=== PATIENT | male | born 1950 | race Caucasian/White ===

== ENCOUNTER 2021-04-19 07:54 | Inpatient (IN) | payer MEDICARE, MEDICAID, SELFPAY ==
[2021-04-19] VITALS (13 sets, daily range): BP systolic 134–178; BP diastolic 77–123; PULSE 78–107; RESP 16–20; TEMP 35.3–36.7; O2SAT 94–98; BMI 24.4
--- NOTE | 2021-04-19 | ECG_ITS ---
Test Reason : PRE OP Blood Pressure : / mmHG Vent. Rate : 082 BPM Atrial Rate : 082 BPM P-R Int : 142 ms QRS Dur : 088 ms QT Int : 396 ms P-R-T Axes : 044 047 048 degrees QTc Int : 462 ms Sinus rhythm with occasional Premature ventricular complexes Possible Left ventricular hypertrophy Abnormal ECG When compared with ECG of 27-AUG-2010 12:13, Premature ventricular complexes are now Present Referred By: Jemma Keller Electronically Signed By:EVELINE PACE MD
--- NOTE | ~2021-04-19 | CT_ITS ---
EXAMINATION: CT ABDOMEN AND PELVIS WITH CONTRAST CLINICAL INFORMATION: Left inguinal hernia incarceration. Abdominal pain. COMPARISON: CT abdomen and pelvis 11/29/2018 TECHNIQUE: Multidetector volumetric images were obtained from the superior aspect of the liver through the pubic symphysis following administration 85 mL of Omnipaque 350 intravenous contrast. Sagittal and coronal reformatted images were obtained on the technologist's workstation. Oral contrast: Yes This CT examination was performed using dose optimization techniques as appropriate, variously including the following: *Automated exposure control *Adjustment of mA and/or kV according to patient size (this includes techniques or standardized protocols for targeted exams where dose is matched to indication/reason for exam; i.e. extremities or head) *Use of iterative reconstruction technique DLP: 790 mGy-cm FINDINGS: LUNG BASES: The lung bases are clear. However there is 2 mm subpleural nodules in both lower lobes on axial image 3/3. The heart size is normal. LIVER, GALLBLADDER, AND BILIARY TREE: The liver is normal in size, shape, and diffusely hypoattenuated. There is a subtle hypodensity along the the ligament likely focal fatty sparing. No additional lesions visualized. There is no intrahepatic ductal dilatation. The gallbladder is unremarkable with no evidence of radiopaque gallstones, gallbladder wall thickening, or obvious pericholecystic inflammatory changes. PANCREAS: Unremarkable. SPLEEN: Unremarkable. ADRENAL GLANDS: Unremarkable. KIDNEYS AND URETERS: The kidneys are normal in size, shape, and attenuation. No hydronephrosis, hydroureter, or calculi seen. No perinephric stranding. BLADDER: Unremarkable. GASTROINTESTINAL TRACT: There is a dilated entire colon with air-fluid levels consistent with dynamic obstruction secondary to a incarcerated left inguinal hernia containing sigmoid colon which extends into the mid to distal left inguinal canal. There is mild fat stranding along the left proximal inguinal ring. The small bowel loops are opacified with oral contrast and are normal caliber. Appendix is not visualized with certainty. ABDOMINAL WALL: There is a small umbilical hernia containing fat. LYMPH NODES: Normal. VASCULAR: Unremarkable. PELVIC VISCERA: The prostate gland is significantly enlarged indenting and extending into the base of bladder. Heterogeneous enhancement is seen in the central gland. There is no free fluid or free air seen. OSSEOUS STRUCTURES: There are degenerative disc changes L5-S1 disc level with moderate ventral spondylosis L2-L3 through L5-S1 disc levels. No lytic or sclerotic process seen. CT/CT abdomen pelvis w con IMPRESSION: Incarcerated left inguinal hernia containing descending and sigmoid colon resulting in dynamic colonic obstruction. There is mild fat stranding along the proximal left inguinal canal. Moderate prostate enlargement with heterogeneous enhancement in the central gland extending into the base of bladder. Diffuse hepatic steatosis without focal lesion.
--- NOTE | 2021-04-19 08:21 | ED.ABDPAIN ---
HPI - Abdominal Pain General Chief Complaint: Abdominal Pain Stated Complaint: hernia for 2 years SEVERE pain Time Seen by Provider: 04/19/21 08:20 Source: patient, EMS and infection control specialist Mode of arrival: EMS Limitations: no limitations History of Present Illness HPI narrative: 70 years old male came in for evaluation of abdominal pain. Abdominal pain started about 4 days ago, pain is constant, described as dull aching pain, localized to the left lower inguinal area, pain described as severe 10/10, patient been having small bowel movements, passing gas, pain is associated with nausea and vomiting, patient had a history of inguinal hernia with history of repair and recurrence. Patient declined fever or chills. Related Data Allergies Allergy/AdvReac Type Severity Reaction Status Date / Time No Known Drug Allergies Allergy Unknown NONE Unverified 02/07/20 17:26 [NO KNOWN DRUG ALLERGIES] Review of Systems Review of Systems All other systems are reviewed and are negative Constitutional: Reports as per HPI and Reports no additional constitutional complaints Eyes: Reports as per HPI and Reports no additional eye complaints Reports system reviewed and no additional complaints, except as documented Cardiovascular: Reports as per HPI and Reports no additional cardiovascular complaints Respiratory: Reports as per HPI and Reports no additional respiratory complaints Gastrointestinal: Reports as per HPI and Reports no additional gastrointestinal complaints Genitourinary: Reports no additional female genitourinary complaints Musculoskeletal: Reports no additional musculoskeletal complaints Skin/Breast: Reports system reviewed and no additional complaints, except as docu Psychiatric: Reports no additional psychiatric complaints Endocrine: Reports no additional endocrine complaints Hematologic/Lymphatic: Reports no additional hematologic/lymphatic complaints Allergic/Immunologic: Reports no additional allergic/immunologic complaints Reports system reviewed and no additional complaints, except as documented and Reports Abnormal speech present Physical Exam Vital Signs: Vital Signs: Last Vital Signs Temp 98.1 F 04/19/21 12:32 Pulse 88 04/19/21 12:32 Resp 20 04/19/21 12:32 BP 158/101 H 04/19/21 12:32 Pulse Ox 95 04/19/21 12:32 Body Mass Index 24.4 Vital signs have been reviewed as appeared to be correct. Blood pressure normal. Heart rate normal. Respiration rate normal. Temperature normal. Oxygen saturation normal. Appearance: Alert. Oriented X3. No acute distress. Head: Normal external exam. Normocephalic. Atraumatic. No Doyle signs noted. No raccoon eyes noted Eyes: PERRLA. EOMI. Conjunctiva and sclera normal. Eyelids normal. ENT: TM's Normal. Pharynx normal. Uvula midline. Moist mucous membranes. No trismus noted. No drooling noted. No muffled voice noted. Neck: Normal inspection. Neck supple. FROM. No adenopathy. Thyroid Normal. No meningeal signs. No neck mass noted. CVS: Normal heart rate and rhythm. Heart sound normal. No murmurs noted. Pulses normal throughout. Respiratory: No respiratory distress. Painless inspiration. Breath sounds normal. No wheezes/rales/rhonchi noted. Chest nontender. No accessory muscle usage noted or decreased air movement noted. Abdomen: Soft, with mild tenderness over left inguinal hernia, no rebound tenderness, no guarding, 3 x 3 cm area of left inguinal protruding hernia, none reducible, skin over it is normal no redness or hotness. Bowel sounds normal in all 4 quadrants. No distention noted. No organomegaly noted. No visible injury noted. Back: No CVA tenderness. Full range of motion noted. Skin: Skin warm and dry. Normal skin color. Normal skin turgor. No rashes/lesions/lacerations noted. Extremities: No lower extremity edema. Extremities exhibit normal range of motion. Extremities nontender. Neuro: Oriented X 3. Cranial nerve exam: II-XII are grossly intact No motor deficit. No sensory deficit. Reflexes normal. Course Course Course Narrative: Assessment and plan. 70-year-old male came in for evaluation of left inguinal hernia pain, physical exam hernia is not reducible and incarcerated, with no sign of skin cellulitis a pelvic, patient met criteria for SIRS patient received IV fluids/antibiotic. The case discussed with Dr. Fair who is in the OR for another case. (case discussed with Dr. Fair at 13:10) MDM - Abdominal Pain Medical Records Attestation: I reviewed the patient's medical records. Lab Data Attestation: I reviewed the patient's lab results. Result diagrams: 04/19/21 10:04 04/19/21 10:04 Labs: Lab Results 04/19/21 04/19/21 04/19/21 Range/Units 10:04 10:04 10:04 WBC 12.1 H (4.8-10.8) X10*3/uL RBC 4.89 (4.60-5.80) X10*6/uL Hgb 15.1 (14.0-18.0) g/dl Hct 46.6 (42.0-52.0) % MCV 95.3 (80.0-98.0) fL MCH 30.9 (27.0-33.0) pg MCHC 32.4 (31.0-36.0) g/dl RDW 12.4 (11.0-16.0) % Plt Count 254 (160-400) X10*3/uL MPV 9.2 L (9.4-12.4) fL Immature Gran % (Auto) 0.2 (0.0-0.4) % Neut % (Auto) 85.9 H (45-73) % Lymph % (Auto) 10.3 L (20-40) % [place] % (Auto) 3.5 (2-11) % Eos % (Auto) 0.0 (0-4) % Baso % (Auto) 0.1 (0-2) % Lymph # (Auto) 1.3 (1.2-4.9) X10*3/uL [place] # (Auto) 0.4 (0.1-1.2) X10*3/uL Eos # (Auto) 0.0 (0.0-0.4) X10*3/uL Baso # (Auto) 0.0 (0.0-0.2) X10*3/uL Abs Immat Gran (auto) 0.03 (0.00-0.03) X10*3/uL Absolute Neuts (auto) 10.4 H (2.0-8.3) x10*3/uL Absolute Nucleated RBC 0.000 (0.0-0.012) X10*3/uL Nucleated RBC % (auto) 0.0 (0.0-0.2) /100WBC Sodium 140 (135-145) mmol/L Potassium 4.3 (3.3-5.1) mmol/L Chloride 103 (96-108) mmol/L Carbon Dioxide 26 (22-29) mmol/L Anion Gap 15 (12-20) BUN 15 (9-16) mg/dL Creatinine 0.97 (0.5-1.4) mg/dL Estim Creat Clear Calc 82.3 Estimated GFR > 60 Random Glucose 124 H (60-115) mg/dL Lactic Acid 2.3 H* (0.5-2.0) mmol/L Lactic Acid Fup @ 2Hr (0.5-2.0) mmol/L Calcium 9.7 (8.4-10.2) mg/dL Total Bilirubin 1.3 H (0.0-1.0) mg/dL Direct Bilirubin 0.5 (0.0-0.5) mg/dL AST 25 (5-37) U/L ALT 35 (0-40) U/L Alkaline Phosphatase 102 (39-117) U/L Total Protein 8.6 H (6.5-8.0) g/dL Albumin 4.9 (3.5-5.0) g/dL Lipase 20 (8-78) U/L Urine Color Urine Appearance Urine pH (5.0-8.0) Ur Specific [place] (1.005-1.025) Urine Protein (NEG-TRACE) MG/DL Urine Glucose (UA) (NEG) MG/DL Urine Ketones (NEG) MG/DL Urine Blood (NEG) Urine Nitrite (NEG) Ur Leukocyte Esterase (NEG) 04/19/21 04/19/21 Range/Units 12:30 12:30 WBC (4.8-10.8) X10*3/uL RBC (4.60-5.80) X10*6/uL Hgb (14.0-18.0) g/dl Hct (42.0-52.0) % MCV (80.0-98.0) fL MCH (27.0-33.0) pg MCHC (31.0-36.0) g/dl RDW (11.0-16.0) % Plt Count (160-400) X10*3/uL MPV (9.4-12.4) fL Immature Gran % (Auto) (0.0-0.4) % Neut % (Auto) (45-73) % Lymph % (Auto) (20-40) % [place] % (Auto) (2-11) % Eos % (Auto) (0-4) % Baso % (Auto) (0-2) % Lymph # (Auto) (1.2-4.9) X10*3/uL [place] # (Auto) (0.1-1.2) X10*3/uL Eos # (Auto) (0.0-0.4) X10*3/uL Baso # (Auto) (0.0-0.2) X10*3/uL Abs Immat Gran (auto) (0.00-0.03) X10*3/uL Absolute Neuts (auto) (2.0-8.3) x10*3/uL Absolute Nucleated RBC (0.0-0.012) X10*3/uL Nucleated RBC % (auto) (0.0-0.2) /100WBC Sodium (135-145) mmol/L Potassium (3.3-5.1) mmol/L Chloride (96-108) mmol/L Carbon Dioxide (22-29) mmol/L Anion Gap (12-20) BUN (9-16) mg/dL Creatinine (0.5-1.4) mg/dL Estim Creat Clear Calc Estimated GFR Random Glucose (60-115) mg/dL Lactic Acid (0.5-2.0) mmol/L Lactic Acid Fup @ 2Hr 1.7 (0.5-2.0) mmol/L Calcium (8.4-10.2) mg/dL Total Bilirubin (0.0-1.0) mg/dL Direct Bilirubin (0.0-0.5) mg/dL AST (5-37) U/L ALT (0-40) U/L Alkaline Phosphatase (39-117) U/L Total Protein (6.5-8.0) g/dL Albumin (3.5-5.0) g/dL Lipase (8-78) U/L Urine Color YELLOW Urine Appearance HAZY Urine pH 6.0 (5.0-8.0) Ur Specific [place] 1.015 (1.005-1.025) Urine Protein NEG (NEG-TRACE) MG/DL Urine Glucose (UA) NEG (NEG) MG/DL Urine Ketones 5 (NEG) MG/DL Urine Blood NEG (NEG) Urine Nitrite NEG (NEG) Ur Leukocyte Esterase NEG (NEG) Imaging Data CT scan - abdomen: Radiologist's impression: Incarcerated left inguinal hernia containing descending and sigmoid colon resulting in dynamic colonic obstruction. There is mild fat stranding along the proximal left inguinal canal. ? Moderate prostate enlargement with heterogeneous enhancement in the central gland extending into the base of bladder. ? Diffuse hepatic steatosis without focal lesion.? ? Discharge Plan Discharge Clinical Impression: Incarcerated inguinal hernia Patient Disposition: Admitted As Inpatient [facility] Past Medical History Medical History Anxiety Asthma Depression Hernia Social History Social History Patient Tobacco Use Status: Never used Tobacco Use of substances other than those prescribed or required for medical reasons: No Advance Directives: No Advance Directives Information Provided: No
[2021-04-19 10:11] LABS: MANUAL DIFF FLAG NO
[2021-04-19 10:12] LABS: Basophils Percent Auto 0.1 % (0-2); Hematocrit 46.6 % (42.0-52.0); Hemoglobin 15.1 g/dl (14.0-18.0); Imm Gran Abs Auto 0.03 X10*3/uL (0.00-0.03); Imm Gran Pct Auto 0.2 % (0.0-0.4); Lymphocytes Absolute Auto 1.3 X10*3/uL (1.2-4.9); Lymphocytes Percent Auto 10.3 % (20-40); Mean Corpuscular HGB Conc 32.4 g/dl (31.0-36.0); Mean Corpuscular Hemoglobin 30.9 pg (27.0-33.0); Mean Corpuscular Volume 95.3 fL (80.0-98.0); Mean Platelet Volume 9.2 fL (9.4-12.4); Monocytes Absolute Auto 0.4 X10*3/uL (0.1-1.2); Monocytes Percent Auto 3.5 % (2-11); Neutrophils Absolute Auto 10.4 x10*3/uL (2.0-8.3); Neutrophils Percent Auto 85.9 % (45-73); Platelet Count 254 X10*3/uL (160-400); Red Blood Count 4.89 X10*6/uL (4.60-5.80); Red Cell Distribution Width 12.4 % (11.0-16.0); White Blood Count 12.1 X10*3/uL (4.8-10.8)
[2021-04-19] MEDS: ondansetron HCL 4 MG/2 ML VIAL IVPUSH ×3 (10:18→21:34)
[2021-04-19] MEDS: Morphine Sulfate 2 MG/ML CARTRIDGE 1 MG IVPUSH ×2 (10:18→10:20)
[2021-04-19] MEDS: 0.9 % Sodium Chloride 1,000 ML 999 ML IVCONT (10:18)
[2021-04-19 10:34] LABS: Alanine Aminotransferase 35 U/L (0-40); Albumin Level 4.9 g/dL (3.5-5.0); Alkaline Phosphatase 102 U/L (39-117); Anion Gap 15 (12-20); Aspartate Amino Transferase 25 U/L (5-37); Bilirubin Direct 0.5 mg/dL (0.0-0.5); Bilirubin Total 1.3 mg/dL (0.0-1.0); Blood Urea Nitrogen 15 mg/dL (9-16); Calcium 9.7 mg/dL (8.4-10.2); Carbon Dioxide 26 mmol/L (22-29); Chloride 103 mmol/L (96-108); Creatinine Clr Calc Pharmacy 82.3; Estimated Glomerular Filt Rate > 60; Glucose Random 124 mg/dL (60-115); Lipase 20 U/L (8-78); Potassium 4.3 mmol/L (3.3-5.1); Sodium 140 mmol/L (135-145); Total Protein 8.6 g/dL (6.5-8.0)
[2021-04-19 10:38] LABS: Lactic Acid 2.3 mmol/L (0.5-2.0)
[2021-04-19] MEDS: Piperacillin Sodium/Tazobactam 3.375 GM in 0.9 % Sodium Chloride 50 ML IV (11:37)
[2021-04-19] MEDS: iohexoL 350 MG/ML 100 ML INFUS..BTL IV (11:41)
[2021-04-19] MEDS: Barium Sulfate Oral (Mocha) 450 ML ORAL.SUSP PO (11:42)
--- NOTE | 2021-04-19 11:53 | PC.NURSE ---
bp 178/108 MD TOVAR MADE AWARE
[2021-04-19 12:11] LABS: Reflex Lactate? Lactic Acid Added
[2021-04-19 12:42] LABS: Appearance Urine HAZY; Color Urine YELLOW; Glucose Urine UA NEG (NEG); Leukocyte Esterase Urine NEG (NEG); Nitrite Urine NEG (NEG); Specific Gravity - Urine 1.015 (1.005-1.025); Urine Blood NEG (NEG); Urine Ketones 5 MG/DL (NEG); Urine Protein NEG (NEG-TRACE)
[2021-04-19 12:52] LABS: ~Lactic Acid-LAB USE ONLY 1.7 mmol/L (0.5-2.0)
[2021-04-19] MEDS: HYDROmorphone HCl 1 MG/ML SYRINGE IVPUSH ×2 (13:08→21:41)
--- NOTE | 2021-04-19 15:01 | PHA.MEDREC ---
Pharmacy Consult ? Medication Reconciliation Pharmacy has completed the medication reconciliation. Kitty RiveraD
--- NOTE | 2021-04-19 15:04 | HO.ANESPROP2 ---
HPI - Anesthesia Eval Consult details Narrative: Incarscerated left inguinal hernia PMFSH Active Problems Active Problems: All Active Problems (Updated 04/19/21 @ 14:42 by Jemma Keller MD) Incarcerated inguinal hernia (Acute) Past Medical History Medical History Anxiety Asthma Depression Hernia Functional capacity: independent ambulation Family History Family history of problems with anesthesia: No Surgical History History of Problems with Anesthesia: No Social History Social History Patient Tobacco Use Status: Never used Tobacco Use of substances other than those prescribed or required for medical reasons: No Advance Directives: No Advance Directives Information Provided: No Meds Allergies Allergy/AdvReac Type Severity Reaction Status Date / Time No Known Drug Allergies Allergy Unknown NONE Unverified 02/07/20 17:26 [NO KNOWN DRUG ALLERGIES] Active Medications: Current Medications Pharmacy Consult (Consult Rx Perform Med Rec) 1 each MISCELLANE ONCE PRN PRN Reason: Consult order Home Medications Medication Instructions Recorded Confirmed Last Taken Type albuterol sulfate 90 mcg/actuation 2 puff INHALATION Q6H PRN 04/19/21 04/19/21 Unknown History aerosol inhaler (Ventolin HFA) alprazolam 2 mg tablet 1 tab PO BID PRN 04/19/21 04/19/21 04/19/21 History ascorbic acid (vitamin C) 500 mg 500 mg PO BID 04/19/21 04/19/21 04/19/21 History tablet (Vitamin C) cholecalciferol (vitamin D3) 10 10 mcg PO DAILY 04/19/21 04/19/21 04/19/21 History mcg (400 unit) tablet (Vitamin D3) doxepin 100 mg capsule 200 mg PO BEDTIME 04/19/21 04/19/21 04/18/21 History morphine 60 mg tablet,extended 1 tab PO BID 04/19/21 04/19/21 04/19/21 History release trazodone 50 mg tablet 1 tab PO BEDTIME 04/19/21 04/19/21 04/18/21 History Exam Exam Date and Time: April 19, 2021 1504 Height,Weight and Vital Signs: Height 6 ft 1 in Weight 83.915 kg Last Vital Signs Temp 98.1 F 04/19/21 12:32 Pulse 88 04/19/21 12:32 Resp 20 04/19/21 12:32 BP 158/101 H 04/19/21 12:32 Pulse Ox 95 04/19/21 12:32 Pertinent Lab Results Pertinent Lab Results: Laboratory Tests 04/19/21 04/19/21 04/19/21 10:04 10:04 10:04 WBC 12.1 H RBC 4.89 Hgb 15.1 Hct 46.6 MCV 95.3 MCH 30.9 MCHC 32.4 RDW 12.4 Plt Count 254 MPV 9.2 L Immature Gran % (Auto) 0.2 Neut % (Auto) 85.9 H Lymph % (Auto) 10.3 L [place] % (Auto) 3.5 Eos % (Auto) 0.0 Baso % (Auto) 0.1 Lymph # (Auto) 1.3 [place] # (Auto) 0.4 Eos # (Auto) 0.0 Baso # (Auto) 0.0 Abs Immat Gran (auto) 0.03 Absolute Neuts (auto) 10.4 H Absolute Nucleated RBC 0.000 Nucleated RBC % (auto) 0.0 Sodium 140 Potassium 4.3 Chloride 103 Carbon Dioxide 26 Anion Gap 15 BUN 15 Creatinine 0.97 Estim Creat Clear Calc 82.3 Estimated GFR > 60 Random Glucose 124 H Lactic Acid 2.3 H* Lactic Acid Fup @ 2Hr Calcium 9.7 Total Bilirubin 1.3 H Direct Bilirubin 0.5 AST 25 ALT 35 Alkaline Phosphatase 102 Total Protein 8.6 H Albumin 4.9 Lipase 20 Urine Color Urine Appearance Urine pH Ur Specific [place] Urine Protein Urine Glucose (UA) Urine Ketones Urine Blood Urine Nitrite Ur Leukocyte Esterase 04/19/21 04/19/21 12:30 12:30 WBC RBC Hgb Hct MCV MCH MCHC RDW Plt Count MPV Immature Gran % (Auto) Neut % (Auto) Lymph % (Auto) [place] % (Auto) Eos % (Auto) Baso % (Auto) Lymph # (Auto) [place] # (Auto) Eos # (Auto) Baso # (Auto) Abs Immat Gran (auto) Absolute Neuts (auto) Absolute Nucleated RBC Nucleated RBC % (auto) Sodium Potassium Chloride Carbon Dioxide Anion Gap BUN Creatinine Estim Creat Clear Calc Estimated GFR Random Glucose Lactic Acid Lactic Acid Fup @ 2Hr 1.7 Calcium Total Bilirubin Direct Bilirubin AST ALT Alkaline Phosphatase Total Protein Albumin Lipase Urine Color YELLOW Urine Appearance HAZY Urine pH 6.0 Ur Specific [place] 1.015 Urine Protein NEG Urine Glucose (UA) NEG Urine Ketones 5 Urine Blood NEG Urine Nitrite NEG Ur Leukocyte Esterase NEG Airway Mallampati Class: II TM Dist: >3cm Neck ROM: Full Loose/Missing/Broken Teeth: Yes (Only a few teeth present, all are stable) Heart: RRR Lungs: CTA Assessment and Plan Assessment Anesthesia Assessment: Anesthesia Plan Discussed and Chart Reviewed Final Anesthetic Review Family History of Problems with Anesthesia: No History of Problems with Anesthesia: No NPO: Yes ASA Class: II and Emergency Final Preanesthetic Review: No Changes in Pt Med Stat, Meds/Allgs Chart Reviewed, Consent Obtained/Reviewed and Anes Risks/Benef Reviewed Patient Risk: Intermediate Procedure Risk: Intermediate Anesthetic Plan Anesthetic Plan: GA Disposition: Standard PACU
--- NOTE | 2021-04-19 15:05 | PC.NURSE ---
surgery down to see pt
--- NOTE | 2021-04-19 15:17 | PC.NURSE ---
pt sleeping at this time
[2021-04-19 15:30] LABS: COVID-19 Test Negative (Negative)
[2021-04-19] MEDS: 0.9 % Sodium Chloride Flush 3 ML SYRINGE IVFLUSH (15:33)
[2021-04-19] MEDS: Dextrose 5 % and 0.9 % NaCl 1,000 ML 100 ML IVCONT (21:34)
[2021-04-20] VITALS (7 sets, daily range): BP systolic 115–145; BP diastolic 68–80; PULSE 72–92; RESP 15–18; TEMP 36.3–37.2; O2SAT 94–98
[2021-04-20] MEDS: HYDROmorphone HCl 1 MG/ML SYRINGE IVPUSH (03:56)
[2021-04-20 04:38] LABS: MANUAL DIFF FLAG NO
[2021-04-20 04:41] LABS: Basophils Percent Auto 0.1 % (0-2); Hematocrit 38.2 % (42.0-52.0); Hemoglobin 12.1 g/dl (14.0-18.0); Imm Gran Abs Auto 0.06 X10*3/uL (0.00-0.03); Imm Gran Pct Auto 0.4 % (0.0-0.4); Lymphocytes Absolute Auto 1.6 X10*3/uL (1.2-4.9); Lymphocytes Percent Auto 10.4 % (20-40); Mean Corpuscular HGB Conc 31.7 g/dl (31.0-36.0); Mean Corpuscular Hemoglobin 30.3 pg (27.0-33.0); Mean Corpuscular Volume 95.7 fL (80.0-98.0); Mean Platelet Volume 9.5 fL (9.4-12.4); Monocytes Absolute Auto 1.5 X10*3/uL (0.1-1.2); Neutrophils Absolute Auto 11.8 x10*3/uL (2.0-8.3); Neutrophils Percent Auto 79.1 % (45-73); Platelet Count 214 X10*3/uL (160-400); Red Blood Count 3.99 X10*6/uL (4.60-5.80); Red Cell Distribution Width 12.7 % (11.0-16.0); White Blood Count 14.9 X10*3/uL (4.8-10.8)
[2021-04-20 04:59] LABS: Anion Gap 14 (12-20); Blood Urea Nitrogen 14 mg/dL (9-16); Calcium 8.2 mg/dL (8.4-10.2); Carbon Dioxide 21 mmol/L (22-29); Chloride 108 mmol/L (96-108); Creatinine Clr Calc Pharmacy 98.6; Estimated Glomerular Filt Rate > 60; Glucose Random 143 mg/dL (60-115); Potassium 3.6 mmol/L (3.3-5.1); Sodium 139 mmol/L (135-145)
[2021-04-20] MEDS: Pantoprazole Sodium 40 MG/10 ML VIAL IVPUSH (05:44)
--- NOTE | 2021-04-20 08:34 | P.PNGS_ITS ---
Subjective Subjective Date of Service: 04/20/21 Interval history: Underwent repair of incarcerated left inguinal hernia last night Says he feels better Admits to incisional pain Passing flatus Physical Exam Vital Signs: Vital Signs: Last Vital Signs Temp 97.3 F 04/20/21 06:59 Pulse 72 04/20/21 06:59 Resp 17 04/20/21 06:59 BP 140/78 H 04/20/21 06:59 Pulse Ox 98 04/20/21 06:59 Body Mass Index 24.4 Const: General: comfortable and no acute distress Resp: Effort & Inspection: normal respiratory effort Cardio: Rate: regular rate GI: Other: Dressings dry, no cellulitis, incision clean Palpation (GI): Soft to palpation, not firm, no guarding and not rigid Objective Data Active Medications Albuterol Sulfate (Albuterol Sulfate 90 Mcg 8 Gm Inhaler) 2 puff INHALE Q6H PRN PRN Reason: Shortness Of Breath Albuterol Sulfate (Albuterol Sulfate (0.083%) 2.5 Mg/3 Ml Vial.Neb) 2.5 mg INHALE ONCE PRN PRN Reason: Wheezing Alprazolam (Alprazolam 0.5 Mg Tablet) 2 mg PO BID PRN PRN Reason: Anxiety Ascorbic Acid (Ascorbic Acid 500 Mg Tablet) 500 mg PO BID [facility] Last Admin: 04/19/21 21:39 Dose: Not Given Documented by: BELEM Non-Admin Reason: Patient Refused Doxepin HCl (Doxepin Hcl 25 Mg Capsule) 200 mg PO BEDTIME [facility] Last Admin: 04/19/21 21:39 Dose: Not Given Documented by: BELEM Non-Admin Reason: Patient Refused Fentanyl (Fentanyl Citrate/Pf 100 Mcg/2 Ml Vial) 50 mcg IVPUSH Q5M PRN; Protocol PRN Reason: Pain, Severe (Pain Scale 7-10) Hydromorphone HCl (Hydromorphone Hcl 0.5 Mg/0.5 Ml Syringe) 0.5 mg IVPUSH Q5M PRN; Protocol PRN Reason: Pain, Severe (Pain Scale 7-10) Hydromorphone HCl (Hydromorphone Hcl 1 Mg/Ml Syringe) 1 mg IVPUSH Q4H PRN; Protocol PRN Reason: Pain, Severe (Pain Scale 7-10) Last Admin: 04/20/21 03:56 Dose: 1 mg Documented by: CARYN Promethazine HCl 12.5 mg/ (Sodium Chloride) 50.5 mls @ 202 mls/hr IV ONCE PRN PRN Reason: Nausea and Vomiting Last Infusion: 04/19/21 21:29 Dose: 0 mls/hr Documented by: BELEM Dextrose/Sodium Chloride (D5ns) 1,000 mls @ 100 mls/hr IVCONT .Q10H [facility] Last Admin: 04/20/21 06:48 Dose: Not Given Documented by: CARYN Non-Admin Reason: IV Running Morphine Sulfate (Morphine Sulfate Er 30 Mg Tablet.Er) 60 mg PO BID [facility] Last Admin: 04/19/21 21:39 Dose: Not Given Documented by: BELEM Non-Admin Reason: Patient Refused Ondansetron HCl (Ondansetron Hcl 4 Mg/2 Ml Vial) 4 mg IVPUSH ONCE PRN PRN Reason: Nausea and Vomiting Ondansetron HCl (Ondansetron Hcl 4 Mg/2 Ml Vial) 4 mg IVPUSH Q6H PRN PRN Reason: Nausea Last Admin: 04/19/21 21:34 Dose: 4 mg Documented by: BELEM Oxycodone HCl (Oxycodone Hcl Immed Release 5 Mg Tablet) 10 mg PO ONCE PRN PRN Reason: Pain, Severe (Pain Scale 7-10) Pantoprazole Sodium (Pantoprazole Sodium 40 Mg/10 Ml Vial) 40 mg IVPUSH DAILY@0630 [facility] Last Admin: 04/20/21 05:44 Dose: 40 mg Documented by: CARYN Pharmacy Consult (Consult Rx Perform Med Rec) 1 each MISCELLANE ONCE PRN PRN Reason: Consult order Sodium Chloride (0.9 % Sodium Chloride Flush 3 Ml Syringe) [facility] Last Admin: 04/20/21 01:14 Dose: Not Given Documented by: CARYN Non-Admin Reason: IV Running Sodium Chloride (0.9 % Sodium Chloride Flush 3 Ml Syringe) 3 ml IVFLUSH QSIAFT [facility] Last Admin: 04/20/21 01:14 Dose: Not Given Documented by: CARYN Non-Admin Reason: IV Running Trazodone HCl (Trazodone Hcl 50 Mg Tablet) 50 mg PO BEDTIME [facility] Last Admin: 04/19/21 21:39 Dose: Not Given Documented by: BELEM Non-Admin Reason: Patient Refused Vitamin D (Cholecalciferol (Vitamin D3) 10 Mcg Tablet) 10 mcg PO DAILY [facility] Labs CBC & Chem 7: 04/20/21 04:16 04/20/21 04:16 Labs: Laboratory Results - last 24 hr 04/19/21 04/19/21 04/19/21 10:04 10:04 10:04 MCV 95.3 MCH 30.9 MCHC 32.4 RDW 12.4 Plt Count 254 MPV 9.2 L Immature Gran % (Auto) 0.2 Neut % (Auto) 85.9 H Lymph % (Auto) 10.3 L [place] % (Auto) 3.5 Eos % (Auto) 0.0 Baso % (Auto) 0.1 Lymph # (Auto) 1.3 [place] # (Auto) 0.4 Eos # (Auto) 0.0 Baso # (Auto) 0.0 Abs Immat Gran (auto) 0.03 Absolute Neuts (auto) 10.4 H Absolute Nucleated RBC 0.000 Nucleated RBC % (auto) 0.0 Anion Gap 15 Estim Creat Clear Calc 82.3 Estimated GFR > 60 Random Glucose 124 H Lactic Acid 2.3 H* Lactic Acid Fup @ 2Hr Calcium 9.7 Total Bilirubin 1.3 H Direct Bilirubin 0.5 AST 25 ALT 35 Alkaline Phosphatase 102 Total Protein 8.6 H Albumin 4.9 Lipase 20 Urine Color Urine Appearance Urine pH Ur Specific [place] Urine Protein Urine Glucose (UA) Urine Ketones Urine Blood Urine Nitrite Ur Leukocyte Esterase COVID-19 ([facility]) COVID-19 Clin Com 04/19/21 04/19/21 04/19/21 12:30 12:30 15:10 MCV MCH MCHC RDW Plt Count MPV Immature Gran % (Auto) Neut % (Auto) Lymph % (Auto) [place] % (Auto) Eos % (Auto) Baso % (Auto) Lymph # (Auto) [place] # (Auto) Eos # (Auto) Baso # (Auto) Abs Immat Gran (auto) Absolute Neuts (auto) Absolute Nucleated RBC Nucleated RBC % (auto) Anion Gap Estim Creat Clear Calc Estimated GFR Random Glucose Lactic Acid Lactic Acid Fup @ 2Hr 1.7 Calcium Total Bilirubin Direct Bilirubin AST ALT Alkaline Phosphatase Total Protein Albumin Lipase Urine Color YELLOW Urine Appearance HAZY Urine pH 6.0 Ur Specific [place] 1.015 Urine Protein NEG Urine Glucose (UA) NEG Urine Ketones 5 Urine Blood NEG Urine Nitrite NEG Ur Leukocyte Esterase NEG COVID-19 ([facility]) Negative COVID-19 Clin Com See Note 04/20/21 04/20/21 04:16 04:16 MCV 95.7 MCH 30.3 MCHC 31.7 RDW 12.7 Plt Count 214 MPV 9.5 Immature Gran % (Auto) 0.4 Neut % (Auto) 79.1 H Lymph % (Auto) 10.4 L [place] % (Auto) 10.0 Eos % (Auto) 0.0 Baso % (Auto) 0.1 Lymph # (Auto) 1.6 [place] # (Auto) 1.5 H Eos # (Auto) 0.0 Baso # (Auto) 0.0 Abs Immat Gran (auto) 0.06 H Absolute Neuts (auto) 11.8 H Absolute Nucleated RBC 0.000 Nucleated RBC % (auto) 0.0 Anion Gap 14 Estim Creat Clear Calc 98.6 Estimated GFR > 60 Random Glucose 143 H Lactic Acid Lactic Acid Fup @ 2Hr Calcium 8.2 L D Total Bilirubin Direct Bilirubin AST ALT Alkaline Phosphatase Total Protein Albumin Lipase Urine Color Urine Appearance Urine pH Ur Specific [place] Urine Protein Urine Glucose (UA) Urine Ketones Urine Blood Urine Nitrite Ur Leukocyte Esterase COVID-19 ([facility]) COVID-19 Clin Com Procedures Date of Service Date of Service: 04/20/21 Progress Note: A&P Assessment and plan (1) Incarcerated inguinal hernia: Status: Acute Assessment and Plan: Status post repair Looks well Abdomen soft and benign NG tube in place - possibly DC later on today she is passing flatus Will review operative notes by Dr. Fair when available Fall Risk Details Current Medications: Current Medications Albuterol Sulfate (Albuterol Sulfate 90 Mcg 8 Gm Inhaler) 2 puff INHALE Q6H PRN PRN Reason: Shortness Of Breath Albuterol Sulfate (Albuterol Sulfate (0.083%) 2.5 Mg/3 Ml Vial.Neb) 2.5 mg INHALE ONCE PRN PRN Reason: Wheezing Alprazolam (Alprazolam 0.5 Mg Tablet) 2 mg PO BID PRN PRN Reason: Anxiety Ascorbic Acid (Ascorbic Acid 500 Mg Tablet) 500 mg PO BID [facility] Last Admin: 04/19/21 21:39 Dose: Not Given Documented by: Doxepin HCl (Doxepin Hcl 25 Mg Capsule) 200 mg PO BEDTIME [facility] Last Admin: 04/19/21 21:39 Dose: Not Given Documented by: Fentanyl (Fentanyl Citrate/Pf 100 Mcg/2 Ml Vial) 50 mcg IVPUSH Q5M PRN; Protocol PRN Reason: Pain, Severe (Pain Scale 7-10) Hydromorphone HCl (Hydromorphone Hcl 0.5 Mg/0.5 Ml Syringe) 0.5 mg IVPUSH Q5M PRN; Protocol PRN Reason: Pain, Severe (Pain Scale 7-10) Hydromorphone HCl (Hydromorphone Hcl 1 Mg/Ml Syringe) 1 mg IVPUSH Q4H PRN; Protocol PRN Reason: Pain, Severe (Pain Scale 7-10) Last Admin: 04/20/21 03:56 Dose: 1 mg Documented by: Promethazine HCl 12.5 mg/ (Sodium Chloride) 50.5 mls @ 202 mls/hr IV ONCE PRN PRN Reason: Nausea and Vomiting Last Infusion: 04/19/21 21:29 Dose: Infused Documented by: Dextrose/Sodium Chloride (D5ns) 1,000 mls @ 100 mls/hr IVCONT .Q10H [facility] Last Admin: 04/20/21 06:48 Dose: Not Given Documented by: Morphine Sulfate (Morphine Sulfate Er 30 Mg Tablet.Er) 60 mg PO BID [facility] Last Admin: 04/19/21 21:39 Dose: Not Given Documented by: Ondansetron HCl (Ondansetron Hcl 4 Mg/2 Ml Vial) 4 mg IVPUSH ONCE PRN PRN Reason: Nausea and Vomiting Ondansetron HCl (Ondansetron Hcl 4 Mg/2 Ml Vial) 4 mg IVPUSH Q6H PRN PRN Reason: Nausea Last Admin: 04/19/21 21:34 Dose: 4 mg Documented by: Oxycodone HCl (Oxycodone Hcl Immed Release 5 Mg Tablet) 10 mg PO ONCE PRN PRN Reason: Pain, Severe (Pain Scale 7-10) Pantoprazole Sodium (Pantoprazole Sodium 40 Mg/10 Ml Vial) 40 mg IVPUSH DAILY@0630 [facility] Last Admin: 04/20/21 05:44 Dose: 40 mg Documented by: Pharmacy Consult (Consult Rx Perform Med Rec) 1 each MISCELLANE ONCE PRN PRN Reason: Consult order Sodium Chloride (0.9 % Sodium Chloride Flush 3 Ml Syringe) [facility] Last Admin: 04/20/21 01:14 Dose: Not Given Documented by: Sodium Chloride (0.9 % Sodium Chloride Flush 3 Ml Syringe) 3 ml IVFLUSH [facility] Last Admin: 04/20/21 01:14 Dose: Not Given Documented by: Trazodone HCl (Trazodone Hcl 50 Mg Tablet) 50 mg PO BEDTIME [facility] Last Admin: 04/19/21 21:39 Dose: Not Given Documented by: Vitamin D (Cholecalciferol (Vitamin D3) 10 Mcg Tablet) 10 mcg PO DAILY [facility] Time Spent With Patient Time: Total time spent is greater than 50% in coordination of care (as documented) at patient's floor/unit and/or counseling patient: Time with patient: 15 - 24 minutes Quality Stroke Does the patient have a stroke diagnosis?: No VTE Prior VTE?: No VTE Risk Level:: Surgical - moderate VTE Device Contraindication: N/A - Device Ordered VTE Drug Contraindication: N/A - Med Ordered
[2021-04-20] MEDS: ALPRAZolam 0.5 MG TABLET 2 MG PO (08:56)
[2021-04-20] MEDS: Dextrose 5 % and 0.9 % NaCl 1,000 ML 100 ML IVCONT ×2 (08:56→20:24)
[2021-04-20] MEDS: 0.9 % Sodium Chloride Flush 3 ML SYRINGE IVFLUSH (08:56)
[2021-04-20] MEDS: ondansetron HCL 4 MG/2 ML VIAL IVPUSH (08:58)
[2021-04-20] MEDS: oxyCODONE HCl Immed Release 5 MG TABLET 10 MG PO (10:34)
--- NOTE | 2021-04-20 12:42 | MHC.CARE ---
CARE Team international trade manager met with pt, utilizing a hospital taxicab coordinator, to discuss concerns regarding increased depression and anxiety. Pt spoke about psychosocial stressors, primarily related to significant loss and difficult family dynamics. Pt reported that his mother passed in October 2020 and his brother passed two months ago. Pt has not felt able to process or grieve these losses and reported increased anxiety and panic symptoms following his mother's . Pt identified that he has positive relationships with his grandchildren and his daughter, although spoke about feeling frustrated with his daughter making decisions for him. Pt was receptive to a discussion about outpatient mental health services and would like a referral to a therapist who can visit him in-home. This grant writer also discussed increased community engagement, such as through involvement with a local senior center. Pt did not have any further requests and is agreeable to the plan for referrals. CARE Team available for further follow-up if needed and will refer pt to [facility] for therapy.
--- NOTE | 2021-04-20 15:53 | MHC.CM.PN ---
nurse keycase assembler note l medical record reviewed , met with patient and his daughter with hebrew interperter, he lives alone is active and independent with all his.adls aND MOBILITY WITHOUT ANY DEVICES , HE HAS NO VNA SERVICES NOR DME SERVICES IN THE HOME . HE HAS TRANSPORTATION FA,HEAVENLY /FRIENDS FOR MEDICAL APPOINTMENT , CONFIRMED PCP RAYO GREY EDUCATED ABOUT THE IMPORTANCE OF HEALTH CARE PROXY AND HE WILL COMPLETE ONE TOMORROW PATIENT CONFIRMED THAT HE HAD THE COVID VACCINATION PFZEIR JULY 30/2021 AND THE SECOND AUGUST 30 2020 HE VOICED HAVING ANXIETY AND FEELING DEPRESSED AND WANTED TO SPEAK WITH SOMEONE , STAFF NURSE TO PLACE CARES TEAM CONSULT HE CURRENTLY IS NOT FOLLOWED BY ANYONE IN THE COMMUNITY. S/P POST OP DAY 1 FOR SURGICAL REPAIR OF HERNIA , HAS N-G TUBE IN PLACE, DISCHARGE PLAN HOME NO SERVICES VS HOME WITH NEW REFERRAL TO THE [facility] OR OTHER VNA IF AVAILABILITY CARES TEAM TO RECOMEND [facility] COUNSELING REFERRALS TO PATIENT ' HCP TO BE COMPLETED BEFORE D/C ,MEDICARE IMM GIVEN .
--- NOTE | 2021-04-20 16:16 | PC.NURSE ---
NG tube clamped at 0900. Residual checked @ 1300 for 0. Order to remove NG and patient allowed sips of H2O and ice chips. Explained everything to patient via staff interpreter. Patient has had 2 BM's today. Denies nausea and pain.
[2021-04-20] MEDS: Ascorbic Acid 500 MG TABLET PO (20:25)
[2021-04-20] MEDS: Morphine Sulfate ER 30 MG TABLET.ER 60 MG PO (20:25)
[2021-04-20] MEDS: traZODone HCL 50 MG TABLET PO (20:26)
[2021-04-20] MEDS: Doxepin HCl 25 MG CAPSULE 200 MG PO (20:26)
[2021-04-21] MEDS: 0.9 % Sodium Chloride Flush 3 ML SYRINGE IVFLUSH ×3 (00:36→19:59)
[2021-04-21 04:02] VITALS: BP 126/62; PULSE 88; RESP 17; TEMP 36.3; O2SAT 94
[2021-04-21] MEDS: Pantoprazole Sodium 40 MG/10 ML VIAL IVPUSH (06:38)
[2021-04-21] MEDS: Dextrose 5 % and 0.9 % NaCl 1,000 ML 100 ML IVCONT ×2 (06:39→16:47)
[2021-04-21 07:15] VITALS: BP 143/75; PULSE 78; RESP 18; TEMP 36.4; O2SAT 98
[2021-04-21] MEDS: Cholecalciferol (Vitamin D3) 10 MCG TABLET PO (07:35)
[2021-04-21] MEDS: Ascorbic Acid 500 MG TABLET PO ×2 (07:35→19:56)
[2021-04-21] MEDS: HYDROmorphone HCl 1 MG/ML SYRINGE IVPUSH (07:39)
--- NOTE | 2021-04-21 09:42 | P.PNGS_ITS ---
Subjective Subjective Date of Service: 04/21/21 <Brooklynn Cavazos PA-C - Last Filed: 04/22/21 11:10> 04/21/21 <Sergei Zaragoza MD - Last Filed: 04/21/21 12:41> Interval history: NGT removed yesterday after low residual. He remains without nausea. Mild soreness at incision. Hungry. <Brooklynn Cavazos PA-C - Last Filed: 04/22/21 11:10> Physical Exam Vital Signs: Vital Signs: Last Vital Signs Temp 97.6 F 04/21/21 07:15 Pulse 78 04/21/21 07:15 Resp 18 04/21/21 07:15 BP 143/75 H 04/21/21 07:15 Pulse Ox 98 04/21/21 07:15 Body Mass Index 24.4 <Brooklynn Cavazos PA-C - Last Filed: 04/22/21 11:10> Const: General: comfortable, no acute distress and alert <Brooklynn Cavazos PA-C - Last Filed: 04/22/21 11:10> Orientation/consciousness: patient oriented x3 <Brooklynn Cavazos PA-C - Last Filed: 04/22/21 11:10> Resp: Effort & Inspection: normal respiratory effort <Brooklynn Cavazos PA-C - Last Filed: 04/22/21 11:10> GI: Inspection: No distended and Yes incision (clean) <Brooklynn Cavazos PA-C - Last Filed: 04/22/21 11:10> Palpation (GI): Soft to palpation and Tenderness to palpation present (GI) (very mild) <Brooklynn Cavazos PA-C - Last Filed: 04/22/21 11:10> Skin: General skin exam: no rashes or lesions noted <Brooklynn Cavazos PA-C - Last Filed: 04/22/21 11:10> Neuro: General: patient oriented x3 <Brooklynn Cavazos PA-C - Last Filed: 04/22/21 11:10> Extrem: General: Yes no clubbing, cyanosis or edema <Brooklynn Cavazos PA-C - Last Filed: 04/22/21 11:10> Objective Data Active Medications Albuterol Sulfate (Albuterol Sulfate 90 Mcg 8 Gm Inhaler) 2 puff INHALE Q6H PRN PRN Reason: Shortness Of Breath Albuterol Sulfate (Albuterol Sulfate (0.083%) 2.5 Mg/3 Ml Vial.Neb) 2.5 mg INHALE ONCE PRN PRN Reason: Wheezing Alprazolam (Alprazolam 0.5 Mg Tablet) 2 mg PO BID PRN PRN Reason: Anxiety Last Admin: 04/20/21 08:56 Dose: 2 mg Documented by: DAT Ascorbic Acid (Ascorbic Acid 500 Mg Tablet) 500 mg PO BID [facility] Last Admin: 04/21/21 07:35 Dose: 500 mg Documented by: CARMINA Doxepin HCl (Doxepin Hcl 25 Mg Capsule) 200 mg PO BEDTIME [facility] Last Admin: 04/20/21 20:26 Dose: 200 mg Documented by: MANDO Fentanyl (Fentanyl Citrate/Pf 100 Mcg/2 Ml Vial) 50 mcg IVPUSH Q5M PRN; Protocol PRN Reason: Pain, Severe (Pain Scale 7-10) Hydromorphone HCl (Hydromorphone Hcl 0.5 Mg/0.5 Ml Syringe) 0.5 mg IVPUSH Q5M PRN; Protocol PRN Reason: Pain, Severe (Pain Scale 7-10) Hydromorphone HCl (Hydromorphone Hcl 1 Mg/Ml Syringe) 1 mg IVPUSH Q4H PRN; Protocol PRN Reason: Pain, Severe (Pain Scale 7-10) Last Admin: 04/21/21 07:39 Dose: 1 mg Documented by: CARMINA Promethazine HCl 12.5 mg/ (Sodium Chloride) 50.5 mls @ 202 mls/hr IV ONCE PRN PRN Reason: Nausea and Vomiting Last Infusion: 04/19/21 21:29 Dose: 0 mls/hr Documented by: BELEM Dextrose/Sodium Chloride (D5ns) 1,000 mls @ 100 mls/hr IVCONT .Q10H [facility] Last Admin: 04/21/21 06:39 Dose: 100 mls/hr Documented by: CARYN Morphine Sulfate (Morphine Sulfate Er 30 Mg Tablet.Er) 60 mg PO BID [facility] Last Admin: 04/20/21 20:25 Dose: 60 mg Documented by: MANDO Ondansetron HCl (Ondansetron Hcl 4 Mg/2 Ml Vial) 4 mg IVPUSH ONCE PRN PRN Reason: Nausea and Vomiting Ondansetron HCl (Ondansetron Hcl 4 Mg/2 Ml Vial) 4 mg IVPUSH Q6H PRN PRN Reason: Nausea Last Admin: 04/20/21 08:58 Dose: 4 mg Documented by: DAT Pantoprazole Sodium (Pantoprazole Sodium 40 Mg/10 Ml Vial) 40 mg IVPUSH DAILY@0630 [facility] Last Admin: 04/21/21 06:38 Dose: 40 mg Documented by: CARYN Pharmacy Consult (Consult Rx Perform Med Rec) 1 each MISCELLANE ONCE PRN PRN Reason: Consult order Sodium Chloride (0.9 % Sodium Chloride Flush 3 Ml Syringe) 3 ml IVFLUSH [facility] Last Admin: 04/21/21 07:42 Dose: 3 ml Documented by: CARMINA Sodium Chloride (0.9 % Sodium Chloride Flush 3 Ml Syringe) 3 ml IVFLUSH [facility] Last Admin: 04/21/21 07:42 Dose: Not Given Documented by: CARMINA Non-Admin Reason: IV Running Trazodone HCl (Trazodone Hcl 50 Mg Tablet) 50 mg PO BEDTIME [facility] Last Admin: 04/20/21 20:26 Dose: 50 mg Documented by: MANDO Vitamin D (Cholecalciferol (Vitamin D3) 10 Mcg Tablet) 10 mcg PO DAILY [facility] Last Admin: 04/21/21 07:35 Dose: 10 mcg Documented by: CARMINA <Brooklynn Cavazos PA-C - Last Filed: 04/22/21 11:10> Labs CBC & Chem 7: : 04/20/21 04:16 04/20/21 04:16 <Brooklynn Cavazos PA-C - Last Filed: 04/22/21 11:10> Microbiology Microbiology Results: Microbiology 04/19/21 11:36 Blood Culture - Preliminary Blood - Venous No growth after 24 hours. 04/19/21 09:54 Blood Culture - Preliminary Blood - Venous No growth after 24 hours. <Brooklynn Cavazos PA-C - Last Filed: 04/22/21 11:10> Procedures Date of Service Date of Service: 04/21/21 <Sergei Zaragoza MD - Last Filed: 04/21/21 12:41> Progress Note: A&P Assessment and plan (1) Incarcerated inguinal hernia: Status: Acute <Brooklynn Cavazos PA-C - Last Filed: 04/22/21 11:10> Assessment and Plan: He continues to feel well Minimal pain Says he is hungry and wants to eat Slowly advance diet Encourage ambulation Clinically doing well Seen and examined - agree with AJ Cavazos <Sergei Zaragoza MD - Last Filed: 04/21/21 12:41> Assessment and Plan: 70 year old male admitted with bowel obstruction secondary to incarcerated left inguinal hernia containing colon. He is POD #2 s/p repair of incarcerated left inguinal hernia with mesh. He is doing well. NGT removed yesterday. Abd benign- soft, incisional clean. Will advance to clear liquids. Encouraged OOB. <Brooklynn Cavazos PA-C - Last Filed: 04/22/21 11:10> Fall Risk Details Current Medications: Current Medications Albuterol Sulfate (Albuterol Sulfate 90 Mcg 8 Gm Inhaler) 2 puff INHALE Q6H PRN PRN Reason: Shortness Of Breath Albuterol Sulfate (Albuterol Sulfate (0.083%) 2.5 Mg/3 Ml Vial.Neb) 2.5 mg INHALE ONCE PRN PRN Reason: Wheezing Alprazolam (Alprazolam 0.5 Mg Tablet) 2 mg PO BID PRN PRN Reason: Anxiety Last Admin: 04/20/21 08:56 Dose: 2 mg Documented by: Ascorbic Acid (Ascorbic Acid 500 Mg Tablet) 500 mg PO BID [facility] Last Admin: 04/21/21 07:35 Dose: 500 mg Documented by: Doxepin HCl (Doxepin Hcl 25 Mg Capsule) 200 mg PO BEDTIME [facility] Last Admin: 04/20/21 20:26 Dose: 200 mg Documented by: Fentanyl (Fentanyl Citrate/Pf 100 Mcg/2 Ml Vial) 50 mcg IVPUSH Q5M PRN; Protocol PRN Reason: Pain, Severe (Pain Scale 7-10) Hydromorphone HCl (Hydromorphone Hcl 0.5 Mg/0.5 Ml Syringe) 0.5 mg IVPUSH Q5M PRN; Protocol PRN Reason: Pain, Severe (Pain Scale 7-10) Hydromorphone HCl (Hydromorphone Hcl 1 Mg/Ml Syringe) 1 mg IVPUSH Q4H PRN; Protocol PRN Reason: Pain, Severe (Pain Scale 7-10) Last Admin: 04/21/21 07:39 Dose: 1 mg Documented by: Promethazine HCl 12.5 mg/ (Sodium Chloride) 50.5 mls @ 202 mls/hr IV ONCE PRN PRN Reason: Nausea and Vomiting Last Infusion: 04/19/21 21:29 Dose: Infused Documented by: Dextrose/Sodium Chloride (D5ns) 1,000 mls @ 100 mls/hr IVCONT .Q10H [facility] Last Admin: 04/21/21 06:39 Dose: 100 mls/hr Documented by: Morphine Sulfate (Morphine Sulfate Er 30 Mg Tablet.Er) 60 mg PO BID [facility] Last Admin: 04/20/21 20:25 Dose: 60 mg Documented by: Ondansetron HCl (Ondansetron Hcl 4 Mg/2 Ml Vial) 4 mg IVPUSH ONCE PRN PRN Reason: Nausea and Vomiting Ondansetron HCl (Ondansetron Hcl 4 Mg/2 Ml Vial) 4 mg IVPUSH Q6H PRN PRN Reason: Nausea Last Admin: 04/20/21 08:58 Dose: 4 mg Documented by: Pantoprazole Sodium (Pantoprazole Sodium 40 Mg/10 Ml Vial) 40 mg IVPUSH DAILY@0630 [facility] Last Admin: 04/21/21 06:38 Dose: 40 mg Documented by: Pharmacy Consult (Consult Rx Perform Med Rec) 1 each MISCELLANE ONCE PRN PRN Reason: Consult order Sodium Chloride (0.9 % Sodium Chloride Flush 3 Ml Syringe) 3 ml IVFLUSH [facility] Last Admin: 04/21/21 07:42 Dose: 3 ml Documented by: Sodium Chloride (0.9 % Sodium Chloride Flush 3 Ml Syringe) 3 ml IVFLUSH [facility] Last Admin: 04/21/21 07:42 Dose: Not Given Documented by: Trazodone HCl (Trazodone Hcl 50 Mg Tablet) 50 mg PO BEDTIME [facility] Last Admin: 04/20/21 20:26 Dose: 50 mg Documented by: Vitamin D (Cholecalciferol (Vitamin D3) 10 Mcg Tablet) 10 mcg PO DAILY [facility] Last Admin: 04/21/21 07:35 Dose: 10 mcg Documented by: <Brooklynn Cavazos PA-C - Last Filed: 04/22/21 11:10> Time Spent With Patient Time: Total time spent is greater than 50% in coordination of care (as documented) at patient's floor/unit and/or counseling patient: <Brooklynn Cavazos PA-C - Last Filed: 04/22/21 11:10> Time with patient: 15 - 24 minutes <Brooklynn Cavazos PA-C - Last Filed: 04/22/21 11:10> Quality Stroke Does the patient have a stroke diagnosis?: No <Brooklynn Cavazos PA-C - Last Filed: 04/22/21 11:10> VTE Prior VTE?: No <Brooklynn Cavazos PA-C - Last Filed: 04/22/21 11:10> VTE Risk Level:: Surgical - moderate <Brooklynn Cavazos PA-C - Last Filed: 04/22/21 11:10> VTE Device Contraindication: N/A - Device Ordered <Brooklynn Cavazos PA-C - Last Filed: 04/22/21 11:10> VTE Drug Contraindication: N/A - Med Ordered <Brooklynn Cavazos PA-C - Last Filed: 04/22/21 11:10>
[2021-04-21 11:27] VITALS: BP 119/80; PULSE 78; RESP 17; TEMP 37.3; O2SAT 95
--- NOTE | 2021-04-21 13:02 | HO.POSTANES ---
Post Anesthesia Evaluation Post Anesthesia Evaluation Vital Signs: Vital Signs Temp Pulse Resp BP Pulse Ox 04/21/21 11:27 99.1 F 78 17 119/80 95 04/21/21 07:15 97.6 F 78 18 143/75 H 98 04/21/21 04:02 97.3 F 88 17 126/62 94 Anesthesia: General Mental Status: Awake Pain Control: Satisfactory Nausea/Vomiting: None Hydration: Adequate Anesthesia-Related Issues: No Anes. Related Issues
[2021-04-21 15:32] VITALS: BP 152/79; PULSE 78; RESP 14; TEMP 36.7; O2SAT 98
[2021-04-21 19:46] VITALS: BP 143/76; PULSE 77; RESP 18; TEMP 36.7; O2SAT 93
[2021-04-21] MEDS: traZODone HCL 50 MG TABLET PO (19:56)
[2021-04-21] MEDS: Doxepin HCl 25 MG CAPSULE 200 MG PO (19:57)
[2021-04-22] VITALS: BP 153/73; PULSE 82; RESP 18; TEMP 36.3; O2SAT 93
[2021-04-22] MEDS: Dextrose 5 % and 0.9 % NaCl 1,000 ML 100 ML IVCONT (01:30)
[2021-04-22 03:22] VITALS: BP 127/75; PULSE 84; RESP 18; TEMP 36.9; O2SAT 95
[2021-04-22] MEDS: Pantoprazole Sodium 40 MG/10 ML VIAL IVPUSH (05:16)
[2021-04-22 07:08] VITALS: BP 149/83; PULSE 88; RESP 18; TEMP 36.6; O2SAT 98
[2021-04-22] MEDS: Ascorbic Acid 500 MG TABLET PO (09:00)
[2021-04-22] MEDS: 0.9 % Sodium Chloride Flush 3 ML SYRINGE IVFLUSH ×2 (09:00)
[2021-04-22] MEDS: Cholecalciferol (Vitamin D3) 10 MCG TABLET PO (09:00)
--- NOTE | 2021-04-22 11:10 | P.PNGS_ITS ---
Subjective Subjective Date of Service: 04/22/21 <Brooklynn Cavazos PA-C - Last Filed: 04/22/21 11:13> 04/22/21 <Sergei Zaragoza MD - Last Filed: 04/22/21 12:12> Interval history: Feels well. Denies any pain. Continues to pass flatus. Tolerating clear liquids and feels hungry. <Brooklynn Cavazos PA-C - Last Filed: 04/22/21 11:13> Physical Exam Vital Signs: Vital Signs: Last Vital Signs Temp 97.9 F 04/22/21 07:08 Pulse 88 04/22/21 07:08 Resp 18 04/22/21 07:08 BP 149/83 H 04/22/21 07:08 Pulse Ox 98 04/22/21 07:08 BMI result Body Mass Index 24.4 <Brooklynn Cavazos PA-C - Last Filed: 04/22/21 11:13> Const: General: comfortable, no acute distress and alert <Brooklynn Cavazos PA-C - Last Filed: 04/22/21 11:13> Orientation/consciousness: patient oriented x3 <Brooklynn Cavazos PA-C - Last Filed: 04/22/21 11:13> Resp: Effort & Inspection: normal respiratory effort <Brooklynn Cavazos PA-C - Last Filed: 04/22/21 11:13> GI: Inspection: No distended and Yes incision (clean) <Brooklynn Cavazos PA-C - Last Filed: 04/22/21 11:13> Palpation (GI): Soft to palpation, nontender, no guarding and not rigid <Brooklynn Cavazos PA-C - Last Filed: 04/22/21 11:13> Skin: General skin exam: no rashes or lesions noted <Brooklynn Cavazos PA-C - Last Filed: 04/22/21 11:13> Neuro: General: patient oriented x3 <Brooklynn Cavazos PA-C - Last Filed: 04/22/21 11:13> Extrem: General: Yes no clubbing, cyanosis or edema <Brooklynn Cavazos PA-C - Last Filed: 04/22/21 11:13> Objective Data Active Medications Albuterol Sulfate (Albuterol Sulfate 90 Mcg 8 Gm Inhaler) 2 puff INHALE Q6H PRN PRN Reason: Shortness Of Breath Albuterol Sulfate (Albuterol Sulfate (0.083%) 2.5 Mg/3 Ml Vial.Neb) 2.5 mg INHALE ONCE PRN PRN Reason: Wheezing Alprazolam (Alprazolam 0.5 Mg Tablet) 2 mg PO BID PRN PRN Reason: Anxiety Last Admin: 04/20/21 08:56 Dose: 2 mg Documented by: DAT Ascorbic Acid (Ascorbic Acid 500 Mg Tablet) 500 mg PO BID [facility] Last Admin: 04/22/21 09:00 Dose: 500 mg Documented by: DAT Doxepin HCl (Doxepin Hcl 25 Mg Capsule) 200 mg PO BEDTIME [facility] Last Admin: 04/21/21 19:57 Dose: 200 mg Documented by: JAMES Fentanyl (Fentanyl Citrate/Pf 100 Mcg/2 Ml Vial) 50 mcg IVPUSH Q5M PRN; Protocol PRN Reason: Pain, Severe (Pain Scale 7-10) Hydromorphone HCl (Hydromorphone Hcl 0.5 Mg/0.5 Ml Syringe) 0.5 mg IVPUSH Q5M PRN; Protocol PRN Reason: Pain, Severe (Pain Scale 7-10) Hydromorphone HCl (Hydromorphone Hcl 1 Mg/Ml Syringe) 1 mg IVPUSH Q4H PRN; Protocol PRN Reason: Pain, Severe (Pain Scale 7-10) Last Admin: 04/21/21 07:39 Dose: 1 mg Documented by: CARMINA Promethazine HCl 12.5 mg/ (Sodium Chloride) 50.5 mls @ 202 mls/hr IV ONCE PRN PRN Reason: Nausea and Vomiting Last Infusion: 04/19/21 21:29 Dose: 0 mls/hr Documented by: BELEM Morphine Sulfate (Morphine Sulfate Er 30 Mg Tablet.Er) 60 mg PO BID [facility] Last Admin: 04/22/21 09:00 Dose: Not Given Documented by: DAT Non-Admin Reason: Patient Refused Ondansetron HCl (Ondansetron Hcl 4 Mg/2 Ml Vial) 4 mg IVPUSH ONCE PRN PRN Reason: Nausea and Vomiting Ondansetron HCl (Ondansetron Hcl 4 Mg/2 Ml Vial) 4 mg IVPUSH Q6H PRN PRN Reason: Nausea Last Admin: 04/20/21 08:58 Dose: 4 mg Documented by: DAT Pantoprazole Sodium (Pantoprazole Sodium 40 Mg/10 Ml Vial) 40 mg IVPUSH DAILY@0630 [facility] Last Admin: 04/22/21 05:16 Dose: 40 mg Documented by: JAMES Pharmacy Consult (Consult Rx Perform Med Rec) 1 each MISCELLANE ONCE PRN PRN Reason: Consult order Sodium Chloride (0.9 % Sodium Chloride Flush 3 Ml Syringe) 3 ml IVFLUSH [facility] Last Admin: 04/22/21 09:00 Dose: 3 ml Documented by: DAT Sodium Chloride (0.9 % Sodium Chloride Flush 3 Ml Syringe) 3 ml IVFLUSH [facility] Last Admin: 04/22/21 09:00 Dose: 3 ml Documented by: DAT Trazodone HCl (Trazodone Hcl 50 Mg Tablet) 50 mg PO BEDTIME [facility] Last Admin: 04/21/21 19:56 Dose: 50 mg Documented by: JAMES Vitamin D (Cholecalciferol (Vitamin D3) 10 Mcg Tablet) 10 mcg PO DAILY [facility] Last Admin: 04/22/21 09:00 Dose: 10 mcg Documented by: DAT <Brooklynn Cavazos PA-C - Last Filed: 04/22/21 11:13> Labs CBC & Chem 7: : 04/20/21 04:16 04/20/21 04:16 <Brooklynn Cavazos PA-C - Last Filed: 04/22/21 11:13> Microbiology Microbiology Results: Microbiology 04/19/21 11:36 Blood Culture - Preliminary Blood - Venous No growth after 48 hours. 04/19/21 09:54 Blood Culture - Preliminary Blood - Venous No growth after 48 hours. <Brooklynn Cavazos PA-C - Last Filed: 04/22/21 11:13> Procedures Date of Service Date of Service: 04/22/21 <Brooklynn Cavazos PA-C - Last Filed: 04/22/21 11:13> Progress Note: A&P Assessment and plan (1) Incarcerated inguinal hernia: Status: Acute <Brooklynn Cavazos PA-C - Last Filed: 04/22/21 11:13> Assessment and Plan: Continues to feel well Minimal pain Good GI function Abdomen soft and benign Incision clean Advance diet Possible home later today or tomorrow Seen and examined - agree with AJ Cavazos <Sergei Zaragoza MD - Last Filed: 04/22/21 12:12> Assessment and Plan: ? 70 year old male admitted with bowel obstruction secondary to incarcerated left inguinal hernia containing colon. He is POD #3 s/p repair of incarcerated left inguinal hernia with mesh. He is doing well without pain and tolerating clear liquids. Abd benign- soft, incision clean. Will advance to so lid diet. If tolerating, stable for d/c to home later today or tomorrow. D/c IVF. <Brooklynn Cavazos PA-C - Last Filed: 04/22/21 11:13> Fall Risk Details Current Medications: Current Medications Albuterol Sulfate (Albuterol Sulfate 90 Mcg 8 Gm Inhaler) 2 puff INHALE Q6H PRN PRN Reason: Shortness Of Breath Albuterol Sulfate (Albuterol Sulfate (0.083%) 2.5 Mg/3 Ml Vial.Neb) 2.5 mg INHALE ONCE PRN PRN Reason: Wheezing Alprazolam (Alprazolam 0.5 Mg Tablet) 2 mg PO BID PRN PRN Reason: Anxiety Last Admin: 04/20/21 08:56 Dose: 2 mg Documented by: Ascorbic Acid (Ascorbic Acid 500 Mg Tablet) 500 mg PO BID [facility] Last Admin: 04/22/21 09:00 Dose: 500 mg Documented by: Doxepin HCl (Doxepin Hcl 25 Mg Capsule) 200 mg PO BEDTIME [facility] Last Admin: 04/21/21 19:57 Dose: 200 mg Documented by: Fentanyl (Fentanyl Citrate/Pf 100 Mcg/2 Ml Vial) 50 mcg IVPUSH Q5M PRN; Protocol PRN Reason: Pain, Severe (Pain Scale 7-10) Hydromorphone HCl (Hydromorphone Hcl 0.5 Mg/0.5 Ml Syringe) 0.5 mg IVPUSH Q5M PRN; Protocol PRN Reason: Pain, Severe (Pain Scale 7-10) Hydromorphone HCl (Hydromorphone Hcl 1 Mg/Ml Syringe) 1 mg IVPUSH Q4H PRN; Protocol PRN Reason: Pain, Severe (Pain Scale 7-10) Last Admin: 04/21/21 07:39 Dose: 1 mg Documented by: Promethazine HCl 12.5 mg/ (Sodium Chloride) 50.5 mls @ 202 mls/hr IV ONCE PRN PRN Reason: Nausea and Vomiting Last Infusion: 04/19/21 21:29 Dose: Infused Documented by: Morphine Sulfate (Morphine Sulfate Er 30 Mg Tablet.Er) 60 mg PO BID [facility] Last Admin: 04/22/21 09:00 Dose: Not Given Documented by: Ondansetron HCl (Ondansetron Hcl 4 Mg/2 Ml Vial) 4 mg IVPUSH ONCE PRN PRN Reason: Nausea and Vomiting Ondansetron HCl (Ondansetron Hcl 4 Mg/2 Ml Vial) 4 mg IVPUSH Q6H PRN PRN Reason: Nausea Last Admin: 04/20/21 08:58 Dose: 4 mg Documented by: Pantoprazole Sodium (Pantoprazole Sodium 40 Mg/10 Ml Vial) 40 mg IVPUSH DAILY@0630 [facility] Last Admin: 04/22/21 05:16 Dose: 40 mg Documented by: Pharmacy Consult (Consult Rx Perform Med Rec) 1 each MISCELLANE ONCE PRN PRN Reason: Consult order Sodium Chloride (0.9 % Sodium Chloride Flush 3 Ml Syringe) 3 ml IVFLUSH [facility] Last Admin: 04/22/21 09:00 Dose: 3 ml Documented by: Sodium Chloride (0.9 % Sodium Chloride Flush 3 Ml Syringe) 3 ml IVFLUSH [facility] Last Admin: 04/22/21 09:00 Dose: 3 ml Documented by: Trazodone HCl (Trazodone Hcl 50 Mg Tablet) 50 mg PO BEDTIME [facility] Last Admin: 04/21/21 19:56 Dose: 50 mg Documented by: Vitamin D (Cholecalciferol (Vitamin D3) 10 Mcg Tablet) 10 mcg PO DAILY [facility] Last Admin: 04/22/21 09:00 Dose: 10 mcg Documented by: <Brooklynn Cavazos PA-C - Last Filed: 04/22/21 11:13> Time Spent With Patient Time: Total time spent is greater than 50% in coordination of care (as d ocumented) at patient's floor/unit and/or counseling patient: <Brooklynn Cavazos PA-C - Last Filed: 04/22/21 11:13> Time with patient: 15 - 24 minutes <Brooklynn Cavazos PA-C - Last Filed: 04/22/21 11:13> Quality Stroke Does the patient have a stroke diagnosis?: No <Brooklynn Cavazos PA-C - Last Filed: 04/22/21 11:13> VTE Prior VTE?: No <Brooklynn Cavazos PA-C - Last Filed: 04/22/21 11:13> VTE Risk Level:: Surgical - moderate <Brooklynn Cavazos PA-C - Last Filed: 04/22/21 11:13> VTE Device Contraindication: N/A - Device Ordered <Brooklynn Cavazos PA-C - Last Filed: 04/22/21 11:13> VTE Drug Contraindication: N/A - Med Ordered <Brooklynn Cavazos PA-C - Last Filed: 04/22/21 11:13>
[2021-04-22 11:26] VITALS: BP 163/83; PULSE 90; RESP 19; TEMP 36.6; O2SAT 97
--- NOTE | 2021-04-22 14:16 | MHC.CM.PN ---
EMR REVIEWED, PT'S DIET ADVANCED, ANTICIPATE D/C TOMORROW 04/23/21 [facility] AND FAMILY TO [facility].
--- NOTE | 2021-04-22 14:52 | P.DS_ITS ---
DS: Providers Provider Date of Service: 04/22/21 Date of admission: 04/19/21 15:09 Primary care physician: Mer Hughes MD Attending physician on admission: Karlene Fair Consults: 04/20/21 10:47 Consult to Care Team Routine Comment: Reason for consultation: Feels depressed and anxious Has provider been notified: Yes Attending physician on discharge: Sergei Zaragoza DS: Diagnosis Discharge Diagnosis (1) Incarcerated inguinal hernia: Status: Acute DS: Summary Hospital Course Hospital Course: BRIEF HPI: 70 year old belarusian speaking male came in for evaluation of abdominal pain.?The pain started about 4 days ago, pain is constant and severe, localized to the left lower inguinal area along with a painful lump. He had been having small bowel movements and passing some flatus. It was associated with nausea and vomiting. He had a history of both a right and left inguinal hernia repair. CT scan was performed which demonstrated incarcerated left inguinal hernia containing descending and sigmoid colon resulting in dynamic colonic obstruction. There is mild fat stranding along the proximal left inguinal canal. HOSPITAL COURSE: It was recommended to proceed with repair of the recurrent left inguinal hernia given the obstruction. He agreed and he was added onto the OR schedule for that day. On 04/19/21, reduction of incarcerated left inguinal hernia and repair of hernia with mesh was performed by Dr. Fair without complication. An NGT was placed in perioperatively for decompression. The patient tolerated the procedure well and was admitted to the medical/surgical floor for observation. He had an uncomplicated recovery course. On POD #1, he felt fairly well with good pain control. He was passing flatus. His NGT was clamped and had low residual after 4 hours and remained without nausea, vomiting or worsening abdominal pain and it was therefore removed. The following day, he continued to feel well. His abdomen remained benign with a clean incision. He was advanced to a clear liquid diet. He was ambulated and his activity was increased. He was tolerating clear liquids and advanced to a solid diet the following day. His abdomen remained benign. He was reassessed later that day and continued to feel well and ready for discharge. He was discharged to home on 04/22/21 in stable condition. He is to follow up with Dr. Zaragoza in office in 2 weeks. Status at Discharge Functional status at discharge: independent ambulation Overall status at discharge: patient is progressing back to baseline Time Spent with Patient Time attestation: Total time spent providing and/or coordinating discharge services: Discharge coordination time: Greater than 30 minutes Quality: Stroke Does the patient have a stroke diagnosis?: No Physical Exam Vital Signs: Vital Signs: Last Vital Signs Temp 96.8 F 04/22/21 15:44 Pulse 95 04/22/21 15:44 Resp 16 04/22/21 15:44 BP 132/89 04/22/21 15:44 Pulse Ox 97 04/22/21 15:44 BMI result Body Mass Index 24.4 Const: General: comfortable, no acute distress and alert Orientation/consciousness: patient oriented x3 GI: Inspection: No distended and Yes incision (clean) Palpation (GI): Soft to palpation and nontender Skin: General skin exam: no rashes or lesions noted Neuro: General: patient oriented x3 DS: Data Data Completed and Pending Labs on day of discharge: Preliminary micro results at discharge 04/19/21 11:36 Blood Culture - Preliminary Blood - Venous No growth after 48 hours. 04/19/21 09:54 Blood Culture - Preliminary Blood - Venous No growth after 48 hours. Discharge Plan Discharge Patient Disposition: Home, Self-Care Discharge Diagnosis: Incarcerated inguinal hernia left Referrals: Mer Hughes MD [Primary Care Provider] - 1 Week Discharge Medications: New oxycodone-acetaminophen [Percocet] 5-325 mg tablet 1 tab PO Q4-6H PRN (Reason: pain) Qty: 30 RF: 0 Continued trazodone 50 mg tablet 1 tab PO BEDTIME RF: 0 morphine 60 mg tablet extended release 1 tab PO BID RF: 0 doxepin 100 mg capsule 200 mg PO BEDTIME RF: 0 alprazolam 2 mg tablet 1 tab PO BID PRN (Reason: Anxiety) RF: 0 albuterol sulfate [Ventolin HFA] 90 mcg/actuation HFA aerosol inhaler 2 puff inhalation Q6H PRN (Reason: Shortness Of Breath) RF: 0 ascorbic acid (vitamin C) [Vitamin C] 500 mg Tablet 500 mg PO BID RF: 0 cholecalciferol (vitamin D3) [Vitamin D3] 10 mcg (400 unit) Tablet 10 mcg PO DAILY RF: 0 Discharge Orders: Discharge Order (Routine); Ordered 04/22/21 Ordered By: Sergei Zaragoza Diet: advance to usual diet Activity on Discharge: No heavy lifting Stand Alone Forms: Patient Portal Discharge page Activity Restrictions/Additional Instructions: If the incision area is tender, you may apply an ice pack for short intervals (N o more than 20 minutes on, followed by at least 20 minutes off). Do not apply heat. Do not use creams, lotions, or topical antibiotics unless instructed to do so by your surgeon. These can cause infection or allergic reaction. OK to shower No lifting more than 20 lb No strenuous activities Call the office for follow-up in 2 weeks - with Dr. Zaragoza Call Your Doctor If: -Your temperature exceeds 101.5? F -You experience excessive pain or swelling -You have an unexpected reaction to medication -You have excessive bleeding -You experience continued vomiting/nausea -Your incision begins to separate -Your incision shows signs of infection such as increased redness, swelling, excessive pain, drainage (light blood or clear fluid is normal) or heat Care Plan Goals: control pain Health Concerns: postop pain Plan of Treatment: oral pain meds, no lifting Assessment: doing well postop Discharge Date/Time: 04/22/21 16:35
[2021-04-22 15:44] VITALS: BP 132/89; PULSE 95; RESP 16; TEMP 36; O2SAT 97
--- NOTE | 2021-04-24 17:02 | OP_ITS ---
SURGEON: Karlene Fair MD INDICATIONS: The patient is a 70-year-old male who presented to the ER with a 4-day history of having abdominal pain, nausea, and vomiting, a mass in the left groin area, which has become more tender. He has had exploration surgery for the incarcerated hernia about 2 years ago and underwent reduction of his colon with repair of the hernia with mesh; however, it seems like he has had a recurrence and now also has a recurrence of the bowel obstruction. He states that the hernia has been present already for several months, but ran into trouble over the last couple of the days. PREOPERATIVE DIAGNOSIS: Large bowel obstruction secondary to incarcerated left inguinal hernia. POSTOPERATIVE DIAGNOSIS: Large bowel obstruction secondary to incarcerated left inguinal hernia. PROCEDURE PERFORMED: Reduction of incarcerated left inguinal hernia and repair of hernia with mesh. ESTIMATED BLOOD LOSS: About 10 mL. COMPLICATIONS: ANESTHESIA: General endotracheal tube anesthesia. ASSISTANTS: SPECIMENS: No specimen was sent. The patient was extubated and returned to stable to the recovery. NG tube in place. The Nova catheter has been removed. FINDINGS: Incarcerated loop of sigmoid colon causing obstruction as well as mesh hernia repair from prior procedure. DESCRIPTION OF PROCEDURE: The patient was brought to the operative room and under anesthesia guidance was intubated. He had compression stocking placed received preoperative antibiotics. A Nova catheter was placed. His left groin area was prepped and draped in the standard fashion. An NG tube had also been placed for the procedure. The previous incision in the left groin was opened up and dissection was carried down on to the mass directly. The external oblique aponeurosis fascia was not identified anteriorly that had been attenuated. We then spent considerable amount of time dissecting out the hernia sac from the surrounding subcutaneous tissue and it appears that there was recurrence lateral to the internal inguinal ring. There was mesh around this area, especially on the medial aspect and this required careful dissection of the tissue from adhesions and the mesh material. Eventually, we were able to get all around and separate the sac from the tissue and then eventually opened up the peritoneal sac to evaluate the contents. The contents were confirmed to colon and it appeared to be colon within scar tissue from previous trauma. This was eventually pushed back into the peritoneal cavity after about 30 minutes of trying to slowly move the tissue down, squeezing it and partially pushing it back into the peritoneal cavity. We had also positioned the patient head down in order to decrease intraabdominal pressure to allow for reduction. Eventually, it was required to open up the internal ring more medial mesh material that was present there. Eventually, however, we were able to push down the peritoneal sac as well as the colon back into the peritoneal cavity and secure it in place. The cord structures were also present and these were kept intact. They had initially been from the hernia sac and controlled with a Caesar drain. The area was irrigated and then the floor of the inguinal canal was examined. The floor was pretty much just scar tissue. Medially, there was more mesh material noted which had been somewhat incorporated with peritoneal tissue and fat. The floor and internal ring area were closed up with 0 Prolene approximating this to the shelving edge of inguinal ligament that had been dissected out. This was done with interrupted Prolene sutures. Now with the floor closed over the peritoneum and the bowel reduced, an [place] large Prolene mesh was fashioned _and was placed laterally and the cord structures went around this and the tail extended more superiorly and laterally. This large mesh was attached to the pubic tubercle and the shelving edge of inguinal ligament. A lot of scar tissue along the superior aspect and medial aspect incorporating probably the external oblique fascia and anterior muscle. The tail came across creating a new internal ring and this was also secured laterally. Pelvis securing sutures were done with permanent suture and secured with multiple knots. Mesh was then __dipped____ iodine saline beforehand and then once it was intact and in place, a nice new floor of the inguinal canal was created. More Betadine saline was used to irrigate this area. The colon was never entered during the procedure. During the procedure, the patient started to pass significant flatus. There was no external oblique aponeurosis to close over the mesh. The Calista's fascia was closed in an interrupted fashion and then the soft tissue in the subcutaneous area also closed with Vicryl suture. Skin ama were then used to secure the skin edges and a sterile dressing placed. At the end of the case, all sponge, instrument, needle counts were correct. Karlene Fair MD SR/MODL / [id number] MTDD
--- NOTE | 2021-04-24 17:02 | OP_ITS ---
SURGEON: Karlene Fair MD INDICATIONS: The patient is a 70-year-old male who presented to the ER with a 4-day history of having abdominal pain, nausea, and vomiting, a mass in the left groin area, which has become more tender. He has had exploration surgery for the incarcerated hernia about 2 years ago and underwent reduction of his colon with repair of the hernia with mesh; however, it seems like he has had a recurrence and now also has a recurrence of the bowel obstruction. He states that the hernia has been present already for several months, but ran into trouble over the last couple of the days. PREOPERATIVE DIAGNOSIS: Large bowel obstruction secondary to incarcerated left inguinal hernia. POSTOPERATIVE DIAGNOSIS: Large bowel obstruction secondary to incarcerated left inguinal hernia. PROCEDURE PERFORMED: Reduction of incarcerated left inguinal hernia and repair of hernia with mesh. ESTIMATED BLOOD LOSS: About 10 mL. COMPLICATIONS: ANESTHESIA: General endotracheal tube anesthesia. ASSISTANTS: SPECIMENS: No specimen was sent. The patient was extubated and returned to stable to the recovery. NG tube in place. The Nova catheter has been removed. FINDINGS: Incarcerated loop of sigmoid colon causing obstruction as well as mesh hernia repair from prior procedure. DESCRIPTION OF PROCEDURE: The patient was brought to the operative room and under anesthesia guidance was intubated. He had compression stocking placed received preoperative antibiotics. A Nova catheter was placed. His left groin area was prepped and draped in the standard fashion. An NG tube had also been placed for the procedure. The previous incision in the left groin was opened up and dissection was carried down on to the mass directly. The external oblique aponeurosis fascia was not identified anteriorly that had been attenuated. We then spent considerable amount of time dissecting out the hernia sac from the surrounding subcutaneous tissue and it appears that there was recurrence lateral to the internal inguinal ring. There was mesh around this area, especially on the medial aspect and this required careful dissection of the tissue from adhesions and the mesh material. Eventually, we were able to get all around and separate the sac from the tissue and then eventually opened up the peritoneal sac to evaluate the contents. The contents were confirmed to colon and it appeared to be colon within scar tissue from previous trauma. This was eventually pushed back into the peritoneal cavity after about 30 minutes of trying to slowly move the tissue down, squeezing it and partially pushing it back into the peritoneal cavity. We had also positioned the patient head down in order to decrease intraabdominal pressure to allow for reduction. Eventually, it was required to open up the internal ring more medial mesh material that was present there. Eventually, however, we were able to push down the peritoneal sac as well as the colon back into the peritoneal cavity and secure it in place. The cord structures were also present and these were kept intact. They had initially been from the hernia sac and controlled with a Caesar drain. The area was irrigated and then the floor of the inguinal canal was examined. The floor was pretty much just scar tissue. Medially, there was more mesh material noted which had been somewhat incorporated with peritoneal tissue and fat. The floor and internal ring area were closed up with 0 Prolene approximating this to the shelving edge of inguinal ligament that had been dissected out. This was done with interrupted Prolene sutures. Now with the floor closed over the peritoneum and the bowel reduced, an [place] large Prolene mesh was fashioned was placed laterally and the cord structures went around this and the tail extended more superiorly and laterally. This large mesh was attached to the pubic tubercle and the shelving edge of inguinal ligament. A lot of scar tissue along the superior aspect and medial aspect incorporating probably the external oblique fascia and anterior muscle. The tail came across creating a new internal ring and this was also secured laterally. Pelvis securing sutures were done with permanent suture and secured with multiple knots. Mesh was then iodine saline beforehand and then once it was intact and in place, a nice new floor of the inguinal canal was created. More Betadine saline was used to irrigate this area. The colon was never entered during the procedure. During the procedure, the patient started to pass significant flatus. There was no external oblique aponeurosis to close over the mesh. The Calista's fascia was closed in an interrupted fashion and then the soft tissue in the subcutaneous area also closed with Vicryl suture. Skin ama were then used to secure the skin edges and a sterile dressing placed. At the end of the case, all sponge, instrument, needle counts were correct. Karlene Fair MD SR/BRADLEY / [id number]
== END 2021-04-22 16:35 | disposition home or self-care (01) | DRG 352 ==
LOC: HO.ED 14:26 → HO.SSS 15:12 → HO.SSSA 20:30 → HO.S3 20:30
PROVIDERS: Admitting Provider Surgery; Emergency Provider Emergency Medicine; PCP Family Medicine; Visit Provider Surgery
PROC: 0YU60JZ Supplement Left Inguinal Region with Synthetic Substitute, Open Approach (ICD-10-PCS; principal; 2021-04-19 15:00)
DX: K40.31 Unilateral inguinal hernia, with obstruction, without gangrene, recurrent (principal); F41.9 Anxiety disorder, unspecified; F32.A Depression, unspecified; Z20.822 Contact with and (suspected) exposure to COVID-19; Z79.899 Other long term (current) drug therapy
CPT/HCPCS: 36415; 74177; 80048; 80076; 81003; 83605; 83690; 85025; 87040; 87076; 87205; 87635; 93005; 99024; 99285; C1781; J0330; J0690; J1100; J1170; J2270; J2370; J2405; J2543; J2550; J3010; Q9967

== ENCOUNTER → 2021-05-07 08:46 | Outpatient (BNVA) | payer MEDICARE, MEDICAID, SELFPAY | PROVIDERS: PCP Family Medicine; Referring Provider Family Medicine; Visit Provider Surgery | DX: Z48.815 Encounter for surgical aftercare following surgery on the digestive system (principal); Z98.890 Other specified postprocedural states; Z87.19 Personal history of other diseases of the digestive system | CPT/HCPCS: 99212 ==

== ENCOUNTER → 2021-05-28 09:26 | Outpatient (BNVA) | payer MEDICARE, MEDICAID, SELFPAY | PROVIDERS: PCP Family Medicine; Referring Provider Family Medicine; Visit Provider Surgery | DX: Z12.11 Encounter for screening for malignant neoplasm of colon (principal) | CPT/HCPCS: 99212 ==

== ENCOUNTER 2022-10-08 08:10 | Outpatient (REF) | payer MEDICARE, MEDICAID, SELFPAY ==
--- NOTE | ~2022-10-08 | US_ITS ---
EXAMINATION: US ABDOMEN COMPLETE CLINICAL INFORMATION: Elevated LFTs. COMPARISON: CT abdomen and pelvis with contrast 04/19/2021. TECHNIQUE: Real-time imaging of the abdominal viscera. Technically limited study secondary to bowel gas and body habitus. FINDINGS: PANCREAS: The head appears normal. The body and tail are obscured by bowel gas. ABDOMINAL AORTA: The proximal, mid, and distal segments are normal in caliber. INFERIOR VENA CAVA: Visualized portions are normal. LIVER: The liver is normal in size. The liver contour is normal. There is diffuse increased liver parenchymal echogenicity, consistent with hepatic steatosis. No focal hepatic lesion. There is no intrahepatic biliary duct dilatation seen. GALLBLADDER: Normal. The gallbladder is physiologically distended without evidence of stones, sludge, polyps, wall thickening or pericholecystic fluid. COMMON BILE DUCT: Normal in caliber measuring 0.3 cm in diameter. RIGHT KIDNEY: Normal. No hydronephrosis. No renal calculi or focal parenchymal lesions. The kidney measures 10.3 cm in maximum dimension. LEFT KIDNEY: Normal. No hydronephrosis. No renal calculi or focal parenchymal lesions. The kidney measures 10.7 cm in maximum dimension. SPLEEN: Normal. The spleen measures 9.1 cm in maximum dimension. FREE FLUID: None. US/US abdomen complete IMPRESSION: Findings consistent with hepatic steatosis. No liver mass or biliary ductal dilatation.
== END 2022-10-08 08:11 | disposition home or self-care (01) ==
LOC: HO.US 08:10
PROVIDERS: PCP Family Medicine; Visit Provider Family Medicine
DX: R74.01 Elevation of levels of liver transaminase levels (principal)
CPT/HCPCS: 76700

== ENCOUNTER 2022-12-15 17:28 | Outpatient (REF) | payer MEDICARE, MEDICAID, SELFPAY ==
[2022-12-22 10:33] LABS: Codeine, Ur NEGATIVE; Hydrocodone, Ur NEGATIVE
[2022-12-22 10:34] LABS: Hydromorphone, Ur NEGATIVE; Morphine, Ur >10000 (H); Norhydrocodone, Ur NEGATIVE; Oxycodone, Ur NEGATIVE; Oxymorphone, Ur NEGATIVE
[2022-12-22 10:37] LABS: Noroxycodone, Ur NEGATIVE
== END 2022-12-15 17:29 | disposition home or self-care (01) ==
LOC: HO.HHCLNP 17:28
PROVIDERS: Visit Provider Family Medicine
DX: M96.1 Postlaminectomy syndrome, not elsewhere classified (principal); M54.50 Low back pain, unspecified; G89.29 Other chronic pain; Z79.891 Long term (current) use of opiate analgesic
CPT/HCPCS: 80364; 80365

== ENCOUNTER 2023-08-18 10:13 | Outpatient (REF) | payer MEDICARE, MEDICAID, SELFPAY ==
--- NOTE | ~2023-08-18 | XR_ITS ---
EXAMINATION: XR SHOULDER, LEFT CLINICAL INFORMATION: Chronic left shoulder pain COMPARISON: None available. TECHNIQUE: AP external rotation, Grashey, scapular Y, and axillary views of the left shoulder. FINDINGS: The bones and soft tissues are unremarkable aside from some minimal sclerosis at the inferior glenoid. No fracture. Glenohumeral and acromioclavicular alignment is anatomic with normal joint space. No abnormal soft tissue calcifications. XR/XR shoulder LT min 2V IMPRESSION: Minimal sclerosis at the inferior glenoid. No acute finding.
== END 2023-08-18 10:14 | disposition home or self-care (01) ==
LOC: HO.HHCX 10:13
PROVIDERS: Visit Provider Family Medicine
DX: M25.512 Pain in left shoulder (principal); G89.29 Other chronic pain
CPT/HCPCS: 73030

== ENCOUNTER 2023-09-07 06:06 | Outpatient (REF) | payer MEDICARE, MEDICAID, SELFPAY ==
[2023-09-07 08:03] LABS: Alanine Aminotransferase 46 U/L (0-40); Albumin Level 4.1 g/dL (3.5-5.0); Alkaline Phosphatase 126 U/L (39-117); Anion Gap 10 (12-20); Aspartate Amino Transferase 40 U/L (5-37); Bilirubin Direct 0.2 mg/dL (0.0-0.5); Bilirubin Total 0.8 mg/dL (0.0-1.0); Blood Urea Nitrogen 14 mg/dL (9-16); Calcium 9.2 mg/dL (8.4-10.2); Carbon Dioxide 24 mmol/L (22-29); Chloride 106 mmol/L (96-108); Cholesterol 192 mg/dL (<200); Estimated Glomerular Filt Rate > 60; Glucose Random 100 mg/dL (60-115); HDL Cholesterol 42 mg/dL (>40); LDL Cholesterol Calculated 116 mg/dL (<100); Potassium 4.2 mmol/L (3.3-5.1); Sodium 136 mmol/L (135-145); Triglycerides 170 mg/dL (<150)
[2023-09-07 08:18] LABS: TSH reflex Free T4 1.03 uIU/mL (0.32-4.0)
== END 2023-09-07 06:07 | disposition home or self-care (01) ==
LOC: HO.LAB 06:06
PROVIDERS: PCP Family Medicine; Visit Provider Family Medicine
DX: R79.89 Other specified abnormal findings of blood chemistry (principal); F41.9 Anxiety disorder, unspecified; I10 Essential (primary) hypertension; E78.5 Hyperlipidemia, unspecified
CPT/HCPCS: 36415; 80048; 80061; 80076; 84443

== ENCOUNTER 2023-10-06 10:47 | Outpatient (AMB) | payer MEDICARE, MEDICAID, SELFPAY ==
--- NOTE | 2023-10-06 10:56 | A.OFFVIS_ITS ---
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 Patient reports he is having pain for the last 7 months and has worsen. States he has limited ROM and is painful to lift up. He has a sharp shooting pain down his arm and has also noticed a lump on his bicep. Denies falling. He also has numbness and tingling in his left hand that is constant. Denies recent treatment for his left shoulder. Allergies No Known Drug Allergies [NO KNOWN DRUG ALLERGIES] Allergy (Unknown, Verified 10/06/23 11:01) NONE Medication List - Last Reconciled 10/06/23 by Aleida Deluna PA-C albuterol sulfate 90 mcg/actuation (Ventolin HFA) 2 puffs inhalation Q6H PRN alprazolam 1 tab PO BID PRN ascorbic acid (vitamin C) (Vitamin C) 500 mg PO BID cholecalciferol (vitamin D3) (Vitamin D3) 10 mcg PO DAILY doxepin 200 mg PO BEDTIME morphine ER 1 tab PO BID sodium,potassium,mag sulfates 17.5-3.13-1.6 gram (Suprep Bowel Prep Kit) DILUTE; drink full amount early evening before AND next morning at least 2 hr before procedure; follow w 32 oz. 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 He states he has limited ROM as well as worsening sharp shooting pain in his left shoulder that radiates down to his arm. His pain is aggravated with lifting his arm. He also c/o constant numbness and tingling in his left hand. He also noticed a lump on his bicep about 2 months ago. He denies any injury and has not had any treatment for his left shoulder. He does not have a history of diabetes. [facility] Medical History (Updated 10/06/23 @ 11:10 by Aleida Deluna PA-C) History of colon polyps Nicotine dependence, cigarettes, uncomplicated Asthma Depression Hernia Anxiety Surgical History History of colonoscopy History of right inguinal hernia repair History of left inguinal hernia repair (~2020) History of eye surgery Social History Household Members: None Housing: Apartment Do you presently have visiting nurse or other home services: No Patient Tobacco Use Status: Never used Tobacco Substance Use Type: Marijuana service: No Current occupational status: unemployed Review of Systems Const All systems reviewed & are unremarkable except as noted in HPI and below Physical Exam Vital Signs: BMI result Body Mass Index 28.4 Const General: cooperative, healthy appearing, comfortable, no acute distress, well developed and alert Orientation/consciousness: patient oriented x3 HEENT Head: Yes normal to inspection, Yes normocephalic and Yes atraumatic Eyes General: appearance normal, both eyes and all related structures Resp Effort & Inspection: normal respiratory effort and able to speak in complete sentences Cardio Rate: regular rate Peripheral pulses: Peripheral pulses 2+ throughout GI Palpation (GI): Soft to palpation Skin Lesions: no lesions Rashes: no rashes Neuro General: patient oriented x3 Extrem Other: Left shoulder normal to inspection. Tenderness over the bicipital groove and along the deltoid region of the shoulder. Forward flexion to 175, external rotation to 90, internal rotation to S1. 5/5 RTC strength. Negative [place] and cross body abduction. NVI. Assessment & Plan Assessment & Plan (1) Left shoulder tendonitis: Code(s): M77.8 - Other enthesopathies, not elsewhere classified Category: Medical (2) Adhesive capsulitis of left shoulder: Code(s): M75.02 - Adhesive capsulitis of left shoulder Category: Medical Plan We discussed options today which include steroid injection. They did consent to move forward with the left shoulder injection, which was tolerated well. I recommended rest, ice and elevation and OTC anti-inflammatories PRN for discomfort. He was also sent for a course of physical therapy today. If symptoms persist or worsens over the next 6-8 weeks, patient will contact the office, otherwise follow-up as needed. ? Orders: Orders PT Evaluation and Treatment Today M75.02 - Adhesive capsulitis of left shoulder, M77.8 - Other enthesopathies, not elsewhere classified Patient Instructions: Scribed for Aleida Deluna PA-C, by Dean Thapa, medical office technologist, on 10/06/2023 at 11:00 AM EST.? I, Aleida Deluna PA-C, have personally reviewed and agree with the information entered by the scribe. Coding Level of Care Code New Pt Level 3 (33106) Diagnoses Left shoulder tendonitis M77.8 Adhesive capsulitis of left shoulder M75.02
[2023-10-06 11:01] VITALS: BMI 28.4
== END 2023-10-06 12:02 | disposition home or self-care (01) ==
PROVIDERS: PCP Family Medicine; Visit Provider Physician Assistant
DX: M75.02 Adhesive capsulitis of left shoulder (principal); M77.8 Other enthesopathies, not elsewhere classified
CPT/HCPCS: 20610; 99203

== ENCOUNTER → 2023-10-06 10:47 | Outpatient (BNVA) | payer MEDICARE, MEDICAID, SELFPAY | PROVIDERS: PCP Family Medicine; Visit Provider Physician Assistant | DX: M75.02 Adhesive capsulitis of left shoulder (principal); M77.8 Other enthesopathies, not elsewhere classified | CPT/HCPCS: 20610; 99202; J1010 ==

== ENCOUNTER 2023-10-21 09:31 | Outpatient (REF) | payer MEDICARE, MEDICAID, SELFPAY ==
--- NOTE | ~2023-10-21 | CT_ITS ---
EXAMINATION: CT LOW-DOSE SCREENING CHEST WITHOUT CONTRAST CLINICAL INFORMATION: Nicotine dependence, cigarettes, uncomplicated. The patient has a 118 pack-year history of smoking, having quit 1 year ago. COMPARISON: Chest radiograph 08/27/2010. TECHNIQUE: Multidetector volumetric CT imaging of the chest is performed on a Siemens SOMATOM Definition scanner without contrast using low dose technique. Additional 2D coronal and sagittal reformatted images and axial 3D maximum intensity projection (MIP) images are generated on the CT workstation. This CT examination was performed using dose optimization techniques as appropriate, variously including the following: *Automated exposure control *Adjustment of mA and/or kV according to patient size (this includes techniques or standardized protocols for targeted exams where dose is matched to indication/reason for exam; i.e. extremities or head) *Use of iterative reconstruction technique TOTAL EXAM DLP: 57 mGy-cm CTDIvol: 1.50 mGy FINDINGS: PULMONARY NODULES: Two calcified granulomas are present, one in the right upper lobe posteriorly and the other in the left lower lobe abutting the mediastinum. LUNGS: Lungs bilaterally symmetrically expanded with the exception of some volume loss in the right middle lobe with scarring and traction bronchiectasis (see qureshi images). A discrete mass is not seen, however, there is an ill-defined spiculated area measuring 1.4 x 1.1 x 0.9 cm (5:327 and 7:23). There is some tenting of the major fissure associated with this. There is mild biapical pleural-parenchymal scarring. Small pleural plaque with calcification posterior right upper lobe (5:97). No effusion or pneumothorax. Central airways patent. MEDIASTINUM: No mediastinal, hilar or axillary adenopathy or free fluid collection. CORONARY ARTERY CALCIFICATION: Moderate. THYROID GLAND: Unremarkable to the extent seen. CARDIOVASCULAR STRUCTURES: Aortic and heart size normal. No pericardial effusion. CHEST WALL/AXILLA: Unremarkable. UPPER ABDOMEN: There is hepatic steatosis which was also seen on prior abdominal CT. Included portions of the solid organs in the upper abdomen otherwise unremarkable on noncontrast imaging. OSSEOUS STRUCTURES: Degenerative changes are present in the spine. CT/CT lung screening IMPRESSION: There is some volume loss in the right middle lobe with scarring and traction bronchiectasis. A discrete mass is not seen, however, there is an ill-defined spiculated area measuring 1.5 x 1.1 x 0.9 cm. As there are no prior imaging studies covering this region, this must be considered suspicious. ASSESSMENT: 1. Lung-RADS Category 4A: Suspicious findings. N/A 2. Lung-RADS Category S: Negative. There are no clinically significant or potentially clinically significant findings not related to the lungs requiring urgent additional evaluation. RECOMMENDATION: A 3-month follow up low-dose lung CT scan is recommended. An order for CT LUNG CANCER SCREENING SHORT INTERVAL FOLLOWUP ([id number]) can be placed.
== END 2023-10-21 09:32 | disposition home or self-care (01) ==
LOC: HO.CT 09:31
PROVIDERS: PCP Family Medicine; Visit Provider Physician Assistant Medical
DX: Z12.2 Encounter for screening for malignant neoplasm of respiratory organs (principal); F17.210 Nicotine dependence, cigarettes, uncomplicated
CPT/HCPCS: 71271; G0296

== ENCOUNTER 2023-10-21 09:43 | Outpatient (AMB) | payer MEDICARE, MEDICAID, SELFPAY ==
--- NOTE | 2023-10-21 07:53 | MHC.OFFVIS ---
Intake Visit Reasons: Former Smoker Allergies No Known Drug Allergies [NO KNOWN DRUG ALLERGIES] Allergy (Unknown, Verified 10/06/23 11:01) NONE HPI HPI Former Smoker: Details: Initial visit for this 72yo former cigarette smoker but daily marijuana smoker with a 50PYH. Patient has been smoking since age 17 for 38 years Max 2ppd. He quit in 2006 then had occasional use and smokes marijuana daily. . Denies second hand smoke exposure. Denies exposure to chemicals or substances like asbestos. . Denies known family history of lung cancer. Denies personal history of cancers. Denies chest CT in last year. . Denies recent travel outside the [place]. Denies recent respiratory illness or recent hospitalization for respiratory issues. Denies testing positive for COVID. Admits receiving COVID Vaccine. . Denies fever, chills, new/worsening cough, hemoptysis, hoarseness or dysphagia. Denies significant chest pain, significant dyspnea or unintentional weight loss. Patient Lung Cancer Screening Questionnaire reviewed with patient by provider. . Shared Decision Making Completed. Patient meets criteria. As he is still an active marijuana user he should still meet requirement for scanning. Discussed in detail with patient, the risk vs benefit of LDCT screening. Patient consents to proceed with scan. Discussed and encouraged continued smoking cessation. [facility] Medical History (Updated 10/21/23 @ 10:07 by Marina Najera PA-C) Personal history of nicotine dependence History of colon polyps Asthma Depression Hernia Anxiety Surgical History History of colonoscopy History of right inguinal hernia repair History of left inguinal hernia repair (~2020) History of eye surgery Social History (Updated 10/21/23 @ 10:08 by Marina Najera PA-C) Household Members: None Housing: Apartment Do you presently have visiting nurse or other home services: No Patient Tobacco Use Status: Former Tobacco user Years Smoked: onset 17yo, 1-2ppd x 38yrs, 50pyh - quit cigs 2006, uses marijuana daily Substance Use Type: Marijuana service: No Current occupational status: unemployed Assessment & Plan Assessment & Plan (1) Nicotine dependence, cigarettes, uncomplicated: Comment: (former smoker - onset 17yo, max 1-2ppd, x 53yrs, quit 2006, +smokes marijuana daily) Code(s): F17.210 - Nicotine dependence, cigarettes, uncomplicated Category: Medical Plan: (2) Personal history of nicotine dependence: Comment: (former smoker - onset 17yo, max 1-2ppd, x 38yrs, 50pyh - quit cigs 2006, +smokes marijuana daily) Code(s): Z87.891 - Personal history of nicotine dependence Category: Medical Plan: - SDM visit completed today in office. - Patient meets criteria for LDCT for lung cancer screening purposes and is asymptomatic. - Smoking cessation counseling offered. Patients can always call [phone]. - Will arrange for a LDCT scan of the chest for screening purposes at [facility]. - Risks, benefits, and alternatives were discussed in detail and the patient agrees to proceed. - Risks discussed include but are not limited to: radiation exposure, anxiety during testing and while awaiting results, false negatives, false positives and possibility of additional intervention such as further imaging or surgical procedures for benign disease. - Benefits are obviously detection of lung cancer at an early stage which can lead to improved outcomes. - Discussed the importance of screening program compliance with adherence to yearly LDCT scan as scheduled - or sooner interval scans for personalized screening regimen. - Discussed follow up plan. Our office will send a letter discussing results and if needed set up phone call and office visit based on CT findings. - Patient educated on results categorization and the management decisions for suspicious findings potentially found on the screening LDCT scan. Any patient with a Lung RADS score of 3 or 4 will be reviewed by a multidisciplinary team at [facility] to form a plan of action in regards to scan findings. - If further work up is warranted for a suspicious lung finding this will be followed by the Lung Cancer Screening program in conjunction with the Thoracic Surgery Department at [facility]. - A copy of the office note and LDCT will be sent to the patient's PCP - as well as documentation on any associated further plans of care. - Incidental findings on LDCT are the PCP's responsibility. These findings are indicated with an S finding on the LDCT Assessment. A note discussing the findings will be sent to the PCP who is then responsible for further management. - All questions answered.? Coding Level of Care Code Lung Cancer Screening G0296 Diagnoses Nicotine dependence, cigarettes, uncomplicated F17.210 Personal history of nicotine dependence Z87.891
== END 2023-10-21 10:20 | disposition home or self-care (01) ==
PROVIDERS: PCP Family Medicine; Referring Provider Family Medicine; Visit Provider Physician Assistant Medical
DX: F17.210 Nicotine dependence, cigarettes, uncomplicated (principal)
CPT/HCPCS: G0296

== ENCOUNTER 2023-11-02 07:47 | Outpatient (AMB) | payer MEDICARE, MEDICAID, SELFPAY ==
--- NOTE | 2023-11-02 08:18 | MHC.OFFVIS ---
Vital Signs 11/02/23 08:27 Height 6 ft 1 in Weight 215 lb BMI 28.4 Intake Visit Reasons: New prob LT elbow/ bump a little above elbow Intake Note: Ozzy a 72 year old right and dominant male who presents today for an evaluation of lump on left arm. Patient reports lump located a little above his elbow. Pt states he has pain all the time. He was recently seen for his left shoulder on 10/06/23 and an injection was given. Wine Sales Representative Name: Dangelo ID#[id number] Allergies No Known Drug Allergies [NO KNOWN DRUG ALLERGIES] Allergy (Unknown, Verified 11/02/23 08:19) NONE Medication List - Last Reconciled 11/02/23 by Aleida Deluna PA-C albuterol sulfate 90 mcg/actuation (Ventolin HFA) 2 puffs inhalation Q6H PRN alprazolam 1 tab PO BID PRN ascorbic acid (vitamin C) (Vitamin C) 500 mg PO BID cholecalciferol (vitamin D3) (Vitamin D3) 10 mcg PO DAILY doxepin 200 mg PO BEDTIME morphine ER 1 tab PO BID sodium,potassium,mag sulfates 17.5-3.13-1.6 gram (Suprep Bowel Prep Kit) DILUTE; drink full amount early evening before AND next morning at least 2 hr before procedure; follow w 32 oz. water PO trazodone 1 tab PO BEDTIME HPI HPI New prob LT elbow/ bump a little above elbow : Details: 72-year-old right hand dominant male who presents to the office today with an interpreter for the deaf for an evaluation of left elbow. He has a history of pain around his shoulder area for 7 months that has been getting worse. He has not had any physical therapy for his shoulder. He currently reports he has a lump slightly above his elbow that is painful. He was seen on 10/06/23 for his left shoulder where an injection was given which did not provide him any relief. 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 [facility] Medical History (Updated 10/21/23 @ 10:07 by Marina Najera PA-C) Personal history of nicotine dependence History of colon polyps Asthma Depression Hernia Anxiety Surgical History History of colonoscopy History of right inguinal hernia repair History of left inguinal hernia repair (~2020) History of eye surgery Social History (Updated 10/21/23 @ 10:08 by Marina Najera PA-C) Household Members: None Housing: Apartment Do you presently have visiting nurse or other home services: No Patient Tobacco Use Status: Former Tobacco user Years Smoked: onset 17yo, 1-2ppd x 38yrs, 50pyh - quit cigs 2006, uses marijuana daily Substance Use Type: Marijuana service: No Current occupational status: unemployed Review of Systems Const All systems reviewed & are unremarkable except as noted in HPI and below Physical Exam Vital Signs: BMI result Body Mass Index 28.4 Const General: cooperative, healthy appearing, comfortable, no acute distress, well developed and alert Orientation/consciousness: patient oriented x3 HEENT Head: Yes normal to inspection, Yes normocephalic and Yes atraumatic Eyes General: appearance normal, both eyes and all related structures Resp Effort & Inspection: normal respiratory effort and able to speak in complete sentences Cardio Rate: regular rate Peripheral pulses: Peripheral pulses 2+ throughout GI Palpation (GI): Soft to palpation Skin Lesions: no lesions Rashes: no rashes Neuro General: patient oriented x3 Extrem Other: Left shoulder normal to inspection. Tenderness over the bicipital groove and along the deltoid region of the shoulder. Forward flexion to 175, external rotation to 90, internal rotation to S1. 5/5 RTC strength. + Obriens, Negative Barbosa and cross body abduction. NVI. Assessment & Plan Assessment & Plan (1) Left shoulder tendonitis: Code(s): M77.8 - Other enthesopathies, not elsewhere classified Category: Medical (2) Adhesive capsulitis of left shoulder: Code(s): M75.02 - Adhesive capsulitis of left shoulder Category: Medical Plan He does have an upcoming appointment scheduled tomorrow for his shoulder and I stressed the importance of postural training, RTC and periscapular stabilization. If symptoms persist or worsen over the next 6 weeks, he will contact the office and I will order an MRI of left shoulder, otherwise follow-up as needed. ? Patient Instructions: Scribed for Aleida Deluna PA-C, by Dean Thapa biomedical engineering technician, on 11/02/2023 at 8:00 AM EST.? I, Aleida Deluna PA-C, have personally reviewed and agree with the information entered by the scribe. Coding Level of Care Code Est Pt Level 3 (08525) Diagnoses Left shoulder tendonitis M77.8 Adhesive capsulitis of left shoulder M75.02
[2023-11-02 08:27] VITALS: BMI 28.4
== END 2023-11-02 08:46 | disposition home or self-care (01) ==
PROVIDERS: PCP Family Medicine; Visit Provider Physician Assistant
DX: M77.8 Other enthesopathies, not elsewhere classified (principal); M75.02 Adhesive capsulitis of left shoulder
CPT/HCPCS: 99213

== ENCOUNTER → 2023-11-02 07:47 | Outpatient (BNVA) | payer MEDICARE, MEDICAID, SELFPAY | PROVIDERS: PCP Family Medicine; Visit Provider Physician Assistant | DX: M77.8 Other enthesopathies, not elsewhere classified (principal); M75.02 Adhesive capsulitis of left shoulder | CPT/HCPCS: 99212 ==

== ENCOUNTER 2023-12-07 09:00 | Outpatient (RCR) | payer MEDICARE, MEDICAID, SELFPAY ==
--- NOTE | 2023-11-03 16:15 | MHC.PT.EP ---
[facility] [place] Office [place] Office [place] Office [address] Con Cochran [address] [phone] F: [phone] F: [phone] F: [phone] F: [phone] Physical Therapy Plan of Care Date of Evaluation: 11/03/23 Date of Surgery: N/A Diagnosis: L shoulder pain Dx for ortho: adhesive capsulitis Assessment: Pt presents w/ L shoulder pain which has been present for 7 months and is now at a constant 8/10. Pt reports pain radiates down L arm, back, and neck, and is described as stabbing . Pt presents w/ rounded shoulders, abducted scapula forward head posture, elevated and protracted L shoulder, and extreme tightness/muscle guarding in b upper traps/periscapular musculature. L GH ROM is extremely limited and produces pain, assessment also reveals extreme weakness/pain in GH musculature, decreased periscap strength, and impaired GHJ rhythm. Pt required tactile cues, demonstration, and verbal cuing to be able to effectively relax shoulders and adduct scapula, so exercises such as rows and scap squeezing were withheld from HEP. PT focused on getting pt to relax/lower shoulders and getting pt to bear weight w/ L GH joint rather than cradling it. Pt was also introduced to AAROM B GH flexion and abduction w/ towel, which pt was instructed to perform in pain free range. Future sessions will look to strengthen periscapular musculature, improve posture, and improve GH joint ROM as tolerated by patient. Barriers to success may be language limiting pt's comprehension, poor mental state, and unwillingness to attend appointments (mentioned by daughter who accompanied pt to appt). Frequency and Duration: The patient will be seen 2 x week for 6 weeks Short Term Goals: -In 2 weeks pt will demonstrate improved L GH joint flexion PROM to 70 degrees for prevention of contracture formation or increased pain from prolonged joint immobility. -In 2 weeks pt will demonstrate the ability to perform a successful scapular retraction and hold posture with LUE in natural arm swing position when standing 75% of the time without verbal or tactile cues in order to improve overall posture. Residential Goals: -In 6 weeks pt will have pain levels no higher than 3/10 at worst to allow for enhanced ability to participate in recreational activities or household tasks. -In 6 weeks pt will demonstrate L GH joint ROM WNLs to allow for enhanced ability to create household tasks (cooking, cleaning, putting dishes away, etc.) -In 6 weeks pt will score 60/130 on SPADI to demonstrate improved independence Treatment Plan: Modalities to reduce pain, spasms and effusion. Manual therapy to restore motion and function. Therapeutic exercise to improve strength and flexibility. Neuromuscular re-education for posture and balance. Therapeutic activities to return to functional activities of daily living. Electronically signed by: Terrie Berumen DPT Please sign and return to therapist. Thank you for your referral.
--- NOTE | 2023-11-03 16:17 | MHC.PT.EP ---
[facility] [place] Office [place] Office [place] Office [address] Con Cochran [address] [phone] F: [phone] F: [phone] F: [phone] F: [phone] Physical Therapy Plan of Care Date of Evaluation: 11/03/23 Date of Surgery: N/A Diagnosis: L shoulder pain Dx for ortho: adhesive capsulitis Assessment: Pt presents w/ L shoulder pain which has been present for 7 months and is now at a constant 8/10. Pt reports pain radiates down L arm, back, and neck, and is described as stabbing . Pt presents w/ rounded shoulders, abducted scapula forward head posture, elevated and protracted L shoulder, and extreme tightness/muscle guarding in b upper traps/periscapular musculature. L GH ROM is extremely limited and produces pain, assessment also reveals extreme weakness/pain in GH musculature, decreased periscap strength, and impaired GHJ rhythm. Pt required tactile cues, demonstration, and verbal cuing to be able to effectively relax shoulders and adduct scapula, so exercises such as rows and scap squeezing were withheld from HEP. PT focused on getting pt to relax/lower shoulders and getting pt to bear weight w/ L GH joint rather than cradling it. Pt was also introduced to AAROM B GH flexion and abduction w/ towel, which pt was instructed to perform in pain free range. Future sessions will look to strengthen periscapular musculature, improve posture, and improve GH joint ROM as tolerated by patient. Barriers to success may be language limiting pt's comprehension, poor mental state, and unwillingness to attend appointments (mentioned by daughter who accompanied pt to appt). Frequency and Duration: The patient will be seen 2 x week for 6 weeks Short Term Goals: -In 2 weeks pt will demonstrate improved L GH joint flexion PROM to 70 degrees for prevention of contracture formation or increased pain from prolonged joint immobility. -In 2 weeks pt will demonstrate the ability to perform a successful scapular retraction and hold posture with LUE in natural arm swing position when standing 75% of the time without verbal or tactile cues in order to improve overall posture. Group Home Goals: -In 6 weeks pt will have pain levels no higher than 3/10 at worst to allow for enhanced ability to participate in recreational activities or household tasks. -In 6 weeks pt will demonstrate L GH joint ROM WNLs to allow for enhanced ability to create household tasks (cooking, cleaning, putting dishes away, etc.) -In 6 weeks pt will score 60/130 on SPADI to demonstrate improved independence Treatment Plan: Modalities to reduce pain, spasms and effusion. Manual therapy to restore motion and function. Therapeutic exercise to improve strength and flexibility. Neuromuscular re-education for posture and balance. Therapeutic activities to return to functional activities of daily living. Electronically signed by: Terrie Berumen DPT Please sign and return to therapist. Thank you for your referral.
--- NOTE | 2024-01-12 10:46 | MHC.PT.DC ---
[facility] [place] Office [place] Office [place] Office [address] Con Cochran [address] [phone] F: [phone] F: [phone] F: [phone] F: [phone] Physical Therapy Discharge Report Diagnosis: L shoulder pain Dx for ortho: adhesive capsulitis Date of Surgery: N/A Date of Evaluation: 11/03/23 Date of Discharge: 01/12/24 Treatments to Date: 8 Cancellations to Date: 2 No Shows to Date: 1 Discharge Status: Patient Elected to Stop Discharge Summary: Ozzy ceased attending PT on his own accord. His last PT session on 12/07/23 the assessment reads, Ozzy is still presenting with poor seated and standing posture with anteriorly positioned humeral head in glenoid fossa. He need mirror, tactile cues to maintain neutral position and to lift UE with thumbs up for open packed position to reduce impingement. Pain level reduced to 6/10 to end session. He is discharged from PT at this time. Electronically signed by: Keisha Murrell, PT, DPT Please sign and return to therapist. Thank you for your referral.
== END 2024-01-12 10:46 | disposition home or self-care (01) ==
LOC: HO.PT 09:00
PROVIDERS: PCP Family Medicine; Visit Provider Physician Assistant
DX: M77.8 Other enthesopathies, not elsewhere classified (principal); M75.02 Adhesive capsulitis of left shoulder
CPT/HCPCS: 97110; 97112; 97140; 97161; 97162; 97530

== ENCOUNTER 2023-12-15 13:18 | Outpatient (AMB) | payer MEDICARE, MEDICAID, SELFPAY ==
[2023-12-15 13:25] VITALS: BP 118/78; PULSE 92; O2SAT 97; BMI 28.4
--- NOTE | 2023-12-15 13:25 | MHC.OFFVIS ---
Vital Signs 12/15/23 13:25 Height 6 ft 1 in Weight 214 lb 15.211 oz BMI 28.4 BP 118/78 Blood Pressure Location Rt brachial Position Sitting Pulse 92 Pulse Source Doppler Pulse Oximetry (%) 97 Oxygen Delivery Method Room Air Intake Visit Reasons: Solitary pulmonary nodule Mobile Ui Designer Required: Yes Mobile Ui Designer Name: Aleksandra Kenyon Hali Allergies No Known Drug Allergies [NO KNOWN DRUG ALLERGIES] Allergy (Unknown, Verified 12/15/23 13:30) NONE HPI HPI Solitary pulmonary nodule: Details: 73-year-old gentleman, former 35 pack-year smoker quit 2006 noted to have pulmonary nodules on lung cancer screening CT chest in referred for further follow-up. Patient does complain of intermittent dyspnea on exertion for which he uses albuterol MDI 2 to 3 times a day. He denies having recent pulmonary function testing. He denies having family history of lung disease. Patient denies exposure to industrial dusts. [facility] Medical History (Updated 12/15/23 @ 13:42 by Keanu Escobar MD) Personal history of nicotine dependence History of colon polyps Asthma Depression Hernia Anxiety Surgical History History of colonoscopy History of right inguinal hernia repair History of left inguinal hernia repair (~2020) History of eye surgery Social History (Updated 10/21/23 @ 10:08 by Marina Najera PA-C) Household Members: None Housing: Apartment Do you presently have visiting nurse or other home services: No Patient Tobacco Use Status: Former Tobacco user Years Smoked: onset 17yo, 1-2ppd x 38yrs, 50pyh - quit cigs 2006, uses marijuana daily Substance Use Type: Marijuana service: No Current occupational status: unemployed Review of Systems Const Denies daytime sleepiness, Denies excessive sweating, Denies fatigue, Denies fever(s), Denies lethargy, Denies malaise, Denies night sweats, Denies snoring and Denies weight loss Eyes Denies blurry vision and Denies itchy eyes ENT Denies nasal congestion, Denies post nasal drip, Denies sinus pain, Denies sinus pressure and Denies other ( Thrush) Card Denies chest pain, Denies pedal edema, Denies dyspnea, Reports dyspnea on exertion, Denies orthopnea and Denies paroxysmal nocturnal dyspnea Resp Denies cough, Denies hemoptysis, Denies excessive phlegm production, Denies dyspnea, Reports dyspnea on exertion, Denies snoring and Denies wheezing GI Denies abdominal pain and Denies heartburn Musc Denies myalgias, Denies arthralgias and Denies joint swelling Skin/Breast Denies rash Neuro Denies memory loss and Denies seizure-like activity Psych Denies abnormal sleep pattern, Denies anxiety and Denies memory loss Endo Denies excessive sweating, Denies fatigue and Denies heat intolerance Jamari/Lymph Denies easy bruising Aller/Immun Denies itchy eyes, Denies seasonal rhinorrhea and Denies wheezing Physical Exam Vital Signs: Last Vital Signs Pulse 92 12/15/23 13:25 BP 118/78 12/15/23 13:25 Pulse Ox 97 12/15/23 13:25 Oxygen Delivery Method Room Air 12/15/23 13:25 BMI result Body Mass Index 28.4 Const General: no acute distress and alert Nutritional Appearance: not obese Orientation/consciousness: Other orientation findings ( oriented) HEENT Head: Yes atraumatic Eyes General: appearance normal, both eyes and all related structures Sclerae: sclerae normal EOM: EOMs intact bilaterally Neck Neck: Yes supple Lymphatic: no lymphadenopathy noted Resp Effort & Inspection: normal respiratory effort and no use of accessory muscles Auscultation: clear to auscultation bilaterally Cardio Rate: regular rate Rhythm: regular rhythm Heart sounds: no gallops, no murmurs and no rubs Skin General skin exam: other ( warm) Extrem General: No clubbing, No cyanosis and No edema Assessment & Plan Assessment & Plan (1) COPD (chronic obstructive pulmonary disease): Code(s): J44.9 - Chronic obstructive pulmonary disease, unspecified Category: Medical Plan: Unclear severity suboptimally controlled on albuterol MDI. Will start on Incruse and obtain full PFT. (2) Pulmonary nodules: Code(s): R91.8 - Other nonspecific abnormal finding of lung field Category: Medical Plan: Follow-up CT chest is pending for December of 2023. Medications: New umeclidinium 62.5 mcg/actuation (Incruse Ellipta) 1 inh inhalation DAILY 1 ea 6RF Coding Level of Care Code New Pt Level 4 (11541) Diagnoses COPD (chronic obstructive pulmonary disease) J44.9 Pulmonary nodules R91.8
== END 2023-12-15 13:40 | disposition home or self-care (01) ==
PROVIDERS: PCP Family Medicine; Referring Provider Physician Assistant Medical; Visit Provider Internal Medicine Pulmonary Disease
DX: J44.9 Chronic obstructive pulmonary disease, unspecified (principal); R91.8 Other nonspecific abnormal finding of lung field
CPT/HCPCS: 99204

== ENCOUNTER → 2023-12-15 13:18 | Outpatient (BNVA) | payer MEDICARE, MEDICAID, SELFPAY | PROVIDERS: PCP Family Medicine; Referring Provider Physician Assistant Medical; Visit Provider Internal Medicine Pulmonary Disease | DX: J44.9 Chronic obstructive pulmonary disease, unspecified (principal); R91.1 Solitary pulmonary nodule; Z87.891 Personal history of nicotine dependence | CPT/HCPCS: 99202 ==

== ENCOUNTER 2023-12-21 08:23 | Outpatient (AMB) | payer MEDICARE, MEDICAID, SELFPAY ==
--- NOTE | 2023-12-21 08:37 | A.OFFVIS_ITS ---
Vital Signs 12/21/23 08:40 Height 6 ft 1 in Weight 214 lb BMI 28.2 Intake Visit Reasons: OV- Left shoulder pain, ?MRI Intake Note: Ozzy a 72 year old right and dominant male who presents today for a follow up of left shoulder pain. Patient reports no improvement in his pain, states lump in bicep area is still present. He has no improvement with attending PT and would like to have an MRI. Supervisor Plate Pasting Name: Maliha ID# [id number] Allergies No Known Drug Allergies [NO KNOWN DRUG ALLERGIES] Allergy (Unknown, Verified 12/21/23 08:45) NONE HPI HPI OV- Left shoulder pain, ?MRI: Details: Ozzy is a 73-year-old male who presents today for a follow-up of left shoulder pain. He reports there will be no improvement in his pain. He claims that there is still a lump present in the bicep region. He notices no improvement with physical therapy and would like to have an MRI. [facility] Medical History (Updated 12/15/23 @ 13:42 by Keanu Escobar MD) Personal history of nicotine dependence History of colon polyps Asthma Depression Hernia Anxiety Surgical History History of colonoscopy History of right inguinal hernia repair History of left inguinal hernia repair (~2020) History of eye surgery Social History Household Members: None Housing: Apartment Do you presently have visiting nurse or other home services: No Patient Tobacco Use Status: Former Tobacco user Years Smoked: onset 17yo, 1-2ppd x 38yrs, 50pyh - quit cigs 2006, uses marijuana daily Substance Use Type: Marijuana service: No Current occupational status: unemployed Review of Systems Const All systems reviewed & are unremarkable except as noted in HPI and below Physical Exam Vital Signs: BMI result Body Mass Index 28.2 Const General: no acute distress and alert Nutritional Appearance: not obese Orientation/consciousness: Other orientation findings ( oriented) HEENT Head: Yes atraumatic Eyes General: appearance normal, both eyes and all related structures Sclerae: sclerae normal EOM: EOMs intact bilaterally Neck Neck: Yes supple Lymphatic: no lymphadenopathy noted Resp Effort & Inspection: normal respiratory effort and no use of accessory muscles Auscultation: clear to auscultation bilaterally Cardio Rate: regular rate Rhythm: regular rhythm Heart sounds: no gallops, no murmurs and no rubs Skin General skin exam: other ( warm) Extrem Other: Left shoulder normal to inspection. Tenderness over the bicipital groove and along the deltoid region of the shoulder. Forward flexion to 175, external rotation to 90, internal rotation to S1. 5/5 RTC strength. + Obriens, Negative Barbosa and cross body abduction. NVI. General: No clubbing, No cyanosis and No edema Assessment & Plan Assessment & Plan (1) Left shoulder tendonitis: Code(s): M77.8 - Other enthesopathies, not elsewhere classified Category: Medical Plan An MRI of the left shoulder was ordered to further evaluate the integrity of his rotator cuff and surrounding structures. I will see him back once the scan is complete. Orders: Orders MR shoulder LT wo con Today S46.009A - Unspecified injury of muscle(s) and tendon(s) of the rotator cuff of unspecified shoulder, initial encounter Patient Instructions: Scribed for Aleida Deluna PA-C, by Sarah Swain faculty i on call medical assistant, on 12/21/2023 at 8:30 AM TOMÁS. Audra, Aleida Deluna PA-C, have personally reviewed and agree with the information entered by the scribe. Coding Level of Care Code Est Pt Level 3 (77751) Diagnoses Left shoulder tendonitis M77.8
[2023-12-21 08:40] VITALS: BMI 28.2
== END 2023-12-21 09:09 | disposition home or self-care (01) ==
PROVIDERS: PCP Family Medicine; Visit Provider Physician Assistant
DX: M77.8 Other enthesopathies, not elsewhere classified (principal)
CPT/HCPCS: 99213

== ENCOUNTER → 2023-12-21 08:23 | Outpatient (BNVA) | payer MEDICARE, MEDICAID, SELFPAY | PROVIDERS: PCP Family Medicine; Visit Provider Physician Assistant | DX: M77.8 Other enthesopathies, not elsewhere classified (principal) | CPT/HCPCS: 99212 ==

== ENCOUNTER 2023-12-29 07:24 | Emergency (ER) | payer MEDICARE, MEDICAID, SELFPAY ==
[2023-12-29] VITALS (7 sets, daily range): BP systolic 117–187; BP diastolic 67–100; PULSE 86–123; RESP 15–22; TEMP 36.2–36.8; O2SAT 95–98; BMI 28.4
--- NOTE | ~2023-12-29 | CT_ITS ---
EXAMINATION: CT ABDOMEN AND PELVIS WITH CONTRAST CLINICAL INFORMATION: Abdominal pain COMPARISON: CT abdomen pelvis 04/19/2021, ultrasound abdomen 10/08/2022 TECHNIQUE: Multidetector volumetric images were obtained from the superior aspect of the liver through the pubic symphysis following administration 85 mL of Omnipaque 350 intravenous contrast. Sagittal and coronal reformatted images were obtained on the technologist's workstation. Oral contrast: No This CT examination was performed using dose optimization techniques as appropriate, variously including the following: *Automated exposure control *Adjustment of mA and/or kV according to patient size (this includes techniques or standardized protocols for targeted exams where dose is matched to indication/reason for exam; i.e. extremities or head) *Use of iterative reconstruction technique DLP: 668 mGy-cm FINDINGS: LUNG BASES: The visualized lung bases are unremarkable. The previously seen suspicious spiculated right middle lobe lung mass is not included in the scope of this scan. LIVER, GALLBLADDER, AND BILIARY TREE: The liver is normal in size and shape but demonstrates decreased attenuation consistent with hepatic steatosis. No focal hepatic lesion or biliary ductal dilatation is present. The gallbladder is unremarkable with no evidence of radiopaque gallstones, gallbladder wall thickening, or obvious pericholecystic inflammatory changes. PANCREAS: Unremarkable. SPLEEN: Unremarkable. ADRENAL GLANDS: Unremarkable. KIDNEYS AND URETERS: The kidneys are normal in size, shape, and attenuation. No hydronephrosis, hydroureter, or calculi seen. No perinephric stranding. BLADDER: Unremarkable. GASTROINTESTINAL TRACT: The small and large bowel are unremarkable. There is no evidence of appendicitis. ABDOMINAL WALL: Tiny periumbilical hernias present containing only fat. There is mild diastases of the rectus muscles. There is a lipoma present involving the external oblique on the right (13:39). LYMPH NODES: Normal. VASCULAR: Unremarkable. PELVIC VISCERA: There is marked BPH with 130 mL prostate. Seminal vesicles are normal. OSSEOUS STRUCTURES: Mild degenerative changes are present throughout the spine. No bony destructive lesions. CT/CT abdomen pelvis w IV con IMPRESSION: 1. A cause for the patient's abdominal pain has not been found. 2. Incidental note made of hepatic steatosis, marked BPH and other findings described above. Fleischner guidelines were followed.
--- NOTE | ~2023-12-29 | XR_ITS ---
EXAMINATION: XR CHEST CLINICAL INFORMATION: Shortness of breath COMPARISON: CT lung screening 10/21/2023 TECHNIQUE: 2 views of the chest were obtained. FINDINGS: No significant abnormality is noted involving the heart, lungs, mediastinum, bony thorax or soft tissues. The spiculated mass which was suspicious for malignancy seen on the 10/21/2023 CT scan is not seen on the current study (and would not be expected to be seen on the plain film radiograph). A 3 month follow-up CT scan was recommended at that time which would be 01/21/2024. XR/XR chest 2V IMPRESSION: Unremarkable examination and a cause for the patient's shortness of breath has not been found.. Please see discussion above regarding suspicious lesions seen on the recent chest CT.
--- NOTE | ~2023-12-29 | CT_ITS ---
CT SOFT TISSUE NECK WITH CONTRAST CLINICAL INFORMATION: COMPARISON: None available. TECHNIQUE: Following the intravenous administration of 100 mL of Omnipaque 350 intravenous contrast, helical imaging was performed in the axial plane with generation of coronal and sagittal reformatted images. This CT examination was performed using dose optimization techniques as appropriate, variously including the following: *Automated exposure control *Adjustment of mA and/or kV according to patient size (this includes techniques or standardized protocols for targeted exams where dose is matched to indication/reason for exam; i.e. extremities or head) *Use of iterative reconstruction technique FINDINGS: [place] tonsillitis. There is phlegmonous change within the palatine tonsils bilaterally without any discrete peritonsillar abscess identified at this time. The enlarged and heterogeneous palatine tonsils result in partial effacement of the oropharynx which remains patent. No retropharyngeal edema. Cervical venous system remains widely patent. No pathologic size criteria cervical lymphadenopathy. The orbital soft tissues, the parotid glands, and the submandibular glands are unremarkable. Preserved fat planes within the floor of mouth. Epiglottis is normal in size. There is diffuse idiopathic skeletal hyperostosis at C4-C7 and at T3 through the imaged thoracic spine. Anterior bridging osteophytes at C4-C7 indent the right dorsal hypopharynx and post cricoid pharynx which can be correlated clinically for underlying dysphagia. CT/CT soft tissue neck w IV con IMPRESSION: * [place] tonsillitis. There is phlegmonous change within the palatine tonsils bilaterally without any discrete peritonsillar abscess identified at this time. The enlarged and heterogeneous palatine tonsils result in partial effacement of the oropharynx which remains patent. * There is diffuse idiopathic skeletal hyperostosis at C4-C7 and at T3 through the imaged thoracic spine. Anterior bridging osteophytes at C4-C7 indent the right dorsal hypopharynx and post cricoid pharynx which can be correlated clinically for underlying dysphagia.
--- NOTE | 2023-12-29 07:51 | ECG_ITS ---
Test Reason : tachycardia Blood Pressure : / mmHG Vent. Rate : 110 BPM Atrial Rate : 110 BPM P-R Int : 150 ms QRS Dur : 078 ms QT Int : 320 ms P-R-T Axes : 064 059 080 degrees QTc Int : 433 ms Sinus tachycardia Otherwise normal ECG When compared to the previous EKG of Premature ventricular complexes are no longer Present Referred By: Generic ED Physician Electronically Signed By:VENU MARSH MD
--- NOTE | 2023-12-29 07:58 | ED.GENADULT ---
HPI - General Adult General Chief complaint: General Medical Stated complaint: throat issue Time Seen by Provider: 12/29/23 07:50 Source: patient Mode of arrival: ambulatory Limitations: no limitations and other History of Present Illness HPI narrative: 73-year-old male past medical history of COPD pulmonary nodules history of hernia with hernia area if he throat surgery he states twice at [facility] with continued pain to his throat presents emergency department crying and very anxious. He states he is very anxious because of his throat pain. As into the room the patient was not crying the 2nd that I started talking with the patient he started crying. He states that he is very anxious he states his sore throat right rib pain and left arm pain. He denies any falls or injuries he still has pain everywhere from his head tongue throat neck chest abdomen pelvis Related Data Home Medications ?Medication ?Instructions ?Recorded ?Confirmed albuterol sulfate 90 mcg/actuation 2 puff inhalation Q6H PRN 04/19/21 11/02/23 aerosol inhaler (Ventolin HFA) Shortness Of Breath alprazolam 2 mg tablet 1 tab PO BID PRN Anxiety 04/19/21 11/02/23 ascorbic acid (vitamin C) 500 mg 500 mg PO BID 04/19/21 11/02/23 tablet (Vitamin C) cholecalciferol (vitamin D3) 10 10 mcg PO DAILY 04/19/21 11/02/23 mcg (400 unit) tablet (Vitamin D3) doxepin 100 mg capsule 200 mg PO BEDTIME 04/19/21 11/02/23 morphine 60 mg tablet,extended 1 tab PO BID 04/19/21 11/02/23 release trazodone 50 mg tablet 1 tab PO BEDTIME 04/19/21 11/02/23 Previous Rx's ?Medication ?Instructions ?Recorded sodium,potassium,mag sulfates 17.5 See Rx Instructions PO .COMPLEX 05/28/21 gram-3.13 gram-1.6 gram oral soln #354 mL (Suprep Bowel Prep Kit) umeclidinium 62.5 mcg/actuation 1 inh inhalation DAILY #1 ea 12/15/23 blister powder for inhalation (Incruse Ellipta) celecoxib 200 mg capsule (Celebrex) 200 mg PO BID 30 days #60 caps 12/23/23 Allergies Allergy/AdvReac Type Severity Reaction Status Date / Time No Known Drug Allergies Allergy Unknown NONE Verified 12/29/23 07:38 [NO KNOWN DRUG ALLERGIES] Review of Systems Review of Systems: Review of systems: General: Anorexia Patient denies any fever chills recent illness or falls Musculoskeletal: Denies back pain or body aches or other injuries HEENT: Throat pain denies headache, runny nose, ear pain Respiratory: shortness of breath, cough Cardiovascular: chest pain or palpitations : denies dysuria, frequency Abdomen: no nausea vomiting generalized abdominal pain Extremities: no swelling, no pain Skin: no diaphoresis Yes all other systems are reviewed and are negative [facility] Past Medical History Medical History (Updated 12/29/23 @ 12:21 by Raúl Kelly DO) Personal history of nicotine dependence History of colon polyps Asthma Depression Hernia Anxiety Surgical History History of colonoscopy History of right inguinal hernia repair History of left inguinal hernia repair (~2020) History of eye surgery Social History Social History Household Members: None Housing: Apartment Do you presently have visiting nurse or other home services: No Patient Tobacco Use Status: Former Tobacco user Years Smoked: onset 17yo, 1-2ppd x 38yrs, 50pyh - quit cigs 2006, uses marijuana daily Smoked in Last 30 Days: No Use of substances other than those prescribed or required for medical reasons: No Substance Use Type: Marijuana Advance Directives: No Advance Directives Information Provided: No Do you have a plan to hurt others: No Plan service: No Current occupational status: unemployed Physical Exam ED Vital Signs: Vital Signs - 24 hr 12/29/23 07:30 12/29/23 08:29 12/29/23 08:38 Temperature 97.2 F 97.7 F Pulse Rate 115 H 108 H Respiratory Rate 20 22 H 22 H Blood Pressure 178/100 H 187/96 H Pulse Oximetry 96 98 Oxygen Delivery Method Room Air Room Air 12/29/23 08:45 12/29/23 10:07 12/29/23 11:36 Temperature 97.7 F Pulse Rate 123 H 86 91 Respiratory Rate 15 15 17 Blood Pressure 187/96 H 124/75 117/67 Pulse Oximetry 98 98 95 Oxygen Delivery Method Room Air Room Air Room Air BMI result Body Mass Index 28.4 Course Course Course Narrative: 1218 Patient sleeping comfortably still has hot potato voice does have tonsillitis on CT scan with phlegmonous change but no abscess. Offer the patient transfer versus going home he is tolerating well his airway is patent his labs are all normal unsure if this is a chronic problem for the patient he states 2 surgeries to his tonsils already. I do think IV antibiotics would likely be sufficient but we do not have ENT coverage here. I will call [facility] unsure if that is where he had is surgery as he is only able to answer [facility] when asked where he had his surgery in the past. Calls made to [facility] at this time. CT abdomen is negative he does have a WBC count of 26 today. Lactic is normal Reevaluation(s) Reevaluation #1: 1228 I spoke with ENT at [facility] who agreed the patient would benefit from IV antibiotics with his elevated white count phlegmonous change with tonsillitis. I explained that we can not admit the patient here he agrees the patient needs admission I was happy to cover the patient they state they had to talk to the hospitalist before the patient can be admitted and will call back. Reevaluation #2: 1237 I spoke with the hospitalist at [facility] who accepted the patient to [facility] and will call back when a bed is available. Medications Administered Discontinued Medications Generic Name Dose Route Start Last Admin Trade Name Evelnie PRN Reason Stop Dose Admin Acetaminophen 650 mg 12/29/23 07:51 12/29/23 08:41 Acetaminophen 325 Mg Tablet PO 12/29/23 07:52 650 mg ONCE ONE Administration Dexamethasone Sodium Phosphate 10 mg 12/29/23 07:51 12/29/23 08:36 Dexamethasone Sod Phosphate 10 Mg/Ml Vial IVPUSH 12/29/23 07:52 10 mg ONCE ONE Administration Sodium Chloride 1,000 mls @ 999 mls/hr 12/29/23 08:00 12/29/23 08:34 Ns IV 12/29/23 09:00 999 mls/hr .Q1H1M LUDWIN Administration Ceftriaxone Sodium 1 gm/ 50 mls @ 100 mls/hr 12/29/23 07:51 12/29/23 10:05 Sodium Chloride IV 12/29/23 08:20 Infused ONCE ONE Infusion Sodium Chloride 1,000 mls @ 999 mls/hr 12/29/23 08:15 12/29/23 10:06 Ns IV 12/29/23 09:15 999 mls/hr .Q1H1M LUDWIN Administration Iohexol 100 ml 12/29/23 09:57 12/29/23 09:57 Iohexol 350 Mg/Ml 100 Ml Infus..Btl IV 12/29/23 09:58 85 ml ONCE ONE Administration Ketorolac Tromethamine 15 mg 12/29/23 07:51 12/29/23 08:31 Ketorolac Tromethamine 15 Mg/Ml Vial IVPUSH 12/29/23 07:52 15 mg ONCE ONE Administration Lorazepam 1 mg 12/29/23 07:58 12/29/23 08:31 Lorazepam 2 Mg/Ml Vial IVPUSH 12/29/23 07:59 1 mg ONCE ONE Administration Morphine Sulfate 4 mg 12/29/23 08:00 12/29/23 08:38 Morphine Sulfate 4 Mg/Ml Cartridge IVPUSH 12/29/23 08:01 4 mg ONCE ONE Administration Protocol Medical Decision Making Medical Decision Making [facility] Narrative: I will get a complete workup on the patient including lactic blood cultures labs CT soft tissue neck chest x-ray and CT abdomen and pelvis will give patient fluids morphine I will give the patient some Ativan he is very anxious and reassess. Differential Diagnosis Differential Diagnoses: The differential diagnosis associated with the presentation includes Pharyngitis strep throat UTI dehydration electrolyte abnormality acute surgical airway infectious airway issue chronic sore throat anxiety pneumonia COPD exacerbation the patient is wheezing at this time acute surgical abdomen Admission/Observation Consideration of admission/observation: Escalation of care including admission/observation considered Consult Healthcare Provider Management of the patient was discussed with: Hospitalist Lab Data [facility] Lab Attestation statement: I reviewed the patient's lab results. 12/29/23 08:17 12/29/23 08:17 Labs: Lab Results 12/29/23 12/29/23 12/29/23 Range/Units 08:17 08:17 08:17 WBC 26.5 H Cancelled (4.8-10.8) X10*3/uL RBC 4.59 L Cancelled (4.60-5.80) X10*6/uL Hgb 14.7 D (14.0-18.0) g/dl Hct (42.0-52.0) % MCV (80.0-98.0) fL MCH (27.0-33.0) pg MCHC (31.0-36.0) g/dl RDW (11.0-16.0) % Plt Count (160-400) X10*3/uL MPV (9.4-12.4) fL Immature Gran % (Auto) (0.0-0.4) % Neut % (Auto) (45-73) % Lymph % (Auto) (20-40) % [place] % (Auto) (2-11) % Eos % (Auto) (0-4) % Baso % (Auto) (0-2) % Lymph # (Auto) (1.2-4.9) X10*3/uL [place] # (Auto) (0.1-1.2) X10*3/uL Eos # (Auto) (0.0-0.4) X10*3/uL Baso # (Auto) (0.0-0.2) X10*3/uL Abs Immat Gran (auto) (0.00-0.03) X10*3/uL Absolute Neuts (auto) (2.0-8.3) x10*3/uL Absolute Nucleated RBC (0.0-0.012) X10*3/uL Nucleated RBC % (auto) (0.0-0.2) /100WBC Smear Tech's Comments ESR (0-15) MM/HR Hold Purple Top Sodium (135-145) mmol/L Potassium (3.3-5.1) mmol/L Chloride (96-108) mmol/L Carbon Dioxide (22-29) mmol/L Anion Gap (12-20) BUN (9-16) mg/dL Creatinine (0.5-1.4) mg/dL Estim Creat Clear Calc Estimated GFR Random Glucose (60-115) mg/dL Lactic Acid (0.5-2.0) mmol/L Calcium (8.4-10.2) mg/dL Magnesium (1.6-2.6) mg/dL Total Bilirubin (0.0-1.0) mg/dL Direct Bilirubin (0.0-0.5) mg/dL AST (5-37) U/L ALT (0-40) U/L Alkaline Phosphatase (39-117) U/L C-Reactive Protein (< or = 0.50) mg/dL Total Protein (6.5-8.0) g/dL Albumin (3.5-5.0) g/dL Lipase (8-78) U/L Influenza Type A (PCR) (Negative) Influenza Type B (PCR) (Negative) RSV RNA Qual (PCR) (Negative) SARS-CoV-2 RNA (RT-PCR) (Negative) S. pyogenes GrpA MICHAEL (Negative) 12/29/23 12/29/23 12/29/23 Range/Units 08:17 08:17 08:17 WBC (4.8-10.8) X10*3/uL RBC (4.60-5.80) X10*6/uL Hgb Cancelled (14.0-18.0) g/dl Hct 44.2 Cancelled (42.0-52.0) % MCV 96.3 Cancelled (80.0-98.0) fL MCH 32.0 (27.0-33.0) pg MCHC (31.0-36.0) g/dl RDW (11.0-16.0) % Plt Count (160-400) X10*3/uL MPV (9.4-12.4) fL Immature Gran % (Auto) (0.0-0.4) % Neut % (Auto) (45-73) % Lymph % (Auto) (20-40) % [place] % (Auto) (2-11) % Eos % (Auto) (0-4) % Baso % (Auto) (0-2) % Lymph # (Auto) (1.2-4.9) X10*3/uL [place] # (Auto) (0.1-1.2) X10*3/uL Eos # (Auto) (0.0-0.4) X10*3/uL Baso # (Auto) (0.0-0.2) X10*3/uL Abs Immat Gran (auto) (0.00-0.03) X10*3/uL Absolute Neuts (auto) (2.0-8.3) x10*3/uL Absolute Nucleated RBC (0.0-0.012) X10*3/uL Nucleated RBC % (auto) (0.0-0.2) /100WBC Smear Tech's Comments ESR (0-15) MM/HR Hold Purple Top Sodium (135-145) mmol/L Potassium (3.3-5.1) mmol/L Chloride (96-108) mmol/L Carbon Dioxide (22-29) mmol/L Anion Gap (12-20) BUN (9-16) mg/dL Creatinine (0.5-1.4) mg/dL Estim Creat Clear Calc Estimated GFR Random Glucose (60-115) mg/dL Lactic Acid (0.5-2.0) mmol/L Calcium (8.4-10.2) mg/dL Magnesium (1.6-2.6) mg/dL Total Bilirubin (0.0-1.0) mg/dL Direct Bilirubin (0.0-0.5) mg/dL AST (5-37) U/L ALT (0-40) U/L Alkaline Phosphatase (39-117) U/L C-Reactive Protein (< or = 0.50) mg/dL Total Protein (6.5-8.0) g/dL Albumin (3.5-5.0) g/dL Lipase (8-78) U/L Influenza Type A (PCR) (Negative) Influenza Type B (PCR) (Negative) RSV RNA Qual (PCR) (Negative) SARS-CoV-2 RNA (RT-PCR) (Negative) S. pyogenes GrpA MICHAEL (Negative) 12/29/23 12/29/23 12/29/23 Range/Units 08:17 08:17 08:17 WBC (4.8-10.8) X10*3/uL RBC (4.60-5.80) X10*6/uL Hgb (14.0-18.0) g/dl Hct (42.0-52.0) % MCV (80.0-98.0) fL MCH Cancelled (27.0-33.0) pg MCHC 33.3 Cancelled (31.0-36.0) g/dl RDW 13.2 Cancelled (11.0-16.0) % Plt Count 180 (160-400) X10*3/uL MPV (9.4-12.4) fL Immature Gran % (Auto) (0.0-0.4) % Neut % (Auto) (45-73) % Lymph % (Auto) (20-40) % [place] % (Auto) (2-11) % Eos % (Auto) (0-4) % Baso % (Auto) (0-2) % Lymph # (Auto) (1.2-4.9) X10*3/uL [place] # (Auto) (0.1-1.2) X10*3/uL Eos # (Auto) (0.0-0.4) X10*3/uL Baso # (Auto) (0.0-0.2) X10*3/uL Abs Immat Gran (auto) (0.00-0.03) X10*3/uL Absolute Neuts (auto) (2.0-8.3) x10*3/uL Absolute Nucleated RBC (0.0-0.012) X10*3/uL Nucleated RBC % (auto) (0.0-0.2) /100WBC Smear Tech's Comments ESR (0-15) MM/HR Hold Purple Top Sodium (135-145) mmol/L Potassium (3.3-5.1) mmol/L Chloride (96-108) mmol/L Carbon Dioxide (22-29) mmol/L Anion Gap (12-20) BUN (9-16) mg/dL Creatinine (0.5-1.4) mg/dL Estim Creat Clear Calc Estimated GFR Random Glucose (60-115) mg/dL Lactic Acid (0.5-2.0) mmol/L Calcium (8.4-10.2) mg/dL Magnesium (1.6-2.6) mg/dL Total Bilirubin (0.0-1.0) mg/dL Direct Bilirubin (0.0-0.5) mg/dL AST (5-37) U/L ALT (0-40) U/L Alkaline Phosphatase (39-117) U/L C-Reactive Protein (< or = 0.50) mg/dL Total Protein (6.5-8.0) g/dL Albumin (3.5-5.0) g/dL Lipase (8-78) U/L Influenza Type A (PCR) (Negative) Influenza Type B (PCR) (Negative) RSV RNA Qual (PCR) (Negative) SARS-CoV-2 RNA (RT-PCR) (Negative) S. pyogenes GrpA MICHAEL (Negative) 12/29/23 12/29/23 12/29/23 Range/Units 08:17 08:17 08:17 WBC (4.8-10.8) X10*3/uL RBC (4.60-5.80) X10*6/uL Hgb (14.0-18.0) g/dl Hct (42.0-52.0) % MCV (80.0-98.0) fL MCH (27.0-33.0) pg MCHC (31.0-36.0) g/dl RDW (11.0-16.0) % Plt Count Cancelled (160-400) X10*3/uL MPV 9.7 Cancelled (9.4-12.4) fL Immature Gran % (Auto) 0.7 H Cancelled (0.0-0.4) % Neut % (Auto) 78.9 H (45-73) % Lymph % (Auto) (20-40) % [place] % (Auto) (2-11) % Eos % (Auto) (0-4) % Baso % (Auto) (0-2) % Lymph # (Auto) (1.2-4.9) X10*3/uL [place] # (Auto) (0.1-1.2) X10*3/uL Eos # (Auto) (0.0-0.4) X10*3/uL Baso # (Auto) (0.0-0.2) X10*3/uL Abs Immat Gran (auto) (0.00-0.03) X10*3/uL Absolute Neuts (auto) (2.0-8.3) x10*3/uL Absolute Nucleated RBC (0.0-0.012) X10*3/uL Nucleated RBC % (auto) (0.0-0.2) /100WBC Smear Tech's Comments ESR (0-15) MM/HR Hold Purple Top Sodium (135-145) mmol/L Potassium (3.3-5.1) mmol/L Chloride (96-108) mmol/L Carbon Dioxide (22-29) mmol/L Anion Gap (12-20) BUN (9-16) mg/dL Creatinine (0.5-1.4) mg/dL Estim Creat Clear Calc Estimated GFR Random Glucose (60-115) mg/dL Lactic Acid (0.5-2.0) mmol/L Calcium (8.4-10.2) mg/dL Magnesium (1.6-2.6) mg/dL Total Bilirubin (0.0-1.0) mg/dL Direct Bilirubin (0.0-0.5) mg/dL AST (5-37) U/L ALT (0-40) U/L Alkaline Phosphatase (39-117) U/L C-Reactive Protein (< or = 0.50) mg/dL Total Protein (6.5-8.0) g/dL Albumin (3.5-5.0) g/dL Lipase (8-78) U/L Influenza Type A (PCR) (Negative) Influenza Type B (PCR) (Negative) RSV RNA Qual (PCR) (Negative) SARS-CoV-2 RNA (RT-PCR) (Negative) S. pyogenes GrpA MICHAEL (Negative) 12/29/23 12/29/23 12/29/23 Range/Units 08:17 08:17 08:17 WBC (4.8-10.8) X10*3/uL RBC (4.60-5.80) X10*6/uL Hgb (14.0-18.0) g/dl Hct (42.0-52.0) % MCV (80.0-98.0) fL MCH (27.0-33.0) pg MCHC (31.0-36.0) g/dl RDW (11.0-16.0) % Plt Count (160-400) X10*3/uL MPV (9.4-12.4) fL Immature Gran % (Auto) (0.0-0.4) % Neut % (Auto) Cancelled (45-73) % Lymph % (Auto) 11.3 L Cancelled (20-40) % [place] % (Auto) 8.7 Cancelled (2-11) % Eos % (Auto) 0.2 (0-4) % Baso % (Auto) (0-2) % Lymph # (Auto) (1.2-4.9) X10*3/uL [place] # (Auto) (0.1-1.2) X10*3/uL Eos # (Auto) (0.0-0.4) X10*3/uL Baso # (Auto) (0.0-0.2) X10*3/uL Abs Immat Gran (auto) (0.00-0.03) X10*3/uL Absolute Neuts (auto) (2.0-8.3) x10*3/uL Absolute Nucleated RBC (0.0-0.012) X10*3/uL Nucleated RBC % (auto) (0.0-0.2) /100WBC Smear Tech's Comments ESR (0-15) MM/HR Hold Purple Top Sodium (135-145) mmol/L Potassium (3.3-5.1) mmol/L Chloride (96-108) mmol/L Carbon Dioxide (22-29) mmol/L Anion Gap (12-20) BUN (9-16) mg/dL Creatinine (0.5-1.4) mg/dL Estim Creat Clear Calc Estimated GFR Random Glucose (60-115) mg/dL Lactic Acid (0.5-2.0) mmol/L Calcium (8.4-10.2) mg/dL Magnesium (1.6-2.6) mg/dL Total Bilirubin (0.0-1.0) mg/dL Direct Bilirubin (0.0-0.5) mg/dL AST (5-37) U/L ALT (0-40) U/L Alkaline Phosphatase (39-117) U/L C-Reactive Protein (< or = 0.50) mg/dL Total Protein (6.5-8.0) g/dL Albumin (3.5-5.0) g/dL Lipase (8-78) U/L Influenza Type A (PCR) (Negative) Influenza Type B (PCR) (Negative) RSV RNA Qual (PCR) (Negative) SARS-CoV-2 RNA (RT-PCR) (Negative) S. pyogenes GrpA MICHAEL (Negative) 12/29/23 12/29/23 12/29/23 Range/Units 08:17 08:17 08:17 WBC (4.8-10.8) X10*3/uL RBC (4.60-5.80) X10*6/uL Hgb (14.0-18.0) g/dl Hct (42.0-52.0) % MCV (80.0-98.0) fL MCH (27.0-33.0) pg MCHC (31.0-36.0) g/dl RDW (11.0-16.0) % Plt Count (160-400) X10*3/uL MPV (9.4-12.4) fL Immature Gran % (Auto) (0.0-0.4) % Neut % (Auto) (45-73) % Lymph % (Auto) (20-40) % [place] % (Auto) (2-11) % Eos % (Auto) Cancelled (0-4) % Baso % (Auto) 0.2 Cancelled (0-2) % Lymph # (Auto) 3.0 Cancelled (1.2-4.9) X10*3/uL [place] # (Auto) 2.3 H (0.1-1.2) X10*3/uL Eos # (Auto) (0.0-0.4) X10*3/uL Baso # (Auto) (0.0-0.2) X10*3/uL Abs Immat Gran (auto) (0.00-0.03) X10*3/uL Absolute Neuts (auto) (2.0-8.3) x10*3/uL Absolute Nucleated RBC (0.0-0.012) X10*3/uL Nucleated RBC % (auto) (0.0-0.2) /100WBC Smear Tech's Comments ESR (0-15) MM/HR Hold Purple Top Sodium (135-145) mmol/L Potassium (3.3-5.1) mmol/L Chloride (96-108) mmol/L Carbon Dioxide (22-29) mmol/L Anion Gap (12-20) BUN (9-16) mg/dL Creatinine (0.5-1.4) mg/dL Estim Creat Clear Calc Estimated GFR Random Glucose (60-115) mg/dL Lactic Acid (0.5-2.0) mmol/L Calcium (8.4-10.2) mg/dL Magnesium (1.6-2.6) mg/dL Total Bilirubin (0.0-1.0) mg/dL Direct Bilirubin (0.0-0.5) mg/dL AST (5-37) U/L ALT (0-40) U/L Alkaline Phosphatase (39-117) U/L C-Reactive Protein (< or = 0.50) mg/dL Total Protein (6.5-8.0) g/dL Albumin (3.5-5.0) g/dL Lipase (8-78) U/L Influenza Type A (PCR) (Negative) Influenza Type B (PCR) (Negative) RSV RNA Qual (PCR) (Negative) SARS-CoV-2 RNA (RT-PCR) (Negative) S. pyogenes GrpA MICHAEL (Negative) 12/29/23 12/29/23 12/29/23 Range/Units 08:17 08:17 08:17 WBC (4.8-10.8) X10*3/uL RBC (4.60-5.80) X10*6/uL Hgb (14.0-18.0) g/dl Hct (42.0-52.0) % MCV (80.0-98.0) fL MCH (27.0-33.0) pg MCHC (31.0-36.0) g/dl RDW (11.0-16.0) % Plt Count (160-400) X10*3/uL MPV (9.4-12.4) fL Immature Gran % (Auto) (0.0-0.4) % Neut % (Auto) (45-73) % Lymph % (Auto) (20-40) % [place] % (Auto) (2-11) % Eos % (Auto) (0-4) % Baso % (Auto) (0-2) % Lymph # (Auto) (1.2-4.9) X10*3/uL [place] # (Auto) Cancelled (0.1-1.2) X10*3/uL Eos # (Auto) 0.0 Cancelled (0.0-0.4) X10*3/uL Baso # (Auto) 0.0 Cancelled (0.0-0.2) X10*3/uL Abs Immat Gran (auto) 0.19 H (0.00-0.03) X10*3/uL Absolute Neuts (auto) (2.0-8.3) x10*3/uL Absolute Nucleated RBC (0.0-0.012) X10*3/uL Nucleated RBC % (auto) (0.0-0.2) /100WBC Smear Tech's Comments ESR (0-15) MM/HR Hold Purple Top Sodium (135-145) mmol/L Potassium (3.3-5.1) mmol/L Chloride (96-108) mmol/L Carbon Dioxide (22-29) mmol/L Anion Gap (12-20) BUN (9-16) mg/dL Creatinine (0.5-1.4) mg/dL Estim Creat Clear Calc Estimated GFR Random Glucose (60-115) mg/dL Lactic Acid (0.5-2.0) mmol/L Calcium (8.4-10.2) mg/dL Magnesium (1.6-2.6) mg/dL Total Bilirubin (0.0-1.0) mg/dL Direct Bilirubin (0.0-0.5) mg/dL AST (5-37) U/L ALT (0-40) U/L Alkaline Phosphatase (39-117) U/L C-Reactive Protein (< or = 0.50) mg/dL Total Protein (6.5-8.0) g/dL Albumin (3.5-5.0) g/dL Lipase (8-78) U/L Influenza Type A (PCR) (Negative) Influenza Type B (PCR) (Negative) RSV RNA Qual (PCR) (Negative) SARS-CoV-2 RNA (RT-PCR) (Negative) S. pyogenes GrpA MICHAEL (Negative) 12/29/23 12/29/23 12/29/23 Range/Units 08:17 08:17 08:17 WBC (4.8-10.8) X10*3/uL RBC (4.60-5.80) X10*6/uL Hgb (14.0-18.0) g/dl Hct (42.0-52.0) % MCV (80.0-98.0) fL MCH (27.0-33.0) pg MCHC (31.0-36.0) g/dl RDW (11.0-16.0) % Plt Count (160-400) X10*3/uL MPV (9.4-12.4) fL Immature Gran % (Auto) (0.0-0.4) % Neut % (Auto) (45-73) % Lymph % (Auto) (20-40) % [place] % (Auto) (2-11) % Eos % (Auto) (0-4) % Baso % (Auto) (0-2) % Lymph # (Auto) (1.2-4.9) X10*3/uL [place] # (Auto) (0.1-1.2) X10*3/uL Eos # (Auto) (0.0-0.4) X10*3/uL Baso # (Auto) (0.0-0.2) X10*3/uL Abs Immat Gran (auto) Cancelled (0.00-0.03) X10*3/uL Absolute Neuts (auto) 21.0 H Cancelled (2.0-8.3) x10*3/uL Absolute Nucleated RBC 0.000 Cancelled (0.0-0.012) X10*3/uL Nucleated RBC % (auto) 0.0 (0.0-0.2) /100WBC Smear Tech's Comments ESR (0-15) MM/HR Hold Purple Top Sodium (135-145) mmol/L Potassium (3.3-5.1) mmol/L Chloride (96-108) mmol/L Carbon Dioxide (22-29) mmol/L Anion Gap (12-20) BUN (9-16) mg/dL Creatinine (0.5-1.4) mg/dL Estim Creat Clear Calc Estimated GFR Random Glucose (60-115) mg/dL Lactic Acid (0.5-2.0) mmol/L Calcium (8.4-10.2) mg/dL Magnesium (1.6-2.6) mg/dL Total Bilirubin (0.0-1.0) mg/dL Direct Bilirubin (0.0-0.5) mg/dL AST (5-37) U/L ALT (0-40) U/L Alkaline Phosphatase (39-117) U/L C-Reactive Protein (< or = 0.50) mg/dL Total Protein (6.5-8.0) g/dL Albumin (3.5-5.0) g/dL Lipase (8-78) U/L Influenza Type A (PCR) (Negative) Influenza Type B (PCR) (Negative) RSV RNA Qual (PCR) (Negative) SARS-CoV-2 RNA (RT-PCR) (Negative) S. pyogenes GrpA MICHAEL (Negative) 12/29/23 12/29/23 12/29/23 Range/Units 08:17 08:17 08:17 WBC (4.8-10.8) X10*3/uL RBC (4.60-5.80) X10*6/uL Hgb (14.0-18.0) g/dl Hct (42.0-52.0) % MCV (80.0-98.0) fL MCH (27.0-33.0) pg MCHC (31.0-36.0) g/dl RDW (11.0-16.0) % Plt Count (160-400) X10*3/uL MPV (9.4-12.4) fL Immature Gran % (Auto) (0.0-0.4) % Neut % (Auto) (45-73) % Lymph % (Auto) (20-40) % [place] % (Auto) (2-11) % Eos % (Auto) (0-4) % Baso % (Auto) (0-2) % Lymph # (Auto) (1.2-4.9) X10*3/uL [place] # (Auto) (0.1-1.2) X10*3/uL Eos # (Auto) (0.0-0.4) X10*3/uL Baso # (Auto) (0.0-0.2) X10*3/uL Abs Immat Gran (auto) (0.00-0.03) X10*3/uL Absolute Neuts (auto) (2.0-8.3) x10*3/uL Absolute Nucleated RBC (0.0-0.012) X10*3/uL Nucleated RBC % (auto) Cancelled (0.0-0.2) /100WBC Smear Tech's Comments VERIFIED ESR 30 H (0-15) MM/HR Hold Purple Top SEE NOTE Sodium 136 135 (135-145) mmol/L Potassium 4.1 4.1 (3.3-5.1) mmol/L Chloride 105 (96-108) mmol/L Carbon Dioxide (22-29) mmol/L Anion Gap (12-20) BUN (9-16) mg/dL Creatinine (0.5-1.4) mg/dL Estim Creat Clear Calc Estimated GFR Random Glucose (60-115) mg/dL Lactic Acid (0.5-2.0) mmol/L Calcium (8.4-10.2) mg/dL Magnesium (1.6-2.6) mg/dL Total Bilirubin (0.0-1.0) mg/dL Direct Bilirubin (0.0-0.5) mg/dL AST (5-37) U/L ALT (0-40) U/L Alkaline Phosphatase (39-117) U/L C-Reactive Protein (< or = 0.50) mg/dL Total Protein (6.5-8.0) g/dL Albumin (3.5-5.0) g/dL Lipase (8-78) U/L Influenza Type A (PCR) (Negative) Influenza Type B (PCR) (Negative) RSV RNA Qual (PCR) (Negative) SARS-CoV-2 RNA (RT-PCR) (Negative) S. pyogenes GrpA MICHAEL (Negative) 12/29/23 12/29/23 12/29/23 Range/Units 08:17 08:17 08:17 WBC (4.8-10.8) X10*3/uL RBC (4.60-5.80) X10*6/uL Hgb (14.0-18.0) g/dl Hct (42.0-52.0) % MCV (80.0-98.0) fL MCH (27.0-33.0) pg MCHC (31.0-36.0) g/dl RDW (11.0-16.0) % Plt Count (160-400) X10*3/uL MPV (9.4-12.4) fL Immature Gran % (Auto) (0.0-0.4) % Neut % (Auto) (45-73) % Lymph % (Auto) (20-40) % [place] % (Auto) (2-11) % Eos % (Auto) (0-4) % Baso % (Auto) (0-2) % Lymph # (Auto) (1.2-4.9) X10*3/uL [place] # (Auto) (0.1-1.2) X10*3/uL Eos # (Auto) (0.0-0.4) X10*3/uL Baso # (Auto) (0.0-0.2) X10*3/uL Abs Immat Gran (auto) (0.00-0.03) X10*3/uL Absolute Neuts (auto) (2.0-8.3) x10*3/uL Absolute Nucleated RBC (0.0-0.012) X10*3/uL Nucleated RBC % (auto) (0.0-0.2) /100WBC Smear Tech's Comments ESR (0-15) MM/HR Hold Purple Top Sodium (135-145) mmol/L Potassium (3.3-5.1) mmol/L Chloride 105 (96-108) mmol/L Carbon Dioxide 22 22 (22-29) mmol/L Anion Gap 13 12 (12-20) BUN 11 (9-16) mg/dL Creatinine (0.5-1.4) mg/dL Estim Creat Clear Calc Estimated GFR Random Glucose (60-115) mg/dL Lactic Acid (0.5-2.0) mmol/L Calcium (8.4-10.2) mg/dL Magnesium (1.6-2.6) mg/dL Total Bilirubin (0.0-1.0) mg/dL Direct Bilirubin (0.0-0.5) mg/dL AST (5-37) U/L ALT (0-40) U/L Alkaline Phosphatase (39-117) U/L C-Reactive Protein (< or = 0.50) mg/dL Total Protein (6.5-8.0) g/dL Albumin (3.5-5.0) g/dL Lipase (8-78) U/L Influenza Type A (PCR) (Negative) Influenza Type B (PCR) (Negative) RSV RNA Qual (PCR) (Negative) SARS-CoV-2 RNA (RT-PCR) (Negative) S. pyogenes GrpA MICHAEL (Negative) 12/29/23 12/29/23 12/29/23 Range/Units 08:17 08:17 08:17 WBC (4.8-10.8) X10*3/uL RBC (4.60-5.80) X10*6/uL Hgb (14.0-18.0) g/dl Hct (42.0-52.0) % MCV (80.0-98.0) fL MCH (27.0-33.0) pg MCHC (31.0-36.0) g/dl RDW (11.0-16.0) % Plt Count (160-400) X10*3/uL MPV (9.4-12.4) fL Immature Gran % (Auto) (0.0-0.4) % Neut % (Auto) (45-73) % Lymph % (Auto) (20-40) % [place] % (Auto) (2-11) % Eos % (Auto) (0-4) % Baso % (Auto) (0-2) % Lymph # (Auto) (1.2-4.9) X10*3/uL [place] # (Auto) (0.1-1.2) X10*3/uL Eos # (Auto) (0.0-0.4) X10*3/uL Baso # (Auto) (0.0-0.2) X10*3/uL Abs Immat Gran (auto) (0.00-0.03) X10*3/uL Absolute Neuts (auto) (2.0-8.3) x10*3/uL Absolute Nucleated RBC (0.0-0.012) X10*3/uL Nucleated RBC % (auto) (0.0-0.2) /100WBC Smear Tech's Comments ESR (0-15) MM/HR Hold Purple Top Sodium (135-145) mmol/L Potassium (3.3-5.1) mmol/L Chloride (96-108) mmol/L Carbon Dioxide (22-29) mmol/L Anion Gap (12-20) BUN 11 (9-16) mg/dL Creatinine 0.89 0.87 (0.5-1.4) mg/dL Estim Creat Clear Calc 91.0 93.1 Estimated GFR > 60 Random Glucose (60-115) mg/dL Lactic Acid (0.5-2.0) mmol/L Calcium (8.4-10.2) mg/dL Magnesium (1.6-2.6) mg/dL Total Bilirubin (0.0-1.0) mg/dL Direct Bilirubin (0.0-0.5) mg/dL AST (5-37) U/L ALT (0-40) U/L Alkaline Phosphatase (39-117) U/L C-Reactive Protein (< or = 0.50) mg/dL Total Protein (6.5-8.0) g/dL Albumin (3.5-5.0) g/dL Lipase (8-78) U/L Influenza Type A (PCR) (Negative) Influenza Type B (PCR) (Negative) RSV RNA Qual (PCR) (Negative) SARS-CoV-2 RNA (RT-PCR) (Negative) S. pyogenes GrpA MICHAEL (Negative) 12/29/23 12/29/23 12/29/23 Range/Units 08:17 08:17 08:17 WBC (4.8-10.8) X10*3/uL RBC (4.60-5.80) X10*6/uL Hgb (14.0-18.0) g/dl Hct (42.0-52.0) % MCV (80.0-98.0) fL MCH (27.0-33.0) pg MCHC (31.0-36.0) g/dl RDW (11.0-16.0) % Plt Count (160-400) X10*3/uL MPV (9.4-12.4) fL Immature Gran % (Auto) (0.0-0.4) % Neut % (Auto) (45-73) % Lymph % (Auto) (20-40) % [place] % (Auto) (2-11) % Eos % (Auto) (0-4) % Baso % (Auto) (0-2) % Lymph # (Auto) (1.2-4.9) X10*3/uL [place] # (Auto) (0.1-1.2) X10*3/uL Eos # (Auto) (0.0-0.4) X10*3/uL Baso # (Auto) (0.0-0.2) X10*3/uL Abs Immat Gran (auto) (0.00-0.03) X10*3/uL Absolute Neuts (auto) (2.0-8.3) x10*3/uL Absolute Nucleated RBC (0.0-0.012) X10*3/uL Nucleated RBC % (auto) (0.0-0.2) /100WBC Smear Tech's Comments ESR (0-15) MM/HR Hold Purple Top Sodium (135-145) mmol/L Potassium (3.3-5.1) mmol/L Chloride (96-108) mmol/L Carbon Dioxide (22-29) mmol/L Anion Gap (12-20) BUN (9-16) mg/dL Creatinine (0.5-1.4) mg/dL Estim Creat Clear Calc Estimated GFR > 60 Random Glucose 111 112 (60-115) mg/dL Lactic Acid 1.5 (0.5-2.0) mmol/L Calcium 9.5 9.2 (8.4-10.2) mg/dL Magnesium 1.7 (1.6-2.6) mg/dL Total Bilirubin 1.3 H (0.0-1.0) mg/dL Direct Bilirubin (0.0-0.5) mg/dL AST (5-37) U/L ALT (0-40) U/L Alkaline Phosphatase (39-117) U/L C-Reactive Protein (< or = 0.50) mg/dL Total Protein (6.5-8.0) g/dL Albumin (3.5-5.0) g/dL Lipase (8-78) U/L Influenza Type A (PCR) (Negative) Influenza Type B (PCR) (Negative) RSV RNA Qual (PCR) (Negative) SARS-CoV-2 RNA (RT-PCR) (Negative) S. pyogenes GrpA MICHAEL (Negative) 12/29/23 12/29/23 12/29/23 Range/Units 08:17 08:17 08:17 WBC (4.8-10.8) X10*3/uL RBC (4.60-5.80) X10*6/uL Hgb (14.0-18.0) g/dl Hct (42.0-52.0) % MCV (80.0-98.0) fL MCH (27.0-33.0) pg MCHC (31.0-36.0) g/dl RDW (11.0-16.0) % Plt Count (160-400) X10*3/uL MPV (9.4-12.4) fL Immature Gran % (Auto) (0.0-0.4) % Neut % (Auto) (45-73) % Lymph % (Auto) (20-40) % [place] % (Auto) (2-11) % Eos % (Auto) (0-4) % Baso % (Auto) (0-2) % Lymph # (Auto) (1.2-4.9) X10*3/uL [place] # (Auto) (0.1-1.2) X10*3/uL Eos # (Auto) (0.0-0.4) X10*3/uL Baso # (Auto) (0.0-0.2) X10*3/uL Abs Immat Gran (auto) (0.00-0.03) X10*3/uL Absolute Neuts (auto) (2.0-8.3) x10*3/uL Absolute Nucleated RBC (0.0-0.012) X10*3/uL Nucleated RBC % (auto) (0.0-0.2) /100WBC Smear Tech's Comments ESR (0-15) MM/HR Hold Purple Top Sodium (135-145) mmol/L Potassium (3.3-5.1) mmol/L Chloride (96-108) mmol/L Carbon Dioxide (22-29) mmol/L Anion Gap (12-20) BUN (9-16) mg/dL Creatinine (0.5-1.4) mg/dL Estim Creat Clear Calc Estimated GFR Random Glucose (60-115) mg/dL Lactic Acid (0.5-2.0) mmol/L Calcium (8.4-10.2) mg/dL Magnesium (1.6-2.6) mg/dL Total Bilirubin 1.3 H (0.0-1.0) mg/dL Direct Bilirubin 0.5 (0.0-0.5) mg/dL AST 34 34 (5-37) U/L ALT 51 H 50 H (0-40) U/L Alkaline Phosphatase 154 H (39-117) U/L C-Reactive Protein (< or = 0.50) mg/dL Total Protein (6.5-8.0) g/dL Albumin (3.5-5.0) g/dL Lipase (8-78) U/L Influenza Type A (PCR) (Negative) Influenza Type B (PCR) (Negative) RSV RNA Qual (PCR) (Negative) SARS-CoV-2 RNA (RT-PCR) (Negative) S. pyogenes GrpA MICHAEL (Negative) 12/29/23 12/29/23 12/29/23 Range/Units 08:17 08:17 08:17 WBC (4.8-10.8) X10*3/uL RBC (4.60-5.80) X10*6/uL Hgb (14.0-18.0) g/dl Hct (42.0-52.0) % MCV (80.0-98.0) fL MCH (27.0-33.0) pg MCHC (31.0-36.0) g/dl RDW (11.0-16.0) % Plt Count (160-400) X10*3/uL MPV (9.4-12.4) fL Immature Gran % (Auto) (0.0-0.4) % Neut % (Auto) (45-73) % Lymph % (Auto) (20-40) % [place] % (Auto) (2-11) % Eos % (Auto) (0-4) % Baso % (Auto) (0-2) % Lymph # (Auto) (1.2-4.9) X10*3/uL [place] # (Auto) (0.1-1.2) X10*3/uL Eos # (Auto) (0.0-0.4) X10*3/uL Baso # (Auto) (0.0-0.2) X10*3/uL Abs Immat Gran (auto) (0.00-0.03) X10*3/uL Absolute Neuts (auto) (2.0-8.3) x10*3/uL Absolute Nucleated RBC (0.0-0.012) X10*3/uL Nucleated RBC % (auto) (0.0-0.2) /100WBC Smear Tech's Comments ESR (0-15) MM/HR Hold Purple Top Sodium (135-145) mmol/L Potassium (3.3-5.1) mmol/L Chloride (96-108) mmol/L Carbon Dioxide (22-29) mmol/L Anion Gap (12-20) BUN (9-16) mg/dL Creatinine (0.5-1.4) mg/dL Estim Creat Clear Calc Estimated GFR Random Glucose (60-115) mg/dL Lactic Acid (0.5-2.0) mmol/L Calcium (8.4-10.2) mg/dL Magnesium (1.6-2.6) mg/dL Total Bilirubin (0.0-1.0) mg/dL Direct Bilirubin (0.0-0.5) mg/dL AST (5-37) U/L ALT (0-40) U/L Alkaline Phosphatase 149 H (39-117) U/L C-Reactive Protein 15.43 H (< or = 0.50) mg/dL Total Protein 8.4 H 8.4 H (6.5-8.0) g/dL Albumin 4.2 4.2 (3.5-5.0) g/dL Lipase 16 (8-78) U/L Influenza Type A (PCR) NEGATIVE (Negative) Influenza Type B (PCR) NEGATIVE (Negative) RSV RNA Qual (PCR) NEGATIVE (Negative) SARS-CoV-2 RNA (RT-PCR) NEGATIVE (Negative) S. pyogenes GrpA MICHAEL Positive A (Negative) Independent Interpretation I performed an independent interpretation of an: EKG, Rhythm Strip, Plain X-Ray and CT Scan Interpretation: EKG rate 110 sinus tachycardia normal intervals no signs of ischemia no previous for comparison interpreted Radiology Impression Discussion of test interpretation with radiology: I have reviewed the radiologist's reading. Independent Historian Clinical information obtained from an independent historian. History obtained from or confirmed by: Other External Record Review Patient has only 1 previous visit here on related to visit today Prescription Management I considered prescription management with: Pain Medication and Antibiotic Chronic Conditions Patient?s care impacted by: Hypertension COPD anxiety Social Determinants Patient?s care significantly limited by Social Determinants of Health including: Inadequate housing and Problems related to primary support group Critical Care Time Critical Care Time Critical Care Time: Yes Total Critical Care Time: 50 Attestation: 75 minutes critical care time patient came in and need to be seen immediately patient tachycardic ill and crying. I did medicate the patient send the patient to rule out any acute airway obstruction patient is found to have tonsillitis an elevated white blood cell count I did speak with ENT at [facility] as well as the hospitalist at [facility] him go the patient accepted for transfer pending a bed. Discharge Plan Discharge Clinical Impression: Tonsillitis Patient Disposition: [facility] Transfer Details: [facility] Prescriptions: No Action celecoxib [Celebrex] 200 mg capsule 200 mg PO BID 30 Days Qty: 60 3RF trazodone 50 mg tablet 1 tab PO BEDTIME morphine 60 mg tablet extended release 1 tab PO BID doxepin 100 mg capsule 200 mg PO BEDTIME alprazolam 2 mg tablet 1 tab PO BID PRN (Reason: Anxiety) albuterol sulfate [Ventolin HFA] 90 mcg/actuation HFA aerosol inhaler 2 puff inhalation Q6H PRN (Reason: Shortness Of Breath) ascorbic acid (vitamin C) [Vitamin C] 500 mg Tablet 500 mg PO BID cholecalciferol (vitamin D3) [Vitamin D3] 10 mcg (400 unit) Tablet 10 mcg PO DAILY Suprep Bowel Prep Kit 17.5-3.13-1.6 gram recon soln See Rx Instructions PO .COMPLEX Qty: 354 0RF Rx Instructions: DILUTE; drink full amount early evening before AND next morning at least 2 hr before procedure; follow w 32 oz. water PO Incruse Ellipta 62.5 mcg/actuation blister with device 1 inh inhalation DAILY Qty: 1 6RF Print Language: Jordanian
[2023-12-29] MEDS: LORazepam 2 MG/ML VIAL 1 MG IVPUSH (08:31)
[2023-12-29] MEDS: Ketorolac Tromethamine 15 MG/ML VIAL IVPUSH (08:31)
[2023-12-29 08:34] LABS: Basophils Percent Auto 0.2 % (0-2); Eosinophils Percent Auto 0.2 % (0-4); Hematocrit 44.2 % (42.0-52.0); Hemoglobin 14.7 g/dl (14.0-18.0); Imm Gran Abs Auto 0.19 X10*3/uL (0.00-0.03); Imm Gran Pct Auto 0.7 % (0.0-0.4); Lymphocytes Percent Auto 11.3 % (20-40); MANUAL DIFF FLAG SCAN; Mean Corpuscular HGB Conc 33.3 g/dl (31.0-36.0); Mean Corpuscular Volume 96.3 fL (80.0-98.0); Mean Platelet Volume 9.7 fL (9.4-12.4); Monocytes Absolute Auto 2.3 X10*3/uL (0.1-1.2); Monocytes Percent Auto 8.7 % (2-11); Neutrophils Percent Auto 78.9 % (45-73); Platelet Count 180 X10*3/uL (160-400); Red Blood Count 4.59 X10*6/uL (4.60-5.80); Red Cell Distribution Width 13.2 % (11.0-16.0); SCAN SMEAR FLAG 1; White Blood Count 26.5 X10*3/uL (4.8-10.8)
[2023-12-29] MEDS: 0.9 % Sodium Chloride 1,000 ML 999 ML IV ×2 (08:34→10:06)
[2023-12-29] MEDS: dexAMETHasone sod phosphate 10 MG/ML VIAL IVPUSH (08:36)
[2023-12-29 08:37] LABS: IDNOW Serial# 08D9AD1C; Strep A Nucleic Acid Positive (Negative)
[2023-12-29] MEDS: cefTRIAXone sodium 1 GM in 0.9 % Sodium Chloride 50 ML IV (08:37)
[2023-12-29] MEDS: Morphine Sulfate 4 MG/ML CARTRIDGE IVPUSH (08:38)
[2023-12-29] MEDS: Acetaminophen 325 MG TABLET 650 MG PO (08:41)
--- NOTE | 2023-12-29 08:49 | PC.NURSE ---
Pt comes to ED today for c/o throat pain x2 days. Pt is [facility]--medical staff present to translate. Pt tachy and presents as very anxious upon arrival. Tearful and reports feeling afraid. 20g R hand. Pt medicated per JUL. Confirmed no orders for blood cultures with provider. Awaiting lab results and imaging.
[2023-12-29 08:51] LABS: Lactic Acid 1.5 mmol/L (0.5-2.0)
[2023-12-29 08:52] LABS: Alanine Aminotransferase 50 U/L (0-40); Albumin Level 4.2 g/dL (3.5-5.0); Alkaline Phosphatase 149 U/L (39-117); Anion Gap 12 (12-20); Aspartate Amino Transferase 34 U/L (5-37); Bilirubin Direct 0.5 mg/dL (0.0-0.5); Bilirubin Total 1.3 mg/dL (0.0-1.0); Blood Urea Nitrogen 11 mg/dL (9-16); Calcium 9.2 mg/dL (8.4-10.2); Carbon Dioxide 22 mmol/L (22-29); Chloride 105 mmol/L (96-108); Creatinine Clr Calc Pharmacy 93.1; Estimated Glomerular Filt Rate > 60; Glucose Random 112 mg/dL (60-115); Lipase 16 U/L (8-78); Potassium 4.1 mmol/L (3.3-5.1); Sodium 135 mmol/L (135-145); Total Protein 8.4 g/dL (6.5-8.0)
[2023-12-29 08:53] LABS: Alanine Aminotransferase 51 U/L (0-40); Albumin Level 4.2 g/dL (3.5-5.0); Alkaline Phosphatase 154 U/L (39-117); Anion Gap 13 (12-20); Aspartate Amino Transferase 34 U/L (5-37); Bilirubin Total 1.3 mg/dL (0.0-1.0); Blood Urea Nitrogen 11 mg/dL (9-16); C Reactive Protein 15.43 mg/dL (< or = 0.50); Calcium 9.5 mg/dL (8.4-10.2); Carbon Dioxide 22 mmol/L (22-29); Chloride 105 mmol/L (96-108); Estimated Glomerular Filt Rate > 60; Glucose Random 111 mg/dL (60-115); Magnesium 1.7 mg/dL (1.6-2.6); Potassium 4.1 mmol/L (3.3-5.1); Sodium 136 mmol/L (135-145); Total Protein 8.4 g/dL (6.5-8.0)
[2023-12-29 09:00] LABS: SLIDE REVIEW VERIFIED
[2023-12-29 09:10] LABS: Influenza A PCR NEGATIVE (Negative); Influenza B PCR NEGATIVE (Negative); Resp Syncy Virus RNA Qual PCR NEGATIVE (Negative); SARS COV2 PCR INHOUSE NEGATIVE (Negative)
[2023-12-29 09:11] LABS: Erythrocyte Sedimentation Rate 30 MM/HR (0-15)
[2023-12-29] MEDS: iohexoL 350 MG/ML 100 ML INFUS..BTL IV (09:57)
--- NOTE | 2023-12-29 10:11 | PC.NURSE ---
Pt is resting comfortably with eyes closed at this time. VSS. Awaiting results from imaging.
--- NOTE | 2023-12-29 12:40 | PC.NURSE ---
Pt given apple sauce and juice per provider and tolerated well.
--- NOTE | 2023-12-29 13:34 | PC.NURSE ---
Attempted to call [facility] to give RN to RN report on Pt for transfer. Pt will be going to [place] [id number] Room 30. Call placed to [phone]. Was placed on hold for an extended period of time with answer. Will attempt to call back at a later time.
--- NOTE | 2023-12-29 14:52 | PC.NURSE ---
Second attempt to call [facility] for nurse to nurse report. On hold for an extended amount of time. EMS here to transfer pt, EMS aware no nurse to nurse given.
== END 2023-12-29 14:56 | disposition short-term general hospital (02) ==
PROVIDERS: Physician Assistant Medical; Emergency Provider Student in an Organized Health Care Education/Training Program; PCP Family Medicine
DX: J03.90 Acute tonsillitis, unspecified (principal); J02.0 Streptococcal pharyngitis; Z03.818 Encounter for observation for suspected exposure to other biological agents ruled out; R05.9 Cough, unspecified; R06.02 Shortness of breath; R00.0 Tachycardia, unspecified; J44.9 Chronic obstructive pulmonary disease, unspecified; Z79.899 Other long term (current) drug therapy
CPT/HCPCS: 0241U; 36415; 70491; 71046; 74177; 80048; 80053; 80076; 82248; 83605; 83690; 83735; 85025; 85652; 86140; 87651; 93005; 99285; J0696; J1100; J1885; J2060; J2270; Q9967

== ENCOUNTER → 2023-12-29 07:51 | Outpatient (BNV) | payer MEDICARE, MEDICAID, SELFPAY | PROVIDERS: Emergency Provider Student in an Organized Health Care Education/Training Program; PCP Family Medicine; Visit Provider Internal Medicine Cardiovascular Disease | DX: R00.0 Tachycardia, unspecified (principal) | CPT/HCPCS: 93010 ==

== ENCOUNTER 2024-01-24 08:25 | Outpatient (REF) | payer MEDICARE, MEDICAID, SELFPAY ==
--- NOTE | ~2024-01-24 | CT_ITS ---
EXAMINATION: CT LOW-DOSE SCREENING CHEST WITHOUT CONTRAST CLINICAL INFORMATION: Personal history of nicotine dependence. Former smoker. The patient has a 40 pack-year history of smoking, having quit 5 years ago. COMPARISON: CT chest October 21, 2023: A discrete mass is not seen, however, there is an ill-defined spiculated area measuring 1.5 x 1.1 x 0.9 cm. As there are no prior imaging studies covering this region, this must be considered suspicious. TECHNIQUE: Multidetector volumetric CT imaging of the chest is performed on a Siemens SOMATOM Definition scanner without contrast using low dose technique. Additional 2D coronal and sagittal reformatted images and axial 3D maximum intensity projection (MIP) images are generated on the CT workstation. This CT examination was performed using dose optimization techniques as appropriate, variously including the following: *Automated exposure control. *Adjustment of mA and/or kV according to patient size (this includes techniques or standardized protocols for targeted exams where dose is matched to indication/reason for exam; i.e. extremities or head). *Use of iterative reconstruction technique. TOTAL EXAM DLP: 53 mGy-cm. CTDIvol: 1.56 mGy. FINDINGS: PULMONARY NODULES: Small scattered calcified granulomas are seen. Pleural-based nodule with calcium in the superior segment of the right upper lobe unchanged (5:132 compare prior 5:100). Some minimal tree-in-bud opacities in the inferior right upper lobe appear somewhat improved (5:223 compare prior 5:224). The previously seen spiculated area in the right middle lobe seen at the time of the prior study has almost completely resolved (8:74 compare prior 8:72) indicating that this was inflammatory in nature. LUNGS: Lungs bilaterally symmetrically expanded. No focal lung nodule or mass. No effusion or pneumothorax. Central airways patent. MEDIASTINUM: No mediastinal, hilar or axillary adenopathy or free fluid collection. CORONARY ARTERY CALCIFICATION: Moderate. THYROID GLAND: Unremarkable to the extent seen. CARDIOVASCULAR STRUCTURES: Aortic and heart size normal. No pericardial effusion. CHEST WALL/AXILLA: Unremarkable. UPPER ABDOMEN: Included portions of the solid organs in the upper abdomen unremarkable on noncontrast imaging aside from the presence of hepatic steatosis as seen previously. OSSEOUS STRUCTURES: No suspicious focal findings. CT/CT lung screen follow up IMPRESSION: Resolved spiculated density and tree-in-bud densities. No suspicious nodules seen to suggest malignancy this time. ASSESSMENT: 1. Lung-RADS Category 1: Negative. There are no nodules or there are definitely benign nodules. N/A. 2. Lung-RADS Category S: Negative. There are no clinically significant or potentially clinically significant findings not related to the lungs requiring urgent additional evaluation. RECOMMENDATION: Continued routine annual low-dose CT lung screening in 1 year is recommended. An order for CT CHEST LOW DOSE CANCER SCREENING ([id number]) can be placed. Electronically signed by: Johnathan Jordan MD 02/28/2024 10:58 PM EDT
== END 2024-01-24 08:26 | disposition home or self-care (01) ==
LOC: HO.CT 08:25
PROVIDERS: PCP Family Medicine; Visit Provider Physician Assistant Medical
DX: R91.1 Solitary pulmonary nodule (principal); Z87.891 Personal history of nicotine dependence
CPT/HCPCS: 71250

== ENCOUNTER 2024-02-07 07:15 | Outpatient (REF) | payer MEDICARE, MEDICAID, SELFPAY | END 2024-02-07 07:16 | disposition home or self-care (01) | LOC: HO.MRI 07:15 | PROVIDERS: PCP Family Medicine; Visit Provider Physician Assistant | DX: Z13.89 Encounter for screening for other disorder (principal) ==

== ENCOUNTER 2024-02-15 09:13 | Outpatient (AMB) | payer MEDICARE, MEDICAID, SELFPAY ==
[2024-02-15 09:22] VITALS: BP 122/78; PULSE 101; O2SAT 96; BMI 27.2
--- NOTE | 2024-02-15 09:22 | A.OFFVIS_ITS ---
Vital Signs 02/15/24 09:22 Height 6 ft 1 in Weight 206 lb 2.115 oz BMI 27.2 BP 122/78 Blood Pressure Location Rt brachial Position Sitting Pulse 101 H Pulse Source Doppler Pulse Oximetry (%) 96 Oxygen Delivery Method Room Air Intake Visit Reasons: solitary pulm nodule .Net Programmer Required: Yes .Net Programmer Name: Aleksandra Kenyon C.LChristinaM Allergies No Known Drug Allergies [NO KNOWN DRUG ALLERGIES] Allergy (Unknown, Verified 12/29/23 07:38) NONE HPI HPI solitary pulm nodule: Details: 73-year-old gentleman, former 35 pack-year smoker quit 2006 noted to have pulmonary nodules on lung cancer screening CT chest in referred for further follow-up. Patient does complain of intermittent dyspnea on exertion for which he uses albuterol MDI 2 to 3 times a day. He denies having recent pulmonary function testing. He denies having family history of lung disease. Patient denies exposure to industrial dusts. after the last office visit patient was started on Incruse and reports improved symptom control. He also had lung cancer screening CT chest with results not available for this appointment, but on my review he does 7 mm left lower lobe nodule. Today patient also complain of thoracic radicular pain on the right side. [facility] Medical History (Updated 02/15/24 @ 09:58 by Keanu Escobar MD) Personal history of nicotine dependence History of colon polyps Asthma Depression Hernia Anxiety Surgical History History of colonoscopy History of right inguinal hernia repair History of left inguinal hernia repair (~2020) History of eye surgery Social History Household Members: None Housing: Apartment Do you presently have visiting nurse or other home services: No Patient Tobacco Use Status: Former Tobacco user Years Smoked: onset 17yo, 1-2ppd x 38yrs, 50pyh - quit cigs 2006, uses marijuana daily Substance Use Type: Marijuana service: No Current occupational status: unemployed Review of Systems Const Denies daytime sleepiness, Denies excessive sweating, Denies fatigue, Denies fever(s), Denies lethargy, Denies malaise, Denies night sweats, Denies snoring and Denies weight loss Eyes Denies blurry vision and Denies itchy eyes ENT Denies nasal congestion, Denies post nasal drip, Denies sinus pain, Denies sinus pressure and Denies other ( Thrush) Card Denies chest pain, Denies pedal edema, Denies dyspnea, Denies orthopnea and Denies paroxysmal nocturnal dyspnea Resp Denies cough, Denies hemoptysis, Denies excessive phlegm production, Denies dyspnea, Denies snoring and Denies wheezing GI Denies abdominal pain and Denies heartburn Musc Reports back pain, Denies myalgias, Denies arthralgias and Denies joint swelling Skin/Breast Denies rash Neuro Denies memory loss and Denies seizure-like activity Psych Denies abnormal sleep pattern, Denies anxiety and Denies memory loss Endo Denies excessive sweating, Denies fatigue and Denies heat intolerance Jamari/Lymph Denies easy bruising Aller/Immun Denies itchy eyes, Denies seasonal rhinorrhea and Denies wheezing Physical Exam Vital Signs: Last Vital Signs Pulse 101 H 02/15/24 09:22 BP 122/78 02/15/24 09:22 Pulse Ox 96 02/15/24 09:22 Oxygen Delivery Method Room Air 02/15/24 09:22 BMI result Body Mass Index 27.2 Const General: no acute distress and alert Nutritional Appearance: not obese Orientation/consciousness: Other orientation findings ( oriented) HEENT Head: Yes atraumatic Eyes General: appearance normal, both eyes and all related structures Sclerae: sclerae normal EOM: EOMs intact bilaterally Neck Neck: Yes supple Lymphatic: no lymphadenopathy noted Resp Effort & Inspection: normal respiratory effort and no use of accessory muscles Auscultation: clear to auscultation bilaterally Cardio Rate: regular rate Rhythm: regular rhythm Heart sounds: no gallops, no murmurs and no rubs Skin General skin exam: other ( warm) Extrem General: No clubbing, No cyanosis and No edema Assessment & Plan Assessment & Plan (1) COPD (chronic obstructive pulmonary disease): Code(s): J44.9 - Chronic obstructive pulmonary disease, unspecified Category: Medical Plan: improved control on Incruse and albuterol MDI. Continue current regimen. Pulmonary function test is pending. (2) Pulmonary nodules: Code(s): R91.8 - Other nonspecific abnormal finding of lung field Category: Medical Plan: CT scan results not available, on my review 7 mm left lower lobe lung nodule, will repeat CT chest in 3 months. (3) Thoracic back pain: Code(s): M54.6 - Pain in thoracic spine Category: Medical Plan: Will refer to pain management. Orders: Orders CT chest wo IV con 05/17/24 R91.8 - Other nonspecific abnormal finding of lung field Referrals Pain Management Referral M54.6 - Pain in thoracic spine Coding Level of Care Code Est Pt Level 4 (49441) Diagnoses COPD (chronic obstructive pulmonary disease) J44.9 Pulmonary nodules R91.8 Thoracic back pain M54.6
== END 2024-02-15 09:56 | disposition home or self-care (01) ==
PROVIDERS: PCP Family Medicine; Visit Provider Internal Medicine Pulmonary Disease
DX: J44.9 Chronic obstructive pulmonary disease, unspecified (principal); R91.8 Other nonspecific abnormal finding of lung field; M54.6 Pain in thoracic spine
CPT/HCPCS: 99214

== ENCOUNTER → 2024-02-15 09:13 | Outpatient (BNVA) | payer MEDICARE, MEDICAID, SELFPAY | PROVIDERS: PCP Family Medicine; Visit Provider Internal Medicine Pulmonary Disease | DX: J44.9 Chronic obstructive pulmonary disease, unspecified (principal); R91.1 Solitary pulmonary nodule; M54.6 Pain in thoracic spine | CPT/HCPCS: 99212 ==

== ENCOUNTER 2024-02-28 08:16 | Outpatient (AMB) | payer MEDICARE, MEDICAID, SELFPAY ==
--- NOTE | 2024-02-28 08:21 | MHC.OFFVIS ---
Intake Visit Reasons: OV- Left Shoulder pain MRI review Intake Note: Ozzy a 73 year old male who presents today with his daughter for an MRI review of left shoulder. Patient daughter reports that his pain has gotten worse since his last visit. Sap Ppm Consultant Required: Yes Sap Ppm Consultant Services: Sap Ppm Consultant Present Sap Ppm Consultant Name: Muna ID#[id number] Accompanied by: Daughter Allergies No Known Drug Allergies [NO KNOWN DRUG ALLERGIES] Allergy (Unknown, Verified 02/28/24 08:31) NONE HPI HPI OV- Left Shoulder pain MRI review: Details: 73-year-old male returns to the office today for follow-up shoulder status post. He is accompanied by his daughter. He states that he continues to have pain in the left shoulder with daily activities such as lifting or carrying objects. Previous subacromial injections have not given relief. He has tried physical therapy without relief. [facility] Medical History (Updated 02/28/24 @ 08:50 by Aleida Deluna PA-C) Personal history of nicotine dependence History of colon polyps Asthma Depression Hernia Anxiety Surgical History History of colonoscopy History of right inguinal hernia repair History of left inguinal hernia repair (~2020) History of eye surgery Social History Household Members: None Housing: Apartment Do you presently have visiting nurse or other home services: No Patient Tobacco Use Status: Former Tobacco user Years Smoked: onset 17yo, 1-2ppd x 38yrs, 50pyh - quit cigs 2006, uses marijuana daily Substance Use Type: Marijuana service: No Current occupational status: unemployed Review of Systems Const All systems reviewed & are unremarkable except as noted in HPI and below Physical Exam Const General: no acute distress and alert Nutritional Appearance: not obese Orientation/consciousness: Other orientation findings ( oriented) HEENT Head: Yes atraumatic Eyes General: appearance normal, both eyes and all related structures Sclerae: sclerae normal EOM: EOMs intact bilaterally Neck Neck: Yes supple Lymphatic: no lymphadenopathy noted Resp Effort & Inspection: normal respiratory effort and no use of accessory muscles Auscultation: clear to auscultation bilaterally Cardio Rate: regular rate Rhythm: regular rhythm Heart sounds: no gallops, no murmurs and no rubs Skin General skin exam: other ( warm) Extrem Other: Left shoulder normal to inspection. Tenderness over the bicipital groove and along the deltoid region of the shoulder. Forward flexion to 175, external rotation to 90, internal rotation to S1. 5/5 RTC strength. + Obriens, Negative Barbosa and cross body abduction. NVI. General: No clubbing, No cyanosis and No edema Results Reviewed Results Reviewed: Assessment & Plan Assessment & Plan (1) Left shoulder tendonitis: Code(s): M77.8 - Other enthesopathies, not elsewhere classified Category: Medical (2) Biceps tendonitis on left: Code(s): M75.22 - Bicipital tendinitis, left shoulder Category: Medical Plan MRI was reviewed in the office today. I explained that there is no surgical intervention warranted at this time but I do feel that he may benefit from a referral at pain management to discuss either AC joint or biceps tendon injections under fluoroscopy. He is content with this plan and will follow up in our office as needed. Orders: Referrals Pain Management Referral M75.22 - Bicipital tendinitis, left shoulder, M77.8 - Other enthesopathies, not elsewhere classified Coding Level of Care Code Est Pt Level 3 (03785) Complex EM visit Add On G2211 Diagnoses Left shoulder tendonitis M77.8 Biceps tendonitis on left M75.22
== END 2024-02-28 08:55 | disposition home or self-care (01) ==
PROVIDERS: PCP Family Medicine; Visit Provider Physician Assistant
DX: M77.8 Other enthesopathies, not elsewhere classified (principal); M75.22 Bicipital tendinitis, left shoulder
CPT/HCPCS: 99213; G2211

== ENCOUNTER → 2024-02-28 08:16 | Outpatient (BNVA) | payer MEDICARE, MEDICAID, SELFPAY | PROVIDERS: PCP Family Medicine; Visit Provider Physician Assistant | DX: M77.8 Other enthesopathies, not elsewhere classified (principal); M75.22 Bicipital tendinitis, left shoulder | CPT/HCPCS: 99212 ==

== ENCOUNTER 2024-03-07 08:06 | Outpatient (AMB) | payer MEDICARE, MEDICAID, SELFPAY ==
--- NOTE | 2024-03-07 08:25 | MHC.OFFVIS ---
Vital Signs 03/07/24 08:34 Height 6 ft 1 in Weight 207 lb BMI 27.3 BP 149/76 H Blood Pressure Location Rt brachial Position Sitting Pulse 88 Pulse Source Pulse Oximeter Pulse Oximetry (%) 97 Oxygen Delivery Method Room Air Intake Visit Reasons: Pain in Thoracic Spine Intake Note: Pain today 12/30 Estimator Binding Required: Yes Estimator Binding Language: Scottish Accompanied by: Self / Same As Patient Allergies No Known Drug Allergies [NO KNOWN DRUG ALLERGIES] Allergy (Unknown, Verified 03/07/24 08:34) NONE HPI Comments Details: Ozzy is very pleasant 73 years old gentleman who presents in my office with complains on pain in the left shoulder and left arm. He reports that his pain started 1 year ago. He denies any inciting events. He reports that he can not sleep normally can not do activities of daily living can not take care of himself can not function normal, on permanent disability. He is self mobile. Called aggravate his pain. Topical medications like her topical creams make his pain slightly better. He took some medications for pain control he does not remember the names of the medications. He had an MRI of the shoulder and results of the MRI dictated as below. He had physical therapy last 3 months ago and he continues home exercise program at this time with minimal or no help. He tried occupational therapy about 6-7 months ago and reports no improvement. She never had injections. His past medical history is significant for depression anxiety and panic attacks he is taking trazodone, doxepin, and so neither for those conditions. And he also suffers from asthma. His past surgical history is significant for vocal cord surgery. Social history he is disabled individual he admits smoking cannabis but denies smoking cigarettes he denies other recreational drugs. [facility] Medical History (Updated 03/07/24 @ 11:27 by Kel Barrett MD) Personal history of nicotine dependence History of colon polyps Asthma Depression Hernia Anxiety Surgical History History of colonoscopy History of right inguinal hernia repair History of left inguinal hernia repair (~2020) History of eye surgery Social History (Updated 03/07/24 @ 08:37 by Cyndi Hurst) Household Members: None Housing: Apartment Do you presently have visiting nurse or other home services: No Patient Tobacco Use Status: Former Tobacco user Years Smoked: onset 17yo, 1-2ppd x 38yrs, 50pyh - quit cigs 2006, uses marijuana daily Substance Use Type: Marijuana Substance Use Frequency: Daily service: No Current occupational status: unemployed Review of Systems Const All systems reviewed & are unremarkable except as noted in HPI and below Physical Exam Vital Signs: Last Vital Signs Pulse 88 03/07/24 08:34 BP 149/76 H 03/07/24 08:34 Pulse Ox 97 03/07/24 08:34 Oxygen Delivery Method Room Air 03/07/24 08:34 BMI result Body Mass Index 27.3 Const General: no acute distress and alert Nutritional Appearance: not obese Orientation/consciousness: Other orientation findings ( oriented) HEENT Head: Yes atraumatic Eyes General: appearance normal, both eyes and all related structures Sclerae: sclerae normal EOM: EOMs intact bilaterally Neck Neck: Yes supple Lymphatic: no lymphadenopathy noted Resp Effort & Inspection: normal respiratory effort and no use of accessory muscles Auscultation: clear to auscultation bilaterally Cardio Rate: regular rate Rhythm: regular rhythm Heart sounds: no gallops, no murmurs and no rubs Skin General skin exam: other ( warm) Extrem Other: Left shoulder normal to inspection. Tenderness over the bicipital groove and along the deltoid region of the shoulder. Forward flexion to 175, external rotation to 90, internal rotation to S1. 5/5 RTC strength. + Obriens, Negative Barbosa and cross body abduction. Severe tenderness on palpation in the projection of the left acromial clavicular joint junction. Severe tenderness on palpation on the medial arm. General: No clubbing, No cyanosis and No edema Results Reviewed Results Reviewed: Assessment & Plan Assessment & Plan (1) Biceps tendonitis on left: Code(s): M75.22 - Bicipital tendinitis, left shoulder Category: Medical (2) Adhesive capsulitis of left shoulder: Code(s): M75.02 - Adhesive capsulitis of left shoulder Category: Medical (3) Acromioclavicular joint arthritis: Code(s): M19.019 - Primary osteoarthritis, unspecified shoulder Category: Medical Plan I offered this patient and he agreed to go for left acromioclavicular joint injection and left long head of the biceps injection under ultrasound guidance. I will evaluate this patient 1 month after the procedure. If those will be not effective neuromodulation to treat this patient pain can be offered to the patient including the PNS curonix in the left interscalene brachial plexus positioned. Alternatively cervical place spinal cord stimulator [place] [employer] can not be employed to treat this patient's pain. Patient Instructions: I here by testify that I spent 45 minutes in conversation with this patient as well as evaluating his prior records and prior diagnostic studies, planning his care and organizing this note. railway track plant operator from [employer] [phone] was helping us to maintain this conversation in Scottish. Coding Level of Care Code New Pt Level 4 (99974) Diagnoses Biceps tendonitis on left M75.22 Adhesive capsulitis of left shoulder M75.02 Acromioclavicular joint arthritis M19.019
[2024-03-07 08:34] VITALS: BP 149/76; PULSE 88; O2SAT 97; BMI 27.3
== END 2024-03-07 08:53 | disposition home or self-care (01) ==
PROVIDERS: PCP Family Medicine; Visit Provider Anesthesiology
DX: M75.22 Bicipital tendinitis, left shoulder (principal); M75.02 Adhesive capsulitis of left shoulder; M19.019 Primary osteoarthritis, unspecified shoulder
CPT/HCPCS: 99204

== ENCOUNTER → 2024-03-07 08:06 | Outpatient (BNVA) | payer MEDICARE, MEDICAID, SELFPAY | PROVIDERS: PCP Family Medicine; Visit Provider Anesthesiology | DX: M75.22 Bicipital tendinitis, left shoulder (principal); M75.02 Adhesive capsulitis of left shoulder; M19.019 Primary osteoarthritis, unspecified shoulder | CPT/HCPCS: 99202 ==

== ENCOUNTER 2024-03-16 07:32 | Outpatient (REF) | payer MEDICARE, MEDICAID, SELFPAY ==
--- NOTE | 2024-03-16 08:03 | PFT_ITS ---
Flows: FEV1: 93 % of predicted at 3.15 L FVC: 106 % of predicted at 4.76 L FEV1/FVC: 66 % Bronchodilator response: Absent Volumes: Total lung capacity: 95 % of predicted at 7.23 L Residual volume: 90 % of predicted at 2.47 L Slow vital capacity: 99 % of predicted at 4.75 L Expiratory reserve volume: 104 % of predicted at 1.43 L Diffusion capacity: Normal Impression: Mild obstructive ventilatory defect with no bronchodilator response. MTDD
[2024-03-16 13:25] VITALS: PULSE 82; RESP 16; O2SAT 97
== END 2024-03-16 07:33 | disposition home or self-care (01) ==
LOC: HO.RESP 07:32
PROVIDERS: PCP Family Medicine; Visit Provider Internal Medicine Pulmonary Disease
DX: J44.9 Chronic obstructive pulmonary disease, unspecified (principal)
CPT/HCPCS: 94010; 94640; 94727; 94729

== ENCOUNTER → 2024-03-16 08:03 | Outpatient (BNV) | payer MEDICARE, MEDICAID, SELFPAY | PROVIDERS: PCP Family Medicine; Visit Provider Internal Medicine Pulmonary Disease | DX: J44.9 Chronic obstructive pulmonary disease, unspecified (principal) | CPT/HCPCS: 94060; 94727; 94729 ==

== ENCOUNTER 2024-03-28 11:06 | Outpatient (REF) | payer MEDICARE, MEDICAID, SELFPAY ==
[2024-03-28 13:30] LABS: Hematocrit 40.9 % (42.0-52.0); Hemoglobin 13.7 g/dl (14.0-18.0); Mean Corpuscular HGB Conc 33.5 g/dl (31.0-36.0); Mean Corpuscular Hemoglobin 31.3 pg (27.0-33.0); Mean Corpuscular Volume 93.4 fL (80.0-98.0); Mean Platelet Volume 10.1 fL (9.4-12.4); Platelet Count 160 X10*3/uL (160-400); Red Blood Count 4.38 X10*6/uL (4.60-5.80); Red Cell Distribution Width 13.2 % (11.0-16.0); White Blood Count 7.1 X10*3/uL (4.8-10.8)
[2024-03-28 13:45] LABS: Alanine Aminotransferase 76 U/L (0-40); Albumin Level 4.1 g/dL (3.5-5.0); Alkaline Phosphatase 118 U/L (39-117); Aspartate Amino Transferase 76 U/L (5-37); Bilirubin Direct 0.1 mg/dL (0.0-0.5); Bilirubin Total 0.4 mg/dL (0.0-1.0); Iron 99 mcg/dL (45-160); Percent Iron Saturation 32 % (15-50); Total Iron Binding Capacity 313 mcg/dL (228-428); Unsaturated Iron Binding 214 ug/dL
[2024-03-28 14:00] LABS: Ferritin 336 ng/mL (20-250)
[2024-03-28 14:12] LABS: ~HepC Num1 0.23 S/CO (0.00-0.79); ~Hepatitis C Antibody Nonreactive (Nonreactive)
[2024-03-29 08:23] LABS: Ceruloplasmin 19 mg/dL (14-30)
[2024-04-01 11:44] LABS: Smooth Muscle Antibody <20 U (<20)
[2024-04-03 07:42] LABS: Anti Nuclear Antibody Screen NEGATIVE (NEGATIVE)
[2024-04-03 16:19] LABS: Mitochondrial Antibodies NEGATIVE (NEGATIVE)
== END 2024-03-28 11:07 | disposition home or self-care (01) ==
LOC: HO.HHCL 11:06
PROVIDERS: Visit Provider Family Medicine
DX: R74.01 Elevation of levels of liver transaminase levels (principal)
CPT/HCPCS: 36415; 80076; 82390; 82728; 83540; 85027; 86015; 86038; 86381; 86803

== ENCOUNTER 2024-04-09 07:53 | Outpatient (REF) | payer MEDICARE, MEDICAID, SELFPAY | END 2024-04-09 07:54 | disposition home or self-care (01) | LOC: HO.US 07:53 | PROVIDERS: PCP Family Medicine; Visit Provider Family Medicine | DX: R74.01 Elevation of levels of liver transaminase levels (principal) | CPT/HCPCS: 76700 ==

== ENCOUNTER 2024-04-17 06:04 | Outpatient (REF) | payer MEDICARE, MEDICAID, SELFPAY | END 2024-04-17 06:05 | disposition home or self-care (01) | LOC: CF 06:04 | PROVIDERS: Visit Provider Anesthesiology | DX: M75.22 Bicipital tendinitis, left shoulder (principal); M75.02 Adhesive capsulitis of left shoulder; M19.012 Primary osteoarthritis, left shoulder | CPT/HCPCS: 20605; J2003; J2795; J3301 ==

== ENCOUNTER 2024-04-17 07:02 | Outpatient (AMB) | payer MEDICARE, MEDICAID, SELFPAY ==
[2024-04-17 07:05] VITALS: BP 120/62; PULSE 82; O2SAT 97
--- NOTE | 2024-04-17 08:24 | MHC.OFFVIS ---
Vital Signs 04/17/24 07:05 BP 120/62 Blood Pressure Location Rt brachial Position Sitting Pulse 82 Pulse Source Pulse Oximeter Pulse Oximetry (%) 97 Oxygen Delivery Method Room Air Comment Pre-op Intake Visit Reasons: LT A/C JOINT/ LONG HEAD BICEP INJECTION US GUIDED Allergies No Known Drug Allergies [NO KNOWN DRUG ALLERGIES] Allergy (Unknown, Verified 03/07/24 08:34) NONE PFSH Medical History (Updated 03/07/24 @ 11:27 by eKl Barrett MD) Personal history of nicotine dependence History of colon polyps Asthma Depression Hernia Anxiety Surgical History History of colonoscopy History of right inguinal hernia repair History of left inguinal hernia repair (~2020) History of eye surgery Social History (Updated 03/07/24 @ 08:37 by Cyndi Hurst) Household Members: None Housing: Apartment Do you presently have visiting nurse or other home services: No Patient Tobacco Use Status: Former Tobacco user Years Smoked: onset 17yo, 1-2ppd x 38yrs, 50pyh - quit cigs 2006, uses marijuana daily Substance Use Type: Marijuana service: No Current occupational status: unemployed Physical Exam Vital Signs: Last Vital Signs Pulse 82 04/17/24 07:05 BP 120/62 04/17/24 07:05 Pulse Ox 97 04/17/24 07:05 Oxygen Delivery Method Room Air 04/17/24 07:05 Assessment & Plan Assessment & Plan (1) Biceps tendonitis on left: Code(s): M75.22 - Bicipital tendinitis, left shoulder Category: Medical (2) Adhesive capsulitis of left shoulder: Code(s): M75.02 - Adhesive capsulitis of left shoulder Category: Medical (3) Acromioclavicular joint arthritis: Code(s): M19.019 - Primary osteoarthritis, unspecified shoulder Category: Medical Plan: Left acromioclavicular joint injection and left long head of the biceps injection under ultrasound guidance. Informed consent was explained to the patient's on risks and benefits were explained. The risks were including: Bleeding infection peripheral nerve damage. The patient was positioned supine on the examination bed, his left shoulder and left upper arm as well as left anterior chest were prepped with ChloraPrep and draped with sterile utility towels. Time-out was performed delineating correct side and site of the procedure name and date of of the patient allergies and nature of the procedure. Sterilely draped ultrasound probe was brought over the operating field and long head of the biceps on the left was demonstrated on the screen. 100 mm echo stim needle was inserted extra anatomically through the skin and was advanced to were the image of the long head of the biceps in in plane fashion. When needle was positioned in the vicinity of the lateral border of the long head of the biceps injection of the solution of the ropivacaine 0.5% mixed with Kenalog 30 mg was performed. The spread of the injection was observed live on the screen. After that attention was changed for the left acromioclavicular joint. The left acromioclavicular joint was demonstrated on the ultrasound screen and the same needle was was guided into intra-articular space were injection of the 2 cc of ropivacaine 0.5% mixed with Kenalog 10 mg was performed. Upon completion of the injection the needle was removed sterile Band-Aids were applied. The patient tolerated procedure well. he recovered uneventfully. Plan I offered this patient and he agreed to go for left acromioclavicular joint injection and left long head of the biceps injection under ultrasound guidance. I will evaluate this patient 1 month after the procedure. If those will be not effective neuromodulation to treat this patient pain can be offered to the patient including the PNS curonix in the left interscalene brachial plexus positioned. Alternatively cervical place spinal cord stimulator [place] [employer] can not be employed to treat this patient's pain. Orders: Orders US guide needle placement Today M19.019 - Primary osteoarthritis, unspecified shoulder, M75.22 - Bicipital tendinitis, left shoulder FL guidance in treatment room Today M19.019 - Primary osteoarthritis, unspecified shoulder Coding Level of Care Code Procedure Only Diagnoses Biceps tendonitis on left M75.22 Adhesive capsulitis of left shoulder M75.02 Acromioclavicular joint arthritis M19.019
== END 2024-04-17 08:27 | disposition home or self-care (01) ==
PROVIDERS: PCP Family Medicine; Visit Provider Anesthesiology
DX: M75.22 Bicipital tendinitis, left shoulder (principal); M75.02 Adhesive capsulitis of left shoulder; M19.019 Primary osteoarthritis, unspecified shoulder
CPT/HCPCS: 20605

== ENCOUNTER 2024-04-30 08:27 | Outpatient (AMB) | payer MEDICARE, MEDICAID, SELFPAY ==
[2024-04-30 08:36] VITALS: BP 116/69; PULSE 78; RESP 14; O2SAT 96; BMI 27.8
--- NOTE | 2024-04-30 08:36 | A.OFFVIS_ITS ---
Vital Signs 04/30/24 08:36 Height 6 ft 1 in Weight 211 lb BMI 27.8 BP 116/69 Blood Pressure Location Lt brachial Position Sitting Respiration 14 Pulse 78 Pulse Source Pulse Oximeter Pulse Oximetry (%) 96 Oxygen Delivery Method Room Air Intake Visit Reasons: LEFT A/C JOINT AND LONG HEAD BICEP INJECTIONS Allergies No Known Drug Allergies [NO KNOWN DRUG ALLERGIES] Allergy (Unknown, Verified 04/30/24 08:39) NONE Medication List - Last Reconciled 04/30/24 by Krystle Guaman, DISTILLERY WORKER albuterol sulfate 90 mcg/actuation (Ventolin HFA) 2 puffs inhalation Q6H PRN alprazolam 1 tab PO BID PRN amlodipine 2.5 mg PO DAILY ascorbic acid (vitamin C) (Vitamin C) 500 mg PO BID celecoxib (Celebrex) 200 mg PO BID 30 days cholecalciferol (vitamin D3) (Vitamin D3) 10 mcg PO DAILY doxepin 200 mg PO BEDTIME morphine ER 1 tab PO BID mupirocin 2% 1 appl topical BID-TID trazodone 1 tab PO BEDTIME umeclidinium 62.5 mcg/actuation (Incruse Ellipta) 1 inh inhalation DAILY HPI Comments Details: Ozzy is back in my office after therapeutic long biceps ligament injection and AC joint injection with steroids which was performed for him on 04/17/2024. Patient reports that before the procedure his pain was 10/10. He reports much milder pain today, he reports pain 5/10. He admits better mobility of the arm better activities of daily living. We agreed today that the patient will report pain increase and we will schedule yet another injection like this for him in the future. However if the pain decrease interval will be less than 3 months I would have to discuss with him other options treat his pain including interscalene nerve block and implantation of the curonix PNS in interscalene positioned if this interscalene nerve block will help his pain. Prior: C/o pain in the left shoulder and left arm. He reports that his pain started 1 year ago. He denies any inciting events. He reports that he can not sleep normally can not do activities of daily living can not take care of himself can not function normal, on permanent disability. He is self mobile. Called aggravate his pain. Topical medications like her topical creams make his pain slightly better. He took some medications for pain control he does not remember the names of the medications. He had an MRI of the shoulder and results of the MRI dictated as below. He had physical therapy last 3 months ago and he c ontinues home exercise program at this time with minimal or no help. He tried occupational therapy about 6-7 months ago and reports no improvement. She never had injections. His past medical history is significant for depression anxiety and panic attacks he is taking trazodone, doxepin, and so neither for those conditions. And he also suffers from asthma. His past surgical history is significant for vocal cord surgery. Social history he is disabled individual he admits smoking cannabis but denies smoking cigarettes he denies other recreational drugs. [facility] Medical History (Updated 03/07/24 @ 11:27 by Kel Barrett MD) Personal history of nicotine dependence History of colon polyps Asthma Depression Hernia Anxiety Surgical History History of colonoscopy History of right inguinal hernia repair History of left inguinal hernia repair (~2020) History of eye surgery Social History (Updated 03/07/24 @ 08:37 by Cyndi Hurst) Household Members: None Housing: Apartment Do you presently have visiting nurse or other home services: No Patient Tobacco Use Status: Former Tobacco user Years Smoked: onset 17yo, 1-2ppd x 38yrs, 50pyh - quit cigs 2006, uses marijuana daily Substance Use Type: Marijuana service: No Current occupational status: unemployed Review of Systems Const All systems reviewed & are unremarkable except as noted in HPI and below Physical Exam Vital Signs: Last Vital Signs Pulse 78 04/30/24 08:36 Resp 14 04/30/24 08:36 BP 116/69 04/30/24 08:36 Pulse Ox 96 04/30/24 08:36 Oxygen Delivery Method Room Air 04/30/24 08:36 BMI result Body Mass Index 27.8 Const General: no acute distress and alert Nutritional Appearance: not obese Orientation/consciousness: Other orientation findings ( oriented) HEENT Head: Yes atraumatic Eyes General: appearance normal, both eyes and all related structures Sclerae: sclerae normal EOM: EOMs intact bilaterally Neck Neck: Yes supple Lymphatic: no lymphadenopathy noted Resp Effort & Inspection: normal respiratory effort and no use of accessory muscles Auscultation: clear to auscultation bilaterally Cardio Rate: regular rate Rhythm: regular rhythm Heart sounds: no gallops, no murmurs and no rubs Skin General skin exam: other ( warm) Extrem Other: Left shoulder normal to inspection. Tenderness over the bicipital groove and along the deltoid region of the shoulder. Forward flexion to 175, external rotation to 90, internal rotation to S1. 5/5 RTC strength. + Obriens, Negative Barbosa and cross body abduction. Severe tenderness on palpation in the projection of the left acromial clavicular joint junction. Severe tenderness on palpation on the medial arm. General: No clubbing, No cyanosis and No edema Assessment & Plan Assessment & Plan (1) Biceps tendonitis on left: Code(s): M75.22 - Bicipital tendinitis, left shoulder Category: Medical (2) Adhesive capsulitis of left shoulder: Code(s): M75.02 - Adhesive capsulitis of left shoulder Category: Medical (3) Acromioclavicular joint arthritis: Code(s): M19.019 - Primary osteoarthritis, unspecified shoulder Category: Medical Plan left acromioclavicular joint injection and left long head of the biceps injection under ultrasound guidance resulted in 50% pain improvement.. Future dealing with this pain was explained to the patient as above. If the time interval of relative pain decreased will be less than 3 months neuromodulation to treat this patient pain can be offered to the patient including the PNS curonix in the left interscalene brachial plexus positioned. Alternatively cervical place spinal cord stimulator [place] [employer] can not be employed to treat this patient's pain. Coding Level of Care Code Est Pt Level 3 (38791) Diagnoses Biceps tendonitis on left M75.22 Adhesive capsulitis of left shoulder M75.02 Acromioclavicular joint arthritis M19.019
== END 2024-04-30 08:38 | disposition home or self-care (01) ==
PROVIDERS: PCP Family Medicine; Visit Provider Anesthesiology
DX: M75.22 Bicipital tendinitis, left shoulder (principal); M75.02 Adhesive capsulitis of left shoulder; M19.019 Primary osteoarthritis, unspecified shoulder
CPT/HCPCS: 99213

== ENCOUNTER → 2024-04-30 08:27 | Outpatient (BNVA) | payer MEDICARE, MEDICAID, SELFPAY | PROVIDERS: PCP Family Medicine; Visit Provider Anesthesiology | DX: M75.22 Bicipital tendinitis, left shoulder (principal); M75.02 Adhesive capsulitis of left shoulder; M19.012 Primary osteoarthritis, left shoulder | CPT/HCPCS: 99212 ==

== ENCOUNTER 2024-05-21 07:38 | Outpatient (REF) | payer MEDICARE, MEDICAID, SELFPAY ==
--- NOTE | ~2024-05-21 | CT_ITS ---
CLINICAL HISTORY: R91.8 - Other nonspecific abnormal finding of lung field CT chest without contrast Comparison: CT/OT/CA/SR - CT LUNG SCREENING - 10/21/2023 10:07 AM EDT Findings: Heart size is normal. Coronary artery calcifications are present. The visualized thyroid and mediastinum are unremarkable. Previously seen 1.5 cm spiculated area in the right middle lobe is no longer present. No new or enlarging pulmonary nodules. There is a calcified 6 mm granuloma in the left lower lobe, unchanged from prior. This is likely evidence of previous granulomatous disease. Small posterior right pleural plaque with calcification is unchanged. The visualized upper abdomen is unremarkable. The bones are intact. No lytic blastic bone lesions in the thoracic spine. Multilevel diffuse idiopathic skeletal hyperostosis of the thoracic spine present. IMPRESSION: 1. Interval resolution of previously seen 1.5 cm spiculated area in the right middle lobe. No new or enlarging pulmonary nodules. This document has been electronically signed by: Shubham Partida MD on 05/21/2024 23:21:12
== END 2024-05-21 07:39 | disposition home or self-care (01) ==
LOC: HO.CT 07:38
PROVIDERS: PCP Family Medicine; Visit Provider Internal Medicine Pulmonary Disease
DX: R91.8 Other nonspecific abnormal finding of lung field (principal)
CPT/HCPCS: 71250

== ENCOUNTER → 2024-05-21 07:40 | Outpatient (BNV) | payer MEDICARE, MEDICAID, SELFPAY | PROVIDERS: PCP Family Medicine; Visit Provider Radiology Diagnostic Radiology | DX: R91.8 Other nonspecific abnormal finding of lung field (principal) | CPT/HCPCS: 71250 ==

== ENCOUNTER 2024-06-05 08:45 | Outpatient (AMB) | payer MEDICARE, MEDICAID, SELFPAY ==
--- NOTE | 2024-06-05 08:49 | MHC.OFFVIS ---
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 Patient does complain of intermittent dyspnea on exertion for which he uses albuterol MDI 2 to 3 times a day. He denies having recent pulmonary function testing. He denies having family history of lung disease. Patient denies exposure to industrial dusts. After the last office visit patient had a follow-up CT scan that showed resolution of his previously noted nodule. Unfortunately he has not been using Incruse, but continued on albuterol MDI with somewhat suboptimal control of his symptoms. He denies acute exacerbations. [facility] Medical History (Updated 03/07/24 @ 11:27 by Kel Barrett MD) Personal history of nicotine dependence History of colon polyps Asthma Depression Hernia Anxiety Surgical History History of colonoscopy History of right inguinal hernia repair History of left inguinal hernia repair (~2020) History of eye surgery Social History (Updated 03/07/24 @ 08:37 by Cyndi Hurst) Household Members: None Housing: Apartment Do you presently have visiting nurse or other home services: No Patient Tobacco Use Status: Former Tobacco user Years Smoked: onset 17yo, 1-2ppd x 38yrs, 50pyh - quit cigs 2006, uses marijuana daily Substance Use Type: Marijuana service: No Current occupational status: unemployed Review of Systems Const Denies daytime sleepiness, Denies excessive sweating, Denies fatigue, Denies fever(s), Denies lethargy, Denies malaise, Denies night sweats, Denies snoring and Denies weight loss Eyes Denies blurry vision and Denies itchy eyes ENT Denies nasal congestion, Denies post nasal drip, Denies sinus pain, Denies sinus pressure and Denies other ( Thrush) Card Denies chest pain, Denies pedal edema, Denies dyspnea, Denies orthopnea and Denies paroxysmal nocturnal dyspnea Resp Denies cough, Denies hemoptysis, Denies excessive phlegm production, Denies dyspnea, Denies snoring and Denies wheezing GI Denies abdominal pain and Denies heartburn Musc Denies myalgias, Denies arthralgias and Denies joint swelling Skin/Breast Denies rash Neuro Denies memory loss and Denies seizure-like activity Psych Denies abnormal sleep pattern, Denies anxiety and Denies memory loss Endo Denies excessive sweating, Denies fatigue and Denies heat intolerance Jamari/Lymph Denies easy bruising Aller/Immun Denies itchy eyes, Denies seasonal rhinorrhea and Denies wheezing Physical Exam Vital Signs: Last Vital Signs Pulse 77 06/05/24 08:50 BP 112/62 06/05/24 08:50 Pulse Ox 96 06/05/24 08:50 Oxygen Delivery Method Room Air 06/05/24 08:50 BMI result Body Mass Index 28.5 Const General: no acute distress and alert Nutritional Appearance: not obese Orientation/consciousness: Other orientation findings ( oriented) HEENT Head: Yes atraumatic Eyes General: appearance normal, both eyes and all related structures Sclerae: sclerae normal EOM: EOMs intact bilaterally Neck Neck: Yes supple Lymphatic: no lymphadenopathy noted Resp Effort & Inspection: normal respiratory effort and no use of accessory muscles Auscultation: clear to auscultation bilaterally Cardio Rate: regular rate Rhythm: regular rhythm Heart sounds: no gallops, no murmurs and no rubs Skin General skin exam: other ( warm) Extrem General: No clubbing, No cyanosis and No edema Assessment & Plan Assessment & Plan (1) COPD (chronic obstructive pulmonary disease): Code(s): J44.9 - Chronic obstructive pulmonary disease, unspecified Category: Medical Plan: Suboptimally controlled off Incruse. Restart Incruse and continue albuterol MDI. (2) Pulmonary nodules: Code(s): R91.8 - Other nonspecific abnormal finding of lung field Category: Medical Plan: Results of follow-up CT chest reviewed, resolution of previously noted nodule. Continue with lung cancer screening CT chest, next in April of 2025. Orders: Orders CT lung screening 05/05/25 Z87.891 - Personal history of nicotine dependence Medications: Refilled umeclidinium 62.5 mcg/actuation (Incruse Ellipta) 1 inh inhalation DAILY 1 ea 6RF Coding Level of Care Code Est Pt Level 4 (19511) Diagnoses COPD (chronic obstructive pulmonary disease) J44.9 Pulmonary nodules R91.8
[2024-06-05 08:50] VITALS: BP 112/62; PULSE 77; O2SAT 96; BMI 28.5
== END 2024-06-05 09:09 | disposition home or self-care (01) ==
PROVIDERS: PCP Family Medicine; Visit Provider Internal Medicine Pulmonary Disease
DX: J44.9 Chronic obstructive pulmonary disease, unspecified (principal); R91.8 Other nonspecific abnormal finding of lung field
CPT/HCPCS: 99214

== ENCOUNTER → 2024-06-05 08:45 | Outpatient (BNVA) | payer MEDICARE, MEDICAID, SELFPAY | PROVIDERS: PCP Family Medicine; Visit Provider Internal Medicine Pulmonary Disease | DX: J44.9 Chronic obstructive pulmonary disease, unspecified (principal); R91.8 Other nonspecific abnormal finding of lung field; Z87.891 Personal history of nicotine dependence | CPT/HCPCS: 99212 ==

== ENCOUNTER 2024-06-08 06:21 | Emergency (ER) | payer MEDICARE, MEDICAID, SELFPAY ==
--- NOTE | 2024-06-08 | ECG_ITS ---
Test Reason : chest px Blood Pressure : */* mmHG Vent. Rate : 97 BPM Atrial Rate : 97 BPM P-R Int : 158 ms QRS Dur : 82 ms QT Int : 354 ms P-R-T Axes : 56 57 69 degrees QTcB Int : 449 ms Normal sinus rhythm Normal ECG When compared with ECG of 29-Dec-2023 07:58, Premature ventricular complexes are no longer Present Referred By: Generic ED Physician Electronically Signed By: VENU MARSH MD
--- NOTE | ~2024-06-08 | CT_ITS ---
EXAMINATION: CT CHEST ANGIOGRAPHY WITH IV CONTRAST INDICATION: CP, cough, tachycardia COMPARISON: Comparison is made with the prior examination dated 05/21/2024. TECHNIQUE: Helical CT scan of the chest was performed following administration of intravenous contrast (65 mL Omnipaque 350). The contrast bolus was timed to optimally opacify the pulmonary arteries. Thin sections were obtained through the pulmonary arteries. Coronal and sagittal reformatted images were generated. 3D/MIP reconstructed images are also obtained and reviewed. This CT exam was performed with one or more of the following dose reduction techniques: automated exposure control, adjustment of the mA and/or kV according to patient size, use of iterative reconstruction technique. DLP: 243 mGy-cm CHEST: THYROID: The thyroid gland is unremarkable. PULMONARY ARTERIES: No intraluminal filling defects are identified within the pulmonary arteries to suggest pulmonary emboli. LUNGS: Again seen is a calcified granuloma in the left lower lobe (series 7, image 30). The lungs are otherwise clear. MEDIASTINUM: There is no mediastinal lymphadenopathy. YONI: There is no hilar lymphadenopathy. CARDIOVASCULATURE: The heart is normal in size. There is no pericardial effusion. The thoracic aorta is normal in caliber. DEGREE OF CORONARY CALCIFICATION: mild PLEURA: There is no pleural effusion. No pneumothorax. MAIN AIRWAYS: The mainstem bronchi and proximal branches are patent. AXILLA: There is no axillary lymphadenopathy. UPPER ABDOMEN: The visualized portions of the liver, spleen, and adrenals are unremarkable. BONES AND SOFT TISSUES: Unremarkable. CT/CT angio chest PE protocol IMPRESSION: No evidence of pulmonary emboli. Unremarkable CTA of the chest. Electronically signed by: Naif Hercules MD 06/08/2024 12:59 PM [facility]
--- NOTE | ~2024-06-08 | XR_ITS ---
CLINICAL HISTORY: chest pain 2 view chest x-ray Comparison: CT/OT/SR - CT CHEST WO IV CON - 05/21/24 07:48 EST CR/NV/SR - XR CHEST 2V - 12/29/23 08:55 EDT Findings: No consolidation or effusion. Lungs appear hyperexpanded. Normal size heart. No acute fracture. IMPRESSION: 1. No acute findings. This document has been electronically signed by: Haleigh Gould MD on 06/08/2024 07:01:00
[2024-06-08 06:24] VITALS: BP 196/115; PULSE 114; RESP 20; TEMP 37.9; O2SAT 96; BMI 28.5
[2024-06-08 06:43] LABS: Hematocrit 44.6 % (42.0-52.0); Mean Corpuscular HGB Conc 33.6 g/dl (31.0-36.0); Mean Corpuscular Hemoglobin 31.6 pg (27.0-33.0); Mean Corpuscular Volume 94.1 fL (80.0-98.0); Mean Platelet Volume 9.5 fL (9.4-12.4); Platelet Count 168 X10*3/uL (160-400); Red Blood Count 4.74 X10*6/uL (4.60-5.80); Red Cell Distribution Width 13.1 % (11.0-16.0); White Blood Count 8.3 X10*3/uL (4.8-10.8)
[2024-06-08 07:11] LABS: Albumin Level 4.3 g/dL (3.5-5.0); Alkaline Phosphatase 129 U/L (39-117); Anion Gap 12 (12-20); Aspartate Amino Transferase 59 U/L (5-37); Bilirubin Total 0.9 mg/dL (0.0-1.0); Blood Urea Nitrogen 12 mg/dL (9-16); Calcium 9.1 mg/dL (8.4-10.2); Carbon Dioxide 22 mmol/L (22-29); Chloride 108 mmol/L (96-108); Estimated Glomerular Filt Rate > 60; Glucose Random 159 mg/dL (60-115); Potassium 4.3 mmol/L (3.3-5.1); Sodium 138 mmol/L (135-145); Total Protein 8.3 g/dL (6.5-8.0)
[2024-06-08 07:20] LABS: Troponin-I High Sensitivity < 2.7 ng/L (<3.5-35.0)
[2024-06-08 07:23] LABS: Influenza A PCR NEGATIVE (Negative); Influenza B PCR NEGATIVE (Negative); Resp Syncy Virus RNA Qual PCR NEGATIVE (Negative); SARS COV2 PCR INHOUSE NEGATIVE (Negative)
[2024-06-08 07:30] LABS: Alanine Aminotransferase 57 U/L (0-40)
[2024-06-08 08:54] VITALS: BP 176/94; PULSE 106; RESP 18; TEMP 36.8; O2SAT 96
--- NOTE | 2024-06-08 09:02 | ED.GENADULT ---
HPI - General Adult General Chief complaint: General Medical Stated complaint: chest pain/lung pain Time Seen by Provider: 06/08/24 08:44 Related Data Home Medications ?Medication ?Instructions ?Recorded ?Confirmed albuterol sulfate 90 mcg/actuation 2 puff inhalation Q6H PRN 04/19/21 04/30/24 aerosol inhaler (Ventolin HFA) Shortness Of Breath alprazolam 2 mg tablet 1 tab PO BID PRN Anxiety 04/19/21 04/30/24 ascorbic acid (vitamin C) 500 mg 500 mg PO BID 04/19/21 04/30/24 tablet (Vitamin C) cholecalciferol (vitamin D3) 10 10 mcg PO DAILY 04/19/21 04/30/24 mcg (400 unit) tablet (Vitamin D3) doxepin 100 mg capsule 200 mg PO BEDTIME 04/19/21 04/30/24 morphine 60 mg tablet,extended 1 tab PO BID 04/19/21 04/30/24 release trazodone 50 mg tablet 1 tab PO BEDTIME 04/19/21 04/30/24 amlodipine 2.5 mg tablet 2.5 mg PO DAILY 03/07/24 04/30/24 mupirocin 2 % topical ointment 1 appl topical BID-TID 03/07/24 04/30/24 Previous Rx's ?Medication ?Instructions ?Recorded celecoxib 200 mg capsule (Celebrex) 200 mg PO BID 30 days #60 caps 12/23/23 umeclidinium 62.5 mcg/actuation 1 inh inhalation DAILY #1 ea 06/05/24 blister powder for inhalation (Incruse Ellipta) Allergies Allergy/AdvReac Type Severity Reaction Status Date / Time No Known Drug Allergies Allergy Unknown NONE Verified 06/08/24 06:25 [NO KNOWN DRUG ALLERGIES] PMFSH Past Medical History Medical History (Updated 03/07/24 @ 11:27 by Kel Barrett MD) Personal history of nicotine dependence History of colon polyps Asthma Depression Hernia Anxiety Surgical History History of colonoscopy History of right inguinal hernia repair History of left inguinal hernia repair (~2020) History of eye surgery Social History Social History (Updated 03/07/24 @ 08:37 by Cyndi Hurst) Household Members: None Housing: Apartment Do you presently have visiting nurse or other home services: No Patient Tobacco Use Status: Former Tobacco user Years Smoked: onset 17yo, 1-2ppd x 38yrs, 50pyh - quit cigs 2006, uses marijuana daily Substance Use Type: Marijuana Do you have a plan to hurt others: No Plan service: No Current occupational status: unemployed Physical Exam ED Vital Signs: Vital Signs - 24 hr 06/08/24 06:24 06/08/24 08:54 Temperature 100.3 F 98.2 F Pulse Rate 114 H 106 H Respiratory Rate 20 18 Blood Pressure 196/115 H 176/94 H Pulse Oximetry 96 96 Oxygen Delivery Method Room Air Room Air BMI result Body Mass Index 28.5 Medical Decision Making Lab Data 06/08/24 06:37 06/08/24 06:37 Labs: Lab Results 06/08/24 Range/Units 06:37 WBC 8.3 (4.8-10.8) X10*3/uL RBC 4.74 (4.60-5.80) X10*6/uL Hgb 15.0 (14.0-18.0) g/dl Hct 44.6 (42.0-52.0) % MCV 94.1 (80.0-98.0) fL MCH 31.6 (27.0-33.0) pg MCHC 33.6 (31.0-36.0) g/dl RDW 13.1 (11.0-16.0) % Plt Count 168 (160-400) X10*3/uL MPV 9.5 (9.4-12.4) fL Absolute Nucleated RBC 0.000 (0.0-0.012) X10*3/uL Nucleated RBC % (auto) 0.0 (0.0-0.2) /100WBC Sodium 138 (135-145) mmol/L Potassium 4.3 (3.3-5.1) mmol/L Chloride 108 (96-108) mmol/L Carbon Dioxide 22 (22-29) mmol/L Anion Gap 12 (12-20) BUN 12 (9-16) mg/dL Creatinine 0.97 (0.5-1.4) mg/dL Estim Creat Clear Calc 86.0 Estimated GFR > 60 Random Glucose 159 H (60-115) mg/dL Calcium 9.1 (8.4-10.2) mg/dL Total Bilirubin 0.9 (0.0-1.0) mg/dL AST 59 H (5-37) U/L ALT 57 H (0-40) U/L Alkaline Phosphatase 129 H (39-117) U/L Troponin I High Sens < 2.7 (<3.5-35.0) ng/L Total Protein 8.3 H (6.5-8.0) g/dL Albumin 4.3 (3.5-5.0) g/dL Influenza Type A (PCR) NEGATIVE (Negative) Influenza Type B (PCR) NEGATIVE (Negative) RSV RNA Qual (PCR) NEGATIVE (Negative) SARS-CoV-2 RNA (RT-PCR) NEGATIVE (Negative) Discharge Plan Discharge Prescriptions: No Action celecoxib [Celebrex] 200 mg capsule 200 mg PO BID 30 Days Qty: 60 3RF trazodone 50 mg tablet 1 tab PO BEDTIME morphine 60 mg tablet extended release 1 tab PO BID doxepin 100 mg capsule 200 mg PO BEDTIME alprazolam 2 mg tablet 1 tab PO BID PRN (Reason: Anxiety) albuterol sulfate [Ventolin HFA] 90 mcg/actuation HFA aerosol inhaler 2 puff inhalation Q6H PRN (Reason: Shortness Of Breath) ascorbic acid (vitamin C) [Vitamin C] 500 mg Tablet 500 mg PO BID cholecalciferol (vitamin D3) [Vitamin D3] 10 mcg (400 unit) Tablet 10 mcg PO DAILY mupirocin 2 % ointment 1 appl topical BID-TID amlodipine 2.5 mg tablet 2.5 mg PO DAILY Incruse Ellipta 62.5 mcg/actuation blister with device 1 inh inhalation DAILY Qty: 1 6RF Print Language: Taiwanese
--- NOTE | 2024-06-08 09:03 | ED.CHESTPAIN ---
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 He reports since yesterday he has been experiencing a nonproductive cough that results in him having pain throughout the anterior of his chest but it does feel worst in the left lower lateral portion of his chest. He denies the pain being present if he is not coughing. He states he has been experiencing nausea and lack of appetite but has not had any associated vomiting or abdominal pain. He becomes quite tearful during my evaluation, admitting to a history of ? Neck cancer pointing to the sides of his neck stating that he had 2 surgical procedures for cancer, it is unclear whether he is receiving any chemotherapy or radiation. Unfortunately he is not a great historian regarding his medical history but states his daughter Arabella who was available by phone may be of greater help. Related Data Home Medications ?Medication ?Instructions ?Recorded ?Confirmed albuterol sulfate 90 mcg/actuation 2 puff inhalation Q6H PRN 04/19/21 04/30/24 aerosol inhaler (Ventolin HFA) Shortness Of Breath alprazolam 2 mg tablet 1 tab PO BID PRN Anxiety 04/19/21 04/30/24 ascorbic acid (vitamin C) 500 mg 500 mg PO BID 04/19/21 04/30/24 tablet (Vitamin C) cholecalciferol (vitamin D3) 10 10 mcg PO DAILY 04/19/21 04/30/24 mcg (400 unit) tablet (Vitamin D3) doxepin 100 mg capsule 200 mg PO BEDTIME 04/19/21 04/30/24 morphine 60 mg tablet,extended 1 tab PO BID 04/19/21 04/30/24 release trazodone 50 mg tablet 1 tab PO BEDTIME 04/19/21 04/30/24 amlodipine 2.5 mg tablet 2.5 mg PO DAILY 03/07/24 04/30/24 mupirocin 2 % topical ointment 1 appl topical BID-TID 03/07/24 04/30/24 Previous Rx's ?Medication ?Instructions ?Recorded celecoxib 200 mg capsule (Celebrex) 200 mg PO BID 30 days #60 caps 12/23/23 umeclidinium 62.5 mcg/actuation 1 inh inhalation DAILY #1 ea 06/05/24 blister powder for inhalation (Incruse Ellipta) Allergies Allergy/AdvReac Type Severity Reaction Status Date / Time No Known Drug Allergies Allergy Unknown NONE Verified 06/08/24 06:25 [NO KNOWN DRUG ALLERGIES] Review of Systems Review of Systems: Yes all other systems are reviewed and are negative [facility] Past Medical History Attestation statement: The following information was validated with the patient. Source: old records reviewed Medical History Personal history of nicotine dependence History of colon polyps Asthma Depression Hernia Anxiety Surgical History History of colonoscopy History of right inguinal hernia repair History of left inguinal hernia repair (~2020) History of eye surgery Social History Social History (Updated 03/07/24 @ 08:37 by Cyndi Hurst) Household Members: None Housing: Apartment Do you presently have visiting nurse or other home services: No Patient Tobacco Use Status: Former Tobacco user Years Smoked: onset 17yo, 1-2ppd x 38yrs, 50pyh - quit cigs 2006, uses marijuana daily Smoked in Last 30 Days: No Substance Use Type: Marijuana Advance Directives: No Advance Directives Information Provided: Yes Do you have a plan to hurt others: No Plan service: No Current occupational status: unemployed Physical Exam Vital Signs: Vital Signs: Last Vital Signs Temp 99.7 F 06/08/24 13:10 Pulse 94 06/08/24 13:10 Resp 18 06/08/24 13:10 BP 149/94 H 06/08/24 13:10 Pulse Ox 100 06/08/24 13:10 O2 Del Method Room Air 06/08/24 13:10 BMI result Body Mass Index 28.5 Appearance: Alert.?Oriented to person, place and time. No acute distress.?Normal affect. Eyes: Pupils equal, round and reactive to light.? ENT: Pharynx normal.?? Neck: Normal inspection.? Neck supple.??No JVD. CVS: Heart sounds normal. Normal heart rate and rhythm.? Pulses normal.?? Respiratory: No respiratory distress.? Lung sounds clear to auscultation bilaterally?? Abdomen: Soft and non-tender. Normoactive bowel sounds. No pulsatile mass.?? Skin: Skin warm and dry.? Normal skin color.? ?? Extremities: No lower extremity edema.? No calf ttp? Neuro: Moves all extremities spontaneously. Sensation intact bilaterally. CN II-XII intact. No focal neuro deficits. Ambulates with normal steady gait. Medications Administered Discontinued Medications Generic Name Dose Route Start Last Admin Trade Name Freq PRN Reason Stop Dose Admin Sodium Chloride 1,000 mls @ 999 mls/hr 06/08/24 09:45 06/08/24 11:01 Ns IV 06/08/24 10:45 999 mls/hr .Q1H1M LUDWIN Administration Iohexol 65 ml 06/08/24 12:22 06/08/24 12:22 Iohexol 350 Mg/Ml 100 Ml Infus..Btl IV 06/08/24 12:23 65 ml ONCE ONE Administration Medical Decision Making Medical Decision Making MDM Narrative: Patient is a 73-year-old male with past medical history of asthma, depression, anxiety, history of nicotine dependence not a current cigarette smoker, COPD who presents to the emergency department for evaluation with complaint of cough, shortness of breath, chest pain. I tried to contact his daughter Arabella at the phone number he provided; [phone] but was unable to make a voicemail for call back. On review of medical records from [facility], he was admitted in January of 2024 with sepsis secondary to pneumonia, during that visit daughter had mentioned that he had excision of vocal cord nodules and is following with ENT. This medical history remains unclear, he seems quite adamant that these nodules were cancerous but he can not provide much more detail than that. With that in mind coupled with his presenting cough, shortness of breath, and chest pain, pursue CT angio imaging of the chest to exclude pulmonary embolism or alternatively pneumonia not seen on CXR. On review of serum labs thus far he has no leukocytosis anemia or thrombocytopenia. No electrolyte derangement. No NIHARIKA. Mildly elevated LFTs though I suspect this is secondary to his history of hepatic steatosis. Viral serologies are negative. Group a strep is pending. High sensitive troponin is below detectable limits, EKG reveals normal sinus rhythm with ventricular rate of 97, QTC 449, no ST elevation, no ST depression, currently without signs of acute ischemic findings, no STEMI. He did arrive mildly tachycardic though this appears to have improved at the time of my evaluation, lactic acid/blood cultures to be obtained as cautionary. CT angio of the chest is without evidence of pulmonary embolism, no evidence of pneumonia. As previously mentioned pain is present primarily during episodes of cough, I suspect that this is pleuritic pain/muscular pain from cough in the setting of what appears to be a viral illness given his attributing sore throat as well as headache. Lung sounds are diminished at the bases but otherwise without wheezing or rhonchi. Reports that he has been coughing more than usual, may be early signs of COPD exacerbation. He has no lactic acidosis. Feel that he is stable for discharge home outpatient follow-up with primary care doctor, will provide with azithromycin and reviewed strict return precautions Differential Diagnosis Differential Diagnoses: The differential diagnosis associated with the presentation includes (See narrative above) Admission/Observation Consideration of admission/observation: Escalation of care including admission/observation considered (See narrative above and course narrative for further detail) Lab Data MDM Lab Attestation statement: I reviewed the patient's lab results. 06/08/24 06:37 06/08/24 06:37 Labs: Lab Results 06/08/24 06/08/24 06/08/24 Range/Units 06:37 09:40 10:15 WBC 8.3 (4.8-10.8) X10*3/uL RBC 4.74 (4.60-5.80) X10*6/uL Hgb 15.0 (14.0-18.0) g/dl Hct 44.6 (42.0-52.0) % MCV 94.1 (80.0-98.0) fL MCH 31.6 (27.0-33.0) pg MCHC 33.6 (31.0-36.0) g/dl RDW 13.1 (11.0-16.0) % Plt Count 168 (160-400) X10*3/uL MPV 9.5 (9.4-12.4) fL Absolute Nucleated RBC 0.000 (0.0-0.012) X10*3/uL Nucleated RBC % (auto) 0.0 (0.0-0.2) /100WBC Sodium 138 (135-145) mmol/L Potassium 4.3 (3.3-5.1) mmol/L Chloride 108 (96-108) mmol/L Carbon Dioxide 22 (22-29) mmol/L Anion Gap 12 (12-20) BUN 12 (9-16) mg/dL Creatinine 0.97 (0.5-1.4) mg/dL Estim Creat Clear Calc 86.0 Estimated GFR > 60 Random Glucose 159 H (60-115) mg/dL Lactic Acid 1.1 (0.5-2.0) mmol/L Calcium 9.1 (8.4-10.2) mg/dL Total Bilirubin 0.9 (0.0-1.0) mg/dL AST 59 H (5-37) U/L ALT 57 H (0-40) U/L Alkaline Phosphatase 129 H (39-117) U/L Troponin I High Sens < 2.7 (<3.5-35.0) ng/L B-Natriuretic Peptide 13 (<100) pg/mL Total Protein 8.3 H (6.5-8.0) g/dL Albumin 4.3 (3.5-5.0) g/dL Influenza Type A (PCR) NEGATIVE (Negative) Influenza Type B (PCR) NEGATIVE (Negative) RSV RNA Qual (PCR) NEGATIVE (Negative) SARS-CoV-2 RNA (RT-PCR) NEGATIVE (Negative) S. pyogenes GrpA MICHAEL Negative (Negative) Independent Interpretation I performed an independent interpretation of an: EKG Interpretation: Rate: Rhythm:? [place]:? Normal P waves.? Normal JACKSON.?? Normal QRS complex.?? ST T wave :?? qTC: prior studies:? The study has been interpreted contemporaneously by me. Radiology Impression Discussion of test interpretation with radiology: I have reviewed the radiologist's reading. Radiologist Impression: 2 view chest x-ray Comparison: CT/OT/SR - CT CHEST WO IV CON - 05/21/24 07:48 EST CR/WY/SR - XR CHEST 2V - 12/29/23 08:55 EDT Findings: No consolidation or effusion. Lungs appear hyperexpanded. Normal size heart. No acute fracture. IMPRESSION: 1. No acute findings. CHEST: THYROID: The thyroid gland is unremarkable. PULMONARY ARTERIES: No intraluminal filling defects are identified within the pulmonary arteries to suggest pulmonary emboli. LUNGS: Again seen is a calcified granuloma in the left lower lobe (series 7, image 30). The lungs are otherwise clear. MEDIASTINUM: There is no mediastinal lymphadenopathy. YONI: There is no hilar lymphadenopathy. CARDIOVASCULATURE: The heart is normal in size. There is no pericardial effusion. The thoracic aorta is normal in caliber. DEGREE OF CORONARY CALCIFICATION: mild PLEURA: There is no pleural effusion. No pneumothorax. MAIN AIRWAYS: The mainstem bronchi and proximal branches are patent. AXILLA: There is no axillary lymphadenopathy. UPPER ABDOMEN: The visualized portions of the liver, spleen, and adrenals are unremarkable. BONES AND SOFT TISSUES: Unremarkable. CT/CT angio chest PE protocol IMPRESSION: No evidence of pulmonary emboli. Unremarkable CTA of the chest. Discharge Plan Discharge Clinical Impression: Bronchitis Patient Disposition: Home, Self-Care Instructions: Acute Bronchitis (ED) Additional Instructions: Be sure to rest over the next few days, use inhalers as prescribed. You may use Tylenol as needed for pain. A prescription for antibiotics; azithromycin has been sent to your pharmacy please complete the entire course. Chest x-ray/CT imaging does not show evidence of pneumonia or a blood clot in the lungs. No evidence of a heart attack as a source of the pain that you are experiencing. You have tested negative for flu, RSV, COVID, and strep throat. Be sure to stay well hydrated and drinking plenty of fluids as this may also help with your symptoms additionally. Prescriptions: No Action celecoxib [Celebrex] 200 mg capsule 200 mg PO BID 30 Days Qty: 60 3RF trazodone 50 mg tablet 1 tab PO BEDTIME morphine 60 mg tablet extended release 1 tab PO BID doxepin 100 mg capsule 200 mg PO BEDTIME alprazolam 2 mg tablet 1 tab PO BID PRN (Reason: Anxiety) albuterol sulfate [Ventolin HFA] 90 mcg/actuation HFA aerosol inhaler 2 puff inhalation Q6H PRN (Reason: Shortness Of Breath) ascorbic acid (vitamin C) [Vitamin C] 500 mg Tablet 500 mg PO BID cholecalciferol (vitamin D3) [Vitamin D3] 10 mcg (400 unit) Tablet 10 mcg PO DAILY mupirocin 2 % ointment 1 appl topical BID-TID amlodipine 2.5 mg tablet 2.5 mg PO DAILY Incruse Ellipta 62.5 mcg/actuation blister with device 1 inh inhalation DAILY Qty: 1 6RF Referrals: Mer Hughes MD [Primary Care Provider] - Print Language: [place]ese
[2024-06-08 09:44] LABS: B Type Natriuretic Peptide 13 pg/mL (<100)
[2024-06-08 09:53] LABS: IDNOW Serial# 08D9AD1C; Strep A Nucleic Acid Negative (Negative)
[2024-06-08 10:41] LABS: Lactic Acid 1.1 mmol/L (0.5-2.0)
[2024-06-08] MEDS: 0.9 % Sodium Chloride 1,000 ML 999 ML IV (11:01)
[2024-06-08] MEDS: iohexoL 350 MG/ML 100 ML INFUS..BTL 65 ML IV (12:22)
--- NOTE | 2024-06-08 12:33 | PC.NURSE ---
pt was ambulatroy to bed. skin pwd. unlabored resp. no c/o CP at arrival is quickly emotional when talking. no N/V/D. no c/o cough. able to tolerate sips of water w/o diff swallowing.
[2024-06-08 13:10] VITALS: BP 149/94; PULSE 94; RESP 18; TEMP 37.6; O2SAT 100
[2024-06-08 14:50] VITALS: BP 154/94; PULSE 98; RESP 18; TEMP 36.6; O2SAT 95
[2024-06-08 15:29] VITALS: BP 154/94; PULSE 98; RESP 18; TEMP 36.6; O2SAT 95
== END 2024-06-08 15:30 | disposition home or self-care (01) ==
PROVIDERS: Nurse Practitioner Family; Emergency Provider Emergency Medicine; PCP Family Medicine
DX: J40 Bronchitis, not specified as acute or chronic (principal); R05.9 Cough, unspecified; R06.02 Shortness of breath; Z03.818 Encounter for observation for suspected exposure to other biological agents ruled out; Z87.891 Personal history of nicotine dependence
CPT/HCPCS: 0241U; 36415; 71046; 71275; 80053; 83605; 83880; 84484; 85027; 87040; 87651; 93005; 99284; 99285; Q9967

== ENCOUNTER → 2024-06-08 06:29 | Outpatient (BNV) | payer MEDICARE, MEDICAID, SELFPAY | PROVIDERS: Emergency Provider Emergency Medicine; PCP Family Medicine; Visit Provider Internal Medicine Cardiovascular Disease | DX: R07.89 Other chest pain (principal) | CPT/HCPCS: 93010 ==

== ENCOUNTER → 2024-06-08 06:38 | Outpatient (BNV) | payer MEDICARE, MEDICAID, SELFPAY | PROVIDERS: PCP Family Medicine; Visit Provider Radiology Diagnostic Radiology | DX: R07.9 Chest pain, unspecified (principal); R05.9 Cough, unspecified; R00.0 Tachycardia, unspecified | CPT/HCPCS: 71275 ==

== ENCOUNTER 2025-01-15 14:27 | Outpatient (AMB) | payer MEDICARE, MEDICAID, SELFPAY ==
[2025-01-15 14:30] VITALS: BP 110/62; PULSE 73; O2SAT 98
--- NOTE | 2025-01-15 14:30 | MHC.OFFVIS ---
Vital Signs 01/15/25 14:30 Weight 222 lb BP 110/62 Blood Pressure Location Lt brachial Position Sitting Pulse 73 Pulse Source Pulse Oximeter Pulse Oximetry (%) 98 Oxygen Delivery Method Room Air Intake Visit Reasons: copd Finishing Frame Runner Required: Yes Finishing Frame Runner Name: Aleksandra Kenyon Hali Allergies No Known Drug Allergies (NO KNOWN DRUG ALLERGIES) Allergy (Unknown, Verified 01/15/25 14:36) NONE HPI HPI copd: Details: 74-year-old gentleman, former 35 pack-year smoker quit 2006 now followed for COPD and pulmonary nodules. After the last office visit patient restarted on Incruse with improved symptom control. He rarely requires to use his albuterol MDI. His follow-up CT chest is pending. He denies acute exacerbations. [facility] Medical History Personal history of nicotine dependence History of colon polyps Asthma Depression Hernia Anxiety Surgical History History of colonoscopy History of right inguinal hernia repair History of left inguinal hernia repair (~2020) History of eye surgery Social History (Updated 03/07/24 @ 08:37 by Cyndi Hurst) Household Members: None Housing: Apartment Do you presently have visiting nurse or other home services: No Patient Tobacco Use Status: Former Tobacco user Years Smoked: onset 17yo, 1-2ppd x 38yrs, 50pyh - quit cigs 2006, uses marijuana daily Substance Use Type: Marijuana service: No Current occupational status: unemployed Review of Systems Const Denies daytime sleepiness, Denies excessive sweating, Denies fatigue, Denies fever(s), Denies lethargy, Denies malaise, Denies night sweats, Denies snoring and Denies weight loss Eyes Denies blurry vision and Denies itchy eyes ENT Denies nasal congestion, Denies post nasal drip, Denies sinus pain, Denies sinus pressure and Denies other ( Thrush) Card Denies chest pain, Denies pedal edema, Denies dyspnea, Denies orthopnea and Denies paroxysmal nocturnal dyspnea Resp Denies cough, Denies hemoptysis, Denies excessive phlegm production, Denies dyspnea, Denies snoring and Denies wheezing GI Denies abdominal pain and Denies heartburn Musc Denies myalgias, Denies arthralgias and Denies joint swelling Skin/Breast Denies rash Neuro Denies memory loss and Denies seizure-like activity Psych Denies abnormal sleep pattern, Denies anxiety and Denies memory loss Endo Denies excessive sweating, Denies fatigue and Denies heat intolerance Jamari/Lymph Denies easy bruising Aller/Immun Denies itchy eyes, Denies seasonal rhinorrhea and Denies wheezing Physical Exam Vital Signs: Last Vital Signs Pulse 73 01/15/25 14:30 BP 110/62 01/15/25 14:30 Pulse Ox 98 01/15/25 14:30 Oxygen Delivery Method Room Air 01/15/25 14:30 Const General: no acute distress and alert Nutritional Appearance: not obese Orientation/consciousness: Other orientation findings ( oriented) HEENT Head: Yes atraumatic Eyes General: appearance normal, both eyes and all related structures Sclerae: sclerae normal EOM: EOMs intact bilaterally Neck Neck: Yes supple Lymphatic: no lymphadenopathy noted Resp Effort & Inspection: normal respiratory effort and no use of accessory muscles Auscultation: clear to auscultation bilaterally Cardio Rate: regular rate Rhythm: regular rhythm Heart sounds: no gallops, no murmurs and no rubs Skin General skin exam: other ( warm) Extrem General: No clubbing, No cyanosis and No edema Assessment & Plan Assessment & Plan (1) COPD (chronic obstructive pulmonary disease): Code(s): J44.9 - Chronic obstructive pulmonary disease, unspecified Category: Medical Plan: Well controlled on current regimen of Incruse and albuterol MDI. Continue current regimen. (2) Pulmonary nodules: Code(s): R91.8 - Other nonspecific abnormal finding of lung field Category: Medical Plan: Previously noted 1.5 cm nodule resolved. Follow-up CT chest is pending. Coding Level of Care Code Est Pt Level 4 (99446) Diagnoses COPD (chronic obstructive pulmonary disease) J44.9 Pulmonary nodules R91.8
--- OUTSIDE RECORDS SUMMARY | 2025-01-15 15:26 | XMS_ITS | Encounter Summary ---
Author Organization [employer] Address [address] [facility] 7t [place] [address] Care Team Providers Care Pumping Station Engineer Name Role Phone Mer Hughes MD Primary Care Provider [phone] Kel Barrett MD Unavailable Jace Wright MD Unavailable [phone] Keanu Escobar MD Unavailable [phone] Reason for Visit * Reason Onset Date Comments Med Refill 12/21/2024 Encounter Details Date Type Department Care Team (Late st Contact Info) Description 12/21/2024 Telephone [facility] [address] [place], [place] [phone] Mer Hughes MD [address] [place] [address] Med Refill Social History Tobacco Use Types Packs/Day Years Used Date Smoking Tobacco: Former Cigarettes Smokeless Tobacco: Never Alcohol Use Standard Drinks/Week Comments Never 0 (1 standard drink = 0.6 oz pur e alcohol) Depression Answer Date Recorded Patient Health Questionnaire-9 Score 18 10/25/2024 Patient Health Questionnaire-9 Score 18 10/25/2024 Last PHQ-9: Questionnaire Data Not on file 0 10/25/2024 Housing Stability Answer Date Recorded What is your housing situation today? I have dennis cardozo 02/23/[address] you li ve. Do you have problems with any of the following? None of the above 02/23/2024 Food Insecurity Answer Date Recorded Within the past 12 months, y ou worried that your food would run out before you got money to buy more: Never True 11/30/2023 Within the past 12 months,th e food you bought just didn't last and you didn't have enough money to get more: Never True 02/2024 Transportation Answer Date Recorded In the past 12 months, has l ack of transportation kept you from medical appts, meetings, work or from getting things needed for daily living? No 02/23/2024 Utilities Answer Date Recorded In the past 12 months, has t he electric, gas, oil or water company threatened to shut off services in your home? No 11/30/2023 Depression Answer Date Recorded Patient Health Questionnaire-2 Score 6 10/25/2024 Internet Access Answer Date Recorded Internet Access Q1 Yes 01/23/2024 Internet Access Q2 Not on file 01/23/2024 Sex and Gender Information Value Date Recorded Sex Assigned at Male 03/22/2022 10:19 AM EDT Legal Sex Male 10:19 AM EDT Gender Identity Male 03/22/2022 10:19 AM EDT Sexual Orientation Straight 03/22/2022 10 :19 AM EDT documented as of this encounter Miscellaneous Notes * Telephone Encounter - Aleksandra Whitaker LPN - 12/21/2024 8:52 AM EDT Medications requested have refills please advise patient to call the pharmacy. * Telephone Encounter - Milagro Albrecht - 12/21/2024 8:32 AM EDT TC from pt requesting medication refill. Medications needing refill : - amLODIPine (Norvasc) 2.5 MG tablet - albuterol 108 (90 Base) MCG/ACT inhaler To be sent to: - [facility]/pharmacy #[id number] [place], [place] - [address] [place] [address] documented in this encounter Plan of Treatment Upcoming Encounters Date Type Department Care Team (Late st Contact Info) Description 01/25/2025 9:00 AM EDT Clinical Support [facility] [address] [place] [address] Cassie Arias RN [address] [place] [address] 01/28/2025 9:45 AM EDT Office Visit [facility] [address] [place] [address] Mer Hughes MD [address] [place] [address] documented as of this encounter Visit Diagnoses Not on filedocumented in this encounter Additional Health Concerns Assessment Noted Time PHQ-9 Depression Total Score: 18 025 9:45 AM EDT documented as of this encounter Care Teams Pumping Station Engineer Relationship Specialty Start Date End Date Mer Hughes MD [address] [place] [address] PCP - General Family Medicine 05/23/18 Kel Barrett MD 10 [facility] [address] [place] [address] Pain Medicine 04/17/24 Jace Wright MD [address] [place] [address] Otolaryngology 04/25/24 Keanu Escobar MD [address] [place] [address] Pulmonary Disease 06/05/24 documented as of this encounter
--- OUTSIDE RECORDS SUMMARY | 2025-01-15 15:26 | XMS_ITS | Encounter Summary ---
Author Organization [employer] Address [address] [facility] 7t [place] [address] Care Team Providers Care Waste Duster Name Role Phone Mer Hughes MD Primary Care Provider [phone] Kel Barrett MD Unavailable Jace Wright MD Unavailable [phone] Keanu Escobar MD Unavailable [phone] Reason for Visit * Reason Comments Med Change Request Encounter Details Date Type Department Care Team (Late st Contact Info) Description 10/20/2023 Refill [facility] [address] [place], [place] [phone] Inessa Rangel MD [address] [place], [place] [phone] Other sprain of left shoulder joint, subsequent encounter Social History Tobacco Use Types Packs/Day Years Used Date Smoking Tobacco: Former Cigarettes Smokeless Tobacco: Never Alcohol Use Standard Drinks/Week Comments Never 0 (1 standard drink = 0.6 oz pur e alcohol) Depression Answer Date Recorded Patient Health Questionnaire-9 Score 12 12/15/2022 Housing Stability Answer Date Recorded What is your housing situation today? I have housing today, but I am worried about losing housing in the future 03/14/[address] you li ve. Do you have problems with any of the following? None of the above 03/14/2023 Food Insecurity Answer Date Recorded Within the past 12 months, y ou worried that your food would run out before you got money to buy more: Never True 03/14/2023 Within the past 12 months,th e food you bought just didn't last and you didn't have enough money to get more: Never True Transportation Answer Date Recorded In the past 12 months, has l ack of transportation kept you from medical appts, meetings, work or from getting things needed for daily living? No 03/14/2023 Utilities Answer Date Recorded In the past 12 months, has t he electric, gas, oil or water company threatened to shut off services in your home? No 03/14/2023 Depression Answer Date Recorded Patient Health Questionnaire-2 Score 4 12/15/2022 Sex and Gender Information Value Date Recorded Sex Assigned at Male 03/22/2022 10:19 AM EDT Legal Sex Male 10:19 AM EDT Gender Identity Male 03/22/2022 10:19 AM EDT Sexual Orientation Straight 03/22/2022 10 :19 AM EDT documented as of this encounter Miscellaneous Notes * Telephone Encounter - Inessa Rangel MD - 10/20/2023 3:39 PM EDT Sent already/duplicate documented in this encounter Plan of Treatment Upcoming Encounters Date Type Department Care Team (Late st Contact Info) Description 01/25/2025 9:00 AM EDT Clinical Support [facility] [address] [place] [address] Cassie Arias RN 505 [place] [address] 01/28/2025 9:45 AM EDT Office Visit [facility] [address] [place] [address] Mer Hughes MD [address] [place] [address] documented as of this encounter Visit Diagnoses Diagnosis Other sprain of left shoulder joint, subsequent encounter documented in this encounter Additional Health Concerns Assessment Noted Time PHQ-9 Depression Total Score: 12 023 9:22 AM EDT documented as of this encounter Care Teams Waste Duster Relationship Specialty Start Date End Date Mer Hughes MD [address] [place] [address] PCP - General Family Medicine 05/23/18 Kel Barrett MD 10 [facility] [address] [place] [address] Pain Medicine 04/17/24 Jace Wright MD [address] [place] [address] Otolaryngology 04/25/24 Keanu Escobar MD [address] [place] [address] Pulmonary Disease 06/05/24 documented as of this encounter
--- OUTSIDE RECORDS SUMMARY | 2025-01-15 15:26 | XMS_ITS | Encounter Summary ---
Author Organization [employer] Address [address] [facility] 7t [place] [address] Care Team Providers Care Media Planner / Buyer Name Role Phone Mer Hughes MD Primary Care Provider [phone] Kel Barrett MD Unavailable Jace Wright MD Unavailable [phone] Keanu Escobar MD Unavailable [phone] Encounter Details Date Type Department Care Team (Late st Contact Info) Description 04/22/2022 Orders Only [facility] [address] [place] [address] Mer Hughes MD [address] [place] [phone] Anxiety (Primary Dx) Social History Tobacco Use Types Packs/Day Years Used Date Smoking Tobacco: Never Assessed Sex and Gender Information Value Date Recorded Sex Assigned at Male 03/22/2022 10:19 AM EDT Legal Sex Male 10:19 AM EDT Gender Identity Male 03/22/2022 10:19 AM EDT Sexual Orientation Straight 03/22/2022 10 :19 AM EDT documented as of this encounter Plan of Treatment Upcoming Encounters Date Type Department Care Team (Late st Contact Info) Description 01/25/2025 9:00 AM EDT Clinical Support [facility] [address] [place] [address] Cassie Arias, PAT [address] [place] [address] 01/28/2025 9:45 AM EDT Office Visit [facility] [address] [place] [address] Mer Hughes MD 230 [place] [address] documented as of this encounter Visit Diagnoses Diagnosis Anxiety- Primary Anxiety state, unspecified documented in this encounter Care Teams Media Planner / Buyer Relationship Specialty Start Date End Date Mer Hughes MD [address] [place], [place] [phone] PCP - General Family Medicine 05/23/18 Kel Barrett MD [address] [place] [address] [address] [place] [address] Pain Medicine 04/17/24 Jace Wright MD [address] [place] [address] Otolaryngology 04/25/24 Keanu Escobar MD [address] [place] [address] Pulmonary Disease 06/05/24 documented as of this encounter
--- OUTSIDE RECORDS SUMMARY | 2025-01-15 15:26 | XMS_ITS | Encounter Summary ---
Author Organization [employer] Address [address] [facility] 7t [place] [address] Care Team Providers Care Corporate Director Of Pharmacy Name Role Phone Mer Huhges MD Primary Care Provider [phone] Kel Barrett MD Unavailable Jace Wright MD Unavailable [phone] Keanu Escobar MD Unavailable [phone] Reason for Visit * Reason Onset Date Comments medication refill 05/25/2024 Encounter Details Date Type Department Care Team (Late st Contact Info) Description 05/25/2024 Telephone [facility] 230 [place], [place] [phone] Mer Hughes MD [address] [place] [address] medication refill Social History Tobacco Use Types Packs/Day Years Used Date Smoking Tobacco: Former Cigarettes Smokeless Tobacco: Never Alcohol Use Standard Drinks/Week Comments Never 0 (1 standard drink = 0.6 oz pur e alcohol) Depression Answer Date Recorded Patient Health Questionnaire-9 Score 0 02/23/2024 Patient Health Questionnaire-9 Score 0 02/23/2024 Last PHQ-9: Questionnaire Data Not on file 1 Housing Stability Answer Date Recorded What is [...] Answer Date Recorded Patient Health Questionnaire-2 Score 0 02/23/2024 Internet Access Answer Date Recorded Internet Access [...] encounter Miscellaneous Notes * Telephone Encounter - Danica Jackson - 05/25/2024 8:40 AM EST PT daughter walked in requesting a refill for the following medication Alprazolam (Xanax) 2 MG tablet documented in this encounter Plan of Treatment Upcoming Encounters Date Type Department Care Team (Late st Contact Info) Description 01/25/2025 9:00 AM EDT Clinical Support [facility] [address] [place] [address] Cassie Arias RN 505 [place] [address] 01/28/2025 9:45 AM EDT Office Visit [facility] [address] [place] [address] Mer Hughes MD [address] [place] [address] documented as of this encounter Visit Diagnoses Diagnosis Chronic anxiety Anxiety state, unspecified documented in this encounter Additional Health Concerns Assessment Noted Time PHQ-9 Depression Total Score: 0 02/23/20 10:38 AM EDT documented as of this encounter Care Teams Corporate Director Of Pharmacy Relationship Specialty Start Date End Date Mer Hughes MD [address] [place] [address] PCP - General Family Medicine 05/23/18 Kel Barrett MD [address] [address] Pain Medicine 04/17/24 Jace Wright MD [address] [place] [address] Otolaryngology 04/25/24 Keanu Escobar MD [address] [place] [address] Pulmonary Disease 06/05/24 documented as of this encounter
--- OUTSIDE RECORDS SUMMARY | 2025-01-15 15:26 | XMS_ITS | Encounter Summary ---
Author Organization [employer] Address [address] [facility] 7t [place] [address] Care Team Providers Care Roofing Plant Supervisor Name Role Phone Mer Hughes MD Primary Care Provider [phone] Kel Barrett MD Unavailable Jace Wright MD Unavailable [phone] Keanu Escobar MD Unavailable [phone] Reason for Visit * Reason Onset Date Comments Med Refill 07/25/2024 Encounter Details Date Type Department Care Team (Late st Contact Info) Description 07/25/2024 Telephone [facility] [address] [place], [place] [phone] Mer Hughes MD 230 [place] [address] Med Refill Social History Tobacco Use Types [...] encounter Miscellaneous Notes * Telephone Encounter - David Mccullough - 07/25/2024 8:38 AM EST TC from pt requesting medication refill. Medications needing refill : ALPRAZolam (Xanax) 2 MG tablet To be sent to: [facility]/pharmacy #[id number] [place] [address] documented in this encounter Plan of Treatment Upcoming Encounters Date Type Department Care Team (Late st Contact Info) Description 01/25/2025 9:00 AM EDT Clinical Support [facility] [address] [place] [address] Cassie Arias RN [address] [place] [address] 01/28/2025 9:45 AM EDT Office Visit [facility] [address] [place] [address] Mer Hughes MD [address] [place] [address] documented as of this encounter Visit Diagnoses Not on filedocumented in this encounter Additional Health Concerns Assessment Noted Time PHQ-9 Depression Total Score: 0 02/23/20 24 10:38 AM EDT documented as of this encounter Care Teams Roofing Plant Supervisor Relationship Specialty Start Date End Date Mer Hughes MD [address] [place] [address] PCP - General Family Medicine 05/23/18 Kel Barrett MD [address] [place] [address] Pain Medicine 04/17/24 Jace Wright MD [address] [place] [address] Otolaryngology 04/25/24 Keanu Escobar MD [address] [place] [address] Pulmonary Disease 06/05/24 documented as of this encounter
--- OUTSIDE RECORDS SUMMARY | 2025-01-15 15:26 | XMS_ITS | Encounter Summary ---
Author Organization [employer] Address [address] [facility] 7t [place] [address] Care Team Providers Care Senior Product Analyst Name Role Phone Mer Hughes MD Primary Care Provider [phone] Kel Barrett MD Unavailable Jace Wright MD Unavailable [phone] Keanu Escobar MD Unavailable Reason for Visit * Reason Onset Date Comments Med Refill 12/19/2023 Encounter Details Date Type Department Care Team (Late st Contact Info) Description 12/19/2023 Telephone [facility] [address] [place], [place] [phone] Mer Hughes MD 230 [place] [address] Med Refill Social History Tobacco Use Types Packs/Day Years Used Date Smoking Tobacco: Former Cigarettes Smokeless Tobacco: Never Alcohol Use Standard Drinks/Week Comments Never 0 (1 standard drink = 0.6 oz pur e alcohol) Depression Answer Date Recorded Patient Health Questionnaire-9 Score 4 11/30/2023 Patient Health Questionnaire-9 Score 4 11/30/2023 Last PHQ-9: Questionnaire Data Not on file 0 11/30/2023 Housing Stability Answer Date Recorded What is your housing situation today? I have housing today, but I am worried about losing housing in the future 11/30/[address] you li ve. Do you have problems with any of the following? None of the above 11/30/2023 Food Insecurity Answer Date Recorded Within the [...] Answer Date Recorded Patient Health Questionnaire-2 Score 2 11/30/2023 Sex and Gender Information Value Date Recorded Sex Assigned at Male 03/22/2022 10:19 AM EDT Legal Sex Male 10:19 AM EDT Gender Identity Male 03/22/2022 10:19 AM EDT Sexual Orientation Straight 03/22/2022 10 :19 AM EDT documented as of this encounter Miscellaneous Notes * Telephone Encounter - Geri Negrete - 12/19/2023 8:37 AM EDT TC from pt requesting medication refill. Medications needing refill : morphine CR (MS Contin) 60 MG 12 hr tablet To be sent to: [facility]/pharmacy #[id number] [place] [address] - [address] [place] [address] documented in this encounter Plan of Treatment Upcoming Encounters Date Type Department Care Team (Late st Contact Info) Description 01/25/2025 9:00 AM EDT Clinical Support [facility] [address] [place] [address] Cassie Arias RN [address] [place] [address] 01/28/2025 9:45 AM EDT Office Visit [facility] [address] [place] [address] [phone] Mer Hughes MD 230 [place] [address] documented as of this encounter Visit Diagnoses Not on filedocumented in this encounter Additional Health Concerns Assessment Noted Time PHQ-9 Depression Total Score: 4 11/30/19 24 11:34 AM EDT documented as of this encounter Care Teams Senior Product Analyst Relationship Specialty Start Date End Date Mer Hughes MD [address] [place] [address] PCP - General Family Medicine 05/23/18 Kel Barrett MD [address] [address] Pain Medicine 04/17/24 Jace Wright MD [address] [place] [address] Otolaryngology 04/25/24 Keanu Escobar MD [address] [place] [address] Pulmonary Disease 06/05/24 documented as of this encounter
--- OUTSIDE RECORDS SUMMARY | 2025-01-15 15:26 | XMS_ITS | Encounter Summary ---
Author Organization [employer] Address [address] [facility] 7t [place] [address] Care Team Providers Care Library Monitor Name Role Phone Mer Hughes MD Primary Care Provider [phone]- [phone] Kel Barrett MD Unavailable Jace Wright MD Unavailable [phone] Keanu Escobar MD Unavailable [phone] Reason for Visit * Reason Onset Date Comments Med Refill 10/25/2024 Encounter Details Date Type Department Care Team (Late st Contact Info) Description 10/25/2024 Telephone [facility] MEDICINE 230 [place], [place] [phone] Mer Hughes MD 230 [place] [address] Med Refill Social History Tobacco Use Types [...] AM EDT documented as of this encounter Functional Status * Over the past 2 weeks, how often have you been bothered by any of the following problems? Question Answer Date of Assessment Author Patient Health Questionnaire-2 Score 6 10/25/2024 9:45 AM EDT Jared José LICSW * Little interest or pleasure in doing things Answer Date of Assessment Author Nearly every day 10/25/2024 9:45 AM EDT Betty José LICSW * Feeling down, depressed, or hopeless Answer Date of Assessment Author Nearly every day 10/25/2024 9:45 AM EDT Betty José LICSW * Trouble falling or staying asleep, or sleeping too much Answer Date of Assessment Author Nearly every day 10/25/2024 9:45 AM EDT Betty José LICSW * Feeling tired or having little energy Answer Date of Assessment Author Nearly every day 10/25/2024 9:45 AM EDT Betty José LICSW * Poor appetite or overeating Answer Date of Assessment Author Nearly every day 10/25/2024 9:45 AM EDT Betty José LICSW * Feeling bad about yourself - or that you are a failure or have let yourself or your family down Answer Date of Assessment Author Several days 10/25/2024 9:45 AM EDT Betty José LICSW * Trouble concentrating on things, such as reading the newspaper or watching television Answer Date of Assessment Author More than half the days 10/25/2024 9:45 AM EDT Betty Mabry LICSW * Moving or speaking so slowly that other people could have noticed? Or the opposite - being so fidgety or restless that you have been moving around a lot more than usual. Answer Date of Assessment Author Not at all 10/25/2024 9:45 AM EDT Betty José LICSW * Thoughts that you would be better off or hurting yourself in some way Answer Date of Assessment Author Not at all 10/25/2024 9:45 AM EDT Betty José LICSW * Patient Health Questionnaire-9 Score Answer Date of Assessment Author 18 10/25/2024 9:45 AM EDT Betty José LICSW * How difficult have these problems made it for you to do your work, take care of things at home, or get along with other people? Answer Date of Assessment Author Very difficult 10/25/2024 9:45 AM EDT Betty José LICSW * Over the last 2 weeks, how often have you been bothered by any of the following problems? Question Answer Date of Assessment Author Feeling nervous, anxious, or on edge 3 10/25/2024 9:46 AM EDT Jessica José LICSW Not being able to stop or control worrying 3 10/25/2024 9:46 AM EDT Jessica José LICSW Worrying too much about different things 3 10/25/2024 9:46 AM EDT Jessica José IMPORT MANAGER Trouble relaxing 2 10/25/2024 9:46 AM EDT Betty Mabry LICSW Being so restless that it is hard to sit still 0 10/25/2024 9:46 AM EDT Jessica José IMPORT MANAGER Becoming easily annoyed or irritable 1 10/25/2024 9:46 AM EDT Jessica José IMPORT MANAGER Feeling afraid as if something awful might happen 3 10/25/2024 9:46 AM EDT Betty José LICSW GERDA-7 Total Score 15 10/25/2024 9:46 AM EDT Betty José LICSW documented as of this encounter Miscellaneous Notes * Telephone Encounter - Amirah Michelle Funes - 10/25/2024 8:52 AM EDT TC from pt requesting medication refill. Medications needing refill : morphine CR (MS Contin) 60 MG 12 hr tablet ALPRAZolam (Xanax) 2 MG tablet To be sent to: [facility]/pharmacy #[id number] [place], [place] - [address] [place] [address] documented in this encounter Plan of Treatment Upcoming Encounters Date Type Department Care Team (Late st Contact Info) Description 01/25/2025 9:00 AM EDT Clinical Support [facility] MEDICINE [address] [place] [address] Cassie Arias RN 505 [place] [address] 01/28/2025 9:45 AM EDT Office Visit [facility] MEDICINE [address] [place] [address] Mer Hughes MD [address] [place] [address] documented as of this encounter Visit Diagnoses Not on filedocumented in this encounter Additional Health Concerns Assessment Noted Time PHQ-9 Depression Total Score: 18 025 9:45 AM EDT documented as of this encounter Care Teams Library Monitor Relationship Specialty Start Date End Date Mer Hughes MD [address] [place] [address] PCP - General Family Medicine 05/23/18 Kel Barrett MD [address] [place] [address] Pain Medicine 04/17/24 Jace Wright MD [address] [place] [address] Otolaryngology 04/25/24 Keanu Escobar MD [address] [place] [address] Pulmonary Disease 06/05/24 documented as of this encounter
--- OUTSIDE RECORDS SUMMARY | 2025-01-15 15:26 | XMS_ITS | Encounter Summary ---
Author Organization [employer] Address 75 [facility] 7t [place] [address] Care Team Providers Care Washerette Machine Operator Name Role Phone Mer Hughes MD Primary Care Provider [phone]- [phone] Kle Barrett MD Unavailable Jace Wright MD Unavailable [phone] Keanu Escobar MD Unavailable [phone] Reason for Visit * Reason Onset Date Comments Inactive medication 02/14/2023 Encounter Details Date Type Department Care Team (Late st Contact Info) Description 02/14/2023 Telephone [facility] MEDICINE 230 [place] [address] Mer Hughes MD 230 [place] [address] Inactive medication Social History Tobacco Use Types Packs/Day Years Used Date Smoking Tobacco: Never Smokeless Tobacco: Never Depression Answer Date Recorded Patient Health Questionnaire-9 Score 12 12/15/2022 Depression Answer Date Recorded Patient Health Questionnaire-2 Score 4 12/15/2022 Sex and Gender Information Value Date Recorded Sex Assigned at Male 03/22/2022 10:19 AM EDT Legal Sex Male 10:19 AM EDT Gender Identity Male 03/22/2022 10:19 AM EDT Sexual Orientation Straight 03/22/2022 10 :19 AM EDT documented as of this encounter Miscellaneous Notes * Telephone Encounter - Bess De Los Santos - 02/14/2023 9:04 AM EDT Tc from patients daughter requesting a inactive medication MS Contin 60 mg. documented in this encounter Plan of Treatment Upcoming Encounters Date Type Department Care Team (Late st Contact Info) Description 01/25/2025 9:00 AM EDT Clinical Support [address] [address] Cassie Arias, RN 505 [place] [address] 01/28/2025 9:45 AM EDT Office Visit [address] [address] Mer Hughes MD [address] [place] [address] documented as of this encounter Visit Diagnoses Not on filedocumented in this encounter Additional Health Concerns Assessment Noted Time PHQ-9 Depression Total Score: 12 023 9:22 AM EDT documented as of this encounter Care Teams Washerette Machine Operator Relationship Specialty Start Date End Date Mer Hughes MD [address] [place] [address] PCP - General Family Medicine 05/23/18 Kel Barrett MD 10 [facility] [address] [place] [address] Pain Medicine 04/17/24 Jace Wright MD [address] [place] [address] Otolaryngology 04/25/24 Keanu Escobar MD [address] [place] [address] Pulmonary Disease 06/05/24 documented as of this encounter
--- OUTSIDE RECORDS SUMMARY | 2025-01-15 15:26 | XMS_ITS | Encounter Summary ---
Author Organization [employer] Address [address] [facility] 7t [place] [address] Care Team Providers Care Insurance Sales Manager Name Role Phone Mer Hughes MD Primary Care Provider [phone] Kel Barrett MD Unavailable Jace Wright MD Unavailable [phone] Keanu Escobar MD Unavailable [phone] Reason for Visit * Reason Comments Med Refill Encounter Details Date Type Department Care Team (Late Contact Info) Description 11/18/2022 Refill [facility] MEDICINE [address] [place] [address] Mer Hughes MD 230 [place], [place] [phone] Pulmonary emphysema, unspecified emphysema type (CMS/HCC) Social History Tobacco Use Types Packs/Day Years Used Date Smoking Tobacco: Never Smokeless Tobacco: Never Sex and Gender Information Value Date Recorded Sex Assigned at Male 03/22/2022 10:19 AM EDT Legal Sex Male 10:19 AM EDT Gender Identity Male 03/22/2022 10:19 AM EDT Sexual Orientation Straight 03/22/2022 10 :19 AM EDT COVID-19 Exposure Response Date Recorded In the last 10 days, have yo u been in contact with someone who was confirmed or suspected to have Coronavirus/COVID-19? No / Unsure 11/15/2022 8:35 AM EDT documented as of this encounter Plan of Treatment Upcoming Encounters Date Type Department Care Team (Late st Contact Info) Description 01/25/2025 9:00 AM EDT Clinical Support [facility] MEDICINE [address] [place] [address] Cassie Arias, PAT 505 [place] [address] 01/28/2025 9:45 AM EDT Office Visit [facility] MEDICINE 230 [place] [address] Mer Hughes MD 230 [place] [address] documented as of this encounter Visit Diagnoses Diagnosis Pulmonary emphysema, unspecified emphysema type (CMS/HCC) documented in this encounter Additional Health Concerns Assessment Noted Time PHQ-9 Depression Total Score: 12 023 9:31 AM EST documented as of this encounter Care Teams Insurance Sales Manager Relationship Specialty Start Date End Date Mer Hughes MD 230 [place] [address] PCP - General Family Medicine 05/23/18 Kel Barrett MD [address] [place] [address] Pain Medicine 04/17/24 Jace Wright MD [address] [place] [address] Otolaryngology 04/25/24 Keanu Escobar MD [address] [place] [address] Pulmonary Disease 06/05/24 documented as of this encounter
--- OUTSIDE RECORDS SUMMARY | 2025-01-15 15:26 | XMS_ITS | Encounter Summary ---
Author Organization [employer] Address 75 [facility] 7t [place] [address] Care Team Providers Care Phytopathology Teacher Name Role Phone Mer Hughes MD Primary Care Provider [phone] Kel Barrett MD Unavailable Jace Wright MD Unavailable [phone] Keanu Escobar MD Unavailable [phone] Reason for Visit * Reason Onset Date Comments Med Refill 01/07/2023 Encounter Details Date Type Department Care Team (Late st Contact Info) Description 01/07/2023 Telephone [facility] MEDICINE 230 [place] [address] Mer Hughes MD 230 [place] [address] Med Refill Social History Tobacco Use Types [...] encounter Miscellaneous Notes * Telephone Encounter - Inge Reis - 01/07/2023 8:37 AM EDT Tc from pt requesting med refill on morphine CR (MS Contin) 60 MG 12 hr tablet Please sent to [facility]/pharmacy #[id number] - [place] - [address] [facility] documented in this encounter Plan of Treatment Upcoming Encounters Date Type Department Care Team (Late st Contact Info) Description 01/25/2025 9:00 AM EDT Clinical Support [facility] MEDICINE [address] [place] [address] Cassie Arias RN 505 [place] [address] 01/28/2025 9:45 AM EDT Office Visit [facility] [address] [place] [address] Mer Hughes MD 230 [place] [address] documented as of this encounter Visit Diagnoses Not on filedocumented in this encounter Additional Health Concerns Assessment Noted Time PHQ-9 Depression Total Score: 12 023 9:22 AM EDT documented as of this encounter Care Teams Phytopathology Teacher Relationship Specialty Start Date End Date Mer Hughes MD [address] [place] [address] PCP - General Family Medicine 05/23/18 Kel Barrett MD 10 [facility] [address] [place] [address] Pain Medicine 04/17/24 Jace Wright MD [address] [place] [address] Otolaryngology 04/25/24 Keanu Escobar MD [address] [place] [address] Pulmonary Disease 06/05/24 documented as of this encounter
--- OUTSIDE RECORDS SUMMARY | 2025-01-15 15:26 | XMS_ITS | Encounter Summary ---
Author Organization [employer] Address [address] [facility] [address] 7t [place] [address] Care Team Providers Care Ore Washer Name Role Phone Mer Hughes MD Primary Care Provider [phone]- [phone] Kel Barrett MD Unavailable Jace Wright MD Unavailable [phone] Keanu Escobar MD Unavailable [phone] Reason for Visit * Reason Onset Date Comments Med Refill 06/09/2023 Encounter Details Date Type Department Care Team (Late st Contact Info) Description 06/09/2023 Telephone [facility] MEDICINE 230 [place], [place] [phone] Mer Hughes MD 230 [place] [address] Med Refill Social History Tobacco Use Types [...] encounter Miscellaneous Notes * Telephone Encounter - Antonia Ambrose - 06/09/2023 11:13 AM EST TC from pt requesting medication refill. Medications needing refill : morphine CR (MS Contin) 60 MG 12 hr tablet To be sent to: [facility]/pharmacy #[id number] documented in this encounter Plan of Treatment Upcoming Encounters Date Type Department Care Team (Late st Contact Info) Description 01/25/2025 9:00 AM EDT Clinical Support [facility] MEDICINE [address] [place] [address] Cassie Arias, RN 505 [place] [address] 01/28/2025 9:45 AM EDT Office Visit [facility] MEDICINE [address] [place] [address] Mer Hughes MD [address] [place] [address] documented as of this encounter Visit Diagnoses Not on filedocumented in this encounter Additional Health Concerns Assessment Noted Time PHQ-9 Depression Total Score: 12 023 9:22 AM EDT documented as of this encounter Care Teams Ore Washer Relationship Specialty Start Date End Date Mer Hughes MD [address] [place] [address] PCP - General Family Medicine 05/23/18 Kel Barrett MD 10 [facility] [address] [place] [address] Pain Medicine 04/17/24 Jace Wright MD [address] [place] [address] Otolaryngology 04/25/24 Keanu Escobar MD [address] [place] [address] Pulmonary Disease 06/05/24 documented as of this encounter
--- OUTSIDE RECORDS SUMMARY | 2025-01-15 15:26 | XMS_ITS | Encounter Summary ---
Author Organization [employer] Address 75 [facility] 7t [place] [address] Care Team Providers Care Quality Management Coordinator Name Role Phone Mer Hughes MD Primary Care Provider [phone] Kel Barrett MD Unavailable Jace Wright MD Unavailable [phone] Keanu Escobar MD Unavailable [phone] Reason for Visit * Reason Onset Date Comments Med Refill 09/24/2024 Encounter Details Date Type Department Care Team (Late st Contact Info) Description 09/24/2024 Telephone [facility] MEDICINE 230 [place], [place] [phone] Mer Hughes MD 230 [place] [address] Med Refill Social History Tobacco Use Types [...] Miscellaneous Notes * Telephone Encounter - Amirah Funes - 09/24/2024 10:55 AM EDT TC from pt requesting medication refill. Medications needing refill : morphine CR (MS Contin) 60 MG 12 hr tablet ALPRAZolam (Xanax) 2 MG tablet To be sent to: [facility]/pharmacy #[id number] [place] [address] documented in this encounter Plan of Treatment Upcoming Encounters Date Type Department Care Team (Late st Contact Info) Description 01/25/2025 9:00 AM EDT Clinical Support [facility] MEDICINE [address] [place] [address] Cassie Arias RN [address] [place] [address] [phone] 01/28/2025 9:45 AM EDT Office Visit [facility] MEDICINE [address] [place] [address] Mer Hughes MD [address] [place] [address] [phone] documented as of this encounter Visit Diagnoses Not on filedocumented in this encounter Additional Health Concerns Assessment Noted Time PHQ-9 Depression Total Score: 0 02/23/20 24 10:38 AM EDT documented as of this encounter Care Teams Quality Management Coordinator Relationship Specialty Start Date End Date Mer Hughes MD [address] [place] [address] PCP - General Family Medicine 05/23/18 Kel Barrett MD [address] [place] [address] Pain Medicine 04/17/24 Jace Wright MD [address] [place] [address] Otolaryngology 04/25/24 Keanu Escobar MD [address] [place] [address] Pulmonary Disease 06/05/24 documented as of this encounter
--- OUTSIDE RECORDS SUMMARY | 2025-01-15 15:26 | XMS_ITS | Encounter Summary ---
Author Organization [employer] Address [address] [facility] 7[place] [address] Care Team Providers Care Linux Network Systems Administrator Name Role Phone Mer Hughes MD Primary Care Provider [phone] Kel Barrett MD Unavailable Jace Wright MD Unavailable [phone] Keanu Escobar MD Unavailable [phone] Reason for Visit * Reason Onset Date Comments Med Refill 02/14/2023 Encounter Details Date Type Department Care Team (Late st Contact Info) Description 02/14/2023 Telephone [facility] MEDICINE 230 [place] [address] Mer Hughes MD 230 [place] [address] Med Refill Social History Tobacco Use Types [...] - Bess De Los Santos - 02/14/2023 9:03 AM EDT Tc from patient requesting a med refill for medication albuterol (Ventolin HFA) 108 (90 Base) MCG/ACT inhaler. Please send to [facility]/pharmacy #[id number] [place] [address] [place] - [address] [facility] PCP Dr[address] Hughes * Telephone Encounter - Bess De Los Santos - 02/14/2023 9:01 AM EDT Tc from patient requesting a med refill for medication alprazolam 2 mg. Please send to [facility]/pharmacy#[id number] [facility] [place] - [address] [facility] [address] Hughes documented in this encounter Plan of Treatment Upcoming Encounters Date Type Department Care Team (Late st Contact Info) Description 01/25/2025 9:00 AM EDT Clinical Support [facility] MEDICINE [address] [place] [address] Cassie Arias RN 505 [place] [address] 01/28/2025 9:45 AM EDT Office Visit [address] [address] Mer Hughes MD [address] [place] [address] documented as of this encounter Visit Diagnoses Not on filedocumented in this encounter Additional Health Concerns Assessment Noted Time PHQ-9 Depression Total Score: 12 023 9:22 AM EDT documented as of this encounter Care Teams Linux Network Systems Administrator Relationship Specialty Start Date End Date Mer Hughes MD [address] [place] [address] PCP - General Family Medicine 05/23/18 Kel Barrett MD [address] [place] [address] [place] [address] [place] [address] Pain Medicine 04/17/24 Jace Wright MD [address] [place] [address] Otolaryngology 04/25/24 Keanu Escobar MD [address] [place] [address] Pulmonary Disease 06/05/24 documented as of this encounter
--- OUTSIDE RECORDS SUMMARY | 2025-01-15 15:26 | XMS_ITS | Encounter Summary ---
Author Organization [employer] Address 75 [facility] 7t [place] [address] Care Team Providers Care Tipple Mechanic Name Role Phone Mer Hughes MD Primary Care Provider [phone] Kel Barrett MD Unavailable Jace Wright MD Unavailable [phone] Keanu Escobar MD Unavailable [phone] Reason for Visit * Reason Onset Date Comments Appointment Request 07/10/2024 Encounter Details Date Type Department Care Team (Late st Contact Info) Description 07/10/2024 Telephone [facility] MEDICINE 230 [place] [address] Mer Hughes MD 230 [place] [address] Appointment Request Social History Tobacco Use Types Packs/Day Years [...] encounter Miscellaneous Notes * Telephone Encounter - Simón Kenyon - 07/10/2024 1:14 PM EST Tc from daughter in regards message prior , daughter is requesting a callback [phone] * Telephone Encounter - David Ford - 07/10/2024 9:15 AM EST Tc from pt daughter requesting to r/s 07/20/2024 Nurse Visit Appt due to pt being sick. documented in this encounter Plan of Treatment Upcoming Encounters Date Type Department Care Team (Late st Contact Info) Description 01/25/2025 9:00 AM EDT Clinical Support [facility] MEDICINE [address] [place] [address] Cassie Arias RN 505 [place] [address] 01/28/2025 9:45 AM EDT Office Visit [facility] MEDICINE [address] [place] [address] Mer Hughes MD 230 [place] [address] documented as of this encounter Visit Diagnoses Not on filedocumented in this encounter Additional Health Concerns Assessment Noted Time PHQ-9 Depression Total Score: 0 02/23/20 24 10:38 AM EDT documented as of this encounter Care Teams Tipple Mechanic Relationship Specialty Start Date End Date Mer Hughes MD 230 [place] [address] PCP - General Family Medicine 05/23/18 Kel Barrett MD 10 [facility] [address] [place] [address] Pain Medicine 04/17/24 Jace Wright MD [address] [place] [address] Otolaryngology 04/25/24 Keanu Escobar MD [address] [place] [address] Pulmonary Disease 06/05/24 documented as of this encounter
--- OUTSIDE RECORDS SUMMARY | 2025-01-15 15:26 | XMS_ITS | Encounter Summary ---
Author Organization [employer] Address 75 [facility] 7t [place] [address] Care Team Providers Care Hedis Manager Name Role Phone Mer Hughes MD Primary Care Provider [phone]- [phone] Kel Barrett MD Unavailable Jace Wright MD Unavailable [phone] Keanu Escobar MD Unavailable [phone] Reason for Visit * Reason Onset Date Comments Med Refill 10/31/2023 Encounter Details Date Type Department Care Team (Late st Contact Info) Description 10/31/2023 Telephone [facility] 230 [place], [place] [phone] Mer Hughes MD 230 [place] [address] Med Refill Social History Tobacco Use Types [...] encounter Miscellaneous Notes * Telephone Encounter - Mer Hughes MD - 11/13/2023 9:[address] scan dated 10/21/23 for lung cancer screening at [facility] recommends 3 month followup. Please ask [facility] lung cancer screenin gprogram if we place the order or do thy? Thank you. CT ASSESSMENT 10/21/23 RECOMMENDATION: A 3-month follow up low-dose lung CT scan is recommended. An order for CT LUNG CANCER SCREENING SHORT INTERVAL FOLLOWUP ([id number]) can be placed. * Telephone Encounter - Sarah Blair - 10/31/2023 10:29 AM EDT TC from pt requesting medication refill. Medications needing refill : ALPRAZolam (Xanax) 2 MG tablet To be sent to: [facility]/pharmacy #[id number] [place], [place] - [address] [place] [address] documented in this encounter Plan of Treatment Upcoming Encounters Date Type Department Care Team ([facility] st Contact Info) Description 01/25/2025 9:00 AM EDT Clinical Support [facility] 230 [place] [address] Cassie Arias, RN 505 [place] [address] 01/28/2025 9:45 AM EDT Office Visit [facility] 230 [place] [address] Mer Hughes MD 230 [place] [address] documented as of this encounter Visit Diagnoses Not on filedocumented in this encounter Additional Health Concerns Assessment Noted Time PHQ-9 Depression Total Score: 12 023 9:22 AM EDT documented as of this encounter Care Teams Hedis Manager Relationship Specialty Start Date End Date Mer Hughes MD [address] [place] [address] PCP - General Family Medicine 05/23/18 Kel Barrett MD [address] [place] [address] Pain Medicine 04/17/24 Jace Wright MD [address] [place] [address] Otolaryngology 04/25/24 Keanu Escobar MD [address] [place] [address] Pulmonary Disease 06/05/24 documented as of this encounter
--- OUTSIDE RECORDS SUMMARY | 2025-01-15 15:26 | XMS_ITS | Encounter Summary ---
Author Organization [employer] Address 75 [facility] 7t [place] [address] Care Team Providers Care Category Manager Name Role Phone Mer Hughes MD Primary Care Provider [phone]- [phone] Kle Barrett MD Unavailable Jace Wright MD Unavailable [phone] Keanu Escobar MD Unavailable [phone] Reason for Visit * Reason Onset Date Comments Med Refill 06/19/2024 Encounter Details Date Type Department Care Team (Late st Contact Info) Description 06/19/2024 Telephone [facility] 230 [place], [place] [phone] Mer Hughes MD 230 [place] [address] Med Refill Social History Tobacco Use Types [...] encounter Miscellaneous Notes * Telephone Encounter - Jonas Mo - 06/19/2024 8:43 AM EST TC from pt requesting medication refill. Medications needing refill: morphine CR (MS Contin) 60 MG 12 hr tablet ALPRAZolam (Xanax) 2 MG tablet To be sent to: [facility]/pharmacy #[id number] [place] [address] documented in this encounter Plan of Treatment Upcoming Encounters Date Type Department Care Team (Late st Contact Info) Description 01/25/2025 9:00 AM EDT Clinical Support [facility] [address] [place] [address] Cassie Arias RN 505 [place] [address] 01/28/2025 9:45 AM EDT Office Visit [facility] [address] [place] [address] Mer Hughes MD 230 [place] [address] documented as of this encounter Visit Diagnoses Not on filedocumented in this encounter Additional Health Concerns Assessment Noted Time PHQ-9 Depression Total Score: 0 02/23/20 24 10:38 AM EDT documented as of this encounter Care Teams Category Manager Relationship Specialty Start Date End Date Mer Hughes MD [address] [place] [address] PCP - General Family Medicine 05/23/18 Kel Barrett MD [address] [place] [address] Pain Medicine 04/17/24 Jace Wright MD [address] [place] [address] Otolaryngology 04/25/24 Keanu Escobar MD [address] [place] [address] Pulmonary Disease 06/05/24 documented as of this encounter
--- OUTSIDE RECORDS SUMMARY | 2025-01-15 15:26 | XMS_ITS | Encounter Summary ---
Author Organization [employer] Address 75 [facility] 7t [place] [address] Care Team Providers Care Big Data Engineer Name Role Phone Mer Hughes MD Primary Care Provider [phone]- [phone] Kel Barrett MD Unavailable Jace Wright MD Unavailable [phone] Keanu Escobar MD Unavailable [phone] Reason for Visit * Reason Onset Date Comments Med Refill 08/21/2024 Encounter Details Date Type Department Care Team (Late st Contact Info) Description 08/21/2024 Telephone [facility] MEDICINE 230 [place], [place] [phone] Mer Hughes MD 230 [place] [address] Med Refill Social History Tobacco Use Types [...] * Telephone Encounter - Simón Kenyon - 08/21/2024 8:33 AM EDT TC from pt requesting medication refill. Medications needing refill : morphine CR (MS Contin) 60 MG 12 hr tablet To be sent to: [facility]/PHARMACY #[id number] [place], [place] - [address] [place] [address] documented in this encounter Plan of Treatment Upcoming Encounters Date Type Department Care Team (Late st Contact Info) Description 01/25/2025 9:00 AM EDT Clinical Support [facility] [address] [place] [address] Cassie Arias RN 505 [place] [address] 01/28/2025 9:45 AM EDT Office Visit [facility] [address] [place] [address] Mer Hughes MD [address] [place] [address] documented as of this encounter Visit Diagnoses Not on filedocumented in this encounter Additional Health Concerns Assessment Noted Time PHQ-9 Depression Total Score: 0 02/23/20 24 10:38 AM EDT documented as of this encounter Care Teams Big Data Engineer Relationship Specialty Start Date End Date Mer Hughes MD [address] [place] [address] PCP - General Family Medicine 05/23/18 Kel Barrett MD [address] [place] [address] Pain Medicine 04/17/24 Jace Wright MD [address] [place] [address] Otolaryngology 04/25/24 Keanu Escobar MD [address] [place] [address] Pulmonary Disease 06/05/24 documented as of this encounter
--- OUTSIDE RECORDS SUMMARY | 2025-01-15 15:26 | XMS_ITS | Encounter Summary ---
Author Organization [employer] Address 75 [facility] 7t [place] [address] Care Team Providers Care Interpretive Program Coordinator Name Role Phone Mer Hughes MD Primary Care Provider [phone]- [phone] Kel Barrett MD Unavailable Jace Wright MD Unavailable [phone] Keanu Escobar MD Unavailable [phone] Reason for Visit * Reason Onset Date Comments Med Refill 09/25/2024 Encounter Details Date Type Department Care Team (Late st Contact Info) Description 09/25/2024 Refill [facility] 230 [place], [place] [phone] Mer Hughes MD 230 [place], [place] [phone] Other insomnia Social History Tobacco Use Types Packs/Day Years [...] 01/25/2025 9:00 AM EDT Clinical Support [facility] [address] [place] [address] Cassie Arias RN 505 [place] [address] 01/28/2025 9:45 AM EDT Office Visit [facility] [address] [place] [address] Mer Hughes MD [address] [place] [address] documented as of this encounter Visit Diagnoses Diagnosis Other insomnia documented in this encounter Additional Health Concerns Assessment Noted Time PHQ-9 Depression Total Score: 0 02/23/20 24 10:38 AM EDT documented as of this encounter Care Teams Interpretive Program Coordinator Relationship Specialty Start Date End Date Mer Hughes MD [address] [place] [address] PCP - General Family Medicine 05/23/18 Kel Barrett MD [address] [place] [address] [address] [place] [address] Pain Medicine 04/17/24 Jace Wright MD [address] [place] [address] Otolaryngology 04/25/24 Keanu Escobar MD [address] [place] [address] Pulmonary Disease 06/05/24 documented as of this encounter
--- OUTSIDE RECORDS SUMMARY | 2025-01-15 15:26 | XMS_ITS | Encounter Summary ---
Author Organization [employer] Address 75 [facility] 7t [place] [address] Care Team Providers Care Solar Energy Systems Designer Name Role Phone Mer Hughes MD Primary Care Provider [phone]- [phone] Kel Barrett MD Unavailable Jace Wright MD Unavailable [phone] Keanu Escobar MD Unavailable [phone] Reason for Visit * Reason Comments Med Refill Encounter Details Date Type Department Care Team (Late Contact Info) Description 11/22/2022 Refill [facility] [address] [place] [address] Mer Hughes MD 230 [place], [place] [phone] Pulmonary emphysema, unspecified emphysema type (CMS/HCC) Social [...] Description 01/25/2025 9:00 AM EDT Clinical Support [facility] [address] [place] [address] Cassie Arias, PAT 505 [place] [address] 01/28/2025 9:45 AM EDT Office Visit [facility] 230 [place] [address] Mer Hughes MD 230 [place] [address] documented as of this encounter Visit Diagnoses Diagnosis Pulmonary emphysema, unspecified emphysema type (CMS/HCC) documented in this encounter Additional Health Concerns Assessment Noted Time PHQ-9 Depression Total Score: 12 023 9:31 AM EST documented as of this encounter Care Teams Solar Energy Systems Designer Relationship Specialty Start Date End Date Mer Hughes MD 230 [place] [address] PCP - General Family Medicine 05/23/18 Kel Barrett MD [address] [place] [address] Pain Medicine 04/17/24 Jace Wright MD [address] [place] [address] Otolaryngology 04/25/24 Keanu Escobar MD [address] [place] [address] Pulmonary Disease 06/05/24 documented as of this encounter
--- OUTSIDE RECORDS SUMMARY | 2025-01-15 15:26 | XMS_ITS | Encounter Summary ---
Author Organization [employer] Address 75 [facility] 7t [place] [address] Care Team Providers Care Jig And Fixture Builder Name Role Phone Mer Hughes MD Primary Care Provider [phone]- [phone] Kel Barrett MD Unavailable Jace Wright MD Unavailable [phone] Keanu Escobar MD Unavailable [phone] Reason for Visit * Reason Onset Date Comments Med Refill 12/27/2023 Encounter Details Date Type Department Care Team (Late st Contact Info) Description 12/27/2023 Telephone [facility] MEDICINE 230 [place], [place] [phone] Mer Hughes MD 230 [place] [address] Med Refill Social History Tobacco Use Types [...] * Telephone Encounter - Geri Negrete - 12/27/2023 9:49 AM EDT TC from pt requesting medication refill. Medications needing refill : ALPRAZolam (Xanax) 2 MG tablet To be sent to: [facility]/pharmacy #[address] [place] [address] documented in this encounter Plan of Treatment Upcoming Encounters Date Type Department Care Team (Late st Contact Info) Description 01/25/2025 9:00 AM EDT Clinical Support [facility] MED[facility]INE [address] [place] [address] Cassie Arias RN 505 [place] [address] 01/28/2025 9:45 AM EDT Office Visit [facility] [address] [place] [address] [phone] Mer Hughes MD 230 [place] [address] documented as of this encounter Visit Diagnoses Not on filedocumented in this encounter Additional Health Concerns Assessment Noted Time PHQ-9 Depression Total Score: 4 07/10/20 24 11:34 AM EDT documented as of this encounter Care Teams Jig And Fixture Builder Relationship Specialty Start Date End Date Mer Hughes MD [address] [place] [address] PCP - General Family Medicine 05/23/18 Kel Barrett MD [address] [address] Pain Medicine 04/17/24 Jace Wright MD [address] [place] [address] Otolaryngology 04/25/24 Keanu Escobar MD [address] [place] [address] Pulmonary Disease 06/05/24 documented as of this encounter
--- OUTSIDE RECORDS SUMMARY | 2025-01-15 15:26 | XMS_ITS | Encounter Summary ---
Author Organization [employer] Address 75 [facility] 7t [place] [address] Care Team Providers Care Comb Winder Name Role Phone Mer Hughes MD Primary Care Provider [phone]- [phone] Kel Barrett MD Unavailable Jace Wright MD Unavailable [phone] Keanu Escobar MD Unavailable [phone] Reason for Visit * Reason Onset Date Comments Med Refill 07/18/2024 Encounter Details Date Type Department Care Team (Late st Contact Info) Description 07/18/2024 Telephone [facility] 230 [place], [place] [phone] Mer Hughes MD 230 [place] [address] Med Refill Social History Tobacco Use Types [...] * Telephone Encounter - Simón Kenyon - 07/18/2024 9:16 AM EST TC from pt requesting medication refill. Medications needing refill : morphine CR (MS Contin) 60 MG 12 hr tablet To be sent to: [facility]/pharmacy #[id number] documented in this encounter Plan of Treatment Upcoming Encounters Date Type Department Care Team (Late st Contact Info) Description 01/25/2025 9:00 AM EDT Clinical Support [facility] [address] [place] [address] Cassie Arias RN 505 [place] [address] 01/28/2025 9:45 AM EDT Office Visit [facility] [address] [place] [address] Mer Hughes MD [address] [place] [address] documented as of this encounter Visit Diagnoses Not on filedocumented in this encounter Additional Health Concerns Assessment Noted Time PHQ-9 Depression Total Score: 0 02/23/20 24 10:38 AM EDT documented as of this encounter Care Teams Comb Winder Relationship Specialty Start Date End Date Mer Hughes MD [address] [place] [address] PCP - General Family Medicine 05/23/18 Kel Barrett MD [address] [place] [address] Pain Medicine 04/17/24 Jace Wright MD [address] [place] [address] Otolaryngology 04/25/24 Keanu Escobar MD [address] [place] [address] Pulmonary Disease 06/05/24 documented as of this encounter
--- OUTSIDE RECORDS SUMMARY | 2025-01-15 15:26 | XMS_ITS | Encounter Summary ---
Author Organization [employer] Address [address] [facility] [address] 7t [place] [address] Care Team Providers Care Break And Load Operator Name Role Phone Mer Hughes MD Primary Care Provider [phone]- [phone] Kel Barrett MD Unavailable Jace Wright MD Unavailable [phone] Keanu Escobar MD Unavailable [phone] Reason for Visit * Reason Onset Date Comments Med Refill 04/12/2023 Encounter Details Date Type Department Care Team (Late st Contact Info) Description 04/12/2023 Telephone [facility] MEDICINE 230 [place], [place] [phone] Mer Hughes MD 230 [place] [address] Med Refill Social History Tobacco Use Types [...] encounter Miscellaneous Notes * Telephone Encounter - Sarah Blair - 04/12/2023 8:52 AM EST Tc from daughter requesting medication refill on ALPRAZolam (Xanax) 2 MG tablet and morphine CR (MSContin) 60 MG 12 hr tablet to be sent to [facility]/pharmacy #[address] [place] [address] - [address] [place] [address] documented in this encounter Plan of Treatment Upcoming Encounters Date Type Department Care Team (Late st Contact Info) Description 01/25/2025 9:00 AM EDT Clinical Support [facility] MEDICINE [address] [place] [address] Cassie Arias RN 505 [place] [address] 01/28/2025 9:45 AM EDT Office Visit [facility] MEDICINE [address] [place] [address] Mer Hughes MD [address] [place] [address] documented as of this encounter Visit Diagnoses Not on filedocumented in this encounter Additional Health Concerns Assessment Noted Time PHQ-9 Depression Total Score: 12 023 9:22 AM EDT documented as of this encounter Care Teams Break And Load Operator Relationship Specialty Start Date End Date Mer Hughes MD [address] [place] [address] PCP - General Family Medicine 05/23/18 Kel Barrett MD 10 [facility] [address] [place] [address] Pain Medicine 04/17/24 Jace Wright MD [address] [place] [address] Otolaryngology 04/25/24 Keanu Escobar MD [address] [place] [address] Pulmonary Disease 06/05/24 documented as of this encounter
--- OUTSIDE RECORDS SUMMARY | 2025-01-15 15:26 | XMS_ITS | Encounter Summary ---
Author Organization [employer] Address 75 [facility] 7t [place] [address] Care Team Providers Care Eyewear Manufacturing Tech Name Role Phone Mer Hughes MD Primary Care Provider [phone]- [phone] Kel Barrett MD Unavailable Jace Wright MD Unavailable [phone] Keanu Escobar MD Unavailable [phone] Reason for Visit * Reason Onset Date Comments Med Refill 04/30/2024 Encounter Details Date Type Department Care Team (Late st Contact Info) Description 04/30/2024 Telephone [facility] MEDICINE 230 [place], [place] [phone] Mer Hughes MD 230 [place] [address] Med Refill Social History Tobacco Use Types [...] Telephone Encounter - Aleksandra Whitaker LPN - 04/30/2024 9:04 AM EST Medication was sent to [facility] #[id number] on 03/12/24 with 1 refill. * Telephone Encounter - David Mccullough - 04/30/2024 8:50 AM EST TC from pt requesting medication refill. Medications needing refill : albuterol 108 (90 Base) MCG/ACT inhaler To be sent to: [facility]/pharmacy #[id number] - [place], [place] - [address] [place] [address] documented in this encounter Plan of Treatment Upcoming Encounters Date Type Department Care Team (Late st Contact Info) Description 01/25/2025 9:00 AM EDT Clinical Support [facility] MEDICINE 230 [place] [address] Cassie Arias RN 505 [place] [address] 01/28/2025 9:45 AM EDT Office Visit [facility] MEDICINE 230 [place] [address] Mer Hughes MD 230 [place] [address] documented as of this encounter Visit Diagnoses Not on filedocumented in this encounter Additional Health Concerns Assessment Noted Time PHQ-9 Depression Total Score: 0 02/23/20 10:38 AM EDT documented as of this encounter Care Teams Eyewear Manufacturing Tech Relationship Specialty Start Date End Date Mer Hughes MD [address] [place] [address] [phone] PCP - General Family Medicine 05/23/18 Kel Barrett MD [address] [address] Pain Medicine 04/17/24 Jace Wright MD [address] [place] [address] Otolaryngology 04/25/24 Keanu Escobar MD [address] [place] [address] Pulmonary Disease 06/05/24 documented as of this encounter
--- OUTSIDE RECORDS SUMMARY | 2025-01-15 15:26 | XMS_ITS | Encounter Summary ---
Author Organization [employer] Address 75 [facility] 7t [place] [address] Care Team Providers Care Lawn Mower Sharpener Name Role Phone Mer Hughes MD Primary Care Provider [phone]- [phone] Kel Barrett MD Unavailable Jace Wright MD Unavailable [phone] Keanu Escobar MD Unavailable [phone] Reason for Visit * Reason Onset Date Comments Med Refill 11/19/2022 Encounter Details Date Type Department Care Team (Late st Contact Info) Description 11/19/2022 Telephone [facility] 230 [place] [address] Mer Hughes MD 230 [place] [address] Med Refill Social History Tobacco Use Types [...] Telephone Encounter - Aleksandra Whitaker LPN - 11/19/2022 10:44 AM EDT Medication pended to PCP awaiting approval. * Telephone Encounter - Sarah Blair - 11/19/2022 10:28 AM EDT Tc from pt daughter requesting medication refill on albuterol (Ventolin HFA) 108 (90 Base) MCG/ACT inhaler documented in this encounter Plan of Treatment Upcoming Encounters Date Type Department Care Team (Late st Contact Info) Description 01/25/2025 9:00 AM EDT Clinical Support [address] [address] Cassie Arias RN 505 [place] [address] 01/28/2025 9:45 AM EDT Office Visit [address] [address] Mer Hughes MD [address] [place] [address] documented as of this encounter Visit Diagnoses Not on filedocumented in this encounter Additional Health Concerns Assessment Noted Time PHQ-9 Depression Total Score: 12 023 9:31 AM EST documented as of this encounter Care Teams Lawn Mower Sharpener Relationship Specialty Start Date End Date Mer Hughes MD [address] [place] [address] PCP - General Family Medicine 05/23/18 Kel Barrett MD [address] [place] [address] Pain Medicine 04/17/24 Jace Wright MD [address] [place] [address] Otolaryngology 04/25/24 Keanu Escobar MD [address] [place] [address] Pulmonary Disease 06/05/24 documented as of this encounter
--- OUTSIDE RECORDS SUMMARY | 2025-01-15 15:26 | XMS_ITS | Encounter Summary ---
Author Organization [employer] Address 75 [facility] 7t [place] [address] Care Team Providers Care Airway Controller Name Role Phone Mer Hughes MD Primary Care Provider [phone]- [phone] Kel Barrett MD Unavailable Jace Wright MD Unavailable [phone] Keanu Escobar MD Unavailable [phone] Reason for Visit * Reason Onset Date Comments Medication Question 10/20/2023 Encounter Details Date Type Department Care Team (Late st Contact Info) Description 10/20/2023 Telephone [facility] MEDICINE 230 [place], [place] [phone] Mer Hughes MD 230 [place] [address] Medication Question Social History Tobacco Use Types Packs/Day Years [...] encounter Miscellaneous Notes * Telephone Encounter - Josr Ackerman - 10/20/2023 11:43 AM EDT Tc from the patients mother calling to request a alternative medication for cyclobenzaprine (Flexeril) 10 MG tablet due to the patients insurance documented in this encounter Plan of Treatment Upcoming Encounters Date Type Department Care Team (Late st Contact Info) Description 01/25/2025 9:00 AM EDT Clinical Support [facility] MEDICINE [address] [place] [address] Cassie Arias RN 505 [place] [address] 01/28/2025 9:45 AM EDT Office Visit [facility] MEDICINE [address] [place] [address] Mer Hughes MD [address] [place] [address] documented as of this encounter Visit Diagnoses Not on filedocumented in this encounter Additional Health Concerns Assessment Noted Time PHQ-9 Depression Total Score: 12 023 9:22 AM EDT documented as of this encounter Care Teams Airway Controller Relationship Specialty Start Date End Date Mer Hughes MD [address] [place] [address] PCP - General Family Medicine 05/23/18 Kel Barrett MD 10 [facility] [address] [place] [address] Pain Medicine 04/17/24 Jace Wright MD [address] [place] [address] Otolaryngology 04/25/24 Keanu Escobar MD [address] [place] [address] Pulmonary Disease 06/05/24 documented as of this encounter
--- OUTSIDE RECORDS SUMMARY | 2025-01-15 15:26 | XMS_ITS | Encounter Summary ---
Author Organization [employer] Address [address] [facility] 7t [place] [address] Care Team Providers Care Guardian Family Member Name Role Phone Mer Hughes MD Primary Care Provider [phone] Kel Barrett MD Unavailable Jace Wright MD Unavailable [phone] Keanu Escobar MD Unavailable [phone] Reason for Visit * Reason Onset Date Comments Med Refill 04/17/2024 Encounter Details Date Type Department Care Team (Late st Contact Info) Description 04/17/[address] [facility] [address] [place], [place] [phone] Mer Hughes MD [address] [place] [address] Med Refill Social History Tobacco Use Types [...] * Telephone Encounter - Simón Kenyon - 04/17/2024 2:31 PM EST TC from pt requesting medication refill. Medications needing refill : morphine CR (MS Contin) 60 MG 12 hr tablet To be sent to: [facility]/pharmacy #[id number] documented in this encounter Plan of Treatment Upcoming Encounters Date Type Department Care Team (Late st Contact Info) Description 01/25/2025 9:00 AM EDT Clinical [address] [facility] [address] [place] [phone] Cassie Arias RN [address] [place] [address] 01/28/2025 9:45 AM EDT Office Visit [facility] [address] [place] [address] [phone] Mer Hughes MD [address] [place] [address] documented as of this encounter Visit Diagnoses Not on filedocumented in this encounter Additional Health Concerns Assessment Noted Time PHQ-9 Depression Total Score: 0 02/23/20 24 10:38 AM EDT documented as of this encounter Care Teams Guardian Family Member Relationship Specialty Start Date End Date Mer Hughes MD [address] [place] [address] PCP - General Family Medicine 05/23/18 Kel Barrett MD [address] [address] Pain Medicine 04/17/24 Jace Wright MD [address] [place] [address] Otolaryngology 04/25/24 Keanu Escobar MD [address] [place] [address] Pulmonary Disease 06/05/24 documented as of this encounter
--- OUTSIDE RECORDS SUMMARY | 2025-01-15 15:26 | XMS_ITS | Encounter Summary ---
Author Organization [employer] Address [address] [facility] 7t [place] [address] Care Team Providers Care Manager Private Name Role Phone Mer Hughes MD Primary Care Provider [phone] Kel Barrett MD Unavailable Jace Wright MD Unavailable [phone] Keanu Escobar MD Unavailable [phone] Reason for Visit * Reason Comments Med Refill Encounter Details Date Type Department Care Team (Late Contact Info) Description 11/19/2022 Refill [facility] [address] [place] [address] Mer Hughes MD [address] [place], [place] [phone] Pulmonary emphysema, unspecified emphysema type (CMS/HCC) Social [...] Description 01/25/2025 9:00 AM EDT Clinical Support [facility] [address] [place] [address] Cassie Arias, PAT [address] [place] [address] 01/28/2025 9:45 AM EDT Office Visit [facility] [address] [place] [address] Mer Hughes MD [address] [place] [address] documented as of this encounter Visit Diagnoses Diagnosis Pulmonary emphysema, unspecified emphysema type (CMS/HCC) documented in this encounter Additional Health Concerns Assessment Noted Time PHQ-9 Depression Total Score: 12 023 9:31 AM EST documented as of this encounter Care Teams Manager Private Relationship Specialty Start Date End Date Mer Hughes MD [address] [place] [address] PCP - General Family Medicine 05/23/18 Kel Barrett MD [address] [place] [address] Pain Medicine 04/17/24 Jace Wright MD [address] [place] [address] Otolaryngology 04/25/24 Keanu Escobar MD [address] [place] [address] Pulmonary Disease 06/05/24 documented as of this encounter
--- OUTSIDE RECORDS SUMMARY | 2025-01-15 15:26 | XMS_ITS | Encounter Summary ---
Author Organization [employer] Address [address] [facility] [place] [address] Care Team Providers Care Topographical Engineer Name Role Phone Mer Hughes MD Primary Care Provider [phone] Kel Barrett MD Unavailable Jace Wright MD Unavailable [phone] Keanu Escobar MD Unavailable [phone] Reason for Visit * Reason Onset Date Comments Med Refill 07/19/2023 Encounter Details Date Type Department Care Team (Late st Contact Info) Description 07/19/2023 Telephone [facility] [address] [place], [place] [phone] Mer Hughes MD [address] [place] [address] Med Refill Social History Tobacco Use Types [...] * Telephone Encounter - Geri Negrete - 07/19/2023 9:43 AM EST TC from pt requesting medication refill. Medications needing refill : morphine CR (MS Contin) 60 MG 12 hr tablet To be sent to: [facility]/pharmacy #[id number] [place] [address] documented in this encounter Plan of Treatment Upcoming Encounters Date Type Department Care Team (Late st Contact Info) Description 01/25/2025 9:00 AM EDT Clinical Support [facility] [address] [place] [phone] Cassie Arias, RN [address] [place] [address] 01/28/2025 9:45 AM EDT Office Visit [facility] [address] [place] [address] Mer Hughes MD [address] [place] [address] documented as of this encounter Visit Diagnoses Not on filedocumented in this encounter Additional Health Concerns Assessment Noted Time PHQ-9 Depression Total Score: 12 023 9:22 AM EDT documented as of this encounter Care Teams Topographical Engineer Relationship Specialty Start Date End Date Mer Hughes MD [address] [place] [address] PCP - General Family Medicine 05/23/18 Kel Barrett MD 10 [facility] [address] [place] [address] Pain Medicine 04/17/24 Jace Wright MD [address] [place] [address] Otolaryngology 04/25/24 Keanu Escobar MD [address] [place] [address] Pulmonary Disease 06/05/24 documented as of this encounter
--- OUTSIDE RECORDS SUMMARY | 2025-01-15 15:26 | XMS_ITS | Encounter Summary ---
Author Organization [employer] Address [address] [facility] [address] 7[address] [place] [address] Care Team Providers Care Glost Tile Sorter Name Role Phone Mer Hughes MD Primary Care Provider [phone] Kel Barrett MD Unavailable Jace Wright MD Unavailable [phone] Keanu Escobar MD Unavailable [phone] Encounter Details Date Type Department Care Team ([facility] Contact Info) Description 12/02/2022 Telephone [facility] [address] [place] [phone] Mer Hughes MD [address] [place], [place] [phone] Social History Tobacco Use Types Packs/Day Years [...] Encounters Date Type Department Care Team (Late Contact Info) Description 01/25/2025 9:00 AM EDT Clinical Support [facility] [address] [place] [address] [phone] Cassie Arias RN [address] [place] [address] 01/28/2025 9:45 AM EDT Office Visit [facility] [address] [place] [address] Mer Hughes MD [address] [place] [address] documented as of this encounter Visit Diagnoses Diagnosis 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 documented in this encounter Additional Health Concerns Assessment Noted Time PHQ-9 Depression Total Score: 12 023 9:31 AM EST documented as of this encounter Care Teams Glost Tile Sorter Relationship Specialty Start Date End Date Mer Hughes MD [address] [place] [address] PCP - General Family Medicine 05/23/18 Kel Barrett MD [address] [place] [address] Pain Medicine 04/17/24 Jace Wright MD [address] [place] [address] Otolaryngology 04/25/24 Keanu Escobar MD [address] [place] [address] Pulmonary Disease 06/05/24 documented as of this encounter
--- OUTSIDE RECORDS SUMMARY | 2025-01-15 15:26 | XMS_ITS | Clinical Summary ---
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 apply) Continue with current services (defined as services in the past 12 months) . Assessment & Plan (08/22/2023 9:35 AM EDT): During IBH Consult Ozzy presenting with depressed mood, loss of interests/pleasure , changes in sleep difficulty falling asleep, trouble concentrating, thoughts of worthlessness or guilt, fatigue/loss of energy, inappropriate guilt , difficulty concentrating and excessive worry/anxiety, difficulty controlling worry, restless/keyed up/On edge, easily fatigued, difficulty concentrating/Mind going blank , irritability, muscle tension, and sleep disturbance difficulty falling asleep; for a period of 18+ mo, for all symptoms in the context of illness or family illness. Ozzy reports being anxious due to severity of his medical condition. Symptoms are worsening, patient is afraid of having throat cancer. Hx of cancer in family which leads to increase of sxs. PLAN: (check all that apply) Continue with current services (defined as services in the past 12 months) . Currently working with a therapist biweekly. Assessment & Plan (09/14/2022 9:54 AM EDT): -severe on benzodiazapine for > 10 years. Unable to wean. Understands risks especially in setting of chronic opiate use. Assessment & Plan (05/28/2022 10:56 AM EST): -severe on benzodiazapine for > 10 years. Unable to wean. Understands risks especially in setting of choric opiate use. Failed back syndrome 12/09/2011 Overview (05/28/2022): - on chronic opiate therapy for years with excellent compliance with opiate contract. Stable on MS Contin 60mg po BID (decreased from 100mg BID previously). He does not feel he can wean at this time. Assessment & Plan (09/15/2022 11:59 AM EDT): - on chronic opiate therapy for years with excellent compliance with opiate contract. Stable on MS Contin 60mg po BID (decreased from 100mg BID previously). He does not feel he can wean at this time. Assessment & Plan (05/28/2022 10:54 AM EST): - on chronic opiate therapy for years with excellent compliance with opiate contract. Stable on MS Contin 60mg po BID (decreased from 100mg BID previously). He does not feel he can wean at this time. Resolved Problems Problem Noted Date Diagnosed Date Resolved Date Acute pain of left shoulder 08/18/2023 08/18/2023 Chronic low back pain 05/13/20222022 Complication of surgical procedure 07/20/2021 05/28/2022 Overview (05/28/2022): Hoarse voice quality for years but is now worse. Hx tobacco, quit 8 years ago. Denies odynophagia, dysphagia. Stable weight. No reflux symptoms. - Pt no showed to ENT 3 times and states he can't get to [facility]. His insurance is not accepted at local ENT. -Referral done and pt strongly encouraged to go. Assessment & Plan (05/28/2022 9:58 AM EST): Hoarse voice quality for years but is now worse. Hx tobacco, quit 8 years ago. Denies odynophagia, dysphagia. Stable weight. No reflux symptoms. - Pt no showed to ENT 3 times and states he can't get to [facility]. His insurance is not accepted at local ENT. -Referral done and pt strongly encouraged to go. Mixed anxiety and depressive disorder 03/29/2013 09/15/2022 Anxiety 07/06/2012 09/15/2022 Overview (09/14/2022): Symptoms currently exacerbated. Unable to wean Xanax, Will encourage at each visit. [facility] called for [facility] to get pt established. Possibly offer respite. Assessment & Plan (09/14/2022 10:11 AM EDT): Symptoms currently exacerbated. Unable to wean Xanax, Will encourage at each visit. N called for [facility] to get pt established. Possibly offer respite. Asthma 12/09/2011 05/28/2022 Encounters * This document contains information received from the source organization and may not represent a complete record from that organization. Date Type Department Care Team Description 12/28/2024 Orders Only [facility] [address] [place] [address] Madeline Jean ANP Failed back syndrome 12/28/2024 Telephone [facility] [address] [place] [address] Mer Hughes MD Medication Question 12/25/2024 Refill [facility] [address] [place], [place] [phone] Mer Hughes MD Chronic anxiety 12/25/2024 Refill [facility] [address] [place] [address] Mer Hughes MD Chronic anxiety 12/25/2024 Telephone [facility] [address] [place] [address] Mer Hughes MD Med Refill 12/25/2024 Refill [facility] [address] [place] [address] Mer Hughes MD Pulmonary emphysema, unspecified emphysema type ([facility]); Chronic anxiety 12/21/2024 Refill [facility] [address] [place] [address] Mer Hughes MD Failed back syndrome 12/21/2024 Telephone [facility] [address] [place] [address] Mer Hughes MD Med Refill 12/14/2024 8:30 AM EDT Clinical Support [facility] [address] [place] [address] Cassie Arias RN Chronic left shoulder pain 12/14/2024 Refill [facility] [address] [place] [address] Cassie Arias RN 12/14/2024 Travel 12/10/2024 Telephone [facility] [address] [place] [address] Mer Hughes MD Referral 11/27/2024 Telephone [facility] [address] [place] [address] Mer Hughes MD Prior Authorization 11/22/2024 Refill [facility] [address] [place] [address] Mer Hughes MD Chronic anxiety; Failed back syndrome 11/16/2024 9:30 AM EDT Clinical Support [facility] [address] [place] [address] 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 (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 Dx) 11/16/2024 Telephone [facility] [address] [place] [address] Cassie Arias RN 11/16/2024 Travel 11/15/2024 Refill [facility] [address] [place] [address] Mer Hughes MD Pulmonary emphysema, unspecified emphysema type ([facility]) 10/25/2024 Refill [facility] [address] [place] [address] Cassie Arias RN Chronic anxiety; Failed back syndrome 10/25/2024 Telephone [facility] [address] [place] [address] Mer Hughes MD Med Refill 10/25/2024 Telephone [facility] [address] [place], [place] [phone] Mer Hughes MD Med Refill from Last 3 Months Immunizations Immunization Administration Dates Next Due Hep A, Adult 03/28/2024 Hep B, adult 03/28/2024 Influenza injectable quadriv alent IIV4 with preservative 02/06/2018,03/24/2016 Influenza injectable quadrivalent preservative f ree 03/03/2015 Influenza, High Dose Seasonal, Preservative Free 02/23/2024 Influenza, IIV3, injectable 06/17/2014, 7 Influenza, Split (incl. purified surface antigen ) 03/29/2013 Moderna Covid-19 Vaccine 12+ 06/22/2021,08/02/19 21 Moderna Covid-19 Vaccine 6+ Bivalent 09/15/2022 Pfizer Covid-19 Vaccine 12+ 02/23/2024, 4 Pneumococcal Conjugate PCV 20 08/18/2023 Pneumococcal Polysaccharide PPSV23 06/17/2014, TD (adult), 2 Lf tetanus tox oid, preservative free, adsorbed 08/16/2008 Tdap 11/19/2013 Zoster, live 03/29/2013 Social History Tobacco Use Types Packs/Day Years Used Date Smoking Tobacco: Former Cigarettes Smokeless Tobacco: Never Tobacco Cessation:Counseling Given: Not Answered Alcohol Use Standard Drinks/Week Comments Never 0 [...] Orientation Straight 03/22/2022 10 :19 AM EDT Last Filed Vital Signs Vital Sign Reading Time Taken Comments Blood Pressure 128/80 03/28/2024 10:32 AM EST Pulse 90 03/28/2024 10:32 AM EST Temperature 36.1 C (96.9 F) 03/28/2024 10:32 AM EST Respiratory Rate 19 03/28/2024 10:32 AM EST Oxygen Saturation 97% 01/10/2024 9:07 AM EDT Inhaled Oxygen Concentration - - Weight 97.1 kg (214 lb) 03/28/2024 10:32 AM EST Height 182.9 cm (6') 03/28/2024 10:32 AM EST Body Mass Index 29.02 03/28/2024 10:32 AM EST Plan of Treatment Upcoming Encounters Date Type Department Care Team (Late st Contact Info) Description 01/25/2025 9:00 AM EDT Clinical Support [facility] [address] [place], [place] [phone] Cassie Arias, PAT [address] [place], [place] [phone] 01/28/2025 9:45 AM EDT Office Visit [facility] [place] [address] Mer Hughes MD [address] [facility] [place] [address] Health Maintenance Due Date Last Done Comments CT Colonography 1952 Colonoscopy 1952 FIT 1952 FOBT 1952 Sigmoidoscopy 1952 RSV Patients and Patients Aged 60 years or older (1 - Risk 60-74 years 1-dose series) 2012 Zoster Vaccines (2 of 3) 05/24/2013 03/29/2013 DTaP/Tdap/Td Vaccines (2 - Td or Tdap) 11/20/2023 11/19/2013, 08/16/2008 Hepatitis B Vaccines (2 of 3 - Risk 3-dose series) 04/25/2024 03/28/2024 COVID-19 Vaccine ( season) 2024 02/23/2024, 08/18/2023, 09/15/2022, Additional history exists Hepatitis A Vaccines (2 of 2 - Risk 2-dose series) 09/25/2024 03/28/2024 Influenza Vaccine (#1) 2025 , 02/06/2018, 03/24/2016, Additional history exists Alcohol/Substance Use Screening 02/22/2025 02/23/2024 SDOH Screening 02/22/2025 02/23/2024 Tobacco Screening 03/28/2025 03/28/2024 Depression Monitoring 04/26/2025 10/25/2024, 025 Colorectal Cancer Screening 12/18/2025 FIT DNA/Cologuard 12/18/2025 12/18/2022 Lipid Panel 09/06/2028 09/07/2023, 09/15/2022 Pneumococcal Vaccine: 50+ Years Completed 08/18/2023, 06/17/2014, 06/16/2006 Hepatitis C Screening Completed 03/28/2024, 023 HIB Vaccines Aged Out No longer eligi ble based on patient's age to complete this topic HPV Vaccines Aged Out No longer eligi ble based on patient's age to complete this topic IPV Vaccines Aged Out No longer eligi ble based on patient's age to complete this topic Meningococcal B Vaccine Aged Out No l onger eligible based on patient's age to complete this topic Meningococcal Vaccine Aged Out No rj janki eligible based on patient's age to complete this topic RSV under 20 months Aged Out No longe r eligible based on patient's age to complete this topic Rotavirus Vaccines Aged Out No longer eligible based on patient's age to complete this topic Procedures Procedure Name Priority Date/Time Associated Diagnosis Comments POCT TIMO-14 URINE DRUG SCREEN Routine 12/14/2024 8:46 AM EDT Chronic left shoulder pain POCT TIMO-14 URINE DRUG SCREEN Routine 11/16/2024 9:30 AM EDT Chronic left shoulder pain HEPATITIS C AB W/REFL TO HCV RNA, QN, PCR Routine 03/28/2024 11:09 AM EST Transaminitis LIPID PANEL, STANDARD Routine 09/07/2023 6:19 AM EDT Dyslipidemia LAB COLOGUARD COLON CANCER SCREEN Routine 12/18/2022 from Last 3 Months or Most Recently Relevant to Health Maintenance Results * (ABNORMAL) POCT TIMO-14 Urine Drug Screen (12/14/2024 8:46 AM EDT) Only the most recent of2 resultswithin the time period is included. THC Positive(A) Negative Cocaine Screen, Urine Negative Negative Opiate Screen, Urine Positive(A) Negative Methamphetamine Screen Urine Negative Negative Amphetamine Screen, Urine Negative Negative Benzodiazepines Screen, Urine Positive(A) Negative Barbiturate Screen, Urine Negative Negative Methadone Screen, Urine Negative Negative Buprenophine Screen, Urine Negative Negative TCA, Urine Positive(A) Negative MDMA Urine Negative Negative ng/mL Oxycodone Screen, Urine Negative Negative Phencyclidine (PCP), Urine Negative Negative Propoxyphene, Urine Negative Negative Fentanyl, Urine Negative Negative Urine Urine specimen obtained by clean catch procedure / Unknown 12/14/2024 8:46 AM EDT Narrative Cassie Arias RN - 12/14/2024 8:46 AM EDT .UTOX cup Lot#[id number] Exp. 02/26/26 Internal Pass Control Mer Hughes MD POINT OF CARE TEST ENTER/E DIT ORDERABLES Final Result * Hepatitis C Antibody with Reflex to HCV, RNA, Quantitative, Real-Time PCR (03/28/2024 11:09 AM EST) Hepatitis C Antibody Nonreactive Nonreactive [facility] Comment:Antibodies to HCV no t detected; does not exclude early acuteHCV infection. Blood Venous blood specimen / Unknown 03/28/2024 11:09 AM EST 03/28/2024 1:12 PM EST Mer Hughes MD LAB BLOOD ORDERABLES Final Result [facility] [address] [place] [phone] * (ABNORMAL) Lipid Panel, Standard (09/07/2023 6:19 AM EDT) Triglycerides 170(H) <150 mg/dL [facility] Comment:Desirable Triglyceri de: less than 150 mg/dLBorderline High Triglyceride 150-199 mg/dLHigh Triglyceride: 200-499 mg/dLVery High Triglyceride: greater than or equal to 5OO mg/dL Cholesterol 192 <200 mg/dL [facility] Comment:Desirable Cholestero l: less than 200 mg/dLBorderline High Cholesterol: 200-239 mg/dLHigh Cholesterol: greater than 239 mg/dL LDL Cholesterol Calculated 116(H) <100 mg/dL [facility] Comment:Desirable LDL: less than 100 mg/dLNear Optimal/Above Optimal LDL: 110- 129 mg/dLBorderline High LDL: 130-159 mg/dLHigh LDL: 160-189 mg/dLVery High LDL: greater than or equal to 190 mg/dL HDL Cholesterol 42 >40 mg/dL [facility] Comment:Desirable HDL: great er than 40 mg/dL Note: This HDL assay may give artificially low results in patients with liver disease. Blood Venous blood specimen / Unknown 09/07/2023 6:19 AM EDT 09/07/2023 6:19 AM EDT Mer Hughes MD LAB BLOOD ORDERABLES Final Result [facility] [address] [place] [phone] * Cologuard?? colon cancer screening (12/18/2022) Cologuard Cancer Screen Negative Stool Josh Provider LAB MOLECULAR DIAGNOSTICS ORDERABLES Final Result from Last 3 Months or Most Recently Relevant to Health Maintenance Insurance MEDICARE [facility] Advance Directives Documents on File Type Date Recorded Patient Quality Internship Expl anation Advance Directives and Living Will 02/23/2024 Health Care Proxy 02/23/24 Care Teams Document Review Attorney Relationship Specialty Start Date End Date Milam, MD Mer [address] [place] [address] PCP - General Family Medicine 05/23/18 Kel Barrett MD [address] [facility] [address] [place] [address] Pain Medicine 04/17/24 Jace Wright MD [address] [place] [address] Otolaryngology 04/25/24 Keanu Escobar MD [address] [place] [address] Pulmonary Disease 06/05/24
--- OUTSIDE RECORDS SUMMARY | 2025-01-15 15:26 | XMS_ITS | Encounter Summary ---
Author Organization [employer] Address [address] [place] [address] Care Team Providers Care Blue Split Trimmer Name Role Phone Mer Hughes MD Primary Care Provider [phone] Kel Barrett MD Unavailable Jace Wright MD Unavailable [phone] Keanu Escobar MD Unavailable [phone] Reason for Visit * Reason Onset Date Comments Reschedule 06/27/2023 Encounter Details Date Type Department Care Team (Late st Contact Info) Description 06/27/2023 Telephone [facility] [address] [place], [place] [phone] Mer Hughes MD [address] [place] [address] Reschedule Social History Tobacco Use Types Packs/Day Years [...] * Telephone Encounter - Sarah Blair - 06/27/2023 8:51 AM EST Tc from pt daughter requesting to r/s / NEONATAL NURSE appointment. Please contact daughter at [phone] documented in this encounter Plan of Treatment Upcoming Encounters Date Type Department Care Team (Late st Contact Info) Description 01/25/2025 9:00 AM EDT Clinical Support [facility] [address] [place] [address] Cassie Arias RN [address] [place] [address] 01/28/2025 9:45 AM EDT Office Visit [facility] [address] [place] [address] Mer Hughes MD [address] [place] [address] documented as of this encounter Visit Diagnoses Not on filedocumented in this encounter Additional Health Concerns Assessment Noted Time PHQ-9 Depression Total Score: 12 023 9:22 AM EDT documented as of this encounter Care Teams Blue Split Trimmer Relationship Specialty Start Date End Date Mer Hughes MD [address] [place] [address] PCP - General Family Medicine 05/23/18 Kel Barrett MD [address] [place] [address] [phone] Pain Medicine 04/17/24 Jace Wright MD [address] [place] [address] Otolaryngology 04/25/24 Keanu Escobar MD [address] [place] [address] Pulmonary Disease 06/05/24 documented as of this encounter
--- OUTSIDE RECORDS SUMMARY | 2025-01-15 15:26 | XMS_ITS | Encounter Summary ---
Author Organization [employer] Address [address] [facility] 7t [place] [address] Care Team Providers Care Liner Man Name Role Phone Mer Hughes MD Primary Care Provider [phone] Kel Barrett MD Unavailable Jace Wright MD Unavailable [phone] Keanu Escobar MD Unavailable [phone] Reason for Visit * Reason Onset Date Comments Referral 12/05/2023 Encounter Details Date Type Department Care Team (Late st Contact Info) Description 12/05/[address] [facility] MEDICINE [address] [place], [place] [phone] Mer Hughes MD [address] [place], [place] [phone] Referral Social History Tobacco Use Types Packs/Day Years [...] encounter Miscellaneous Notes * Telephone Encounter - Jayla Linares RN - 12/05/2023 11:26 AM EDT Telephone call returned to patient in regards to below message. Patient stated that patient is not helping and [facility] was told would get ortho referral and lido patches. Patient awaiting referral, was told it can take a few weeks. Patient also requesting status onpatches--PA is required. Patient verbalized understanding and denied having any further questions or concerns at this time. * Telephone Encounter - Jonas Mo - 12/05/2023 9:52 AM EDT Tc from daughter requesting status on Orthopedics referral stating [facility] ortho has not received referral. Please contact Daughter at [phone]. French Speaker documented in this encounter Plan of Treatment Upcoming Encounters Date Type Department Care Team (Late st Contact Info) Description 01/25/2025 9:00 AM EDT Clinical Support [address] [phone] Cassie Arias, PAT [address] [place] [address] 01/28/2025 9:45 AM EDT Office Visit [facility] [address] [place] [address] Mer Hughes MD [address] [place] [address] documented as of this encounter Visit Diagnoses Not on filedocumented in this encounter Additional Health Concerns Assessment Noted Time PHQ-9 Depression Total Score: 4 11/30/19 24 11:34 AM EDT documented as of this encounter Care Teams Liner Man Relationship Specialty Start Date End Date Mer Hughes MD [address] [place] [address] PCP - General Family Medicine 05/23/18 Kel Barrett MD [address] [place] [address] Pain Medicine 04/17/24 Jace Wrihgt MD [address] [place] [address] Otolaryngology 04/25/24 Keanu Escobar MD [address] [place] [address] Pulmonary Disease 06/05/24 documented as of this encounter
--- OUTSIDE RECORDS SUMMARY | 2025-01-15 15:26 | XMS_ITS | Encounter Summary ---
Author Organization [employer] Address 75 [facility] 7t [place] [address] Care Team Providers Care Certified Nurses Aide Name Role Phone Mer Hughes MD Primary Care Provider [phone] Kel Barrett MD Unavailable Jace Wright MD Unavailable [phone] Keanu Escobar MD Unavailable [phone] Reason for Visit * Reason Onset Date Comments Med Refill 10/25/2024 Encounter Details Date Type Department Care Team (Late st Contact Info) Description 10/25/2024 Telephone [facility] [address] [place], [place] [phone] Mer Hughes MD [address] [place] [address] Med Refill Social History Tobacco Use Types [...] 3 10/25/2024 9:46 AM EDT Jessica José HOLLOW HANDLE KNIFE ASSEMBLER Trouble relaxing 2 10/25/2024 9:46 AM EDT Betty Mabry LICSW Being so restless that it is hard to sit still 0 10/25/2024 9:46 AM EDT Jessica José HOLLOW HANDLE KNIFE ASSEMBLER Becoming easily annoyed or irritable 1 10/25/2024 9:46 AM EDT Jessica José HOLLOW HANDLE KNIFE ASSEMBLER Feeling afraid as if something awful might happen 3 10/25/2024 9:46 AM EDT Betty José LICSW GERDA-7 Total Score 15 10/25/2024 9:46 AM EDT Betty José LICSW documented as of this encounter Miscellaneous Notes * Telephone Encounter - Milagro Albrecht - 10/25/2024 9:54 AM EDT TC from pt requesting medication refill. Medications needing refill : - morphine CR (MS Contin) 60 MG 12 hr tablet - ALPRAZolam (Xanax) 2 MG tablet To be sent to: - [facility]/pharmacy #[id number] [facility] [place] - [address] [place] [address] documented in this encounter Plan of Treatment Upcoming Encounters Date Type Department Care Team (Late st Contact Info) Description 01/25/2025 9:00 AM EDT Clinical Support [facility] [address] [place] [address] Cassie Arias, PAT [address] [place] [address] 01/28/2025 9:45 AM EDT Office Visit [facility] [address] [place] [address] Mer Hughes MD [address] [place] [address] documented as of this encounter Visit Diagnoses Not on filedocumented in this encounter Additional Health Concerns Assessment Noted Time PHQ-9 Depression Total Score: 18 10/25/ 025 9:45 AM EDT documented as of this encounter Care Teams Certified Nurses Aide Relationship Specialty Start Date End Date Mer Hughes MD [address] [place] [address] PCP - General Family Medicine 05/23/18 Kel Barrett MD [address] [place] [address] [address] [place] [address] Pain Medicine 04/17/24 Jace Wright MD [address] [place] [address] Otolaryngology 04/25/24 Keanu Escobar MD [address] [place] [address] Pulmonary Disease 06/05/24 documented as of this encounter
--- OUTSIDE RECORDS SUMMARY | 2025-01-15 15:27 | XMS_ITS | Patient Health Record ---
Author Organization [facility] Address [address] [place] [address] Care Team Providers Care Humane Agent Name Role Phone Tay Lobo Jr Reason For Referral No Information Plan Of Treatment No Information
--- OUTSIDE RECORDS SUMMARY | 2025-01-15 15:27 | XMS_ITS | Encounter Summary ---
Author Organization [employer] Address 75 [facility] 7t [place] [address] Care Team Providers Care Associate Name Role Phone Mer Hughes MD Primary Care Provider [phone]- [phone] Kel Barrett MD Unavailable Jace Wright MD Unavailable [phone] Keanu Escobar MD Unavailable [phone] Reason for Referral * Imaging (Routine) - Closed Specialty Diagnoses / Procedures Referred By Contac t Referred To Contact Diagnoses Transaminitis Procedures US Abdomen Complete Mer Hughes MD [address] [place] [address] Phone: tel: fax: [address] Phone: tel: fax: Referral ID Status Reason Start Date Expiration Date Visits Re quested Visits Authorized [id number] Closed 09/16/2022 03/15/2023 1 1 Encounter Details Date Type Department Care Team (Late st Contact Info) Description 09/16/2022 Orders Only [facility] MEDICINE [address] [place] [address] [phone] Mer Hughes MD [address] [place] [address] [phone] Transaminitis (Primary Dx) Social History Tobacco Use Types [...] suspected to have Coronavirus/COVID-19? No / Unsure 09/15/2022 8:36 AM EDT documented as of this encounter Plan of Treatment Upcoming Encounters Date Type Department Care Team (Late st Contact Info) Description 01/25/2025 9:00 AM EDT Clinical Support [address] [address] Cassie Arias RN 505 [place] [address] 01/28/2025 9:45 AM EDT Office Visit [address] [address] Mer Hughes MD [address] [place] [address] Scheduled Orders Name Type Priority Associated Diagnoses Orde r Schedule US Abdomen Complete Imaging Routine Transaminitis Expected: 09/16/2022 (Approximate), Expires: 09/17/2023 documented as of this encounter Procedures Procedure Name Priority Date/Time Associated Diagnosis Comments US ABDOMEN COMPLETE Routine 10/08/2022 8 :46 AM EDT documented in this encounter Results * US Abdomen Complete (10/08/2022 8:46 AM EDT) Anatomical Region Laterality Modality Abdomen Ultrasound 10/08/2022 8:46 AM EDT Narrative 10/12/2022 11:20 AM EDT [address] [address] Ultrasound Report Signed Patient: Ozzy Lama MR#: [id number] 78 : 1950 Acct:[id number] Age/Sex: 71 / M ADM Date: 10/08/22 Loc: HO.US Attending Dr: Mer Hughes MD Ordering Physician: Mer Hughes MD Date of Service: 10/08/22 Procedure(s): US abdomen complete Accession Number(s): [id number] cc: Mer Hughes MD EXAMINATION: US ABDOMEN COMPLETE CLINICAL INFORMATION: Elevated LFTs. COMPARISON: CT abdomen and pelvis with contrast 04/19/2021. TECHNIQUE: Real-time imaging of the abdominal viscera. Technically limited study secondary to bowel gas and body habitus. FINDINGS: PANCREAS: The head appears normal. The body and tail are obscured by bowel gas. ABDOMINAL AORTA: The proximal, mid, and distal segments are normal in caliber. INFERIOR VENA CAVA: Visualized portions are normal. LIVER: The liver is normal in size. The liver contour is normal. There is diffuse increased liver parenchymal echogenicity, consistent with hepatic steatosis. No focal hepatic lesion. There is no intrahepatic biliary duct dilatation seen. GALLBLADDER: Normal. The gallbladder is physiologically distended without evidence of stones, sludge, polyps, wall thickening or pericholecystic fluid. COMMON BILE DUCT: Normal in caliber measuring 0.3 cm in diameter. RIGHT KIDNEY: Normal. No hydronephrosis. No renal calculi or focal parenchymal lesions. The kidney measures 10.3 cm in maximum dimension. LEFT KIDNEY: Normal. No hydronephrosis. No renal calculi or focal parenchymal lesions. The kidney measures 10.7 cm in maximum dimension. SPLEEN: Normal. The spleen measures 9.1 cm in maximum dimension. FREE FLUID: None. US/US abdomen complete IMPRESSION: Findings consistent with hepatic steatosis. No liver mass or biliary ductal dilatation. Dictated By: Marcellus London MD Signed By: <Electronically signed by Marcellus London MD in OV> 10/12/22 1118 DD/ 0846 TD/TT: Almond Paste Molder: PAPITO Procedure Note Donotuseinterpreter, Image - 10/12/[address] [address] Ultrasound Report Signed Patient: Lul Lama#: [id number] 78 : 1950cct:[id number] Age/Sex: 71 / MADM Date: 10/08/22 Loc: HO.US Attending Dr: Mer Hughes MD Ordering Physician: Mer Hughes MD Date of Service: 10/08/22 Procedure(s): US abdomen complete Accession Number(s): [id number] cc: Mer Hughes MD EXAMINATION: US ABDOMEN COMPLETE CLINICAL INFORMATION: Elevated LFTs. COMPARISON: CT abdomen and pelvis with contrast 04/19/2021. TECHNIQUE: Real-time imaging of the abdominal viscera. Technically limited study secondary to bowel gas and body habitus. FINDINGS: PANCREAS: The head appears normal. The body and tail are obscured by bowel gas. ABDOMINAL AORTA: The proximal, mid, and distal segments are normal in caliber. INFERIOR VENA CAVA: Visualized portions are normal. LIVER: The liver is normal in size. The liver contour is normal. There is diffuse increased liver parenchymal echogenicity, consistent with hepatic steatosis. No focal hepatic lesion. There is no intrahepatic biliary duct dilatation seen. GALLBLADDER: Normal. The gallbladder is physiologically distended without evidence of stones, sludge, polyps, wall thickening or pericholecystic fluid. COMMON BILE DUCT: Normal in caliber measuring 0.3 cm in diameter. RIGHT KIDNEY: Normal. No hydronephrosis. No renal calculi or focal parenchymal lesions. The kidney measures 10.3 cm in maximum dimension. LEFT KIDNEY: Normal. No hydronephrosis. No renal calculi or focal parenchymal lesions. The kidney measures 10.7 cm in maximum dimension. SPLEEN: Normal. The spleen measures 9.1 cm in maximum dimension. FREE FLUID: None. US/US abdomen complete IMPRESSION: Findings consistent with hepatic steatosis. No liver mass or biliary ductal dilatation. Dictated By: Marcellus London MD Signed By: <Electronically signed by Marcellus London MD in OV> 10/12/22 1118 DD/ 0846 TD/TT: Almond Paste Molder: PAPITO [facility] External Provider IMG US PROCEDURES Final Result documented in this encounter Visit Diagnoses Diagnosis Transaminitis- Primary Nonspecific elevation of levels of transaminase or lactic acid dehydrogenase (LDH) documented in this encounter Additional Health Concerns Assessment Noted Time PHQ-9 Depression Total Score: 12 023 9:31 AM EST documented as of this encounter Care Teams Associate Relationship Specialty Start Date End Date Mer Hughes MD [address] [place] [address] PCP - General Family Medicine 05/23/18 Kel Barrett MD [address] [place] [address] Pain Medicine 04/17/24 Jace Wright MD [address] [place] [address] Otolaryngology 04/25/24 Keanu Escobar MD [address] [place] [address] Pulmonary Disease 06/05/24 documented as of this encounter
--- OUTSIDE RECORDS SUMMARY | 2025-01-15 15:27 | XMS_ITS | Encounter Summary ---
Author Organization [employer] Address 75 [facility] 7t [place] [address] Care Team Providers Care Supervisor Sewing Room Name Role Phone Mer Hughes MD Primary Care Provider [phone]- [phone] Kel Barrett MD Unavailable Jace Wright MD Unavailable [phone] Keanu Escobar MD Unavailable [phone] Reason for Visit * Reason Onset Date Comments Med Refill 11/28/2023 Encounter Details Date Type Department Care Team (Late st Contact Info) Description 11/28/2023 Telephone [facility] MEDICINE [address] [place], [place] [phone] Mer Hughes MD 230 [place] [address] Med Refill Social History Tobacco Use Types [...] Answer Date of Assessment Author Patient Health Questionnaire -2 Score 2 11/30/2023 11:34 AM EDT Kecia Howell MA * If you checked off any problems on this questionnaire so far, Question Answer Date of Assessment Author How difficult have these problems made it for you to do your work, take care of things at home, or get along with other people? Somewhat difficult 11/30/2023 11:34 AM EDT Kecia Howell MA * Over the past 2 weeks, how often have you been bothered by any of the following problems? Question Answer Date of Assessment Author Little interest or pleasure in doing things Several days 11/30/2023 11:34 AM EDT Kecia Howell MA Feeling down, depressed, or hopeless Several days 11/30/2023 11:34 AM EDT Kecia Howell [place] Trouble falling or staying asleep, or sleeping too much Several days 11/30/2023 11:34 AM EDT Kecia Howell [place] Feeling tired or having little energy Several days 11/30/2023 11:34 AM EDT Kecia Howell [place] Poor appetite or overeating Not at all 11/30/2023 11 :34 AM EDT Kecia Howell MA Feeling bad about yourself - or that you are a failure or have let yourself or your family down Not at all 11/30/2023 11:34 AM EDT Kecia Howell MA Trouble concentrating on things, such as reading the newspaper or watching television Not at all 11/30/2023 11:34 AM EDT Kecia Howell MA Moving or speaking so slowly that other people could have noticed? Or the opposite - being so fidgety or restless that you have been moving around a lot more than usual. Not at all 11/30/2023 11:34 AM EDT Kecia Baptiste MA Thoughts that you would be better off or hurting yourself in some way Not at all 11/30/2023 11:34 AM EDT Kecia Howell MA Patient Health Questionnaire-9 Score 4 11/30/2023 11:34 AM EDT Kecia Howell MA documented as of this encounter Miscellaneous Notes * Telephone Encounter - Geri Negrete - 11/28/2023 8:55 AM EDT TC from pt requesting medication refill. Medications needing refill : ALPRAZolam (Xanax) 2 MG tablet To be sent to: [facility]/pharmacy #[id number] [place] [address] documented in this encounter Plan of Treatment Upcoming Encounters Date Type Department Care Team (Late st Contact Info) Description 01/25/2025 9:00 AM EDT Clinical Support [facility] MEDICINE [address] [place] [address] Cassie Arias RN 505 [place] [address] 01/28/2025 9:45 AM EDT Office Visit [facility] MEDICINE [address] [place] [address] Mer Hughes MD 230 [place] [address] documented as of this encounter Visit Diagnoses Not on filedocumented in this encounter Additional Health Concerns Assessment Noted Time PHQ-9 Depression Total Score: 12 023 9:22 AM EDT documented as of this encounter Care Teams Supervisor Sewing Room Relationship Specialty Start Date End Date Mer Hughes MD [address] [place] [address] PCP - General Family Medicine 05/23/18 Kel Barrett MD [address] [place] [address] Pain Medicine 04/17/24 Jace Wright MD [address] [place] [address] Otolaryngology 04/25/24 Keanu Escobar MD [address] [place] [address] Pulmonary Disease 06/05/24 documented as of this encounter
--- OUTSIDE RECORDS SUMMARY | 2025-01-15 15:27 | XMS_ITS | Encounter Summary ---
Author Organization [employer] Address 75 [facility] 7t [place] [address] Care Team Providers Care Asphalt Surface Heater Operator Name Role Phone Mer Hughes MD Primary Care Provider [phone] Kel Barrett MD Unavailable Jace Wright MD Unavailable [phone] Keanu Escobar MD Unavailable [phone] Reason for Visit * Reason Onset Date Comments Med Refill 01/18/2024 Encounter Details Date Type Department Care Team (Late st Contact Info) Description 01/18/2024 Telephone [facility] MEDICINE 230 [place], [place] [phone] Mer Hughes MD 230 [place] [address] Med Refill Social History Tobacco Use Types [...] Miscellaneous Notes * Telephone Encounter - Antonia mAbrose - 01/18/2024 10:28 AM EDT TC from pt requesting medication refill. Medications needing refill : morphine CR (MS Contin) 60 MG 12 hr tablet To be sent to: [facility]/pharmacy #[address] [place] [address] documented in this encounter Plan of Treatment Upcoming Encounters Date Type Department Care Team (Late st Contact Info) Description 01/25/2025 9:00 AM EDT Clinical Support [facility] MEDICINE [address] [place] [address] [phone] Cassie Arias RN 505 [place] [address] 01/28/2025 9:45 AM EDT Office Visit [facility] MEDICINE [address] [place] [address] [phone] Mer Hughes MD 230 [place], [place] [phone] documented as of this encounter Visit Diagnoses Not on filedocumented in this encounter Additional Health Concerns Assessment Noted Time PHQ-9 Depression Total Score: 4 07/10/20 24 11:34 AM EDT documented as of this encounter Care Teams Asphalt Surface Heater Operator Relationship Specialty Start Date End Date Mer Hughes MD [address] [place] [address] PCP - General Family Medicine 05/23/18 Kel Barrett MD [address] [address] Pain Medicine 04/17/24 Jace Wright MD [address] [place] [address] Otolaryngology 04/25/24 Keanu Escobar MD [address] [place] [address] Pulmonary Disease 06/05/24 documented as of this encounter
--- OUTSIDE RECORDS SUMMARY | 2025-01-15 15:27 | XMS_ITS | Encounter Summary ---
Author Organization [employer] Address 75 [facility] 7t [place] [address] Care Team Providers Care Chemical Engineering Teacher Name Role Phone Mer Hughes MD Primary Care Provider [phone] Kel Barrett MD Unavailable Jace Wright MD Unavailable [phone] Keanu Escobar MD Unavailable [phone] Reason for Visit * Reason Onset Date Comments Med Refill 08/18/2022 Encounter Details Date Type Department Care Team (Late st Contact Info) Description 08/18/2022 Refill [facility] MEDICINE 230 [place], [place] [phone] Mer Hughes MD 230 [place] [address] Failed back syndrome Social History Tobacco Use Types Packs/Day Years [...] suspected to have Coronavirus/COVID-19? No / Unsure 08/06/2022 8:30 AM EDT documented as of this encounter Miscellaneous Notes * Telephone Encounter - Inge Solermichael Reis - 08/18/2022 2:14 PM EDT Tc from pt daughter requesting med refill on ALPRAZolam (Xanax) 2 MG tablet morphine CR (MS Contin) 60 MG 12 hr tablet Please sen to [facility]/pharmacy #[id number] [place], [place] - [address] [place] [address] documented in this encounter Plan of Treatment Upcoming Encounters Date Type Department Care Team (Late st Contact Info) Description 01/25/2025 9:00 AM EDT Clinical Support [facility] MEDICINE [address] [place] [address] Cassie Arias RN 505 [place], [place] [phone] 01/28/2025 9:45 AM EDT Office Visit [address] [address] Mer Hughes MD [address] [place] [address] documented as of this encounter Visit Diagnoses Diagnosis 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 documented in this encounter Additional Health Concerns Assessment Noted Time PHQ-9 Depression Total Score: 12 023 9:31 AM EST documented as of this encounter Care Teams Chemical Engineering Teacher Relationship Specialty Start Date End Date Mer Hughes MD [address] [place] [address] PCP - General Family Medicine 05/23/18 Kel Barrett MD 10 [facility] [address] [place] [address] Pain Medicine 04/17/24 Jace Wright MD [address] [place] [address] Otolaryngology 04/25/24 Keanu Escobar MD 5 [place] [address] Pulmonary Disease 06/05/24 documented as of this encounter
--- OUTSIDE RECORDS SUMMARY | 2025-01-15 15:27 | XMS_ITS | Encounter Summary ---
Author Organization [employer] Address 75 [facility] 7t [place] [address] Care Team Providers Care Autos Disassembler Name Role Phone Mer Hughes MD Primary Care Provider [phone] Kel Barrett MD Unavailable Jace Wright MD Unavailable [phone] Keanu Escobar MD Unavailable [phone] Reason for Visit * Reason Onset Date Comments call back 07/13/2022 Encounter Details Date Type Department Care Team (Late st Contact Info) Description 07/13/2022 Telephone [facility] MEDICINE [address] [place] [address] Mer Hughes MD 230 [place] [address] call back Social History Tobacco Use Types Packs/Day Years [...] suspected to have Coronavirus/COVID-19? No / Unsure 07/06/2022 8:31 AM EST documented as of this encounter Miscellaneous Notes * Telephone Encounter - Jesus Trent - 07/13/2022 2:57 PM EST Tc from pt returning call back. Pt requesting a call back. Please contact pt at [phone] documented in this encounter Plan of Treatment Upcoming Encounters Date Type Department Care Team (Late st Contact Info) Description 01/25/2025 9:00 AM EDT Clinical Support [address] [address] Cassie Arias, RN 505 [place] [address] 01/28/2025 9:45 AM EDT Office Visit [address] [address] Mer Hughes MD [address] [place] [address] documented as of this encounter Visit Diagnoses Not on filedocumented in this encounter Additional Health Concerns Assessment Noted Time PHQ-9 Depression Total Score: 12 023 9:31 AM EST documented as of this encounter Care Teams Autos Disassembler Relationship Specialty Start Date End Date Mer Hughes MD [address] [place] [address] PCP - General Family Medicine 05/23/18 Kel Barrett MD [address] [address] Pain Medicine 04/17/24 Jace Wright MD [address] [place] [address] Otolaryngology 04/25/24 Keanu Escobar MD [address] [place] [address] Pulmonary Disease 06/05/24 documented as of this encounter
--- OUTSIDE RECORDS SUMMARY | 2025-01-15 15:27 | XMS_ITS | Encounter Summary ---
Author Organization [employer] Address 75 [facility] 7t [place] [address] Care Team Providers Care Title Lawyer Name Role Phone Mer Hughes MD Primary Care Provider [phone] Kel Barrett MD Unavailable Jace Wright MD Unavailable [phone] Keanu Escobar MD Unavailable [phone] Reason for Visit * Reason Onset Date Comments Med Refill 03/23/2024 Encounter Details Date Type Department Care Team (Late st Contact Info) Description 03/23/2024 Telephone [facility] MEDICINE 230 [place], [place] [phone] Mer Hughes MD 230 [place] [address] Med Refill Social History Tobacco Use Types [...] * Telephone Encounter - Simón Kenyon - 03/23/2024 9:22 AM EDT TC from pt requesting medication refill. Medications needing refill : ALPRAZolam (Xanax) 2 MG tablet To be sent to: [facility]/pharmacy #[id number] documented in this encounter Plan of Treatment Upcoming Encounters Date Type Department Care Team (Late st Contact Info) Description 01/25/2025 9:00 AM EDT Clinical Support [facility] MEDICINE [address] [place] [address] Cassie Arias RN 505 [place] [address] 01/28/2025 9:45 AM EDT Office Visit [facility] MEDICINE [address] [place] [address] Mer Hughes MD 230 [place] [address] documented as of this encounter Visit Diagnoses Not on filedocumented in this encounter Additional Health Concerns Assessment Noted Time PHQ-9 Depression Total Score: 0 02/23/20 24 10:38 AM EDT documented as of this encounter Care Teams Title Lawyer Relationship Specialty Start Date End Date Mer Hughes MD [address] [place] [address] PCP - General Family Medicine 05/23/18 Kel Barrett MD [address] [place] [address] Pain Medicine 04/17/24 Jace Wright MD [address] [place] [address] Otolaryngology 04/25/24 Keanu Escobar MD [address] [place] [address] Pulmonary Disease 06/05/24 documented as of this encounter
--- OUTSIDE RECORDS SUMMARY | 2025-01-15 15:27 | XMS_ITS | Encounter Summary ---
Author Organization [employer] Address 75 [facility] 7t [place] [address] Care Team Providers Care Nuclear Medicine Physician Name Role Phone Mer Hughes MD Primary Care Provider [phone] Kel Barrett MD Unavailable Jace Wright MD Unavailable [phone] Keanu Escobar MD Unavailable [phone] Reason for Visit * Reason Onset Date Comments Med Refill 01/25/2024 Encounter Details Date Type Department Care Team (Late st Contact Info) Description 01/25/2024 Telephone [facility] MEDICINE 230 [place], [place] [phone] Mer Hughes MD 230 [place] [address] Med Refill Social History Tobacco Use Types [...] Recorded Patient Health Questionnaire-2 Score 2 11/30/2023 Internet Access Answer Date Recorded Internet Access [...] * Telephone Encounter - Antonia Ambrose - 01/25/2024 9:29 AM EDT TC from pt requesting medication refill. Medications needing refill : ALPRAZolam (Xanax) 2 MG tablet To be sent to: [facility]/pharmacy #[id number] documented in this encounter Plan of Treatment Upcoming Encounters Date Type Department Care Team (Late st Contact Info) Description 01/25/2025 9:00 AM EDT Clinical Support [facility] MEDICINE [address] [place] [address] Cassie Arias RN 505 [place] [address] 01/28/2025 9:45 AM EDT Office Visit [facility] MEDICINE [address] [place] [address] Mer Hughes MD [address] [place] [address] documented as of this encounter Visit Diagnoses Not on filedocumented in this encounter Additional Health Concerns Assessment Noted Time PHQ-9 Depression Total Score: 4 11/30/19 24 11:34 AM EDT documented as of this encounter Care Teams Nuclear Medicine Physician Relationship Specialty Start Date End Date Mer Hughes MD [address] [place] [address] PCP - General Family Medicine 05/23/18 Kel Barrett MD [address] [place] [address] Pain Medicine 04/17/24 Jace Wright MD [address] [place] [address] Otolaryngology 04/25/24 Keanu Escobar MD [address] [place] [address] Pulmonary Disease 06/05/24 documented as of this encounter
== END 2025-01-15 14:54 | disposition home or self-care (01) ==
LOC: HO.HPS 14:27
PROVIDERS: PCP Family Medicine; Visit Provider Internal Medicine Pulmonary Disease
DX: J44.9 Chronic obstructive pulmonary disease, unspecified (principal); R91.8 Other nonspecific abnormal finding of lung field
CPT/HCPCS: 99214

== ENCOUNTER → 2025-01-15 14:27 | Outpatient (BNVA) | payer MEDICARE, MEDICAID, SELFPAY | PROVIDERS: PCP Family Medicine; Visit Provider Internal Medicine Pulmonary Disease | DX: R91.8 Other nonspecific abnormal finding of lung field (principal); J44.9 Chronic obstructive pulmonary disease, unspecified | CPT/HCPCS: 99212 ==

== ENCOUNTER 2025-03-27 09:38 | Emergency (ER) | payer MEDICARE, MEDICAID, SELFPAY ==
--- OUTSIDE RECORDS SUMMARY | 2025-03-22 08:30 | XMS_ITS | Encounter Summary ---
Author Organization [employer] Address [address] [place] [address] Care Team Providers Care Rn Support Services Name Role Phone Mer Hughes MD Primary Care Provider [phone] Kel Barrett MD Unavailable Jace Wright MD Unavailable [phone] Keanu Escobar MD Unavailable [phone] Reason for Visit * Reason Comments TIMBER FRAMER Encounter Details Date Type Department Care Team (Latest Contact Info) Description 03/22/2025 9:30 AM EDT Clinical Support [facility] [address], [place] [phone] Cassie Arias, PAT [address], [place] [phone] 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 Alprazolam 2mg bid filled 02/24/25. The patient last took Alprazolam and Morphine 06/22/24. 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 Alprazolam count 2, anticipated 3. Vital Signs Pain Score: 5 Pain Loc: Back Pain Education: Yes Last PCP visit: 03/28/24 BPI completed on: 08/10/24 , pain severity score: 8, activity interference score: 8 BPI completed on: 07/14/23 , pain severity score: 7, activity interference score: 8 Controlled substance agreement signed: Controlled Substance Agreement 08/10/2024 TIMBER FRAMER Tier: 1 Current Medications[1] Smoking status: Denies ETOH use: Denies Illicit substances: Denies Marijuana use: Yes , Marijuana card: No Lab Results Component Value Date POCTHC Positive (A) 03/22/2025 POCCOCAINEUR Negative 03/22/2025 POCOPIATEUR Positive (A) 03/22/2025 DOAUR Negative 03/22/2025 POCAMPHETAMI Negative 03/22/2025 POCBENZODIUR Positive (A) 03/22/2025 POCBARBSCRN Negative 03/22/2025 POCMETHADOUR Negative 03/22/2025 POCBUPSCRN Negative 03/22/2025 POCTCAUR Positive (A) 03/22/2025 POCMDMAUR Negative 03/22/2025 POCOXYCODONE Negative 03/22/2025 POCPHENCYCUR Negative 03/22/2025 PROPOXUR Negative 03/22/2025 FENTANYLURIN Negative 03/22/2025 ASSESSMENT: Encounter Diagnosis Name Primary? 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 Ozzy Barrios has verbalized understanding of care plan. Future Appointments Date Time Provider Department Center 04/25/2025 9:15 AM Mer Hughes MD [facility] 05/10/2025 9:30 AM Cassie Arias, RN [facility] Cassie Arias RN [1] Current Outpatient Medications: albuterol 108 (90 Base) MCG/ACT inhaler, INHALE 2 PUFFS BY MOUTH EVERY 4 HOURS IF NEEDED FOR SHORTNESS OF BREATH, Disp: 18 g, Rfl: 1 albuterol 108 (90 Base) MCG/ACT inhaler, INHALE 2 PUFFS BY MOUTH EVERY 4 HOURS IF NEEDED FOR SHORTNESS OF BREATH, Disp: 18 g, Rfl: 1 ALPRAZolam (Xanax) 2 MG tablet, Take 1 tablet (2 mg) by mouth if needed in the morning and at bedtime for anxiety for up to 28 days. Do not start before March 22, 2025., Disp: 56 tablet, Rfl: 0 amLODIPine (Norvasc) 2.5 MG tablet, TAKE 1 TABLET (2.5 MG) BY MOUTH ONCE PER DAY., Disp: 90 tablet,Rfl: 3 doxepin (SINEquan) 100 MG capsule, TAKE 1 CAPSULE BY MOUTH EVERY MORNING AND AT BEDTIME, Disp: 180 capsule, Rfl: 3 Fluticasone-Salmeterol 500-50 MCG/ACT aerosol powder , Inhale 1 puff in the morning and at bedtime., Disp: , Rfl: lidocaine (Lidoderm) 5 % patch, Apply 1 patch topically Once per day. Remove & discard patch after 12 hours, Disp: 30 patch, Rfl: 1 lisinopril 5 MG tablet, Take 1 tablet by mouth in the morning., Disp: , Rfl: morphine CR (MS Contin) 60 MG 12 hr tablet, Take 1 tablet (60 mg) by mouth 2 times daily. Do not crush, chew, or split. Do not start before February 26, 2025., Disp: 60 tablet, Rfl: 0 naloxone (Narcan) 4 mg/0.1 mL nasal spray, Administer 1 spray (4 mg) into affected nostril(s) if needed each day for opioid reversal., Disp: 2 each, Rfl: 1 tiotropium (Spiriva HandiHaler) 18 MCG inhalation capsule, Place 1 capsule into inhaler and inhale in the morning and at bedtime., Disp: , Rfl: tiZANidine (Zanaflex) 4 MG tablet, Take 1 tablet (4 mg) by mouth every 8 (eight) hours if needed for muscle spasms for up to 10 days., Disp: 30 tablet, Rfl: 0 traZODone (Desyrel) 50 MG tablet, TAKE 1 TABLET BY MOUTH AT BEDTIME, Disp: 90 tablet, Rfl: 0 documented in this encounter Plan of Treatment Upcoming Encounters Date Type Department Care Team (Late st Contact Info) Description 04/25/2025 9:15 AM EST Office Visit [facility] [address] [place] [phone] Mer Hughes MD [address] [place] [address] 05/10/2025 9:30 AM EST Clinical Support [facility] [address] [place] [address] Cassie Arias RN [address] [place] [address] documented as of this encounter Procedures Procedure Name Priority Date/Time Associated Diagnosis Comments POCT TIMO-14 URINE DRUG SCREEN Routine 03/22/2025 9:33 AM EDT [facility] (current) use of opiate analgesic documented in this encounter Results * (ABNORMAL) POCT TIMO-14 Urine Drug Screen (03/22/2025 9:33 AM EDT) THC Positive(A) Negative Cocaine Screen, Urine Negative Negative Opiate Screen, Urine Positive(A) Negative Comment:Rx Methamphetamine Screen Urine Negative Negative Amphetamine Screen, Urine Negative Negative Benzodiazepines Screen, Urine Positive(A) Negative Comment:Rx Barbiturate Screen, Urine Negative Negative Methadone Screen, Urine Negative Negative Buprenophine Screen, Urine Negative Negative TCA, Urine Positive(A) Negative MDMA Urine Negative Negative ng/mL Oxycodone Screen, Urine Negative Negative Phencyclidine (PCP), Urine Negative Negative Propoxyphene, Urine Negative Negative Fentanyl, Urine Negative Negative Urine Urine specimen obtained by clean catch procedure / Unknown 03/22/2025 9:33 AM EDT Narrative Cassie Arias RN - 03/22/2025 9:33 AM EDT .UTOX cup Lot#[id number] Exp. 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- Primary documented in this encounter Additional Health Concerns Assessment Noted Time PHQ-9 Depression Total Score: 18 10/25/2 025 9:45 AM EDT documented as of this encounter Care Teams Rn Support Services Relationship Specialty Start Date End Date Mer Hughes MD [address] [place] [address] PCP - General Family Medicine 05/23/18 Kel Barrett MD [address] [facility] [facility] [address] [place] [address] Pain Medicine 04/17/24 Jace Wright MD [address] [place] [phone] Otolaryngology 04/25/24 Keanu Escobar MD [address] [place] [phone] Pulmonary Disease 06/05/24 documented as of this encounter
--- NOTE | ~2025-03-27 | CT_ITS ---
EXAMINATION: CT ABDOMEN AND PELVIS WITH CONTRAST CLINICAL INFORMATION: Abdominal pain COMPARISON: CT abdomen 12/29/2023. CT chest 06/08/2024 TECHNIQUE: Multidetector volumetric images were obtained from the superior aspect of the liver through the pubic symphysis following administration 85 mL of Omnipaque 350 intravenous contrast. Sagittal and coronal reformatted images were obtained on the technologist's workstation. Oral contrast: No This CT examination was performed using dose optimization techniques as appropriate, variously including the following: *Automated exposure control *Adjustment of mA and/or kV according to patient size (this includes techniques or standardized protocols for targeted exams where dose is matched to indication/reason for exam; i.e. extremities or head) *Use of iterative reconstruction technique FINDINGS: LUNG BASES: Redemonstrated stable calcified granuloma in the left lower lobe. No focal consolidation. No effusion. No pericardial effusion. LIVER, GALLBLADDER, AND BILIARY TREE: Liver attenuation suggesting hepatic steatosis. No biliary duct dilatation.. Hazy density in the dependent portion of gallbladder, nonspecific, could represent gravel. No wall thickening or inflammatory changes identified. PANCREAS: Unremarkable. SPLEEN: Unremarkable. ADRENAL GLANDS: Unremarkable. KIDNEYS AND URETERS: The kidneys are normal in size, shape, and attenuation. No hydronephrosis, hydroureter, or calculi seen. No perinephric stranding. BLADDER: Unremarkable. GASTROINTESTINAL TRACT: Nonobstructive bowel gas pattern. No bowel inflammatory changes identified.. There is no evidence of appendicitis. Peritoneum: No free fluid. No fluid collections. No free air.. ABDOMINAL WALL: The previously seen periumbilical hernia is not visualized in today's study. Mild diastases of the rectus muscles. LYMPH NODES: No pathologically enlarged lymph nodes. VASCULAR: Normal caliber aorta. Portal vein is enhancing. PELVIC VISCERA: Enlarged prostate measuring 7.3 cm transverse. OSSEOUS STRUCTURES: Mild degenerative changes in the visualized spine. No destructive bony lesion.. CT/CT abdomen pelvis w IV con IMPRESSION: * Hazy density in the gallbladder, could reflect bile, gravel. No CT evidence of inflammatory changes. Ultrasound evaluation as clinically indicated. * No acute intra-abdominal findings otherwise identified. Cause of the patient's symptoms has not been determined. * Hepatic steatosis * *Prostatomegaly Fleischner guidelines were followed. Electronically signed by: Kalen Khan MD 03/27/2025 12:51 PM EST RP
--- OUTSIDE RECORDS SUMMARY | 2025-03-27 08:40 | XMS_ITS | Encounter Summary ---
Author Organization [employer] Address [address] [facility] [address] [place] [address] Care Team Providers Care Assistant Reading Teacher Name Role Phone Mer Hughes MD Primary Care Provider [phone] Kel Barrett MD Unavailable Jace Wright MD Unavailable [phone] Keanu Escobar MD Unavailable [phone] Reason for Visit * Reason Comments Abdominal Pain Nausea Vomiting Diarrhea Encounter Details Date Type Department Care Team (Late st Contact Info) Description 03/27/2025 8:40 AM EST Office Visit [facility] [address] [place], [place] [phone] Tatyana Deluna NP [address] [place], [place] [phone] Abdominal pain, vomiting, and diarrhea (Primary Dx); Chills; Chronic anxiety Social History Tobacco Use Types Packs/Day Years [...] AM EDT documented as of this encounter Last Filed Vital Signs Vital Sign Reading Time Taken Comments Blood Pressure 150/94 03/27/2025 8:59 AM EST Pulse 90 03/27/2025 8:59 AM EST Temperature 36.9 C (98.4 F) 03/27/2025 8:59 AM EST Respiratory Rate 22 03/27/2025 8:59 AM EST Oxygen Saturation 96% 03/27/2025 8:59 AM EST Inhaled Oxygen Concentration - - Weight 105 kg (231 lb 9.6 oz) 03/27/2025 8:59 AM EST Height 182.9 cm (6') 03/27/2025 8:59 AM EST Body Mass Index 31.41 03/27/2025 8:59 AM EST documented in this encounter Progress Notes * Tatyana Deluna NP - 03/27/2025 8:40 AM EST SUBJECTIVE Ozzy Barrios is a 74 y.o. male who presents for Abdominal Pain, Nausea, Vomiting, and Diarrhea. HPI Ozzy Barrios, 74-year-old male - Abdominal pain, nausea, vomiting and diarrhea for 4 days, occurring 4-5 times daily, decreased frequency on day of visit - Vomiting after eating or drinking, unable to tolerate food or water, sour taste reported - Associated symptoms: chills, anxiety, loss of appetite - Denies blood in vomit or diarrhea - Recent decrease in urination due to reduced oral intake - Throat itching, no throat pain reported - History of throat surgery for nodules a few weeks prior, three surgeries total (two on one side, one on the other) - Persistent cough since symptom onset reported - History of asthma, no change in baseline shortness of breath Review of Systems Constitutional: Negative. Negative for chills and fever. HENT: Negative. Negative for congestion and sore throat. Eyes: Negative for discharge. Respiratory: Positive for cough. Negative for chest tightness and shortness of breath. Cardiovascular: Negative for chest pain and palpitations. Gastrointestinal: Positive for diarrhea, nausea and vomiting. Negative for abdominal pain and constipation. Genitourinary: Negative. Negative for difficulty urinating. Musculoskeletal: Negative. Negative for arthralgias and myalgias. Skin: Negative for rash. Neurological: Negative. Negative for dizziness, speech difficulty, light- headedness and headaches. Hematological: Negative. Psychiatric/Behavioral: Negative for behavioral problems, self-injury and suicidal ideas. The patient is nervous/anxious. Allergies[1] OBJECTIVE Vitals: 03/27/25 0859 BP: (!) 150/94 BP Location: Left arm Patient Position: Sitting BP Cuff Size: Large adult Pulse: 90 Resp: 22 Temp: 98.4 ??F (36.9 ??C) TempSrc: Oral SpO2: 96% Weight: 231 lb 9.6 oz (105 kg) Height: 6' (1.829 m) Office Visit on 03/27/2025 Component Date Value Ref Range Status Rapid COVID Ag 03/27/2025 Negative Final QC Media Lot # 03/27/2025 [id number] Corrected Lot# Expiration Date 03/27/2025 [id number] Final Influenza A 03/27/2025 Negative Negative, Indeterminate Final QC Media Lot # 03/27/2025 [id number] Final Lot# Expiration Date 03/27/2025 22,127 Final Influenza B 03/27/2025 Negative Negative, Indeterminate Final QC Media Lot # 03/27/2025 [id number] Final Lot# Expiration Date 03/27/2025 22,127 Final Physical Exam Vitals reviewed. Constitutional: General: He is not in acute distress. Appearance: Normal appearance. He is not ill-appearing. HENT: Head: Normocephalic and atraumatic. Right Ear: External ear normal. Left Ear: External ear normal. Nose: Nose normal. Mouth/Throat: Pharynx: Oropharynx is clear. Uvula midline. No oropharyngeal exudate. Eyes: General: No scleral icterus. Extraocular Movements: Extraocular movements intact. Cardiovascular: Rate and Rhythm: Normal rate and regular rhythm. Pulses: Normal pulses. Heart sounds: Normal heart sounds. Pulmonary: Effort: Pulmonary effort is normal. No respiratory distress. Breath sounds: Normal breath sounds. Abdominal: Palpations: Abdomen is soft. Tenderness: There is abdominal tenderness. Musculoskeletal: General: Normal range of motion. Cervical back: Normal range of motion. Skin: Comments: Mild tenting of skin Neurological: General: No focal deficit present. Mental Status: He is alert and oriented to person, place, and time. Gait: Gait normal. Psychiatric: Mood and Affect: Mood is anxious. Affect is tearful. Speech: Speech normal. Behavior: Behavior normal. Assessment & Plan Abdominal pain, vomiting, and diarrhea - Acute onset of abdominal pain, vomiting and diarrhea with inability to tolerate oral intake and decreased urine out put. - negative POCT flu and COVID tests - suspect viral gastroenteritis vs GERD given complains of sour taste in mouth - Recommended immediate ED evaluation with concern for dehydration due to prolonged symptoms and poor intake. VSS with exception of slightly elevated BP reading - Patient agrees with the plan and prefers to go to ED via private car. Daughter is informed and will take him to [facility]. Team PAT Morales called expect. Chills Orders: POCT Rapid Covid-19 BinaxNOW POCT Rapid Influenza A ZIMMER ID NOW POCT Rapid Influenza B ZIMMER ID NOW Chronic anxiety -increased anxiety secondary to acute illness. -managed with alprazolam 2 mg This note was drafted using Ambient (AI) technology. The patient/patient's guardian has been informed and has consented to the use of this technology: Yes Future Appointments Date Time Provider Department Center 03/29/2025 9:00 AM King Nichols [facility] 04/25/2025 9:15 AM Mer Hughes MD [facility] 05/10/2025 9:30 AM Cassie Arias RN MEDICINE [facility] [1] No Known Allergies documented in this encounter Plan of Treatment Upcoming Encounters Date Type Department Care Team (Late st Contact Info) Description 04/25/2025 9:15 AM EST Office Visit [facility] [address] [place] [phone] Mer Hughes MD [address] [place] [address] 05/10/2025 9:30 AM EST Clinical Support [facility] [address] [place] [address] Cassie Arias RN [address] [place] [phone] documented as of this encounter Procedures Procedure Name Priority Date/Time Associated Diagnosis Comments POCT INFLUENZA B (ID NOW RAPID MOLECULAR) Routine 03/27/2025 9:22 AM EST Chills POCT INFLUENZA A (ID NOW RAPID MOLECULAR) Routine 03/27/2025 9:22 AM EST Chills POCT RAPID COVID ANTIGEN Routine 03/27/2025 9:21 AM EST Chills documented in this encounter Results * POCT Rapid Influenza B ZIMMER ID NOW (03/27/2025 9:22 AM EST) Influenza B Negative Negative, Indeterminate [facility] QC Media Lot # [id number] [facility] Lot# Expiration Date [facility] Swab 03/27/2025 9:22 AM EST us Tatyana Deluna NP POINT OF CARE TEST ENTER/EDIT O RDERABLES Final Result [facility] [address] [place] [address] [phone] * POCT Rapid Influenza A ZIMMER ID NOW (03/27/2025 9:22 AM EST) Influenza A Negative Negative, Indeterminate [facility] QC Media Lot # [id number] [facility] Lot# Expiration Date 22 [facility] Swab 03/27/2025 9:22 AM EST [facility] [address] [employer] POINT OF CARE TEST ENTER/EDIT O RDERABLES Final Result [facility] [address] [place] [address] [phone] * POCT Rapid Covid-19 BinaxNOW (03/27/2025 9:21 AM EST) Rapid COVID Ag Negative QC Media Lot # [id number] Lot# Expiration Date 82,[id number] Swab 03/27/2025 9:21 AM EST [facility] [address] [employer] [employer] POINT OF CARE TEST ENTER/EDIT O RDERABLES Edited Result - Final documented in this encounter Visit Diagnoses Diagnosis Abdominal pain, vomiting, and diarrhea- Primary Chills Chills (without fever) Chronic anxiety Anxiety state, unspecified documented in this encounter Additional Health Concerns Assessment Noted Time PHQ-9 Depression Total Score: 18 025 9:45 AM EDT documented as of this encounter Care Teams Assistant Reading Teacher Relationship Specialty Start Date End Date Mer Hughes MD [address] [place] [phone] PCP - General Family Medicine 05/23/18 Kel Barrett MD [address] [place] [phone] Pain Medicine 04/17/24 Jace Wright MD [address] [place] [phone] Otolaryngology 04/25/24 Keanu Escobar MD [address] [place] [address] Pulmonary Disease 06/05/24 documented as of this encounter
[2025-03-27 09:41] VITALS: BP 171/85; PULSE 85; RESP 18; TEMP 36.6; O2SAT 98; BMI 27.2
--- NOTE | 2025-03-27 10:07 | ED.ABDPAIN ---
HPI - Abdominal Pain General Chief Complaint: Abdominal Pain Stated Complaint: dizzy? sent from [facility] Time Seen by Provider: 03/27/25 10:02 Source: patient and diplomatic interpreter Mode of arrival: ambulatory Limitations: language barrier History of Present Illness ED Provider: HPI narrative: 74-year-old male presenting tremulous, anxious, reporting nausea vomiting diarrhea dizziness, chest pain, no hematemesis or hematochezia no fevers or chills reported. He went to urgent care initially and sent to the ER. Symptoms going on for the past 3 days. No weakness in upper or lower extremities no visual changes. Related Data Home Medications ?Medication ?Instructions ?Recorded ?Confirmed albuterol sulfate 90 mcg/actuation 2 puff inhalation Q6H PRN 04/19/21 04/30/24 aerosol inhaler (Ventolin HFA) Shortness Of Breath alprazolam 2 mg tablet 1 tab PO BID PRN Anxiety 04/19/21 04/30/24 ascorbic acid (vitamin C) 500 mg 500 mg PO BID 04/19/21 04/30/24 tablet (Vitamin C) cholecalciferol (vitamin D3) 10 10 mcg PO DAILY 04/19/21 04/30/24 mcg (400 unit) tablet (Vitamin D3) doxepin 100 mg capsule 200 mg PO BEDTIME 04/19/21 04/30/24 morphine 60 mg tablet,extended 1 tab PO BID 04/19/21 04/30/24 release trazodone 50 mg tablet 1 tab PO BEDTIME 04/19/21 04/30/24 amlodipine 2.5 mg tablet 2.5 mg PO DAILY 03/07/24 04/30/24 mupirocin 2 % topical ointment 1 appl topical BID-TID 03/07/24 04/30/24 Previous Rx's ?Medication ?Instructions ?Recorded celecoxib 200 mg capsule (Celebrex) 200 mg PO BID 30 days #60 caps 12/23/23 umeclidinium 62.5 mcg/actuation 1 inh inhalation DAILY #1 ea 06/05/24 blister powder for inhalation (Incruse Ellipta) meclizine 12.5 mg tablet 12.5 mg PO TID PRN vertigo 5 days 03/27/25 #20 tabs ondansetron 4 mg disintegrating 4 mg PO Q8H PRN nausea and 03/27/25 tablet vomiting #4 tabs Allergies Allergy/AdvReac Type Severity Reaction Status Date / Time No Known Drug Allergies (NO Allergy Unknown NONE Verified 03/27/25 09:42 KNOWN DRUG ALLERGIES) Review of Systems Constitutional: Reports as per [facility] Past Medical History Medical History Personal history of nicotine dependence History of colon polyps Asthma Depression Hernia Anxiety Surgical History History of colonoscopy History of right inguinal hernia repair History of left inguinal hernia repair (~2020) History of eye surgery Social History Social History (Updated 03/07/24 @ 08:37 by Cyndi Hurst) Household Members: None Housing: Apartment Do you presently have visiting nurse or other home services: No Patient Tobacco Use Status: Former Tobacco user Years Smoked: onset 17yo, 1-2ppd x 38yrs, 50pyh - quit cigs 2006, uses marijuana daily Smoked in Last 30 Days: No Use of substances other than those prescribed or required for medical reasons: No Substance Use Type: Marijuana Advance Directives: No Advance Directives Information Provided: Yes Do you have a plan to hurt others: No Plan service: No Current occupational status: unemployed Physical Exam ED Exam Exam: General: ?Appears of stated age, tremulous and anxious ? ?PERRLA, EOMI, MMM, ? Neck: Supple, no LAD ? ?CV: RRR, no obvious murmurs appreciated ? ?Resp: ?No wheezing rales rhonchi no stridor moving air well ? Abd: ?Bowel sounds are present, generalized tenderness ? ?MSK: FROM, strength 5/5 all extremities ? Skin: Warm, dry, intact, ? ?Neuro: ?Alert and oriented x3, moving upper and lower extremities symmetrically, no obvious facial asymmetry noted, cranial nerves 2-12 intact, no dysmetria upper or lower extremities, no nystagmus horizontal vertical or rotary Vital Signs: Vital Signs - 24 hr 03/27/25 09:41 03/27/25 11:03 Temperature 98 F 98.6 F Pulse Rate 85 73 Respiratory Rate 18 15 Blood Pressure 171/85 H 138/88 Pulse Oximetry 98 97 Oxygen Delivery Method Room Air Room Air BMI result Body Mass Index 27.2 Medical Decision Making Medical Decision Making [facility] Narrative: 10:24 AM 03/27/2025 (Dr. Kavon Meyer): Considerations for workup as below, has no evidence for cerebellar stroke, no clinical indication for CT imaging of the brain however I will obtain imaging of the abdomen is he has a generalized tenderness reporting nausea or vomiting, considerations for SBO, colitis, biliary pathology as well, we will medicate with fluids, antiemetics and also provide medication for both anxiety and may help with his symptoms of dizziness. Differential Diagnosis Differential Diagnoses: The differential diagnosis associated with the presentation includes (ACS, dehydration, BPPV, SBO, cerebellar stroke) Admission/Observation Consideration of admission/observation: Escalation of care including admission/observation considered Lab Data [facility] Lab Attestation statement: I reviewed the patient's lab results. 03/27/25 10:41 03/27/25 10:41 Labs: Lab Results 03/27/25 Range/Units 10:41 WBC 10.2 (4.8-10.8) X10*3/uL RBC 4.53 L (4.60-5.80) X10*6/uL Hgb 14.2 (14.0-18.0) g/dl Hct 42.2 (42.0-52.0) % MCV 93.2 (80.0-98.0) fL MCH 31.3 (27.0-33.0) pg MCHC 33.6 (31.0-36.0) g/dl RDW 13.4 (11.0-16.0) % Plt Count 232 D (160-400) X10*3/uL MPV 9.5 (9.4-12.4) fL Immature Gran % (Auto) 0.3 (0.0-0.4) % Neut % (Auto) 65.7 (45-73) % Lymph % (Auto) 25.1 (20-40) % Granville % (Auto) 7.5 (2-11) % Eos % (Auto) 1.2 (0-4) % Baso % (Auto) 0.2 (0-2) % Lymph # (Auto) 2.6 (1.2-4.9) X10*3/uL Granville # (Auto) 0.8 (0.1-1.2) X10*3/uL Eos # (Auto) 0.1 (0.0-0.4) X10*3/uL Baso # (Auto) 0.0 (0.0-0.2) X10*3/uL Abs Immat Gran (auto) 0.03 (0.00-0.03) X10*3/uL Absolute Neuts (auto) 6.7 (2.0-8.3) x10*3/uL Absolute Nucleated RBC 0.000 (0.0-0.012) X10*3/uL Nucleated RBC % (auto) 0.0 (0.0-0.2) /100WBC Sodium 140 (135-145) mmol/L Potassium 4.2 (3.3-5.1) mmol/L Chloride 111 H (96-108) mmol/L Carbon Dioxide 24 (22-29) mmol/L Anion Gap 9 L (12-20) BUN 13 (9-16) mg/dL Creatinine 0.93 (0.5-1.4) mg/dL Estim Creat Clear Calc 83.4 Estimated GFR > 60 Random Glucose 112 (60-115) mg/dL Calcium 9.3 (8.4-10.2) mg/dL Total Bilirubin 0.8 (0.0-1.0) mg/dL AST 55 H (5-37) U/L ALT 50 H (0-40) U/L Alkaline Phosphatase 141 H (39-117) U/L Troponin I High Sens 7.0 D (<3.5-35.0) ng/L Total Protein 8.1 H (6.5-8.0) g/dL Albumin 4.6 (3.5-5.0) g/dL Lipase 51 (8-78) U/L Independent Interpretation I performed an independent interpretation of an: EKG (83 beats per minute otherwise normal ECG without dysrhythmia, AV cecille blocks or ST-T changes to suspect underlying ACS, my independent interpretation) Radiology Impression Discussion of test interpretation with radiology: I have reviewed the radiologist's reading. (PRESSION: * Hazy density in the gallbladder, could reflect bile, gravel. No CT evidence of inflammatory changes. Ultrasound evaluation as clinically indicated. * No acute intra-abdominal findings otherwise identified. Cause of the patient's symptoms has not been determined. * Hepatic steatosi) Medications Administered Discontinued Medications Generic Name Dose Route Start Last Admin Trade Name Eveline PRN Reason Stop Dose Admin Diazepam 2.5 mg 03/27/25 10:21 03/27/25 11:02 Diazepam 10 Mg/2 Ml Cartridge IVPUSH 03/27/25 10:22 2.5 mg STAT STA Administration Famotidine 20 mg 03/27/25 10:21 03/27/25 11:02 Famotidine/Pf 20 Mg/2 Ml Vial IVPUSH 03/27/25 10:22 20 mg ONCE ONE Administration Sodium Chloride 1,000 mls @ 999 mls/hr 03/27/25 10:30 03/27/25 11:02 Ns IV 03/27/25 11:30 999 mls/hr .Q1H1M LUDWIN Administration Iohexol 100 ml 03/27/25 12:14 03/27/25 12:15 Iohexol 350 Mg/Ml 100 Ml Infus..Btl IV 03/27/25 12:15 85 ml ONCE ONE Administration Ondansetron HCl 4 mg 03/27/25 10:21 03/27/25 11:02 Ondansetron Hcl 4 Mg/2 Ml Vial IVPUSH 03/27/25 10:22 4 mg ONCE ONE Administration Scopolamine 1.5 mg 03/27/25 10:21 03/27/25 11:02 Scopolamine 1.5 Mg Patch.Td.3 EAR-BEHIND 03/27/25 10:22 1.5 mg ONCE ONE Administration Critical Care Time Critical Care Time Total Critical Care Time: 32 Attestation: Time is exclusive of separately billable procedures. Time includes: direct patient care, patient reassessment, coordination of patient care, interpretation of data (laboratory data, pulse oximetry, arterial blood gases and chest xrays), review of patient's medical records, medical consultation and documentation of patient care. Procedures excluded from critical care time: central intravenous line placement and electrocardiography. Discharge Plan Discharge Clinical Impression: Generalized abdominal pain, Nausea & vomiting Additional Instructions: Evaluated with abdominal pain, you had CAT scan that was reassuring, blood work unremarkable, EKG unremarkable, you received fluids, antiemetics, you can use meclizine 12.5 mg every 8 hours needed for dizziness if you have dizziness, ondansetron as neede for nausea and vomiting, follow up with the PCP, any other issues concerns come back to the ER but your workup in the ER today has been reassuring there is no evidence for dehydration, make sure to push fluid intake Prescriptions: New meclizine 12.5 mg tablet 12.5 mg PO TID PRN (Reason: vertigo) 5 Days Qty: 20 0RF ondansetron 4 mg tablet,disintegrating 4 mg PO Q8H PRN (Reason: nausea and vomiting) Qty: 4 0RF No Action celecoxib [Celebrex] 200 mg capsule 200 mg PO BID 30 Days Qty: 60 3RF trazodone 50 mg tablet 1 tab PO BEDTIME morphine 60 mg tablet extended release 1 tab PO BID doxepin 100 mg capsule 200 mg PO BEDTIME alprazolam 2 mg tablet 1 tab PO BID PRN (Reason: Anxiety) albuterol sulfate [Ventolin HFA] 90 mcg/actuation HFA aerosol inhaler 2 puff inhalation Q6H PRN (Reason: Shortness Of Breath) ascorbic acid (vitamin C) [Vitamin C] 500 mg Tablet 500 mg PO BID cholecalciferol (vitamin D3) [Vitamin D3] 10 mcg (400 unit) Tablet 10 mcg PO DAILY mupirocin 2 % ointment 1 appl topical BID-TID amlodipine 2.5 mg tablet 2.5 mg PO DAILY Incruse Ellipta 62.5 mcg/actuation blister with device 1 inh inhalation DAILY Qty: 1 6RF Print Language: Other
--- NOTE | 2025-03-27 10:08 | ECG_ITS ---
Test Reason : WEAKNESS Blood Pressure : */* mmHG Vent. Rate : 83 BPM Atrial Rate : 83 BPM P-R Int : 132 ms QRS Dur : 78 ms QT Int : 382 ms P-R-T Axes : 50 26 37 degrees QTcB Int : 448 ms Normal sinus rhythm Normal ECG When compared with ECG of 08-Jun-2024 06:29, No significant change was found Referred By: Kavon Meyer Electronically Signed By: Jose Cardenas
[2025-03-27 10:46] LABS: MANUAL DIFF FLAG NO
[2025-03-27 10:48] LABS: Hematocrit 42.2 % (42.0-52.0); Hemoglobin 14.2 g/dl (14.0-18.0); Imm Gran Abs Auto 0.03 X10*3/uL (0.00-0.03); Imm Gran Pct Auto 0.3 % (0.0-0.4); Lymphocytes Absolute Auto 2.6 X10*3/uL (1.2-4.9); Mean Corpuscular HGB Conc 33.6 g/dl (31.0-36.0); Mean Corpuscular Hemoglobin 31.3 pg (27.0-33.0); Mean Corpuscular Volume 93.2 fL (80.0-98.0); NRBC Abs Auto 0.000 X10*3/uL (0.0-0.012); NRBC Pct Auto 0.0 /100WBC (0.0-0.2); Platelet Count 232 X10*3/uL (160-400); Red Blood Count 4.53 X10*6/uL (4.60-5.80); White Blood Count 10.2 X10*3/uL (4.8-10.8)
[2025-03-27] MEDS: diazePAM 10 MG/2 ML CARTRIDGE 2.5 MG IVPUSH (11:02)
[2025-03-27 11:03] VITALS: BP 138/88; PULSE 73; RESP 15; TEMP 37; O2SAT 97
[2025-03-27 11:06] LABS: Alanine Aminotransferase 50 U/L (0-40); Albumin Level 4.6 g/dL (3.5-5.0); Alkaline Phosphatase 141 U/L (39-117); Anion Gap 9 (12-20); Aspartate Amino Transferase 55 U/L (5-37); Blood Urea Nitrogen 13 mg/dL (9-16); Calcium 9.3 mg/dL (8.4-10.2); Carbon Dioxide 24 mmol/L (22-29); Chloride 111 mmol/L (96-108); Creatinine Clr Calc Pharmacy 83.4; Estimated Glomerular Filt Rate > 60; Lipase 51 U/L (8-78); Potassium 4.2 mmol/L (3.3-5.1); Sodium 140 mmol/L (135-145); Total Protein 8.1 g/dL (6.5-8.0)
[2025-03-27 11:07] LABS: Troponin-I High Sensitivity 7.0 ng/L (<3.5-35.0)
--- OUTSIDE RECORDS SUMMARY | 2025-03-27 11:44 | XMS_ITS | Encounter Summary ---
Author Organization [employer] Address [address] [facility] 7t [place] [address] Care Team Providers Care Kiln Stacker Name Role Phone Mer Hughes MD Primary Care Provider [phone] Kel Barrett MD Unavailable Jace Wright MD Unavailable [phone] Keanu Escobar MD Unavailable [phone] Reason for Visit * Reason Onset Date Comments Med Refill 08/21/2024 Encounter Details Date Type Department Care Team (Late st Contact Info) Description 08/21/2024 Telephone [facility] MED[facility]INE [address] [place], [place] [phone] Mer Hughes MD [address] [place] [address] Med Refill Social History Tobacco Use Types [...] 12 hr tablet To be sent to: [facility] #[id number] [place], [place] - [address] [place] [address] documented in this encounter Plan of Treatment Upcoming Encounters Date Type Department Care Team (Late st Contact Info) Description 04/25/2025 9:15 AM EST Office Visit [facility] [address] [place] [address] Mer Hughes MD [address] [place] [address] 05/10/2025 9:30 AM EST Clinical Support [facility] [address] [place] [address] Cassie Arias RN [address] [place] [address] documented as of this encounter Visit Diagnoses Not on filedocumented in this encounter Additional Health Concerns Assessment Noted Time PHQ-9 Depression Total Score: 0 02/23/20 24 10:38 AM EDT documented as of this encounter Care Teams Kiln Stacker Relationship Specialty Start Date End Date Mer Hughes MD [address] [place] [address] PCP - General Family Medicine 05/23/18 Kel Barrett MD [address] [place] [address] Pain Medicine 04/17/24 Jace Wright MD [address] [place] [address] Otolaryngology 04/25/24 Keanu Escobar MD [address] [place] [address] Pulmonary Disease 06/05/24 documented as of this encounter
--- OUTSIDE RECORDS SUMMARY | 2025-03-27 11:44 | XMS_ITS | Encounter Summary ---
Author Organization [employer] Address [address] [facility] 7t [place] [address] Care Team Providers Care Wine Consultant Name Role Phone Mer Hughes MD Primary Care Provider [phone] Kel Barrett MD Unavailable Jace Wright MD Unavailable [phone] Keanu Escobar MD Unavailable Reason for Visit * Reason Onset Date Comments Med Refill 01/22/2025 Encounter Details Date Type Department Care Team (Late st Contact Info) Description 01/22/2025 Telephone [facility] [address] [place], [place] [phone] Mer Hughes MD 230 [place] [address] Med Refill Social History Tobacco Use Types [...] encounter Miscellaneous Notes * Telephone Encounter - Nazario Mijares - 01/22/2025 8:32 AM EDT TC from pt requesting medication refill. Medications needing refill : morphine CR (MS Contin) 60 MG 12 hr tablet ALPRAZolam (Xanax) 2 MG tablet To be sent to: [facility]/pharmacy #[id number] documented in this encounter Plan of Treatment Upcoming Encounters Date Type Department Care Team (Late st Contact Info) Description 04/25/2025 9:15 AM EST Office Visit [facility] [address] [place] [address] Mer Hughes MD [address] [place] [address] 05/10/2025 9:30 AM EST Clinical Support [address] [address] Cassie Arias RN [address] [place] [address] documented as of this encounter Visit Diagnoses Not on filedocumented in this encounter Additional Health Concerns Assessment Noted Time PHQ-9 Depression Total Score: 18 025 9:45 AM EDT documented as of this encounter Care Teams Wine Consultant Relationship Specialty Start Date End Date Mer Hughes MD [address] [place] [address] PCP - General Family Medicine 05/23/18 Kel Barrett MD [address] [place] [address] Pain Medicine 04/17/24 Jace Wright MD [address] [place] [address] Otolaryngology 04/25/24 Keanu Escobar MD [address] [place] [address] Pulmonary Disease 06/05/24 documented as of this encounter
--- OUTSIDE RECORDS SUMMARY | 2025-03-27 11:44 | XMS_ITS | Encounter Summary ---
Author Organization [email or web address] Address [address] [facility] 7t [place] [address] Care Team Providers Care Supervisory Cbp Officer Name Role Phone Mer Hughes MD Primary Care Provider [phone]- [phone] Kel Barrett MD Unavailable Jace Wright MD Unavailable [phone] Keanu Escobar MD Unavailable [phone] Reason for Visit * Reason Comments Med Refill Encounter Details Date Type Department Care Team (Late Contact Info) Description 11/18/2022 Refill [facility] MED[facility]INE [address] [place] [address] Mer Hughes MD [address] [place], [place] [phone] Pulmonary emphysema, unspecified emphysema type (CMS/HCC) Social [...] Description 04/25/2025 9:15 AM EST Office Visit [facility] MED[facility]INE [address] [place] [address] Mer Hughes MD [address] [place] [address] 05/10/2025 9:30 AM EST Clinical Support [facility] 230 [place] [address] Cassie Arias, RN [address] [place] [address] documented as of this encounter Visit Diagnoses Diagnosis Pulmonary emphysema, unspecified emphysema type documented in this encounter Additional Health Concerns Assessment Noted Time PHQ-9 Depression Total Score: 12 023 9:31 AM EST documented as of this encounter Care Teams Supervisory Cbp Officer Relationship Specialty Start Date End Date Mer Hughes MD [address] [place] [address] PCP - General Family Medicine 05/23/18 Kel Barrett MD [address] [place] [address] [place] [address] Pain Medicine 04/17/24 Jace Wright MD [address] [place] [address] Otolaryngology 04/25/24 Keanu Escobar MD [address] [place] [address] Pulmonary Disease 06/05/24 documented as of this encounter
--- OUTSIDE RECORDS SUMMARY | 2025-03-27 11:44 | XMS_ITS | Encounter Summary ---
Author Organization [employer] Address [address] [facility] 7t [place] [address] Care Team Providers Care Commercial Account Officer Name Role Phone Mer Hughes MD Primary Care Provider [phone] Kel Barrett MD Unavailable Jace Wright MD Unavailable [phone] Keanu Escobar MD Unavailable [phone] Reason for Visit * Reason Onset Date Comments Appointment Request 07/10/2024 Encounter Details Date Type Department Care Team (Late st Contact Info) Description 07/10/2024 Telephone [facility] MED[facility]INE 230 [place] [address] Mer Hughes MD [address] [place] [address] Appointment Request Social History Tobacco Use Types [...] prior , daughter is requesting a callback [phone] * Telephone Encounter - David Ford - 07/10/2024 9:15 AM EST Tc from pt daughter requesting to r/s 07/20/2024 Nurse Visit Appt due to pt being sick. documented in this encounter Plan of Treatment Upcoming Encounters Date Type Department Care Team (Late st Contact Info) Description 04/25/2025 9:15 AM EST Office Visit [facility] MEDICINE [address] [place] [address] Mer Hughes MD [address] [place] [address] 05/10/2025 9:30 AM EST Clinical Support [facility] MED[facility]INE [address] [place] [address] Cassie Arias, PAT [address] [place] [address] documented as of this encounter Visit Diagnoses Not on filedocumented in this encounter Additional Health Concerns Assessment Noted Time PHQ-9 Depression Total Score: 0 02/23/20 24 10:38 AM EDT documented as of this encounter Care Teams Commercial Account Officer Relationship Specialty Start Date End Date Mer Hughes MD [address] [place] [address] PCP - General Family Medicine 05/23/18 Kel Barrett MD [address] [facility] [address] [place] [address] Pain Medicine 04/17/24 Jace Wright MD [address] [place] [address] Otolaryngology 04/25/24 Keanu Escobar MD [address] [place] [address] Pulmonary Disease 06/05/24 documented as of this encounter
--- OUTSIDE RECORDS SUMMARY | 2025-03-27 11:44 | XMS_ITS | Encounter Summary ---
Author Organization [employer] Address [address] [facility] 7t [place] [address] Care Team Providers Care Stone Spreader Operator Name Role Phone Mer Hughes MD Primary Care Provider [phone] Kel Barrett MD Unavailable Jace Wright MD Unavailable [phone] Keanu Escobar MD Unavailable [phone] Reason for Visit * Reason Comments Med Refill Encounter Details Date Type Department Care Team (Late st Contact Info) Description 11/22/2022 Refill [facility] MEDICINE [address] [place] [address] Mer Hughes MD [address] [place], [place] [phone] Pulmonary emphysema, unspecified emphysema type (CMS/HCC) Social [...] Description 04/25/2025 9:15 AM EST Office Visit [facility] MEDICINE [address] [place] [address] Mer Hughes MD [address] [place] [address] 05/10/2025 9:30 AM EST Clinical Support [facility] MEDICINE [address] [place] [address] Cassie Arias, RN 505 [place] [address] documented as of this encounter Visit Diagnoses Diagnosis Pulmonary emphysema, unspecified emphysema type documented in this encounter Additional Health Concerns Assessment Noted Time PHQ-9 Depression Total Score: 12 023 9:31 AM EST documented as of this encounter Care Teams Stone Spreader Operator Relationship Specialty Start Date End Date Mer Hughes MD [address] [place] [address] PCP - General Family Medicine 05/23/18 Kel Barrett MD [address] [place] [address] [place] [address] Pain Medicine 04/17/24 Jace Wright MD [address] [place] [address] Otolaryngology 04/25/24 Keanu Escobar MD [address] [place] [address] Pulmonary Disease 06/05/24 documented as of this encounter
--- OUTSIDE RECORDS SUMMARY | 2025-03-27 11:44 | XMS_ITS | Encounter Summary ---
Author Organization [employer] Address 75 [facility] 7t [place] [address] Care Team Providers Care Product Grader Name Role Phone Mer Hughes MD Primary Care Provider [phone] Kel Barrett MD Unavailable Jace Wright MD Unavailable [phone] Keanu Escobar MD Unavailable [phone] Reason for Visit * Reason Onset Date Comments Med Refill 10/25/2024 Encounter Details Date Type Department Care Team (Late st Contact Info) Description 10/25/2024 Telephone [facility] MEDICINE 230 [place], [place] [phone] Mer Hughes MD 230 [place] [address] Med Refill Social History Tobacco Use Types [...] 3 10/25/2024 9:46 AM EDT Jessica José HEAVY MEDIA OPERATOR Trouble relaxing 2 10/25/2024 9:46 AM EDT Betty Mabry LICSW Being so restless that it is hard to sit still 0 10/25/2024 9:46 AM EDT Jessica José HEAVY MEDIA OPERATOR Becoming easily annoyed or irritable 1 10/25/2024 9:46 AM EDT Jessica José HEAVY MEDIA OPERATOR Feeling afraid as if something awful might [...] tablet To be sent to: [facility]/pharmacy #[id number] [place], [place] - [address] [place] [address] documented in this encounter Plan of Treatment Upcoming Encounters Date Type Department Care Team (Late st Contact Info) Description 04/25/2025 9:15 AM EST Office Visit [address] [address] Mer Hughes MD [address] [place] [address] 05/10/2025 9:30 AM EST Clinical Support [address] [address] Cassie Arias, RN 505 [place] [address] documented as of this encounter Visit Diagnoses Not on filedocumented in this encounter Additional Health Concerns Assessment Noted Time PHQ-9 Depression Total Score: 18 10/25/ 025 9:45 AM EDT documented as of this encounter Care Teams Product Grader Relationship Specialty Start Date End Date Mer Hughes MD [address] [place] [address] PCP - General Family Medicine 05/23/18 Kel Barrett MD [address] [place] [address] Pain Medicine 04/17/24 Jace Wright MD [address] [place] [address] Otolaryngology 04/25/24 Keanu Escobar MD [address] [place] [address] Pulmonary Disease 06/05/24 documented as of this encounter
--- OUTSIDE RECORDS SUMMARY | 2025-03-27 11:44 | XMS_ITS | Encounter Summary ---
Author Organization [employer] Address 75 [facility] 7t [place] [address] Care Team Providers Care Educational Audiologist Name Role Phone Mer Hughes MD Primary Care Provider +1- [phone] Kel Barrett MD Unavailable Jace Wright MD Unavailable [phone] Keanu Escobar MD Unavailable [phone] Reason for Visit * Reason Comments Med Refill Encounter Details Date Type Department Care Team (Late st Contact Info) Description 11/19/2022 Refill [facility] MEDICINE [address] [place] [address] Mer Hughes MD 230 [place], [place] [phone] Pulmonary emphysema, unspecified emphysema type (CMS/HCC) Social [...] 9:15 AM EST Office Visit [facility] MEDICINE [address] [place] [address] Mer Hughes MD 230 [place] [address] 05/10/2025 9:30 AM EST Clinical Support [facility] MEDICINE 230 [place] [address] Cassie Arias, RN 505 [place] [address] documented as of this encounter Visit Diagnoses Diagnosis Pulmonary emphysema, unspecified emphysema type documented in this encounter Additional Health Concerns Assessment Noted Time PHQ-9 Depression Total Score: 12 023 9:31 AM EST documented as of this encounter Care Teams Educational Audiologist Relationship Specialty Start Date End Date Mer Hughes MD 230 [place] [address] PCP - General Family Medicine 05/23/18 Kel Barrett MD [address] [place] [address] [place] [address] Pain Medicine 04/17/24 Jace Wright MD [address] [place] [address] Otolaryngology 04/25/24 Keanu Escobar MD [address] [place] [address] Pulmonary Disease 06/05/24 documented as of this encounter
--- OUTSIDE RECORDS SUMMARY | 2025-03-27 11:44 | XMS_ITS | Encounter Summary ---
Author Organization [employer] Address 75 [facility] 7t [place] [address] Care Team Providers Care Vice President Of News Name Role Phone Mer Hughes MD Primary Care Provider [phone]- [phone] Kel Barrett MD Unavailable Jace Wright MD Unavailable [phone] Keanu Escobar MD Unavailable Reason for Visit * Reason Onset Date Comments Med Refill 07/18/2024 Encounter Details Date Type Department Care Team (Late st Contact Info) Description 07/18/2024 Telephone [facility] MEDICINE 230 [place], [place] [phone] Mer Hughes MD 230 [place] [address] Med Refill Social History Tobacco Use Types [...] hr tablet To be sent to: [facility]/pharmacy #[id number] documented in this encounter Plan of Treatment Upcoming Encounters Date Type Department Care Team (Late st Contact Info) Description 04/25/2025 9:15 AM EST Office Visit [facility] MEDICINE [address] [place] [address] Mer Hughes MD [address] [place] [address] 05/10/2025 9:30 AM EST Clinical Support [facility] MEDICINE [address] [place] [address] Cassie Arias RN 505 [place] [address] documented as of this encounter Visit Diagnoses Not on filedocumented in this encounter Additional Health Concerns Assessment Noted Time PHQ-9 Depression Total Score: 0 02/23/20 24 10:38 AM EDT documented as of this encounter Care Teams Vice President Of News Relationship Specialty Start Date End Date Mer Hughes MD [address] [place] [address] PCP - General Family Medicine 05/23/18 Kel Barrett MD [address] [place] [address] Pain Medicine 04/17/24 Jace Wright MD [address] [place] [address] Otolaryngology 04/25/24 Keanu Escobar MD [address] [place] [address] Pulmonary Disease 06/05/24 documented as of this encounter
--- OUTSIDE RECORDS SUMMARY | 2025-03-27 11:44 | XMS_ITS | Encounter Summary ---
Author Organization [employer] Address 75 [facility] 7t [place] [address] Care Team Providers Care Manager Documentation Name Role Phone Mer Hughes MD Primary Care Provider [phone]- [phone] Kel Barrett MD Unavailable Jace Wright MD Unavailable [phone] Keanu Escobar MD Unavailable [phone] Reason for Visit * Reason Onset Date Comments Med Refill 02/20/2025 Encounter Details Date Type Department Care Team (Late st Contact Info) Description 02/20/2025 Telephone [facility] MEDICINE 230 [place] [address] Mer Hughes MD 230 [place] [address] Med Refill Social History Tobacco Use Types [...] encounter Miscellaneous Notes * Telephone Encounter - Marcellus Barrios - 02/20/2025 4:15 PM EDT TC from pt requesting medication refill. Medications needing refill : morphine CR (MS Contin) 60 MG 12 hr tablet ALPRAZolam (Xanax) 2 MG tablet To be sent to: [facility]/pharmacy #[id number] [place] [address] documented in this encounter Plan of Treatment Upcoming Encounters Date Type Department Care Team (Late st Contact Info) Description 04/25/2025 9:15 AM EST Office Visit [facility] MEDICINE [address] [place] [address] Mer Hughes MD 230 [place] [address] 05/10/2025 9:30 AM EST Clinical Support [facility] MEDICINE [address] [place] [address] Cassie Arias RN [address] [place] [address] [place] [address] documented as of this encounter Visit Diagnoses Not on filedocumented in this encounter Additional Health Concerns Assessment Noted Time PHQ-9 Depression Total Score: 18 10/25/ 025 9:45 AM EDT documented as of this encounter Care Teams Manager Documentation Relationship Specialty Start Date End Date Mer Hughes MD [address] [place] [address] PCP - General Family Medicine 05/23/18 Kel Barrett MD [address] [place] [address] Pain Medicine 04/17/24 Jace Wright MD [address] [place] [address] Otolaryngology 04/25/24 Keanu Escobar MD [address] [place] [address] Pulmonary Disease 06/05/24 documented as of this encounter
--- OUTSIDE RECORDS SUMMARY | 2025-03-27 11:44 | XMS_ITS | Encounter Summary ---
Author Organization [employer] Address [address] [facility] [address] 7t [place] [address] Care Team Providers Care Vocational Services Specialist Name Role Phone Mer Hughes MD Primary Care Provider +1- [phone] Kel Barrett MD Unavailable Jace Wright MD Unavailable [phone] Keanu Escobar MD Unavailable [phone] Encounter Details Date Type Department Care Team (Latest Contact Info) Description 03/27/2025 Travel Social History Tobacco Use Types Packs/Day Years [...] Description 04/25/2025 9:15 AM EST Office Visit [address] [address] Mer Hughes MD [address] [place] [address] 05/10/2025 9:30 AM EST Clinical Support [address] [address] Cassie Arias RN 505 [place] [address] documented as of this encounter Visit Diagnoses Not on filedocumented in this encounter Additional Health Concerns Assessment Noted Time PHQ-9 Depression Total Score: 18 025 9:45 AM EDT documented as of this encounter Care Teams Vocational Services Specialist Relationship Specialty Start Date End Date Mer Hughes MD [address] [place] [address] PCP - General Family Medicine 05/23/18 Kel Barrett MD [address] [place] [address] [address] [place] [address] Pain Medicine 04/17/24 Jace Wright MD [address] [place] [address] Otolaryngology 04/25/24 Keanu Escobar MD [address] [place] [address] Pulmonary Disease 06/05/24 documented as of this encounter
--- OUTSIDE RECORDS SUMMARY | 2025-03-27 11:44 | XMS_ITS | Encounter Summary ---
Author Organization [employer] Address 75 [facility] 7t [place] [address] Care Team Providers Care Egg Packer Name Role Phone Mer Hughes MD Primary Care Provider [phone]- [phone] Kel Barrett MD Unavailable Jace Wright MD Unavailable [phone] Keanu Escobar MD Unavailable [phone] Reason for Visit * Reason Onset Date Comments Med Refill 09/25/2024 Encounter Details Date Type Department Care Team (Late st Contact Info) Description 09/25/2024 Refill [facility] MEDICINE 230 [place], [place] [phone] Mer Hughes MD 230 [place] [address] Other insomnia Social History Tobacco Use Types [...] Description 04/25/2025 9:15 AM EST Office Visit [address] [address] Mer Hughes MD [address] [place] [address] 05/10/2025 9:30 AM EST Clinical Support [address] [address] Cassie Arias RN 505 [place] [address] documented as of this encounter Visit Diagnoses Diagnosis Other insomnia documented in this encounter Additional Health Concerns Assessment Noted Time PHQ-9 Depression Total Score: 0 02/23/20 24 10:38 AM EDT documented as of this encounter Care Teams Egg Packer Relationship Specialty Start Date End Date Mer Hughes MD [address] [place] [address] PCP - General Family Medicine 05/23/18 Kel Barrett MD [address] [place] [address] [address] [place] [address] Pain Medicine 04/17/24 Jace Wright MD [address] [place] [address] Otolaryngology 04/25/24 Keanu Escobar MD [address] [place] [address] Pulmonary Disease 06/05/24 documented as of this encounter
--- OUTSIDE RECORDS SUMMARY | 2025-03-27 11:44 | XMS_ITS | Encounter Summary ---
Author Organization [employer] Address 75 [facility] 7t [place] [address] Care Team Providers Care Medical Assisting Instructor Name Role Phone Mer Hughes MD Primary Care Provider [phone]- [phone] Kel Barrett MD Unavailable Jace Wright MD Unavailable [phone] Keanu Escobar MD Unavailable [phone] Encounter Details Date Type Department Care Team ([facility] [facility] Contact Info) Description 12/02/2022 Telephone [facility] MEDICINE [address] [place] [address] Mer Hughes MD [address] [place] [address] [phone] Social History Tobacco Use Types Packs/Day Years [...] Department Care Team (Late Contact Info) Description 04/25/2025 9:15 AM EST Office Visit [facility] MEDICINE [address] [place] [address] [phone] Mer Hughes MD 230 [place] [address] 05/10/2025 9:30 AM EST Clinical Support [facility] MEDICINE [address] [place] [address] Cassie Arias, RN 505 [place] [address] documented as of this encounter Visit 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
--- OUTSIDE RECORDS SUMMARY | 2025-03-27 11:44 | XMS_ITS | Encounter Summary ---
Author Organization [employer] Address [address] [facility] [address] 7t [place] [address] Care Team Providers Care Utility Accounts Director Name Role Phone Mer Hughes MD Primary Care Provider [phone]- [phone] Kel Barrett MD Unavailable Jace Wright MD Unavailable [phone] Keanu Escobar MD Unavailable [phone] Encounter Details Date Type Department Care Team (Latest Contact Info) Description 03/22/2025 Travel Social History Tobacco Use Types Packs/Day [...] Description 04/25/2025 9:15 AM EST Office Visit [address] [address] Mer Hughes MD [address] [place] [address] 05/10/2025 9:30 AM EST Clinical Support [address] [address] Cassie Arias RN 505 [place] [address] documented as of this encounter Visit Diagnoses Not on filedocumented in this encounter Additional Health Concerns Assessment Noted Time PHQ-9 Depression Total Score: 18 025 9:45 AM EDT documented as of this encounter Care Teams Utility Accounts Director Relationship Specialty Start Date End Date Mer Hughes MD [address] [place] [address] PCP - General Family Medicine 05/23/18 Kel Barrett MD [address] [place] [address] [address] [place] [address] Pain Medicine 04/17/24 Jace Wright MD [address] [place] [address] Otolaryngology 04/25/24 Keanu Escobar MD [address] [place] [address] Pulmonary Disease 06/05/24 documented as of this encounter
--- OUTSIDE RECORDS SUMMARY | 2025-03-27 11:44 | XMS_ITS | Encounter Summary ---
Author Organization [employer] Address 75 [facility] 7t [place] [address] Care Team Providers Care Fashion Illustrator Name Role Phone Mer Hughes MD Primary Care Provider [phone]- [phone] eKl Barrett MD Unavailable Jace Wright MD Unavailable [phone] Keanu Escobar MD Unavailable Reason for Visit * Reason Onset Date Comments Med Refill 06/19/2024 Encounter Details Date Type Department Care Team (Late st Contact Info) Description 06/19/2024 Telephone [facility] MEDICINE 230 [place], [place] [phone] Mer Hughes MD 230 [place] [address] Med Refill Social History Tobacco Use Types [...] 2 MG tablet To be sent to: [facility]/pharmacy #[id number] [place] [address] documented in this encounter Plan of Treatment Upcoming Encounters Date Type Department Care Team (Late st Contact Info) Description 04/25/2025 9:15 AM EST Office Visit [facility] MEDICINE [address] [place] [address] Mer Hughes MD [address] [place] [address] 05/10/2025 9:30 AM EST Clinical Support [facility] MEDICINE [address] [place] [address] Cassie Arias RN 505 [place] [address] documented as of this encounter Visit Diagnoses Not on filedocumented in this encounter Additional Health Concerns Assessment Noted Time PHQ-9 Depression Total Score: 0 02/23/20 24 10:38 AM EDT documented as of this encounter Care Teams Fashion Illustrator Relationship Specialty Start Date End Date Mer Hughes MD [address] [place] [address] PCP - General Family Medicine 05/23/18 Kel Barrett MD [address] [place] [address] Pain Medicine 04/17/24 Jace Wright MD [address] [place] [address] Otolaryngology 04/25/24 Keanu Escobar MD [address] [place] [address] Pulmonary Disease 06/05/24 documented as of this encounter
--- OUTSIDE RECORDS SUMMARY | 2025-03-27 11:44 | XMS_ITS | Encounter Summary ---
Author Organization [employer] Address 75 [facility] 7t [place] [address] Care Team Providers Care Radio Repairer Domestic Name Role Phone Mer Hughes MD Primary Care Provider [phone]- [phone] Kel Barrett MD Unavailable Jace Wright MD Unavailable [phone] Keanu Escobar MD Unavailable [phone] Reason for Visit * Reason Onset Date Comments Med Refill 03/26/2025 Encounter Details Date Type Department Care Team (Late st Contact Info) Description 03/26/[address] [facility] MEDICINE 230 [place], [place] [phone] Mer Hughes MD 230 [place], [place] [phone] Failed back syndrome Social History Tobacco Use [...] * Telephone Encounter - Nazario Mijares - 03/26/2025 8:52 AM EST TC from pt requesting medication refill. Medications needing refill : morphine CR (MS Contin) 60 MG 12 hr tablet To be sent to: [facility]/pharmacy #[id number] [place] [address] documented in this encounter Plan of Treatment Upcoming Encounters Date Type Department Care Team (Late st Contact Info) Description 04/25/2025 9:15 AM EST Office Visit [facility] MEDICINE [address] [place] [address] Mer Hughes MD [address] [place] [address] 05/10/2025 9:30 AM EST Clinical Support 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 documented in this encounter Additional Health Concerns Assessment Noted Time PHQ-9 Depression Total Score: 18 10/25/ 025 9:45 AM EDT documented as of this encounter Care Teams Radio Repairer Domestic Relationship Specialty Start Date End Date Mer Hughes MD [address] [place] [address] PCP - General Family Medicine 05/23/18 Kel Barrett MD [address] [place] [address] Pain Medicine 04/17/24 Jace Wright MD [address] [place] [address] Otolaryngology 04/25/24 Keanu Escobar MD [address] [place] [place] [address] Pulmonary Disease 06/05/24 documented as of this encounter
--- OUTSIDE RECORDS SUMMARY | 2025-03-27 11:44 | XMS_ITS | Encounter Summary ---
Author Organization [employer] Address 75 [facility] 7t [place] [address] Care Team Providers Care Receptionist Secretary Name Role Phone Mer Hughes MD Primary Care Provider [phone]- [phone] Kel Barrett MD Unavailable Jace Wright MD Unavailable [phone] Keanu Escobar MD Unavailable [phone] Reason for Visit * Reason Onset Date Comments Med Refill 09/24/2024 Encounter Details Date Type Department Care Team (Late st Contact Info) Description 09/24/2024 Telephone [facility] MEDICINE 230 [place], [place] [phone] Mer Hughes MD 230 [place] [address] Med Refill Social History Tobacco Use Types [...] be sent to: [facility]/pharmacy #[id number] documented in this encounter Plan of Treatment Upcoming Encounters Date Type Department Care Team (Late st Contact Info) Description 04/25/2025 9:15 AM EST Office Visit [facility] MEDICINE [address] [place] [address] Mer Hughes MD [address] [place] [address] 05/10/2025 9:30 AM EST Clinical Support [address] [address] Cassie Arias RN [address] [place] [address] [phone] documented as of this encounter Visit Diagnoses Not on filedocumented in this encounter Additional Health Concerns Assessment Noted Time PHQ-9 Depression Total Score: 0 02/23/20 24 10:38 AM EDT documented as of this encounter Care Teams Receptionist Secretary Relationship Specialty Start Date End Date Mer Hughes MD [address] [place] [address] PCP - General Family Medicine 05/23/18 Kel Barrett MD [address] [place] [address] Pain Medicine 04/17/24 Jace Wright MD [address] [place] [address] Otolaryngology 04/25/24 Keanu Escobar MD [address] [place] [address] Pulmonary Disease 06/05/24 documented as of this encounter
--- OUTSIDE RECORDS SUMMARY | 2025-03-27 11:44 | XMS_ITS | Encounter Summary ---
Author Organization [employer] Address 75 [facility] 7t [place] [address] Care Team Providers Care Computer Hardware Technician Name Role Phone Mer Hughes MD Primary Care Provider [phone]- [phone] Kel Barrett MD Unavailable Jace Wright MD Unavailable [phone] Keanu Escobar MD Unavailable [phone] Reason for Visit * Reason Onset Date Comments Med Refill 07/25/2024 Encounter Details Date Type Department Care Team (Late st Contact Info) Description 07/25/2024 Telephone [facility] MEDICINE 230 [place], [place] [phone] Mer Hughes MD 230 [place] [address] Med Refill Social History Tobacco Use Types [...] 2 MG tablet To be sent to: [facility]/pharmacy #[id number] [place] [address] documented in this encounter Plan of Treatment Upcoming Encounters Date Type Department Care Team (Late st Contact Info) Description 04/25/2025 9:15 AM EST Office Visit [facility] MEDICINE [address] [place] [address] Mer Hughes MD [address] [place] [address] 05/10/2025 9:30 AM EST Clinical Support [facility] MEDICINE [address] [place] [address] Cassie Arias RN 505 [place] [address] documented as of this encounter Visit Diagnoses Not on filedocumented in this encounter Additional Health Concerns Assessment Noted Time PHQ-9 Depression Total Score: 0 02/23/20 24 10:38 AM EDT documented as of this encounter Care Teams Computer Hardware Technician Relationship Specialty Start Date End Date Mer Hughes MD [address] [place] [address] PCP - General Family Medicine 05/23/18 Kel Barrett MD [address] [place] [address] Pain Medicine 04/17/24 Jace Wright MD [address] [place] [address] Otolaryngology 04/25/24 Keanu Escobar MD [address] [place] [address] Pulmonary Disease 06/05/24 documented as of this encounter
--- OUTSIDE RECORDS SUMMARY | 2025-03-27 11:44 | XMS_ITS | Encounter Summary ---
Author Organization [employer] Address 75 [facility] 7t [place] [address] Care Team Providers Care Hardware Design Engineer Name Role Phone Mer Hughes MD Primary Care Provider [phone]- [phone] Kel Barrett MD Unavailable Jace Wright MD Unavailable [phone] Keanu Escobar MD Unavailable [phone] Reason for Visit * Reason Onset Date Comments Med Refill 03/21/2025 Encounter Details Date Type Department Care Team (Late st Contact Info) Description 03/21/2025 Telephone [facility] MEDICINE 230 [place] [address] Mer Hughes MD 230 [place] [address] Med Refill Social History Tobacco Use Types [...] Telephone Encounter - Aleksandra Whitaker LPN - 03/21/2025 8:44 AM EDT Medication pended to PCP. * Telephone Encounter - Yoseph Vasquez - 03/21/2025 8:39 AM EDT TC from pt requesting medication refill. Medications needing refill : albuterol 108 (90 Base) MCG/ACT inhaler To be sent to: [facility]/pharmacy #[id number] [place] [address] - [address] [place] [address] documented in this encounter Plan of Treatment Upcoming Encounters Date Type Department Care Team (Late st Contact Info) Description 04/25/2025 9:15 AM EST Office Visit [facility] MEDICINE [address] [place] [address] Mer Hughes MD 230 [place], [place] [phone] 05/10/2025 9:30 AM EST Clinical Support [facility] MEDICINE 230 [place] [address] Cassie Arias, RN 505 [place] [address] documented as of this encounter Visit Diagnoses Not on filedocumented in this encounter Additional Health Concerns Assessment Noted Time PHQ-9 Depression Total Score: 18 10/25/ 025 9:45 AM EDT documented as of this encounter Care Teams Hardware Design Engineer Relationship Specialty Start Date End Date Mer Hughes MD 230 [place] [address] PCP - General Family Medicine 05/23/18 Kel Barrett MD [address] [facility] [address] [place] [address] Pain Medicine 04/17/24 Jace Wright MD [address] [place] [address] Otolaryngology 04/25/24 Keanu Escobar MD [address] [place] [address] Pulmonary Disease 06/05/24 documented as of this encounter
--- OUTSIDE RECORDS SUMMARY | 2025-03-27 11:44 | XMS_ITS | Encounter Summary ---
Author Organization [employer] Address 75 [facility] 7t [place] [address] Care Team Providers Care Teletype Technician Name Role Phone Mer Hughes MD Primary Care Provider [phone]- [phone] Kel Barrett MD Unavailable Jace Wright MD Unavailable [phone] Keanu Escobar MD Unavailable [phone] Reason for Visit * Reason Onset Date Comments Med Refill 03/21/2025 Encounter Details Date Type Department Care Team (Late st Contact Info) Description 03/21/2025 Telephone [facility] 230 [place] [address] Mer Hughes MD 230 [place] [address] Med Refill Social History Tobacco Use Types [...] encounter Miscellaneous Notes * Telephone Encounter - Yoseph Vasquez - 03/21/2025 8:37 AM EDT TC from pt requesting medication refill. Medications needing refill : ALPRAZolam (Xanax) 2 MG tablet To be sent to: [facility]/pharmacy #[id number] [place] [address] documented in this encounter Plan of Treatment Upcoming Encounters Date Type Department Care Team (Late st Contact Info) Description 04/25/2025 9:15 AM EST Office Visit [facility] [address] [place] [address] Mer Hughes MD [address] [place] [address] 05/10/2025 9:30 AM EST Clinical Support [facility] [address] [place] [address] Cassie Arias RN 505 [place] [address] documented as of this encounter Visit Diagnoses Not on filedocumented in this encounter Additional Health Concerns Assessment Noted Time PHQ-9 Depression Total Score: 18 025 9:45 AM EDT documented as of this encounter Care Teams Teletype Technician Relationship Specialty Start Date End Date Mer Hughes MD [address] [place] [address] PCP - General Family Medicine 05/23/18 Kel Barrett MD [address] [place] [address] Pain Medicine 04/17/24 Jace Wright MD [address] [place] [address] Otolaryngology 04/25/24 Keanu Escobar MD [address] [place] [address] Pulmonary Disease 06/05/24 documented as of this encounter
--- OUTSIDE RECORDS SUMMARY | 2025-03-27 11:44 | XMS_ITS | Encounter Summary ---
Author Organization [employer] Address 75 [facility] 7t [place] [address] Care Team Providers Care Cable Engineer Outside Plant Name Role Phone Mer Hughes MD Primary Care Provider [phone]- [phone] Kel Barrett MD Unavailable Jace Wright MD Unavailable [phone] Keanu Escobar MD Unavailable [phone] Reason for Visit * Reason Onset Date Comments Med Refill 01/07/2023 Encounter Details Date Type Department Care Team (Late st Contact Info) Description 01/07/2023 Telephone [facility] 230 [place] [address] Mer Hughes MD 230 [place] [address] Med Refill Social History Tobacco Use Types [...] MG 12 hr tablet Please sent to [facility]/pharmacy #[id number] - [place] - [address] [facility] documented in this encounter Plan of Treatment Upcoming Encounters Date Type Department Care Team (Late st Contact Info) Description 04/25/2025 9:15 AM EST Office Visit [address] [address] Mer Hughes MD 230 [place] [address] 05/10/2025 9:30 AM EST Clinical Support [address] [address] Cassie Arias, PAT 505 [place], [place] [phone] documented as of this encounter Visit Diagnoses Not on filedocumented in this encounter Additional Health Concerns Assessment Noted Time PHQ-9 Depression Total Score: 12 023 9:22 AM EDT documented as of this encounter Care Teams Cable Engineer Outside Plant Relationship Specialty Start Date End Date Mer Hughes MD [address] [place] [address] PCP - General Family Medicine 05/23/18 Kel Barrett MD 10 [facility] [address] [place] [address] Pain Medicine 04/17/24 Jace Wright MD [address] [place] [address] Otolaryngology 04/25/24 Keanu Escobar MD 5 [place] [address] Pulmonary Disease 06/05/24 documented as of this encounter
--- OUTSIDE RECORDS SUMMARY | 2025-03-27 11:44 | XMS_ITS | Encounter Summary ---
Author Organization [employer] Address 75 [facility] 7t [place] [address] Care Team Providers Care Scuba Diver Name Role Phone Mer Hughes MD Primary Care Provider [phone] Kel Barrett MD Unavailable Jace Wright MD Unavailable [phone] Keanu Escobar MD Unavailable Reason for Visit * Reason Onset Date Comments Med Refill 11/19/2022 Encounter Details Date Type Department Care Team (Late st Contact Info) Description 11/19/2022 Telephone [facility] 230 [place] [address] Mer Hughes MD 230 [place] [address] Med Refill Social History Tobacco Use Types [...] awaiting approval. * Telephone Encounter - Sarah Johnnie - 11/19/2022 10:28 AM EDT Tc from pt daughter requesting medication refill on albuterol (Ventolin HFA) 108 (90 Base) MCG/ACT inhaler documented in this encounter Plan of Treatment Upcoming Encounters Date Type Department Care Team (Late st Contact Info) Description 04/25/2025 9:15 AM EST Office Visit [address] [address] Mer Hughes MD [address] [place] [address] 05/10/2025 9:30 AM EST Clinical Support [address] [address] Cassie Arias, PAT 505 [place] [address] documented as of this encounter Visit Diagnoses Not on filedocumented in this encounter Additional Health Concerns Assessment Noted Time PHQ-9 Depression Total Score: 12 023 9:31 AM EST documented as of this encounter Care Teams Scuba Diver Relationship Specialty Start Date End Date Mer Hughes MD [address] [place] [address] PCP - General Family Medicine 05/23/18 Kel Barrett MD [address] [facility] [address] [place] [address] Pain Medicine 04/17/24 Jace Wright MD [address] [place] [address] Otolaryngology 04/25/24 Keanu Escobar MD [address] [place] [address] Pulmonary Disease 06/05/24 documented as of this encounter
--- OUTSIDE RECORDS SUMMARY | 2025-03-27 11:45 | XMS_ITS | Encounter Summary ---
Author Organization [employer] Address 75 [facility] 7t [place] [address] Care Team Providers Care Chief Of Anesthesiology Name Role Phone Mer Hughes MD Primary Care Provider [phone] Kel Barrett MD Unavailable Jace Wright MD Unavailable [phone] Keanu Escobar MD Unavailable [phone] Encounter Details Date Type Department Care Team (Late st Contact Info) Description 04/22/2022 Orders Only [facility] 505 [place], [place] [phone] Mer Hughes MD [address] [place] [address] [phone] Anxiety (Primary Dx) Social History Tobacco Use [...] Description 04/25/2025 9:15 AM EST Office Visit [address] [phone] Mer Hughes MD [address] [place] [address] [phone] 05/10/2025 9:30 AM EST Clinical Support [address] [place] [address] Cassie Arias, RN 505 [place] [address] documented as of this encounter Visit Diagnoses Diagnosis Anxiety- Primary Anxiety state, unspecified documented in this encounter Care Teams Chief Of Anesthesiology Relationship Specialty Start Date End Date Mer Hughes MD 230 [place] [address] PCP - General Family Medicine 05/23/18 Kel Barrett MD [address] [place] [address] Pain Medicine 04/17/24 Jace Wright MD [address] [place] [address] Otolaryngology 04/25/24 Keanu Escobar MD [address] [place] [address] Pulmonary Disease 06/05/24 documented as of this encounter
--- OUTSIDE RECORDS SUMMARY | 2025-03-27 11:45 | XMS_ITS | Encounter Summary ---
Author Organization [employer] Address [address] [facility] [address] 7t [place] [address] Care Team Providers Care Bundler Seasonal Greenery Name Role Phone Mer Hughes MD Primary Care Provider [phone]- [phone] Kel Barrett MD Unavailable Jace Wright MD Unavailable [phone] Keanu Escobar MD Unavailable [phone] Reason for Visit * Reason Onset Date Comments Med Refill 07/19/2023 Encounter Details Date Type Department Care Team (Late st Contact Info) Description 07/19/2023 Telephone [facility] 230 [place], [place] [phone] Mer Hughes MD 230 [place] [address] Med Refill Social History Tobacco Use Types [...] 12 hr tablet To be sent to: [facility]/pharmacy #[id number] [place] [address] documented in this encounter Plan of Treatment Upcoming Encounters Date Type Department Care Team (Late st Contact Info) Description 04/25/2025 9:15 AM EST Office Visit [facility] [address] [place] [address] Mer Hughes MD [address] [place] [address] 05/10/2025 9:30 AM EST Clinical Support [facility] [address] [place] [address] Cassie Arias RN 505 [place] [address] documented as of this encounter Visit Diagnoses Not on filedocumented in this encounter Additional Health Concerns Assessment Noted Time PHQ-9 Depression Total Score: 12 023 9:22 AM EDT documented as of this encounter Care Teams Bundler Seasonal Greenery Relationship Specialty Start Date End Date Mer Hughes MD [address] [place] [address] PCP - General Family Medicine 05/23/18 Kel Barrett MD 10 [facility] [address] [place] [address] Pain Medicine 04/17/24 Jace Wright MD [address] [place] [address] Otolaryngology 04/25/24 Keanu Escobar MD [address] [place] [address] Pulmonary Disease 06/05/24 documented as of this encounter
--- OUTSIDE RECORDS SUMMARY | 2025-03-27 11:45 | XMS_ITS | Encounter Summary ---
Author Organization [employer] Address 75 [facility] 7t [place] [address] Care Team Providers Care Ratchet Setter Name Role Phone Mer Hughes MD Primary Care Provider [phone]- [phone] Kel Barrett MD Unavailable Jace Wright MD Unavailable [phone] Keanu Escobar MD Unavailable Reason for Visit * Reason Onset Date Comments Med Refill 12/27/2023 Encounter Details Date Type Department Care Team (Late st Contact Info) Description 12/27/2023 Telephone [facility] 230 [place], [place] [phone] Mer Hughes MD 230 [place] [address] Med Refill Social History Tobacco Use Types [...] 2 MG tablet To be sent to: [facility]/pharmacy #[address] [place] [address] documented in this encounter Plan of Treatment Upcoming Encounters Date Type Department Care Team ([facility] st Contact Info) Description 04/25/2025 9:15 AM EST Office Visit [facility] [address] [place] [address] Mer Hughes MD 230 [place] [address] 05/10/2025 9:30 AM EST Clinical Support [facility] [address] [place] [address] Cassie Arias RN 505 [place] [address] documented as of this encounter Visit Diagnoses Not on filedocumented in this encounter Additional Health Concerns Assessment Noted Time PHQ-9 Depression Total Score: 4 11/30/19 24 11:34 AM EDT documented as of this encounter Care Teams Ratchet Setter Relationship Specialty Start Date End Date Mer Hughes MD [address] [place] [address] PCP - General Family Medicine 05/23/18 Kel Barrett MD [address] [place] [address] Pain Medicine 04/17/24 Jace Wright MD [address] [place] [address] Otolaryngology 04/25/24 Keanu Escobar MD [address] [place] [address] Pulmonary Disease 06/05/24 documented as of this encounter
--- OUTSIDE RECORDS SUMMARY | 2025-03-27 11:45 | XMS_ITS | Encounter Summary ---
Author Organization [employer] Address 75 [facility] 7t [place] [address] Care Team Providers Care Flag Car Driver Name Role Phone Mer Hughes MD Primary Care Provider [phone]- [phone] Kel Barrett MD Unavailable Jace Wright MD Unavailable [phone] Keanu Escobar MD Unavailable [phone] Reason for Visit * Reason Onset Date Comments Med Refill 03/23/2024 Encounter Details Date Type Department Care Team (Late st Contact Info) Description 03/23/2024 Telephone [facility] 230 [place], [place] [phone] Mer Hughes MD 230 [place] [address] Med Refill Social History Tobacco Use Types [...] 2 MG tablet To be sent to: [facility]/pharmacy #[id number] documented in this encounter Plan of Treatment Upcoming Encounters Date Type Department Care Team (Late st Contact Info) Description 04/25/2025 9:15 AM EST Office Visit [address] [address] Mer Hughes MD [address] [place] [address] 05/10/2025 9:30 AM EST Clinical Support [address] [address] Cassie Arias RN 505 [place] [address] documented as of this encounter Visit Diagnoses Not on filedocumented in this encounter Additional Health Concerns Assessment Noted Time PHQ-9 Depression Total Score: 0 02/23/20 24 10:38 AM EDT documented as of this encounter Care Teams Flag Car Driver Relationship Specialty Start Date End Date Mer Hughes MD [address] [place] [address] PCP - General Family Medicine 05/23/18 Kel Barrett MD [address] [place] [address] Pain Medicine 04/17/24 Jace Wright MD [address] [place] [address] Otolaryngology 04/25/24 Keanu Escobar MD [address] [place] [address] Pulmonary Disease 06/05/24 documented as of this encounter
--- OUTSIDE RECORDS SUMMARY | 2025-03-27 11:45 | XMS_ITS | Encounter Summary ---
Author Organization [employer] Address 75 [facility] 7t [place] [address] Care Team Providers Care Manager Flight Name Role Phone Mer Hughes MD Primary Care Provider [phone]- [phone] Kel Barrett MD Unavailable Jace Wright MD Unavailable [phone] Keanu Escobar MD Unavailable [phone] Reason for Visit * Reason Onset Date Comments Med Refill 01/18/2024 Encounter Details Date Type Department Care Team (Late st Contact Info) Description 01/18/2024 Telephone [facility] 230 [place], [place] [phone] Mer Hughes MD 230 [place] [address] Med Refill Social History Tobacco Use Types [...] * Telephone Encounter - Antonia Ambrose - 01/18/2024 10:28 AM EDT TC from pt requesting medication refill. Medications needing refill : morphine CR (MS Contin) 60 MG 12 hr tablet To be sent to: [facility]/pharmacy #[address] [place] [address] documented in this encounter Plan of Treatment Upcoming Encounters Date Type Department Care Team ([facility] st Contact Info) Description 04/25/2025 9:15 AM EST Office Visit [facility] [address] [place] [address] Mer Hughes MD 230 [place] [address] 05/10/2025 9:30 AM EST Clinical Support [facility] [address] [place] [address] Cassie Arias RN 505 [place] [address] documented as of this encounter Visit Diagnoses Not on filedocumented in this encounter Additional Health Concerns Assessment Noted Time PHQ-9 Depression Total Score: 4 11/30/19 24 11:34 AM EDT documented as of this encounter Care Teams Manager Flight Relationship Specialty Start Date End Date Mer Hughes MD [address] [place] [address] PCP - General Family Medicine 05/23/18 Kel Barrett MD [address] [place] [address] Pain Medicine 04/17/24 Jace Wright MD [address] [place] [address] Otolaryngology 04/25/24 Keanu Escobar MD [address] [place] [address] Pulmonary Disease 06/05/24 documented as of this encounter
--- OUTSIDE RECORDS SUMMARY | 2025-03-27 11:45 | XMS_ITS | Data Portability ---
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 I would like to follow it with reevaluation in 3 months. 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 Incomplete closure of glottic gap. 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 I would like to schedule another micro direct laryngoscopy with vocal cord stripping. Risks of additional procedure include more scar tissue and permanent changes to his voice. 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 Incomplete closure of glottic gap. 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 Patient feels his voice is improved compared with previous. Recommend repeat MicroDirect laryngoscopy to remove area of hyperkeratosis given previous pathological changes. I do not believe there is invasive carcinoma or significant progression [email or web address] Not available 10/03/2024 09:09:52 03/15/2025 03/15/2025 The patient underwent biopsies on March 04, which demonstrated benign findings with no evidence of cancer. He has a history of abnormal growths near his voice box and will require regular follow-up. I recommend returning in approximately four to six months for a repeat camera examination in the office to monitor for any changes. Depending on the findings, another procedure may be recommended. [email or web address] Not available 03/15/2025 13:35:05 Plan of Treatment Reminders Order Date Submit Date Provider Last Modified By Organization Details Last Modified Time Details Appointments Establish ed 15 2025 09:00A M NAI TOVAR MD Not available Not available Not available Lab None recorded. Referral None recorded. Procedures None recorded. Surgeries laryngosc opy, direct, operative , with excision of tumor and/or stripping of vocal cords or epiglotti s (SURG) 2024 025 [email or web address] Not available 10/03/2024 10:38:34 laryngosc opy, direct, operative , with excision of tumor and/or stripping of vocal cords or epiglotti s (SURG) 2023 024 [email or web address] Not available 02/16/2024 10:10:31 Imaging None recorded. Medication Orders mupirocin 2 % topical ointment [address] [facility] #[id number], [address], [place], [address], 02/16/2024 09:30:21 Patient TargetsNo targets recorded. Patient Instructions Encounter Date Encounter Id Patient Instructions Last Modified By Organization Details Last Modified Time 03/15/2025 [id number] Return in approximately four to six months for a repeat camera examination in the office. [email or web address] Not available 03/15/2025 13:35:05 Please note: Par ts of this encounter note have been generated by AI based on audio conversation. Patient consent was required prior to utilizing this technology. Content review was required prior to finalizing the note. [email or web address] Not available 03/15/2025 13:35:05 Reason for Referral None Reported. Results Created Date Observation Date Name Description Value Unit Range Abnormal Flag Note LastModifiedBy Organization Detail LastModifiedTime 04/25/20 24 04/25/2024 TISSU E EXAM .note See Note Origi nal Order ing Provi barbara: SHARLENE Sloan PLOSK Y [facility] - [address], [place], [place] [address] Not Available [address], [address], 05/10/2024 16:09:36 04/25/2004/25/2024 TISSU E EXAM final diagnosis A. Larynx , anteri or commis sure-b iopsy: -VERR UCOID SQUAM OUS PROLI FERAT ION SIMIL AR TO PREVI OUS MATER IAL ([id number]) Slide s are sent to Dr Hamilton Morales , [place] [facility] [place] [facility], [place]. His diagn osis is as follo ws: BLACK L PATHO LOGIC DIAGN OSIS RIGHT VOCAL CORD, STRIP PING BIOPS Y ([id number]; 07/26 ): Atypi kalyan hyper kerat otic verru cifor m squam oprol ifera tive lesio n. Note: the lesio n shows mild basal epith elial atypi a with some amparo al fibro sis and fibri n depos ition . The lesio n also exten ds to tissu e edges ; see comme nt follo wing more recen t (Dece mber) biops y. 2. LARYN X, BIOPS IES ([id number], 04/25 ): -VERR UCOID SQUAM OUS PROLI FERAT ION SIMIL AR TO PREVI OUS MATER IAL ([id number]) Sl[facility] [place] [facility]. His diagn osis is as follo ws: A. LARYN X, ANTER IOR COMMI SSURE : Hyper kerat otic, hyper granu lotic squam ous mucos a with mild basal epith elial atypi a and focal amparo al hyali nizat ion; see comme nt below . B. LARYN X RIGHT FALSE VOCAL CORD: Hyper kerat otic, hyper granu lotic squam ous mucos a with mild basal epith elial atypi a, both morph ologi kalyan and archi tectu ral, and focal amparo al hyali nizat ion; see comme nt below . Case comme nt: The patho logic al findi ngs seen here, both in the large r biops y from July and subse quent biops ies from this month , are from the same proce ss. Both biops ies show promi nent hyper kerat osis with hyper granu losis , varia ble basal atypi a, and under lying react camilla amparo al martinez es. These findi ngs can be seen in both react camilla and neopl astic setti ngs requi ring clini kalyan corre latio n. This degre e of hyper kerat osis, in a react camilla setti ng, may be induc ed by reflu x (chem ical traum a), sever e phono traum a, or remot judy, infec tious cause s (such as Brittney da). Altho ugh unlik judy, a predi sposi ng amparo al proce ss, such amylo idosi s, shoul d be exclu ded, perha ps with congo red stain s on the July biops y, block A1 and Dece biops y, also on block A1. A neopl astic proce ss, such as an evolv ing verru cous carci noma or verru cifor m, predo minan tly exoph ytic well- diffe renti ated squam ous cell carci noma are also in the diffe renti al diagn osis. The clini kalyan histo ry (dura tion of disea se, persi stenc e/rec urren ce, under lying predi sposi ng facto rs, vocal cord funct ion, radio logic profi le) needs to be consi dered in the kaylyn xt of these patho logic al findi ngs. Daysi ctron icall y Betty d Out By Hamilton Morales MD, PHD Date repor lisa: 05/04 , 11:23 (See scann ed [facility] repor t and lette r from Dr. Morales below ) Elect lovelykrystal joyner betyt d by Tatianna rubio MD on 05/10 at 4:02 PM Not Available [address], [address], 05/10/2024 16:09:36 04/25/20 24 04/25/2024 TISSU E EXAM comment GMS stains negati ve for fungus Congo red stain s negat camilla for amylo id (cont rols appro priat e) Not Available [address], [address], 05/10/2024 16:09:36 04/25/20 24 04/25/2024 TISSU E EXAM gross description A. Larynx , anteri or commis sure: Label ed ante rior laryn x . Recei samantha in forma cortney, on sheet s of Telfa , are six soft to rubbe ry, diamond-w satish to red tissu e fragm ents with minim al attac hed blood clot rangi ng from 0.2 cm to 0.3 cm in great est diame ter, which are wrapp ed in paper and submi tted in toto in one casse tte, six piece s, multi ple level s. B. Laryn x, right false vocal cord: Label ed righ t fal laryn x . Recei samantha in forma cortney, on Telfa , are two soft, diamond-w satish to red, thin tissu e fragm ents with spars e attac hed blood measu ring 0.15 cm and 0.25 cm in great est diame ter, which are wrapp ed in paper and submi tted in toto in one casse tte, two piece s, multi ple level s. TS Not Available [address], [address], 05/10/2024 16:09:36 04/25/20 24 04/25/2024 TISSU E EXAM disclaimer NOTE: The immun ohist ochem ical tests and in situ hybri dizat ion tests were devel oped and their perfo rmanc e lauren cteri stics were deter mined by [facility] . They have not been clear ed or appro samantha by the U.S. Food and Drug Admin istra tion. The FDA has deter mined that such clear ance or appro yakelin is not neces thomas. These tests are used for clini kalyan purpo ses. They shoul d not be regar ded as inves tigat ional or for resea rch. This labor atory is certi fied under the Clini kalyan Labor atory Impro vemen t Amend ments of 1987 (CLIA ) as quali fied to perfo rm high compl exity clini kalyan labor atory testi ng. (cont rols appro priat e) Unles s other gerard speci fied, all tissu e is 10% NB forma cortney fixed and paraf fin embed ded. Not Available [address], [address], 05/10/2024 16:09:36 01/11/20 24 07/27/2023 imagi ng/di agnos tic resul t No observ ation record ed. [email or web address] Not Available 03:21:18 01/11/20 24 08/01/2023 imagi ng/di agnos tic resul t No observ ation record ed. [email or web address] Not Available 03:21:22 01/11/20 24 09/22/2022 imagi ng/di agnos tic resul t No observ ation record ed. [email or web address] Not Available 03:21:48 01/11/20 24 10/12/2022 imagi ng/di agnos tic resul t No observ ation record ed. [email or web address] Not Available 03:21:53 01/11/20 24 11/03/2022 imagi ng/di agnos tic resul t No observ ation record ed. [email or web address] Not Available 03:22:00 01/11/20 24 11/16/2022 imagi ng/di agnos tic resul t No observ ation record ed. [email or web address] Not Available 03:22:11 01/11/20 24 11/16/2022 audio gram No observ ation record ed. [email or web address] Not Available 03:23:38 04/25/20 24 04/25/2024 H&P No observ ation record ed. [address], [address], 04/25/2024 09:46:07 04/25/20 24 04/25/2024 op note No observ ation record ed. [address], [address], 04/25/2024 09:45:23 03/08/2003/04/2025 clini kalyan photo * No observ ation record ed. [email or web address] Not Available 02/20 09:34:34 Result Notes None recorded. Problems Name Problem SNOMED Code Status Onset Date Resolution Date Notes Provider Name and Address Organization Details Recorded Time Disorder of vocal cord 59395445 Active 2022 hyperkerat osis of vocal cords L&R NAI TOVAR MD [address] [place] [address], [place], [address] , [place] - [facility] 4 08:38:24 Tobacco dependenc e in remission 596844697 Active 2022 Nicotine dependence , chewing tobacco, in remission; Note: Date Diagnosed: 09/16/2022 2:34 PM (F17.221) Note: Date Diagnosed: 09/16/2022 2:34 PM (F17.221) NAI TOVAR MD [address] [place] [address], [place], [address] , [place] - [facility] 4 08:37:31 Dysphonia 06167612 Active 2022 Hoarseness ; Note: Date Diagnosed: 09/16/2022 2:34 PM (R49.0) Note: Date Diagnosed: 09/16/2022 2:34 PM (R49.0) NAI TOVAR MD [address] [facility],[place] [address], [place], [address] , [place] - [facility] 4 08:37:31 Sensorine ural hearing loss of bilateral ears 095065519 Active 2022 Sensorineu ral hearing loss, bilateral; Note: Date Diagnosed: 11/16/2022 10:08 AM (H90.3) Not Available [facility] 4 03:24:27 Nasal vestibuli tis 76902855 Active 2023 NAI TOVAR MD [address] [facility],[place] [address], [place], [address] , [place] - [facility] 09:27:54 Problem Notes None recorded. Procedures Surgical History Date Name Laterality Status Provider Name and Address Organization Details Recorded Time 03/04/20 25 direct laryngoscopy with stripping of vocal cords using operating microscope completed NAI TOVAR MD [address] [facility],[place] [address], [place], [address], [place] - [facility] 03/04/2025 12:06:36 03/04/20 25 LARYNGOSCOPY, DIRECT, OPERATIVE, WITH EXCISION OF TUMOR AND/OR STRIPPING OF VOCAL CORDS OR EPIGLOTTIS (SURG) completed Javi Cox [place] - [facility] 03/04/2025 13:34:51 03/04/20 25 LARYNGOSCOPY, DIRECT, OPERATIVE, WITH EXCISION OF TUMOR AND/OR STRIPPING OF VOCAL CORDS OR EPIGLOTTIS (SURG) completed Javi Cox [place] - [facility] 03/04/2025 13:35:03 10/04/19 25 FOL_DP completed NAI TOVAR MD [address] [place] [address],[place] [address], [place], [address], [place] - [facility] 10/03/2024 09:08:26 06/01/19 25 FOL_DP completed NAI TOVAR MD [address] [place] [address],[place] [address], [place], [address], [place] [facility] 06/01/2024 11:08:29 12/18/20 24 FOL_DP cancelled NAI TOVAR MD [address] [facility],[address] [facility], [place], [address], [facility] - [facility] 05/08/2024 15:20:07 04/25/20 24 Larynscop w/tumr exc + scope completed NAI TOVAR MD [address] [facility],[address], [address], [place] - [facility] 04/25/2024 09:36:27 02/16/20 24 FOL_DP completed NAI TOVAR MD [address] [facility] [address], [place], [address], [facility] - [facility] 02/13/2024 10:49:36 11/09/19 24 FOL_DP completed NAI TOVAR MD [address] [facility],[place] [address], [place], [address], [facility] - [facility] 11/09/2023 09:06:12 Imaging Results None recorded. Procedure Notes None recorded. Medical Equipment None Reported. Allergies No known drug allergies Medications Name Sig Start Date Stop Date Status Note LastModified by Organization Details LastModified Time celecoxib 200 mg capsule TOME 1 C PSULA POR V A ORAL DOS VECES AL D A 02/15 completed Not Available Not Available Not Available amoxicillin 500 mg capsule TAKE 1 CAPSULE BY MOUTH THREE TIMES A DAY FOR 10 DAYS 02/15 completed Not Available Not Available Not Available trazodone 50 mg tablet TOME 1 TABLETA POR V A ORAL TODOS LOS D AL ACOSTARSE active Not Available Not Available No t Available cefpodoxime 200 mg tablet TAKE 1 TABLET BY MOUTH EVERY 12 HOURS UNTIL FINISHED 02/15 completed Not Available Not Available Not Available tizanidine 4 mg tablet PLEASE SEE ATTACHED FOR DETAILED DIRECTION S 02/15 completed Not Available Not Available Not Available prednisone 20 mg tablet TOME DOS TABLETAS POR V A ORAL TODOS LOS D POR 3 D 02/15 completed Not Available Not Available Not Available amlodipine 2.5 mg tablet TAKE 1 TABLET (2.5 MG) BY MOUTH ONCE PER DAY. active Not Available Not Available No t Available acetaminoph en 500 mg tablet TAKE 1 TABLET BY MOUTH EVERY 4 HOURS NEEDED FOR PAIN FOR 7 DAYS 10/03 completed Not Available Not Available Not Available morphine ER 60 mg tablet,exte nded release TOME 1 TABLETA POR V A ORAL DOS VECES AL D A *DO NOT CRUSH/ENMANUEL W/SPLIT* active Not Available Not Available No t Available doxepin 100 mg capsule TAKE 1 CAPSULE BY MOUTH EVERY MORNING AND AT BEDTIME active Not Available Not Available No t Available mupirocin 2 % topical ointment APLIQUE AL AREA AFECTADA DOS VECES AL MADELINE active Not Available Not Available No t Available alprazolam 2 mg tablet TAKE 1 TABLET (2 MG) BY MOUTH IF NEEDED IN THE MORNING AND AT BEDTIME FOR ANXIETY FOR UP TO 28 DAYS. active Not Available Not Available No t Available ibuprofen 600 mg tablet TAKE 1 TABLET BY MOUTH 4 TIMES A DAY, FOR 5 DAYS, NEEDED FOR PAIN active Not Available Not Available No t Available Ventolin HFA 90 mcg/actuati on aerosol inhaler PLEASE SEE ATTACHED FOR DETAILED DIRECTION S active Not Available Not Available No t Available diclofenac 1 % topical gel PLEASE SEE ATTACHED FOR DETAILED DIRECTION S 02/15 completed Not Available Not Available Not Available Incruse Ellipta 62.5 mcg/actuati on powder for inhalation INHALE UN SOPLIDO A DIARIO active Not Available Not Available No t Available Vitals Date Recorded Body height Body weight Provider Name and Address Organization Details Last Updated DateTime 06/01/2024 185.42 cm 55903.36 g Inessa Lynn [place] - [facility] 06/01/2024 10:52:46 Date Recorded Body height Body mass index (BMI) Body weight Provider Name and Address Organization Details Last Updated DateTime 10/03/2024 185.42 cm 28.9 kg/m2 29025.73 g BLANCA VELAZQUEZ [place] - [facility] 10/03/2024 08:58:16 Date Recorded Body height Body mass index (BMI) Body weight Provider Name and Address Organization Details Last Updated DateTime 11/09/2023 185.42 cm 28.4 kg/m2 46281.36 g Sherry Davidson [place] - [facility] 11/09/2023 08:51:58 Date Recorded Body height Body mass index (BMI) Body weight Provider Name and Address Organization Details Last Updated DateTime 02/16/2024 185.42 cm 28.4 kg/m2 94461.36 g Sherry Davidson [place] - [facility] 02/16/2024 08:32:56 Date Recorded Body height Provider Name an d Address Organization Details Last Updated DateTime 03/15/2025 185.42 cm BLANAC VELAZQUEZ [place] - [facility] 03/15/2025 13:12:08 Social History None recorded. Functional Status None recorded. Mental Status None recorded. Family History Nothing Reported. Medical History Condition Response Hypertension Y Past Encounters Encounter ID Performer Location Encounter Start Date Encounter Closed Date Diagnosis/Indication Diagnosis SNOMED-CT Code Diagnosis ICD10 Code Diagnosis IMO Codes Diagnosis Note [id number] NAI TOVAR MD [facility] [address] [address] 11/09/2023 08:47:24 11/09/2023 09:13:39 Disorder of vocal cord 37140664 J38.3 [id number] NAI TOVAR MD [facility] [address] [address] 02/16/2024 08:27:47 02/16/2024 14:13:56 Disorder of vocal cord 35691941 J38.3 Nasal vestibulitis 21786 000 J34.89 Patient has a small area of left floor of nose vestibulit is associated with recent manipulati on of a blackhead 1 week ago. 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 [id number] NAI TOVAR MD [facility] [address] [place] [address] 03/15/2025 13:06:18 03/15/2025 13:38:58 Dysphonia 04971609 R49.0 Disorder o f vocal cord 38459308 J38.3 Health Concerns Section Related Observation LastModified by Organization Detai ls LastModified Time None Recorded Concern Status LastModified by Organization Details LastModified Time None Recorded Advance Directives Directive None Recorded Payers Insurance Date Sequence Insurance Name Policy Number Policy Rojo Covered Member ID Rojo Member ID Guarantor Name 02/22/2025 1 [place]ARE B-[place]: [employer] Kevin Barrios [id number] Kevin Barrios 03/01/2025 2 MEDICAID-[place] Barrios [id number] Kevin Barrios Notes Date Note Type Note Provider Name and Address Organization Details Recorded Time 4 text/htm l ROS as noted in the HPI Pt of Dr Andrews hainesrvchacho for verrucous lesions of larynxhx of hoarseness, no changes in past few monthsno hemoptysis, no throat paintob - stopped in 2006prev micro DL with vocal cord bx11/03/22 [facility]- right vocal cord hyperkeratosis, squamous epithelium with reactive riigyvs43/4/23 [facility]- left vocal cord hyperkeratosis, squamous epithelium with reactive changes07/27/23 [facility] right VC stripping verrucoid squamous proliferationpathologist remarks that tissue taken is not deep enough to r/o verrucous carcinoma NAI TOVAR MD [address] [place] [address], [address], [place] - [facility] 11/09/2023 09:07:30 4 text/htm l ROS as noted in the HPI Pt of Dr Andrews acharyasurvchacho for verrucous lesions of larynxinitially after 07/2023 procedure felt slight improvement then deteriorated and feels he has not been speaking well since thenno hemoptysishx of hoarseness, no changes in past few monthsno hemoptysis, no throat paintob - stopped in 2006prev micro DL with vocal cord bx11/03/22 [facility]- right vocal cord hyperkeratosis, squamous epithelium with reactive fbtcyva11/4/23 [facility]- left vocal cord hyperkeratosis, squamous epithelium with reactive changes07/27/23 [facility] right VC stripping verrucoid squamous proliferationpathologist remarks that tissue taken is not deep enough to r/o verrucous carcinoma NAI OTVAR MD [address] [facility],[address], [address], [facility] - [facility] 02/16/2024 09:30:45 5 text/htm l ROS as noted in the HPI Pt of Dr Ainsley acharyasurvchacho for verrucous lesions of qcryni89/4/24 [facility] - anterior commissure, right false cord hyperkeratosis leukoplakia, VERRUCOID SQUAMOUS PROLIFERATIONfeels voice mild improved since previous surgeryno hemoptysis, no throat paintob - stopped in 2006prev micro DL with vocal cord bx11/03/22 [facility]- right vocal cord hyperkeratosis, squamous epithelium with reactive hknjafo22/4/23 [facility]- left vocal cord hyperkeratosis, squamous epithelium with reactive changes07/27/23 [facility] DL right VC stripping verrucoid squamous proliferation NAI TOVAR MD [address] [facility],[place] [address], [place], [address], [facility] - [facility] 06/01/2024 11:09:07 5 text/htm l ROS as noted in the HPI Pt of Dr Ainsley modi for verrucous lesions of qkyelc39/4/24 [facility] - anterior commissure, right false cord hyperkeratosis leukoplakia, VERRUCOID SQUAMOUS PROLIFERATIONfeels voice mild improved since previous surgeryno hemoptysis, no throat paintob - stopped in 2006prev micro DL with vocal cord bx11/03/22 [facility]- right vocal cord hyperkeratosis, squamous epithelium with reactive pvowrbv69/4/23 [facility]- left vocal cord hyperkeratosis, squamous epithelium with reactive changes07/27/23 [facility] DL right VC stripping verrucoid squamous proliferation PV 06/01/24 [facility] - 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 Incomplete closure of glottic gap NAI TOVAR MD [address] [facility],[place] [address], [place], [address], [place] - [facility] 10/03/2024 09:10:53 5 text/htm l Pt of Dr Lovell Daughter - jordanian surveillance for verrucous lesions of larynx feels voice mild improved since previous surgery no hemoptysis, no throat pain tob - stopped in 2006 prev micro DL with vocal cord bx 11/03/22 [facility]- right vocal cord hyperkeratosis, squamous epithelium with reactive changes 02/23/23 [facility]- left vocal cord hyperkeratosis, squamous epithelium with reactive changes 07/27/23 [facility] right VC stripping verrucoid squamous proliferation 04/25/24 [facility] - anterior commissure, right false cord hyperkeratosis leukoplakia, VERRUCOID SQUAMOUS [id number]/13/25 [facility], [facility], micro DL w right VC stripping - Squamous mucosa with hyperkeratosis, acanthosis reactive changes and focal atypia. 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 Incomplete closure of glottic gap Kevin Barrios is a 74-year-old male who presents for follow-up regarding his voice. He underwent biopsies approximately ten days ago on March 04, which demonstrated benign findings with no evidence of cancer. He has a history of abnormal growths near his voice box and reports improvement in his voice following the surgery. NAI TOVAR MD [address] [facility],[place] [address], [place], [place], [id number], [place] - [facility] 03/15/2025 13:36:06
--- OUTSIDE RECORDS SUMMARY | 2025-03-27 11:45 | XMS_ITS | Encounter Summary ---
Author Organization [employer] Address [address] [facility] [address] 7t [place] [address] Care Team Providers Care Braiding Operator Name Role Phone Mer Hughes MD Primary Care Provider [phone]- [phone] Kel Barrett MD Unavailable Jace Wright MD Unavailable [phone] Keanu Escobar MD Unavailable [phone] Reason for Visit * Reason Onset Date Comments Med Refill 06/09/2023 Encounter Details Date Type Department Care Team (Late st Contact Info) Description 06/09/2023 Telephone [facility] 230 [place], [place] [phone] Mer Hughes MD 230 [place] [address] Med Refill Social History Tobacco Use Types [...] 12 hr tablet To be sent to: [facility]/pharmacy #[id number] [place] [address] documented in this encounter Plan of Treatment Upcoming Encounters Date Type Department Care Team (Late st Contact Info) Description 04/25/2025 9:15 AM EST Office Visit [facility] [address] [place] [address] Mer Hughes MD [address] [place] [address] 05/10/2025 9:30 AM EST Clinical Support [facility] [address] [place] [address] Cassie Arias RN 505 [place] [address] documented as of this encounter Visit Diagnoses Not on filedocumented in this encounter Additional Health Concerns Assessment Noted Time PHQ-9 Depression Total Score: 12 023 9:22 AM EDT documented as of this encounter Care Teams Braiding Operator Relationship Specialty Start Date End Date Mer Hughes MD [address] [place] [address] PCP - General Family Medicine 05/23/18 Kel Barrett MD 10 [facility] [address] [place] [address] Pain Medicine 04/17/24 Jace Wright MD [address] [place] [address] Otolaryngology 04/25/24 Keanu Escobar MD [address] [place] [address] Pulmonary Disease 06/05/24 documented as of this encounter
--- OUTSIDE RECORDS SUMMARY | 2025-03-27 11:45 | XMS_ITS | Encounter Summary ---
Author Organization [employer] Address [address] [facility] 7t [place] [address] Care Team Providers Care Content Management Specialist Name Role Phone Mer Hughes MD Primary Care Provider [phone]- [phone] Kel Barrett MD Unavailable Jace Wright MD Unavailable [phone] Keanu Escobar MD Unavailable [phone] Reason for Visit * Reason Onset Date Comments Med Refill 04/17/2024 Encounter Details Date Type Department Care Team (Late st Contact Info) Description 04/17/2024 Telephone [facility] 230 [place], [place] [phone] Mer Hughes MD 230 [place] [address] Med Refill Social History Tobacco Use Types [...] hr tablet To be sent to: [facility]/pharmacy #[id number] documented in this encounter Plan of Treatment Upcoming Encounters Date Type Department Care Team (Late st Contact Info) Description 04/25/2025 9:15 AM EST Office Visit [facility] [address] [place] [address] Mer Hughes MD [address] [place] [address] 05/10/2025 9:30 AM EST Clinical Support [facility] [address] [place] [address] Cassie Arias RN 505 [place] [address] documented as of this encounter Visit Diagnoses Not on filedocumented in this encounter Additional Health Concerns Assessment Noted Time PHQ-9 Depression Total Score: 0 02/23/20 10:38 AM EDT documented as of this encounter Care Teams Content Management Specialist Relationship Specialty Start Date End Date Mer Hughes MD [address] [place] [address] PCP - General Family Medicine 05/23/18 Kel Barrett MD [address] [address] Pain Medicine 04/17/24 Jace Wright MD [address] [place] [address] Otolaryngology 04/25/24 Keanu Escobar MD [address] [place] [address] Pulmonary Disease 06/05/24 documented as of this encounter
--- OUTSIDE RECORDS SUMMARY | 2025-03-27 11:45 | XMS_ITS | Encounter Summary ---
Author Organization [employer] Address [address] [facility] 7t [place] [address] Care Team Providers Care Glass Etcher Name Role Phone Mer Hughes MD Primary Care Provider [phone]- [phone] Kel Barrett MD Unavailable Jace Wright MD Unavailable [phone] Keanu Escobar MD Unavailable [phone] Reason for Visit * Reason Onset Date Comments Med Refill 02/14/2023 Encounter Details Date Type Department Care Team (Late st Contact Info) Description 02/14/2023 Telephone [facility] 230 [place] [address] Mer Hughes MD [address] [place] [address] Med Refill Social History Tobacco Use Types [...] (90 Base) MCG/ACT inhaler. Please send to [facility]/pharmacy #[id number] [facility] [address] [facility] P[address] Hughes * Telephone Encounter - Bess De Los Santos - 02/14/2023 9:01 AM EDT Tc from patient requesting a med refill for medication alprazolam 2 mg. Please send to [facility]/pharmacy#[id number] [facility] [address] [facility] [address]CP [address] Hughes documented in this encounter Plan of Treatment Upcoming Encounters Date Type Department Care Team (Late st Contact Info) Description 04/25/2025 9:15 AM EST Office Visit [address] [address] Mer Hughes MD [address] [place] [address] 05/10/2025 9:30 AM EST Clinical Support [address] [address] Cassie Arias, RN 505 [place] [address] documented as of this encounter Visit Diagnoses Not on filedocumented in this encounter Additional Health Concerns Assessment Noted Time PHQ-9 Depression Total Score: 12 023 9:22 AM EDT documented as of this encounter Care Teams Glass Etcher Relationship Specialty Start Date End Date Mer Hughes MD [address] [place] [address] PCP - General Family Medicine 05/23/18 Kel Barrett MD [address] [place] [address] Pain Medicine 04/17/24 Jace Wright MD [address] [place] [address] Otolaryngology 04/25/24 Keanu Escobar MD [address] [place] [address] Pulmonary Disease 06/05/24 documented as of this encounter
--- OUTSIDE RECORDS SUMMARY | 2025-03-27 11:45 | XMS_ITS | Encounter Summary ---
Author Organization [employer] Address [address] [facility] [address] 7t [place] [address] Care Team Providers Care Window Cutter Name Role Phone Mer Hughes MD Primary Care Provider [phone]- [phone] Kel Barrett MD Unavailable Jace Wright MD Unavailable [phone] Keanu Escobar MD Unavailable [phone] Encounter Details Date Type Department Care Team (Late st Contact Info) Description 03/27/2025 Orders Only GENERIC EXTERNAL DATA DEPARTMENT Provider, Generic External Data Social History Tobacco Use Types Packs/Day Years [...] 04/25/2025 9:15 AM EST Office Visit [facility] [address] [place] [address] Mer Hughes MD [address] [place] [address] 05/10/2025 9:30 AM EST Clinical Support [facility] [address] [place] [address] Cassie Arias RN 505 [place] [address] documented as of this encounter Procedures Procedure Name Priority Date/Time Associated Diagnosis Comments HIGH SENSITIVITY TROPONIN I Routine 03/27/2025 10:41 AM EST CBC WITH AUTO DIFFERENTIAL Routine 03/27/2025 10:41 AM EST LIPASE Routine 03/27/2025 10:41 AM EST COMPREHENSIVE METABOLIC PANEL Routine 03/27/2025 10:41 AM EST documented in this encounter Results * High Sensitivity Troponin I (03/27/2025 10:41 AM EST) TROPONIN I HIGH SENSITIVITY 7.0 <3.5 - 35.0 ng/L [facility] Comment:The [place] high sens itivity Troponin-I results should beused in conjunction with other diagnostic information suchas ECG, clinical observations and information, and patientsymptoms to aid in the diagnosis of [place]. 03/27/2025 10:4 1 AM EST 03/27/2025 10:45 AM EST us Generic External Data Provider LAB BLOOD ORDERAB LES Final Result Performing Organization Address City/[facility]/ZIP Co de Phone Number [facility] [address] [place] [phone] * Lipase (03/27/2025 10:41 AM EST) Pathologist [facility] [place] [facility] Lipase 51 8 - 78 U/L [facility] 03/27/2025 10:4 1 AM EST 03/27/2025 10:45 AM EST Generic External Data Provider LAB BLOOD ORDERAB LES Final Result Performing Organization Address City/[facility] Co de Phone Number [facility] [address] [place] [phone] * (ABNORMAL) Comprehensive Metabolic Panel (03/27/2025 10:41 AM EST) Pathologist [facility] [place] [facility] Sodium 140 135 - 145 mmol/L [facility] Potassium 4.2 3.3 - 5.1 mmol/L [facility] Chloride 111(H) 96 - 108 mmol/L [facility] Carbon Dioxide 24 22 - 29 mmol/L [facility] Anion Gap 9(L) 12 - 20 [facility] Urea Nitrogen (BUN) 13 9 - 16 mg/dL [facility] Creatinine, Serum 0.93 0.5 - 1.4 mg/dL [facility] Creatinine Clr Calc Pharmacy 83.4 [facility] Comment:eGFR (calculated fro m the MDRD study equation) and eCrCl(calculated from the Cockcroft-Gault equation) are based ondifferent parameters and may not yield comparable results.If eCrCl result is absurd, please check patient'sheight/weight. Estimated Glomerular Filt Rate >60 [facility] Comment:Chronic Kidney Disea se: Estimated GFR < 60 mL/min/1.18a5Qtskid Kidney Disease: Estimated GFR < 15 mL/min/1.73m2 Glucose 112 60 - 115 mg/dL [facility] Calcium 9.3 8.4 - 10.2 mg/dL [facility] Bilirubin, Total 0.8 0.0 - 1.0 mg/dL [facility] Aspartate Amino Transferase 55(H) 5 - 37 U/L [facility] Alanine Aminotransferase 50(H) 0 - 40 U/L [facility] Total Protein 8.1(H) 6.5 - 8.0 g/dL [facility] Albumin Level 4.6 3.5 - 5.0 g/dL [facility] Alkaline Phosphatase 141(H) 39 - 117 U/L [facility] 03/27/2025 10:4 1 AM EST 03/27/2025 10:45 AM EST us Generic External Data Provider LAB BLOOD ORDERAB LES Final Result [facility] [address] [place] [phone] * (ABNORMAL) CBC auto differential (03/27/2025 10:41 AM EST) White Blood Count 10.2 4.8 - 10.8 X10*3/uL [facility] Red Blood Count 4.53(L) 4.60 - 5.80 X10*6/uL [facility] Hemoglobin 14.2 14.0 - 18.0 g/dl [facility] Hematocrit 42.2 42.0 - 52.0 % [facility] Mean Corpuscular Volume 93.2 80.0 - 98.0 fL [facility] Mean Corpuscular Hemoglobin 31.3 27.0 - 33.0 pg [facility] Mean Corpuscular HGB Conc 33.6 31.0 - 36.0 g/dl [facility] Red Cell Distribution Width 13.4 11.0 - 16.0 % [facility] Platelet Count 232 160 - 400 X10*3/uL [facility] Mean Platelet Volume 9.5 9.4 - 12.4 fL [facility] Neutrophils Percent Auto 65.7 45 - 73 % [facility] Imm Gran Pct Auto 0.3 0.0 - 0.4 % [facility] Lymphocytes Percent Auto 25.1 20 - 40 % [facility] Monocytes Percent Auto 7.5 2 - 11 % [facility] Eosinophils Percent Auto 1.2 0 - 4 % [facility] Basophils Percent Auto 0.2 0 - 2 % [facility] NRBC Pct Auto 0.0 0.0 - 0.2 /100WBC [facility] Neutrophils Absolute Auto 6.7 2.0 - 8.3 x10*3/uL [facility] Imm Gran Abs Auto 0.03 0.00 - 0.03 X10*3/uL [facility] Lymphocytes Absolute Auto 2.6 1.2 - 4.9 X10*3/uL [facility] Monocytes Absolute Auto 0.8 0.1 - 1.2 X10*3/uL [facility] Eosinophils Absolute Auto 0.1 0.0 - 0.4 X10*3/uL [facility] Basophils Absolute Auto 0.0 0.0 - 0.2 X10*3/uL [facility] NRBC Abs Auto 0.000 0.0 - 0.012 X10*3/uL [facility] 03/27/2025 10:4 1 AM EST 03/27/2025 10:45 AM EST us Generic External Data Provider LAB BLOOD ORDERAB LES Final Result [facility] [address] [place] [phone] documented in this encounter Visit Diagnoses Not on filedocumented in this encounter Additional Health Concerns Assessment Noted Time PHQ-9 Depression Total Score: 18 025 9:45 AM EDT documented as of this encounter Care Teams Window Cutter Relationship Specialty Start Date End Date Mer Hughes MD [address] [place] [address] PCP - General Family Medicine 05/23/18 Kel Barrett MD [address] [place] [address] Pain Medicine 04/17/24 Jace Wright MD [address] [place] [address] Otolaryngology 04/25/24 Keanu Escobar MD [address] [place] [address] Pulmonary Disease 06/05/24 documented as of this encounter
--- OUTSIDE RECORDS SUMMARY | 2025-03-27 11:45 | XMS_ITS | Encounter Summary ---
Author Organization [employer] Address 75 [facility] 7t [place] [address] Care Team Providers Care Automatic Head Sawyer Name Role Phone Mer Hughes MD Primary Care Provider [phone]- [phone] Kel Barrett MD Unavailable Jace Wright MD Unavailable [phone] Keanu Escobar MD Unavailable [phone] Reason for Visit * Reason Onset Date Comments Med Refill 08/18/2022 Encounter Details Date Type Department Care Team (Late st Contact Info) Description 08/18/2022 Refill [facility] 230 [place], [place] [phone] Mer Hughes MD 230 [place] [address] Failed back syndrome Social History Tobacco Use [...] MG 12 hr tablet Please sen to [facility]/pharmacy #[id number] [place], [place] - [address] [place] [address] documented in this encounter Plan of Treatment Upcoming Encounters Date Type Department Care Team (Late st Contact Info) Description 04/25/2025 9:15 AM EST Office Visit [address] [address] Mer Hughes MD [address] [place] [address] 05/10/2025 9:30 AM EST Clinical Support [address] [address] Cassie Arias, PAT 505 [place], [place] [phone] documented as of this encounter Visit Diagnoses Diagnosis 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 documented in this encounter Additional Health Concerns Assessment Noted Time PHQ-9 Depression Total Score: 12 023 9:31 AM EST documented as of this encounter Care Teams Automatic Head Sawyer Relationship Specialty Start Date End Date Mer Hughes MD [address] [place] [address] PCP - General Family Medicine 05/23/18 Kel Barrett MD 10 [facility] [address] [place] [address] Pain Medicine 04/17/24 Jace Wright MD [address] [place] [address] Otolaryngology 04/25/24 Keanu Escobar MD 5 [place] [address] Pulmonary Disease 06/05/24 documented as of this encounter
--- OUTSIDE RECORDS SUMMARY | 2025-03-27 11:45 | XMS_ITS | Encounter Summary ---
Author Organization [employer] Address 75 [facility] 7t [place] [address] Care Team Providers Care Rag Inspector Name Role Phone Mer Hughes MD Primary Care Provider [phone]- [phone] Kel Barrett MD Unavailable Jace Wright MD Unavailable [phone] Keanu Escobar MD Unavailable [phone] Reason for Visit * Reason Onset Date Comments Inactive medication 02/14/2023 Encounter Details Date Type Department Care Team (Late st Contact Info) Description 02/14/2023 Telephone [facility] 230 [place] [address] Mer Hughes MD 230 [place] [address] Inactive medication Social History Tobacco Use Types [...] Description 04/25/2025 9:15 AM EST Office Visit [address] [address] Mer Hughes MD [address] [place] [address] 05/10/2025 9:30 AM EST Clinical Support [address] [address] Cassie Arias, PAT 505 [place], [place] [phone] documented as of this encounter Visit Diagnoses Not on filedocumented in this encounter Additional Health Concerns Assessment Noted Time PHQ-9 Depression Total Score: 12 023 9:22 AM EDT documented as of this encounter Care Teams Rag Inspector Relationship Specialty Start Date End Date Mer Hughes MD [address] [place] [address] PCP - General Family Medicine 05/23/18 Kel Barrett MD 10 [facility] [address] [place] [address] Pain Medicine 04/17/24 Jace Wright MD [address] [place] [address] Otolaryngology 04/25/24 Keanu Escobar MD [address] [place] [address] Pulmonary Disease 06/05/24 documented as of this encounter
--- OUTSIDE RECORDS SUMMARY | 2025-03-27 11:45 | XMS_ITS | Encounter Summary ---
Author Organization [employer] Address 75 [facility] 7t [place] [address] Care Team Providers Care Cashier Self Service Gasoline Name Role Phone Mer Hughes MD Primary Care Provider [phone]- [phone] Kel Barrett MD Unavailable Jace Wright MD Unavailable [phone] Keanu Escobar MD Unavailable [phone] Reason for Visit * Reason Onset Date Comments Referral 12/05/2023 Encounter Details Date Type Department Care Team (Late st Contact Info) Description 12/05/2023 Telephone [facility] 230 [place], [place] [phone] Mer Hughes MD 230 [place], [place] [phone] Referral Social History Tobacco Use Types Packs/Day [...] is not helping and [facility] [...] daughter requesting status on Orthopedics referral stating [facility] not [place] referral. Please contact Daughter at [phone]. Danish Speaker documented in this encounter Plan of Treatment Upcoming Encounters Date Type Department Care Team (Late st Contact Info) Description 04/25/2025 9:15 AM EST Office Visit [facility] [address] [place] [address] Mer Hughes MD 230 [place] [address] 05/10/2025 9:30 AM EST Clinical Support [facility] 230 [place] [address] Cassie Arias, RN 505 [place] [address] documented as of this encounter Visit Diagnoses Not on filedocumented in this encounter Additional Health Concerns Assessment Noted Time PHQ-9 Depression Total Score: 4 11/30/19 24 11:34 AM EDT documented as of this encounter Care Teams Cashier Self Service Gasoline Relationship Specialty Start Date End Date Mer Hughes MD 230 [place] [address] PCP - General Family Medicine 05/23/18 Kel Barrett MD 10 [facility] [address] [place] [address] Pain Medicine 04/17/24 Jace Wright MD [address] [place] [address] Otolaryngology 04/25/24 Keanu Escobar MD [address] [place] [address] Pulmonary Disease 06/05/24 documented as of this encounter
--- OUTSIDE RECORDS SUMMARY | 2025-03-27 11:45 | XMS_ITS | Encounter Summary ---
Author Organization [employer] Address 75 [facility] 7t [place] [address] Care Team Providers Care Drawer In Name Role Phone Mer Hughes MD Primary Care Provider [phone]- [phone] Kel Barrett MD Unavailable Jace Wright MD Unavailable [phone] Keanu Escobar MD Unavailable [phone] Reason for Visit * Reason Onset Date Comments Med Refill 04/30/2024 Encounter Details Date Type Department Care Team (Late st Contact Info) Description 04/30/2024 Telephone [facility] 230 [place], [place] [phone] Mer Hughes MD 230 [place] [address] Med Refill Social History Tobacco Use Types [...] 9:04 AM EST Medication was sent to [facility] #[id number] on 03/12/24 with 1 refill. * Telephone Encounter - David Mccullough - 04/30/2024 8:50 AM EST TC from pt requesting medication refill. Medications needing refill : albuterol 108 (90 Base) MCG/ACT inhaler To be sent to: [facility]/pharmacy #[id number] - [place], [place] - [address] [place] [address] documented in this encounter Plan of Treatment Upcoming Encounters Date Type Department Care Team (Late st Contact Info) Description 04/25/2025 9:15 AM EST Office Visit [facility] 230 [place] [address] Mer Hughes MD 230 [place], [place] [phone] 05/10/2025 9:30 AM EST Clinical Support [facility] 230 [place] [address] Cassie Arias, PAT 505 [place] [address] documented as of this encounter Visit Diagnoses Not on filedocumented in this encounter Additional Health Concerns Assessment Noted Time PHQ-9 Depression Total Score: 0 02/23/20 10:38 AM EDT documented as of this encounter Care Teams Drawer In Relationship Specialty Start Date End Date Mer Hughes MD 230 [place] [address] PCP - General Family Medicine 05/23/18 Kel Barrett MD [address] [address] Pain Medicine 04/17/24 Jace Wright MD [address] [place] [address] Otolaryngology 04/25/24 Keanu Escobar MD [address] [place] [address] Pulmonary Disease 06/05/24 documented as of this encounter
--- OUTSIDE RECORDS SUMMARY | 2025-03-27 11:45 | XMS_ITS | Encounter Summary ---
Author Organization [employer] Address 75 [facility] 7t [place] [address] Care Team Providers Care Associate Counsel Name Role Phone Mer Hughes MD Primary Care Provider [phone]- [phone] Kel Barrett MD Unavailable Jace Wright MD Unavailable [phone] Keanu Escobar MD Unavailable [phone] Reason for Visit * Reason Onset Date Comments Med Refill 12/19/2023 Encounter Details Date Type Department Care Team (Late st Contact Info) Description 12/19/[address] [facility] 230 [place], [place] [phone] Mer Hughes MD 230 [place] [address] Med Refill Social History Tobacco Use Types [...] 12 hr tablet To be sent to: [facility]/pharmacy #[address] [place] [address] - [address] [place] [address] documented in this encounter Plan of Treatment Upcoming Encounters Date Type Department Care Team ([facility] st Contact Info) Description 04/25/2025 9:15 AM EST Office Visit [facility] [address] [place] [address] Mer Hughes MD 230 [place] [address] 05/10/2025 9:30 AM EST Clinical Support [facility] [address] [place] [address] Cassie Arias RN 505 [place] [address] documented as of this encounter Visit Diagnoses Not on filedocumented in this encounter Additional Health Concerns Assessment Noted Time PHQ-9 Depression Total Score: 4 11/30/19 24 11:34 AM EDT documented as of this encounter Care Teams Associate Counsel Relationship Specialty Start Date End Date Mer Hughes MD [address] [place] [address] PCP - General Family Medicine 05/23/18 Kel Barrett MD [address] [place] [address] Pain Medicine 04/17/24 Jace Wright MD [address] [place] [address] Otolaryngology 04/25/24 Keanu Escobar MD [address] [place] [address] Pulmonary Disease 06/05/24 documented as of this encounter
--- OUTSIDE RECORDS SUMMARY | 2025-03-27 11:45 | XMS_ITS | Encounter Summary ---
Author Organization [email or web address] Address 75 [facility] 7t [place] [address] Care Team Providers Care Grinder Set Up Operator Thread Name Role Phone Mer Hughes MD Primary Care Provider [phone]- [phone] Kel Barrett MD Unavailable Jace Wright MD Unavailable [phone] Keanu Escobar MD Unavailable [phone] Reason for Visit * Reason Onset Date Comments Medication Question 10/20/2023 Encounter Details Date Type Department Care Team (Late st Contact Info) Description 10/20/2023 Telephone [facility] MEDICINE [address] [place], [place] [phone] Mer Hughes MD 230 [place] [address] Medication Question Social History Tobacco Use Types [...] Description 04/25/2025 9:15 AM EST Office Visit [address] [address] Mer Hughes MD [address] [place] [address] 05/10/2025 9:30 AM EST Clinical Support [facility] MEDICINE [address] [place] [address] Cassie Arias RN 505 [place] [address] documented as of this encounter Visit Diagnoses Not on filedocumented in this encounter Additional Health Concerns Assessment Noted Time PHQ-9 Depression Total Score: 12 023 9:22 AM EDT documented as of this encounter Care Teams Grinder Set Up Operator Thread Relationship Specialty Start Date End Date Mer Hughes MD [address] [place] [address] PCP - General Family Medicine 05/23/18 Kel Barrett MD 10 [facility] [address] [place] [address] Pain Medicine 04/17/24 Jace Wright MD [address] [place] [address] Otolaryngology 04/25/24 Keanu Escobar MD [address] [place] [address] Pulmonary Disease 06/05/24 documented as of this encounter
--- OUTSIDE RECORDS SUMMARY | 2025-03-27 11:45 | XMS_ITS | Encounter Summary ---
Author Organization [employer] Address 75 [facility] 7t [place] [address] Care Team Providers Care Estimating Engineer Name Role Phone Mer Hughes MD Primary Care Provider [phone]- [phone] Kel Barrett MD Unavailable Jace Wright MD Unavailable [phone] Keanu Escobar MD Unavailable [phone] Reason for Visit * Reason Comments Med Change Request Encounter Details Date Type Department Care Team (Late st Contact Info) Description 10/20/2023 Refill [facility] MEDICINE [address] [place], [place] [phone] Inessa Rangel MD 230 [place], [place] [phone] Other sprain of left shoulder joint, subsequent [...] Description 04/25/2025 9:15 AM EST Office Visit [address] [address] Mer Hughes MD [address] [place] [address] 05/10/2025 9:30 AM EST Clinical Support [address] [address] Cassie Arias, PAT 505 [place] [address] documented as of this encounter Visit Diagnoses Diagnosis Other sprain of left shoulder joint, subsequent encounter documented in this encounter Additional Health Concerns Assessment Noted Time PHQ-9 Depression Total Score: 12 023 9:22 AM EDT documented as of this encounter Care Teams Estimating Engineer Relationship Specialty Start Date End Date Mer Hughes MD [address] [place] [address] PCP - General Family Medicine 05/23/18 Kel Barrett MD 10 [facility] [address] [place] [address] Pain Medicine 04/17/24 Jace Wright MD [address] [place] [address] Otolaryngology 04/25/24 Keanu Escobar MD [address] [place] [address] Pulmonary Disease 06/05/24 documented as of this encounter
--- OUTSIDE RECORDS SUMMARY | 2025-03-27 11:45 | XMS_ITS | Encounter Summary ---
Author Organization [employer] Address 75 [facility] 7t [place] [address] Care Team Providers Care Rn Progressive Care Name Role Phone Mer Hughes MD Primary Care Provider [phone]- [phone] Kel Barertt MD Unavailable Jace Wright MD Unavailable [phone] Keanu Escobar MD Unavailable [phone] Reason for Visit * Reason Onset Date Comments Med Refill 11/28/2023 Encounter Details Date Type Department Care Team (Late st Contact Info) Description 11/28/2023 Telephone [facility] MEDICINE 230 [place], [place] [phone] Mer Hughes MD 230 [place] [address] Med Refill Social History Tobacco Use Types [...] 2 MG tablet To be sent to: [facility]/pharmacy #[id number] [place] [address] documented in this encounter Plan of Treatment Upcoming Encounters Date Type Department Care Team (Late st Contact Info) Description 04/25/2025 9:15 AM EST Office Visit [facility] MEDICINE [address] [place] [address] Mer Hughes MD [address] [place] [address] 05/10/2025 9:30 AM EST Clinical Support [address] [address] Cassie Arias RN [address] [place] [address] documented as of this encounter Visit Diagnoses Not on filedocumented in this encounter Additional Health Concerns Assessment Noted Time PHQ-9 Depression Total Score: 12 023 9:22 AM EDT documented as of this encounter Care Teams Rn Progressive Care Relationship Specialty Start Date End Date Mer Hughes MD [address] [place] [address] PCP - General Family Medicine 05/23/18 Kel Barrett MD [address] [place] [address] Pain Medicine 04/17/24 Jace Wright MD [address] [place] [address] Otolaryngology 04/25/24 Keanu Escobar MD [address] [place] [address] Pulmonary Disease 06/05/24 documented as of this encounter
--- OUTSIDE RECORDS SUMMARY | 2025-03-27 11:45 | XMS_ITS | Encounter Summary ---
Author Organization [employer] Address 75 [facility] 7t [place] [address] Care Team Providers Care Out Patient Therapist Name Role Phone Mer Hughes MD Primary Care Provider [phone]- [phone] Kel Barrett MD Unavailable Jace Wright MD Unavailable [phone] Keanu Escobar MD Unavailable [phone] Reason for Visit * Reason Onset Date Comments medication refill 05/25/2024 Encounter Details Date Type Department Care Team (Late st Contact Info) Description 05/25/2024 Telephone [facility] MEDICINE 230 [place], [place] [phone] Mer Hughes MD 230 [place] [address] medication refill Social History Tobacco Use Types [...] Description 04/25/2025 9:15 AM EST Office Visit [facility] MEDICINE [address] [place] [address] Mer Hughes MD [address] [place] [address] 05/10/2025 9:30 AM EST Clinical Support [address] [address] Cassie Arias RN 505 [place] [address] documented as of this encounter Visit Diagnoses Diagnosis Chronic anxiety Anxiety state, unspecified documented in this encounter Additional Health Concerns Assessment Noted Time PHQ-9 Depression Total Score: 0 02/23/20 10:38 AM EDT documented as of this encounter Care Teams Out Patient Therapist Relationship Specialty Start Date End Date Mer Hughes MD [address] [place] [address] PCP - General Family Medicine 05/23/18 Kel Barrett MD [address] [address] Pain Medicine 04/17/24 Jace Wright MD [address] [place] [address] Otolaryngology 04/25/24 Keanu Escobar MD [address] [place] [address] Pulmonary Disease 06/05/24 documented as of this encounter
--- OUTSIDE RECORDS SUMMARY | 2025-03-27 11:45 | XMS_ITS | Encounter Summary ---
Author Organization [email or web address] Address [address] [facility] [address] 7t [place] [address] Care Team Providers Care Truck Rental Clerk Name Role Phone Mer Hughes MD Primary Care Provider [phone]- [phone] Kel Barrett MD Unavailable Jace Wright MD Unavailable [phone] Keanu Escobar MD Unavailable [phone] Reason for Visit * Reason Onset Date Comments Med Refill 04/12/2023 Encounter Details Date Type Department Care Team (Late st Contact Info) Description 04/12/2023 Telephone [facility] MEDICINE 230 [place], [place] [phone] Mer Hughes MD 230 [place] [address] Med Refill Social History Tobacco Use Types [...] 12 hr tablet to be sent to [facility]/pharmacy #[id number] [place] [address] - [address] [place] [address] documented in this encounter Plan of Treatment Upcoming Encounters Date Type Department Care Team (Late st Contact Info) Description 04/25/2025 9:15 AM EST Office Visit [facility] MEDICINE [address] [place] [address] Mer Hughes MD [address] [place] [address] 05/10/2025 9:30 AM EST Clinical Support [facility] MEDICINE [address] [place] [address] Cassie Arias RN 505 [place] [address] documented as of this encounter Visit Diagnoses Not on filedocumented in this encounter Additional Health Concerns Assessment Noted Time PHQ-9 Depression Total Score: 12 023 9:22 AM EDT documented as of this encounter Care Teams Truck Rental Clerk Relationship Specialty Start Date End Date Mer Hughes MD [address] [place] [address] PCP - General Family Medicine 05/23/18 Kel Barrett MD 10 [facility] [address] [place] [address] Pain Medicine 04/17/24 Jace Wright MD [address] [place] [address] Otolaryngology 04/25/24 Keanu Escobar MD [address] [place] [address] Pulmonary Disease 06/05/24 documented as of this encounter
--- OUTSIDE RECORDS SUMMARY | 2025-03-27 11:45 | XMS_ITS | Encounter Summary ---
Author Organization [employer] Address 75 [facility] 7t [place] [address] Care Team Providers Care Associate Pathologist Name Role Phone Mer Hughes MD Primary Care Provider [phone]- [phone] Kel Barrett MD Unavailable Jace Wright MD Unavailable [phone] Keanu Escobar MD Unavailable [phone] Reason for Visit * Reason Onset Date Comments Med Refill 10/31/2023 Encounter Details Date Type Department Care Team (Late st Contact Info) Description 10/31/2023 Telephone [facility] MEDICINE 230 [place], [place] [phone] Mer Hughes MD 230 [place] [address] Med Refill Social History Tobacco Use Types [...] dated 10/21/23 for lung cancer screening at [facility] recommends 3 month followup. Please ask [facility] lung cancer screenin gprogram if we place the order or do thy? Thank you. CT ASSESSMENT 10/21/23 RECOMMENDATION: A 3-month follow up low-dose lung CT scan is recommended. An order for CT LUNG CANCER SCREENING SHORT INTERVAL FOLLOWUP ([id number]) can be placed. * Telephone Encounter - Sarah Blair - 10/31/2023 10:29 AM EDT TC from pt requesting medication refill. Medications needing refill : ALPRAZolam (Xanax) 2 MG tablet To be sent to: [facility]/pharmacy #[id number] [place], [place] - [address] [place] [address] documented in this encounter Plan of Treatment Upcoming Encounters Date Type Department Care Team ([facility] st Contact Info) Description 04/25/2025 9:15 AM EST Office Visit [facility] MEDICINE [address] [place] [address] Mer Hughes MD 230 [place] [address] 05/10/2025 9:30 AM EST Clinical Support [facility] MEDICINE 230 [place] [address] Cassie Arias, RN 505 [place] [address] documented as of this encounter Visit Diagnoses Not on filedocumented in this encounter Additional Health Concerns Assessment Noted Time PHQ-9 Depression Total Score: 12 023 9:22 AM EDT documented as of this encounter Care Teams Associate Pathologist Relationship Specialty Start Date End Date Mer Hughes MD 230 [place] [address] PCP - General Family Medicine 05/23/18 Kel Barrett MD [address] [address] Pain Medicine 04/17/24 Jaec Wright MD [address] [place] [address] Otolaryngology 04/25/24 Keanu Escobar MD [address] [place] [address] Pulmonary Disease 06/05/24 documented as of this encounter
--- OUTSIDE RECORDS SUMMARY | 2025-03-27 11:45 | XMS_ITS | Encounter Summary ---
Author Organization [employer] Address [address] [facility] [address] 7t [place] [address] Care Team Providers Care Rail Engineer Name Role Phone Mer Hughse MD Primary Care Provider [phone] Kel Barrett MD Unavailable Jace Wright MD Unavailable [phone] Keanu Escobar MD Unavailable [phone] Reason for Visit * Reason Onset Date Comments Reschedule 06/27/2023 Encounter Details Date Type Department Care Team (Late st Contact Info) Description 06/27/2023 Telephone [facility] MEDICINE 230 [place], [place] [phone] Mer Hughes MD 230 [place] [address] Reschedule Social History Tobacco Use Types Packs/Day [...] from pt daughter requesting to r/s / [employer]CHER appointment. Please contact daughter at [phone] documented in this encounter Plan of Treatment Upcoming Encounters Date Type Department Care Team (Late st Contact Info) Description 04/25/2025 9:15 AM EST Office Visit [address] [address] Mer Hughes MD [address] [place] [address] 05/10/2025 9:30 AM EST Clinical Support [address] [address] Cassie Arias, PAT 505 [place] [address] documented as of this encounter Visit Diagnoses Not on filedocumented in this encounter Additional Health Concerns Assessment Noted Time PHQ-9 Depression Total Score: 12 023 9:22 AM EDT documented as of this encounter Care Teams Rail Engineer Relationship Specialty Start Date End Date Mer Hughes MD [address] [place] [address] PCP - General Family Medicine 1/1/19 Kel Barrett MD [address] [facility] [address] [place], [place] [phone] Pain Medicine 04/17/24 Jace Wright MD [address] [place] [address] Otolaryngology 04/25/24 Keanu Escobar MD [address] [place] [address] Pulmonary Disease 06/05/24 documented as of this encounter
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
--- OUTSIDE RECORDS SUMMARY | 2025-03-27 11:45 | XMS_ITS | Encounter Summary ---
Author Organization [employer] Address [address] [facility] 7t [place] [address] Care Team Providers Care Settlement Worker Name Role Phone Mer Hughes MD Primary Care Provider [phone] Kel Barrett MD Unavailable Jace Wright MD Unavailable [phone] Keanu Escobar MD Unavailable [phone] Reason for Visit * Reason Onset Date Comments call back 07/13/2022 Encounter Details Date Type Department Care Team (Late st Contact Info) Description 07/13/2022 Telephone [facility] [address] [place] [address] Mer Hughes MD [address] [place] [address] call back Social History Tobacco Use Types [...] a call back. Please contact pt at [phone] documented in this encounter Plan of Treatment Upcoming Encounters Date Type Department Care Team (Late st Contact Info) Description 04/25/2025 9:15 AM EST Office Visit [address] [address] Mer Hughes MD [address] [place] [address] 05/10/2025 9:30 AM EST Clinical Support [address] [address] Cassie Arias RN [address] [place] [address] documented as of this encounter Visit Diagnoses Not on filedocumented in this encounter Additional Health Concerns Assessment Noted Time PHQ-9 Depression Total Score: 12 023 9:31 AM EST documented as of this encounter Care Teams Settlement Worker Relationship Specialty Start Date End Date Mer Hughes MD [address] [place] [address] PCP - General Family Medicine 05/23/18 Kel Barrett MD [address] [address] Pain Medicine 04/17/24 Jace Wright MD [address] [place] [address] Otolaryngology 04/25/24 eKanu Escobar MD [address] [place] [address] Pulmonary Disease 06/05/24 documented as of this encounter
--- OUTSIDE RECORDS SUMMARY | 2025-03-27 11:46 | XMS_ITS | Encounter Summary ---
Author Organization [employer] Address [address] [facility] 7t [place] [address] Care Team Providers Care Carrier Blower Name Role Phone Mer Hughes MD Primary Care Provider [phone] Kel Barrett MD Unavailable Jace Wright MD Unavailable [phone] Keanu Escobar MD Unavailable [phone] Reason for Referral * Imaging (Routine) - Closed Specialty Diagnoses / Procedures Referred By Contac t Referred To Contact Diagnoses Transaminitis Procedures US Abdomen Complete Mer Hughes MD [address] [place] [address] Phone: tel: fax: [address] Phone: tel: fax: Referral ID Status Reason Start Date Expiration Date Visits Re quested Visits Authorized [id number] Closed 09/16/2022 03/15/2023 1 1 Encounter Details Date Type Department Care Team (Late st Contact Info) Description 09/16/2022 Orders Only [facility] [address] [place] [address] [phone] Mer Hughes MD [address] [place] [address] [phone] Transaminitis (Primary Dx) Social History Tobacco Use [...] Description 04/25/2025 9:15 AM EST Office Visit [address] [address] Mer Hughes MD [address] [place] [address] 05/10/2025 9:30 AM EST Clinical Support [address] [address] Cassie Arias, PAT [address] [place], [place] [phone] Scheduled Orders Name Type Priority Associated Diagnoses [...] AM EDT Narrative 10/12/2022 11:20 AM EDT [address] [address] Ultrasound Report Signed Patient: Ozzy Lama MR#: [id number] 78 : 1950 Acct:[id number] Age/Sex: 71 / M ADM Date: 10/08/22 Loc: HO.US Attending Dr: Mer Hughes MD Ordering Physician: Mer Hughes MD Date of Service: 10/08/22 Procedure(s): US abdomen complete Accession Number(s): [id number] cc: Mer Hughes MD EXAMINATION: US ABDOMEN [...] in OV> 10/12/22 1118 DD/ 0846 TD/TT: Stitcher Set Up Operator Automatic: PAPITO Procedure Note Donotuseinterpreter, Image - 10/12/[address] [address] Ultrasound Report Signed Patient: Lul Lama#: [id number] 78 : 1950cct:[id number] Age/Sex: 71 / MADM Date: 10/08/22 Loc: HO.US Attending Dr: Mer Hughes MD Ordering Physician: Mer Hughes MD Date of Service: 10/08/22 Procedure(s): US abdomen complete Accession Number(s): [id number] cc: Mer Hughes MD EXAMINATION: US ABDOMEN [...] in OV> 10/12/22 1118 DD/ 0846 TD/TT: Stitcher Set Up Operator Automatic: PAPITO [facility] External Provider IMG US PROCEDURES Final Result documented in this encounter Visit Diagnoses Diagnosis Transaminitis- Primary Nonspecific elevation of levels of transaminase or lactic acid dehydrogenase (LDH) documented in this encounter Additional Health Concerns Assessment Noted Time PHQ-9 Depression Total Score: 12 023 9:31 AM EST documented as of this encounter Care Teams Carrier Blower Relationship Specialty Start Date End Date Mer Hughes MD [address] [place] [address] PCP - General Family Medicine 05/23/18 Kel Barrett MD [address] [place] [address] Pain Medicine 04/17/24 Jace Wright MD [address] [place] [address] Otolaryngology 04/25/24 Keanu Escobar MD [address] [place] [address] Pulmonary Disease 06/05/24 documented as of this encounter
--- OUTSIDE RECORDS SUMMARY | 2025-03-27 11:46 | XMS_ITS | Patient Health Record ---
Author Organization [facility] Address [address] [place] [address] Care Team Providers Care Air Hose Coupler Name Role Phone Tay Lobo Jr Reason For Referral No Information Plan Of Treatment No Information
--- OUTSIDE RECORDS SUMMARY | 2025-03-27 11:46 | XMS_ITS | Encounter Summary ---
Author Organization [employer] Address [address] [facility] 7t [place] [address] Care Team Providers Care Lap Machine Operator Name Role Phone Mer Hughes MD Primary Care Provider [phone] Kel Barrett MD Unavailable Jace Wright MD Unavailable [phone] Keanu Escobar MD Unavailable [phone] Reason for Visit * Reason Onset Date Comments Med Refill 01/25/2024 Encounter Details Date Type Department Care Team (Late st Contact Info) Description 01/25/2024 Telephone [facility] [address] [place], [place] [phone] Mer Hughes MD [address] [place] [address] Med Refill Social History Tobacco Use Types [...] 2 MG tablet To be sent to: [facility]/pharmacy #[id number] [place] [address] documented in this encounter Plan of Treatment Upcoming Encounters Date Type Department Care Team (Late st Contact Info) Description 04/25/2025 9:15 AM EST Office Visit [facility] [address] [place] [address] Mer Hughes MD [address] [place] [address] 05/10/2025 9:30 AM EST Clinical Support [facility] [address] [place] [address] Cassie Arias RN [address] [place] [address] documented as of this encounter Visit Diagnoses Not on filedocumented in this encounter Additional Health Concerns Assessment Noted Time PHQ-9 Depression Total Score: 4 11/30/19 24 11:34 AM EDT documented as of this encounter Care Teams Lap Machine Operator Relationship Specialty Start Date End Date Mer Hughes MD [address] [place] [address] PCP - General Family Medicine 05/23/18 Kel Barrett MD [address] [place] [address] Pain Medicine 04/17/24 Jace Wright MD [address] [place] [address] Otolaryngology 04/25/24 Keanu Escobar MD [address] [place] [address] Pulmonary Disease 06/05/24 documented as of this encounter
[2025-03-27] MEDS: iohexoL 350 MG/ML 100 ML INFUS..BTL IV (12:15)
[2025-03-27 14:23] VITALS: BP 137/81; PULSE 78; RESP 15; TEMP 36.9; O2SAT 97
== END 2025-03-27 14:51 | disposition home or self-care (01) ==
PROVIDERS: Emergency Provider Emergency Medicine
DX: R10.84 Generalized abdominal pain (principal); R11.2 Nausea with vomiting, unspecified; R42 Dizziness and giddiness; R53.1 Weakness; R07.9 Chest pain, unspecified; J45.909 Unspecified asthma, uncomplicated; Z87.891 Personal history of nicotine dependence
CPT/HCPCS: 36415; 74177; 80053; 83690; 84484; 85025; 93005; 99285; J1308; J2405; J3360; Q9967

== ENCOUNTER → 2025-03-27 10:08 | Outpatient (BNV) | payer MEDICARE, MEDICAID, SELFPAY | PROVIDERS: Emergency Provider Emergency Medicine; Visit Provider Internal Medicine Cardiovascular Disease | DX: R53.1 Weakness (principal) | CPT/HCPCS: 93010 ==

== ENCOUNTER → 2025-03-27 10:22 | Outpatient (BNV) | payer MEDICARE, MEDICAID, SELFPAY | PROVIDERS: Emergency Provider Emergency Medicine; Visit Provider Radiology Diagnostic Ultrasound | DX: K76.0 Fatty (change of) liver, not elsewhere classified (principal); N40.0 Benign prostatic hyperplasia without lower urinary tract symptoms | CPT/HCPCS: 74177 ==